=== PATIENT | female | born 1940 | race Caucasian/White ===

== ENCOUNTER → 2017-08-07 13:28 | Outpatient (CLI) | payer MEDICARE, SELFPAY ==
[2017-08-07 14:33] LABS: Absolute Lymphocyte Count 0.91 X10^3/ul (0.83-4.51); Absolute Neutrophil Count 9.8 X10^3/uL (2.0-7.7); Basophil# 0.03 X10^3/uL; Basophil% 0.3 % (0-1); Eosinophil# 0.05 X10^3/uL; Eosinophils% 0.4 % (0-5); Hematocrit 40.6 % (37-47); Hemoglobin 13.2 g/dl (12.0-15.0); Lymphocyte # 0.91 X10^3/ul (4.0); Lymphocyte % 8.1 % (19-41); Mean Corp Hgb Conc 32.5 g/gl (32-36); Mean Corpuscular Hgb 32.5 pg (27.0-32.0); Mean Platelet Vol. 9.2 fl (6.2-12.0); Monocyte# 0.42 X10^3/uL; Monocyte% 3.8 % (0-10); Neutrophil # 9.78 X10^3/uL (2.7-7.7); Neutrophil % 87.3 % (47-70); Platelet Count 248 K/mm3 (150-450); RBC Distribution Width CV 15.5 % (11.6-14.6); RBC Distribution Width SD 53.7 fl (35.1-43.9); Red Blood Count 4.06 M/mm3 (4.2-5.4); White Blood Count 11.2 K/mm3 (4.4-11.0)
[2017-08-07 14:56] LABS: AST(SGOT) 38 U/L (15-37); Alanine Aminotransfer ALT/SGPT 86 U/L (13-56); Albumin, Serum 3.7 g/dL (3.2-5.0); Alkaline Phosphatase 83 U/L (45-117); Anion Gap 10 (5-15); BUN 22 mg/dL (7-18); Calcium,Total 9.1 mg/dL (8.5-10.1); Chloride 103 mmol/L (98-107); EST Glomerular Filtration Rate 51 mL/min (>60); Est Glom Filt Rate - Afr Amer 62 mL/min (>60); Globulin 3.7 g/dL (2.2-4.2); Glucose 91 mg/dL (74-106); Potassium 3.7 mmol/L (3.5-5.1); Protein, Total 7.4 g/dL (6.4-8.2); Sodium Level 140 mmol/L (136-145)
[2017-08-07 15:49] LABS: POSITIVE COUNT NO; POSITIVE DIFFERENTIAL NO; POSITIVE MORPHOLOGY NO
== END ==
PROVIDERS: Family Provider Internal Medicine; PCP Internal Medicine; Visit Provider Internal Medicine Rheumatology
DX: M06.4 Inflammatory polyarthropathy (principal); Z79.899 Other long term (current) drug therapy; M15.9 Polyosteoarthritis, unspecified; M47.897 Other spondylosis, lumbosacral region; K57.90 Diverticulosis of intestine, part unspecified, without perforation or abscess without bleeding; I10 Essential (primary) hypertension; E78.5 Hyperlipidemia, unspecified
CPT/HCPCS: 36415; 80053; 85025

== ENCOUNTER → 2017-09-10 15:09 | Outpatient (CLI) | payer MEDICARE, SELFPAY ==
[2017-09-10 16:29] LABS: Absolute Lymphocyte Count 0.87 X10^3/ul (0.83-4.51); Absolute Neutrophil Count 15.9 X10^3/uL (2.0-7.7); Basophil# 0.02 X10^3/uL; Basophil% 0.1 % (0-1); Eosinophil# 0.03 X10^3/uL; Eosinophils% 0.2 % (0-5); Hematocrit 43.1 % (37-47); Lymphocyte # 0.87 X10^3/ul (4.0); Lymphocyte % 5.1 % (19-41); Mean Corp Hgb Conc 32.5 g/gl (32-36); Mean Corpuscular Hgb 31.3 pg (27.0-32.0); Mean Corpuscular Volume 96.4 fL (81-99); Mean Platelet Vol. 9.7 fl (6.2-12.0); Monocyte# 0.24 X10^3/uL; Monocyte% 1.4 % (0-10); Neutrophil # 15.94 X10^3/uL (2.7-7.7); Platelet Count 231 K/mm3 (150-450); RBC Distribution Width CV 13.8 % (11.6-14.6); RBC Distribution Width SD 47.7 fl (35.1-43.9); Red Blood Count 4.47 M/mm3 (4.2-5.4); White Blood Count 17.1 K/mm3 (4.4-11.0)
[2017-09-10 16:30] LABS: POSITIVE COUNT NO; POSITIVE DIFFERENTIAL NO; POSITIVE MORPHOLOGY NO
[2017-09-10 16:53] LABS: AST(SGOT) 23 U/L (15-37); Alanine Aminotransfer ALT/SGPT 20 U/L (13-56); Albumin, Serum 3.8 g/dL (3.2-5.0); Alkaline Phosphatase 93 U/L (45-117); Anion Gap 11 (5-15); BUN 25 mg/dL (7-18); BUN/Creat Ratio 17.1 RATIO (10-20); Calcium,Total 9.3 mg/dL (8.5-10.1); Chloride 104 mmol/L (98-107); Creatinine, Serum 1.46 mg/dL (0.55-1.02); EST Glomerular Filtration Rate 37 mL/min (>60); Est Glom Filt Rate - Afr Amer 45 mL/min (>60); Globulin 3.8 g/dL (2.2-4.2); Glucose 140 mg/dL (74-106); Potassium 3.9 mmol/L (3.5-5.1); Protein, Total 7.6 g/dL (6.4-8.2); Sodium Level 141 mmol/L (136-145)
== END ==
PROVIDERS: Family Provider Internal Medicine; PCP Internal Medicine; Visit Provider Internal Medicine Rheumatology
DX: M06.4 Inflammatory polyarthropathy (principal); Z79.899 Other long term (current) drug therapy; M47.897 Other spondylosis, lumbosacral region; K57.90 Diverticulosis of intestine, part unspecified, without perforation or abscess without bleeding; I10 Essential (primary) hypertension; E78.5 Hyperlipidemia, unspecified
CPT/HCPCS: 36415; 80053; 85025

== ENCOUNTER → 2017-11-09 13:20 | Outpatient (CLI) | payer MEDICARE, SELFPAY ==
[2017-11-09 13:52] LABS: ALB/GLOB Ratio 0.9 RATIO (0.9-2.4); AST(SGOT) 31 U/L (15-37); Alanine Aminotransfer ALT/SGPT 25 U/L (13-56); Albumin, Serum 3.7 g/dL (3.2-5.0); Alkaline Phosphatase 106 U/L (45-117); Anion Gap 7 (5-15); BUN 15 mg/dL (7-18); BUN/Creat Ratio 12.4 RATIO (10-20); Calcium,Total 9.3 mg/dL (8.5-10.1); Chloride 103 mmol/L (98-107); Creatinine, Serum 1.21 mg/dL (0.55-1.02); EST Glomerular Filtration Rate 46 mL/min (>60); Est Glom Filt Rate - Afr Amer 56 mL/min (>60); Globulin 4.1 g/dL (2.2-4.2); Glucose 86 mg/dL (74-106); Potassium 3.8 mmol/L (3.5-5.1); Protein, Total 7.8 g/dL (6.4-8.2); Sodium Level 137 mmol/L (136-145)
[2017-11-09 13:54] LABS: Absolute Lymphocyte Count 0.99 X10^3/ul (0.83-4.51); Basophil# 0.04 X10^3/uL; Basophil% 0.7 % (0-1); Eosinophil# 0.06 X10^3/uL; Eosinophils% 1.1 % (0-5); Hematocrit 42.6 % (37-47); Hemoglobin 14.2 g/dl (12.0-15.0); Lymphocyte # 0.99 X10^3/ul (4.0); Lymphocyte % 17.4 % (19-41); Mean Corp Hgb Conc 33.3 g/gl (32-36); Mean Corpuscular Hgb 30.6 pg (27.0-32.0); Mean Corpuscular Volume 91.8 fL (81-99); Mean Platelet Vol. 9.9 fl (6.2-12.0); Monocyte% 10.5 % (0-10); Neutrophil % 70.1 % (47-70); Platelet Count 203 K/mm3 (150-450); RBC Distribution Width CV 12.9 % (11.6-14.6); RBC Distribution Width SD 42.1 fl (35.1-43.9); Red Blood Count 4.64 M/mm3 (4.2-5.4); White Blood Count 5.7 K/mm3 (4.4-11.0)
[2017-11-09 13:56] LABS: POSITIVE COUNT NO; POSITIVE DIFFERENTIAL NO; POSITIVE MORPHOLOGY NO
== END ==
PROVIDERS: Family Provider Internal Medicine; PCP Internal Medicine; Visit Provider Internal Medicine Rheumatology
DX: M06.4 Inflammatory polyarthropathy (principal); Z79.899 Other long term (current) drug therapy; M15.9 Polyosteoarthritis, unspecified; M47.897 Other spondylosis, lumbosacral region; K57.90 Diverticulosis of intestine, part unspecified, without perforation or abscess without bleeding; I10 Essential (primary) hypertension; E78.5 Hyperlipidemia, unspecified
CPT/HCPCS: 36415; 80053; 85025

== ENCOUNTER → 2018-02-03 10:57 | Outpatient (CLI) | payer MEDICARE, SELFPAY ==
[2018-02-03 12:29] LABS: Absolute Lymphocyte Count 1.32 X10^3/ul (0.83-4.51); Basophil# 0.03 X10^3/uL; Basophil% 0.3 % (0-1); Eosinophil# 0.06 X10^3/uL; Eosinophils% 0.6 % (0-5); Hematocrit 43.1 % (37-47); Hemoglobin 14.5 g/dl (12.0-15.0); Lymphocyte # 1.32 X10^3/ul (4.0); Lymphocyte % 12.7 % (19-41); Mean Corp Hgb Conc 33.6 g/gl (32-36); Mean Corpuscular Hgb 30.5 pg (27.0-32.0); Mean Corpuscular Volume 90.7 fL (81-99); Mean Platelet Vol. 9.2 fl (6.2-12.0); Monocyte# 0.85 X10^3/uL; Monocyte% 8.2 % (0-10); Neutrophil # 8.04 X10^3/uL (2.7-7.7); Neutrophil % 77.6 % (47-70); Platelet Count 257 K/mm3 (150-450); RBC Distribution Width CV 14.3 % (11.6-14.6); RBC Distribution Width SD 47.4 fl (35.1-43.9); Red Blood Count 4.75 M/mm3 (4.2-5.4); White Blood Count 10.4 K/mm3 (4.4-11.0)
[2018-02-03 12:37] LABS: POSITIVE COUNT NO; POSITIVE DIFFERENTIAL NO; POSITIVE MORPHOLOGY NO
[2018-02-03 13:14] LABS: ALB/GLOB Ratio 0.9 RATIO (0.9-2.4); AST(SGOT) 18 U/L (15-37); Alanine Aminotransfer ALT/SGPT 24 U/L (13-56); Albumin, Serum 3.5 g/dL (3.2-5.0); Alkaline Phosphatase 75 U/L (45-117); Anion Gap 7 (5-15); BUN 20 mg/dL (7-18); BUN/Creat Ratio 20.2 RATIO (10-20); Calcium,Total 9.4 mg/dL (8.5-10.1); Chloride 99 mmol/L (98-107); Creatinine, Serum 0.99 mg/dL (0.55-1.02); EST Glomerular Filtration Rate 58 mL/min (>60); Est Glom Filt Rate - Afr Amer 70 mL/min (>60); Globulin 3.7 g/dL (2.2-4.2); Glucose 75 mg/dL (74-106); Protein, Total 7.2 g/dL (6.4-8.2); Sodium Level 136 mmol/L (136-145)
== END ==
PROVIDERS: Family Provider Internal Medicine; PCP Internal Medicine; Referring Provider Internal Medicine Rheumatology; Visit Provider Internal Medicine Rheumatology
DX: M06.4 Inflammatory polyarthropathy (principal); Z79.899 Other long term (current) drug therapy; M15.9 Polyosteoarthritis, unspecified; M47.897 Other spondylosis, lumbosacral region; K57.90 Diverticulosis of intestine, part unspecified, without perforation or abscess without bleeding; I10 Essential (primary) hypertension; E78.5 Hyperlipidemia, unspecified
CPT/HCPCS: 36415; 80053; 85025

== ENCOUNTER 2018-03-04 17:16 | Emergency (ER) | payer MEDICARE, SELFPAY ==
[2018-03-04 17:17] VITALS: BP 153/87; PULSE 85; RESP 17
[2018-03-04 17:18] VITALS: BP 153/87; PULSE 85; RESP 17; TEMP 36.5; O2SAT 98; BMI 28.3
--- NOTE | 2018-03-04 17:48 | ED.VISSUMM ---
- ER Visit Summary Date of Service: 03/04/18 Chief Complaint: Left lower back pain History of Present Illness: The patient is a 77 F who presents with left lower back pain since December. Patient states she had sudden onset of the left lower back pain early in December, and has had multiple visits with her primary care doctor as well as Dr. Barger, sign painter helper. Patient has tried acupuncture, oral steroids, cortisone injections, cortisone injection into her spine, Tylenol, and is now taking [place] +1000 mg of Tylenol every 6 hours for several days. She has an MRI scheduled on Thursday for further evaluation. She is getting no relief from any of her treatments and is very uncomfortable. Pain is worse with standing, and even difficult to sit without discomfort. Pain radiates from the left lower back into the buttock around the hip and down the anterior thigh to the knee. Patient thought her lower leg was cold today. She has a history of multiple surgeries to the left foot with a tendon removal to the great toe. She denies any bowel or bladder incontinence or retention. She states she does have urinary urgency but is able to tell when she needs to go to the bathroom. No fever. No weakness in the legs. Physical Examination: Vital signs: afebrile, hemodynamically stable, no hypoxia on room air General: well nourished, well developed, in no distress Skin: warm, dry, no rash, no pallor HEENT: normocephalic and atraumatic; PERRL, EOMI, moist mucous membranes Cardiovascular: regular rate and rhythm without murmurs, no peripheral edema, 2+ pulses all distal extremities Respiratory: No increased work of breathing, lungs are clear to auscultation bilaterally, no rales, rhonchi or wheezing Abdominal: Abdomen is soft, nontender with normoactive bowel sounds, no guarding or rebound, no masses Back: No midline deformities, tenderness or step-offs. Tenderness to the left paraspinal lumbar and buttock region. Straight leg raise is negative bilaterally in the seated position. MSK: Moves all extremities, no deformities, normal strength, no EHL function in the left foot secondary to missing tendon, mild contusion over the dorsum of the foot. Symmetric temperature of the legs and skin. Sensation intact all dermatomes. Neuro: Awake and alert, oriented ?4. No facial droop, sensation and motor function intact and symmetric Test Results: Abnormal Lab Results 03/04/18 03/04/18 18:05 18:05 Sodium 140 Potassium 3.3 L Chloride 104 Carbon Dioxide 24.0 Anion Gap 12 BUN 29 H Creatinine 1.02 Estim Creat Clear Calc 37.11 Est GFR (MDRD) Af Amer 68 Est GFR (MDRD) Non-Af 56 L BUN/Creatinine Ratio 28.4 H Glucose 115 H Calcium 10.7 H Total Bilirubin 0.30 AST 14 L ALT 25 Alkaline Phosphatase 111 Total Protein 7.3 Albumin 3.6 Globulin 3.7 Albumin/Globulin Ratio 1.0 Acetaminophen < 2.0 L Medications Given Discontinued Medications Morphine Sulfate () 4 mg IV X1 ONE Stop: 03/04/18 20:05 Last Admin: 03/04/18 20:26 Dose: 4 mg Ondansetron HCl (Zofran) 4 mg IV X1 ONE Stop: 03/04/18 20:05 Last Admin: 03/04/18 20:26 Dose: 4 mg Oxycodone HCl (Oxyir) 5 mg PO X1 ONE Stop: 03/04/18 17:49 Last Admin: 03/04/18 18:02 Dose: 5 mg Emergency Department Course and Treatment: Patient has an MRI scheduled for Thursday, and currently has tried multiple pharmacological and non- pharmacological treatments for her back pain. We discussed that since she is in pain management and already has a prescriber of [place], I cannot prescribe her any further controlled substances. She was given a dose of oxycodone in the emergency department. Her heavy use of Tylenol is concerning, and CMP and Tylenol level were checked. Labs showed no hepatic dysfunction and Tylenol level was undetectable. Patient had no red flag symptoms that would warrant emergent MRI. She is at her baseline level of pain. Patient was given a dose of morphine and Zofran prior to give her further pain relief prior to discharge. She will continue her [place] and keep her appointment on Thursday for the MRI. She will return if any development of red flag symptoms or other concerns. Treatment Plan: [] Disposition: [] Impression: Acute exacerbation of chronic low back pain, radicular back pain This note was generated with Linqiaation software. It may contain incorrect words, spelling, and punctuation that were not noted in review of the chart prior to signing ED Disposition - Plan for ED Patient: Disposition: Home or Assisted Living Chief Complaint: Back Instructions: ED Sciatica Referrals: Koffi Barger [NON-STAFF] - As soon as possible Deonte Goldberg MD [NON-STAFF] - 3-5 Days if not improving Additional Instructions: Please keep your appointment on Thursday for your MRI of your back. Continue taking your pain medications as prescribed. Do not take more than 3000 mg of Tylenol in 1 day. Each tablet of [place] has 325 mg of Tylenol in it. If you have any worsening of your condition or any new concerning symptoms, please return immediately to the emergency department for another evaluation. If you have any worsening of your condition or any new concerning symptoms, please return immediately to the emergency department for another evaluation.
[2018-03-04] MEDS: oxyCODONE 5 MG Tablet PO (18:02)
[2018-03-04 18:34] LABS: Albumin, Serum 3.6 g/dL (3.2-5.0); BUN 29 mg/dL (7-18); BUN/Creat Ratio 28.4 RATIO (10-20); Creatinine, Serum 1.02 mg/dL (0.55-1.02); EST Glomerular Filtration Rate 56 mL/min (>60); Est Glom Filt Rate - Afr Amer 68 mL/min (>60); Estimated Creatinine Clearance 37.11 ml/min; Glucose 115 mg/dL (74-106); Protein, Total 7.3 g/dL (6.4-8.2)
[2018-03-04 18:35] LABS: AST(SGOT) 14 U/L (15-37); Alanine Aminotransfer ALT/SGPT 25 U/L (13-56); Alkaline Phosphatase 111 U/L (45-117); Anion Gap 12 (5-15); Calcium,Total 10.7 mg/dL (8.5-10.1); Chloride 104 mmol/L (98-107); Globulin 3.7 g/dL (2.2-4.2); Potassium 3.3 mmol/L (3.5-5.1); Sodium Level 140 mmol/L (136-145)
[2018-03-04 19:38] LABS: Acetaminophen (Tylenol) Level < 2.0 ug/mL (10.0-30.0)
--- NOTE | 2018-03-04 20:06 | DCINST.ED_ITS ---
ED Disposition - Plan for ED Patient: Disposition: Home or Assisted Living Chief Complaint: Back Instructions: ED Sciatica Referrals: Deonte Goldberg MD [NON-STAFF] - 3-5 Days if not improving Koffi Barger [NON-STAFF] - As soon as possible Additional Instructions: Please keep your appointment on Thursday for your MRI of your back. Continue taking your pain medications as prescribed. Do not take more than 3000 mg of Tylenol in 1 day. Each tablet of [place] has 325 mg of Tylenol in it. If you have any worsening of your condition or any new concerning symptoms, please return immediately to the emergency department for another evaluation. If you have any worsening of your condition or any new concerning symptoms, please return immediately to the emergency department for another evaluation.
[2018-03-04] MEDS: Morphine 4 MG/ML Syringe IV (20:26)
[2018-03-04] MEDS: Ondansetron 4 MG/2 ML Vial IV (20:26)
[2018-03-04 20:57] VITALS: BP 158/79; PULSE 67; RESP 14; O2SAT 92
== END 2018-03-04 20:57 | disposition home or self-care (01) ==
PROVIDERS: Emergency Provider Emergency Medicine; Family Provider Internal Medicine; PCP Internal Medicine
DX: G89.29 Other chronic pain (principal); M54.5 Low back pain; Z79.899 Other long term (current) drug therapy; R39.15 Urgency of urination
CPT/HCPCS: 80053; 80329; 96374; 96375; 99283; A4216; G0480; J2405

== ENCOUNTER 2018-04-21 14:00 | Outpatient (RCR) | payer MEDICARE, SELFPAY ==
--- NOTE | 2018-03-24 15:28 | HP.PTEVAL_ITS ---
Patient's Visit Information RONNELL HERZOG is a 77 year old F referred to Physical Therapy by LATONYA ESTRADA with a diagnosis of L radiculopathy. Date of Evaluation: 03/24/18 Physical Therapist: Dioni Rincon DPT, OC - Visit Plan Frequency: 3x /Week Duration: 4-6 Weeks Plan: 3x/week for 3-6 weeks for pool based LB ROM and LE/postural core strength adn progress to I as able OR possibly land based ex if symptoms subside adn walking improves. - Subjective Findings: Dec 23 woke up with bad pain, was bending alot and sorting in boxes on floor bent over, bad pain the next day in LB and left leg to knee anrteriorly. 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 Treated with prednisone 2x but did not help. Sent to Dr. Barger who did a causal cortisone injection which did not help. Better when sitting then walking. Left leg gets cold at times. Went to ER and got morphine shot which knocked her out for a long time. Slightly better the next day. Saw Dr. Goldberg who ordered MRI and sent to Spine surgeon in [place] whom she saw last week. Sent back to dr. Barger for another shot. She cage ee him Thursday next. Also sent for PT. Would rather not operate and await results of shot for possible surgery. Sleeping OK on meds but has cut back considerably so hse does not run out. Spends time lying on couch for 2+months. 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 Has not been able to take care of the house. Even the basics of showering and dressing are difficult. - Pain LBP and left leg Pain Intensity (Out of 10): 6 Pain Intensity Range: 6, 8 - Objective Leans R in sitting and standing to keep pressure off L spine. Pt is flexed forward in standing to keep pressure off of extension. Walks slowly and L antalgia with cane 120 feet to [facility] room, supervision, Walked out with walker much faster and less antalgia albeit still present adn leaning R. Trasnfers I. - slump and - SLR. Weakness evident in DF L 4- vs 4 R. knee ext adn felxion 4 B, hip flexion painful on L and 4- vs 4 on R. Sensation WNL to gross light touch B LE. reflexes 2/3 patella and achilles. LB ROM ext adn L SB very limited adn painful, R SB is good, flexion is slow but no increased pain. - Goals Goal 1:: Walk upright without pain Goal Time Frame: 4-6 Weeks Goal 2:: Functional ROM of spine for good posture without pain. Goal Time Frame: 4-6 Weeks Goal 3:: I apporp HEP to minimize future problems adn pain. Goal Time Frame: 4-6 Weeks Goal 4:: Patient feel 75% better overall and pain intermittent adn 2/10 at worst Goal Time Frame: 4-6 Weeks Goal 5:: Sleep without interruption. 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 Rehabilitation Potential: Questionable - Anticipated Interventions Patient/Client Instruction: Educate patient on: Condition, Plan of Care For the Purpose of:: To decrease pain, To increase tolerance to activity/condition/position Therapeutic Exercise to Include: Strength training, Postural training, Flexibilty training, Gait and locomotor training, In an aquatic setting, Active ROM, Dynamic Lumbar Stabilization For the Purpose of:: To decrease pain, To increase ROM, To increase tolerance to activity/condition/position, To improve gait and locomotor functions Thank you for the opportunity to evaluate your patient. For Medicare and Medicare HMO plans, please review the plan of care and approve it. It will need to be FAXED BACK to us at [phone] for Medicare purposes. For Medicare only, by signing this I certify the plan of care. Please let me know if there are questions or concerns regarding this plan of care. Physician Signature: Date:
--- NOTE | 2018-04-21 14:21 | HP.PTDCSUM_ITS ---
HP - PT D/C Summary It has been my pleasure to treat RONNELL HERZOG under orders from LATONYA ESTRADA, for the diagnosis of L radiculopathy for a total of 10 visit(s). Discharge Date: 04/21/18 Please see the following information for a summary of their discharge status. - Subjective Subjective: Couple days ago got bad pain again. prior was getting better by about 30%. Was standing straighter. Now is worse again. Pain today 8/10 in L knee and hip. Mostly in side of L hip. Back to doctor next to surgeon in [place]. Dr Rios. Next step is surgery and she wants to make this go away. Got another injection a couple weeks ago and it helped for two days. Nothing helps. Water feels good when she is in there but doesn't last long. - Pain LBP and left leg Pain Intensity (Out of 10): 6 LBP Pain Intensity (Out of 10): 5 LLE Pain Intensity (Out of 10): 8 - Overall Improvement % Improvement: 30 - Objective Objective/Function: Pt still needs walker to ambulate and leans R and forward into flexion. Attempting to extend to neutral and SB to neutral L gives her vicous pain in L LB and leg. Not improved overall and frustrated with pain for four months. - Goals Goal 1:: Walk upright without pain Goal Progress: Not Progressing Goal 2:: Functional ROM of spine for good posture without pain. Goal Progress: Not Progressing Goal 3:: I apporp HEP to minimize future problems adn pain. Goal Progress: Not Progressing Goal 4:: Patient feel 75% better overall and pain intermittent adn 2/10 at worst Goal Progress: Progressing slowly Goal 5:: Sleep without interruption. Goal Progress: Progressing - Plan Plan: d/c back to doctor. - D/C Information Discharge Comments: Pt not improving and will see surgeon next week for further options. Water therapy was not helpful. If there are questions or concerns regarding this patient's physical therapy, please feel free to call me at [phone]. Thank you for the referral of this patient. Sincerely, Dioni Rincon, DPT, OCS, CSCS
== END 2018-04-21 19:00 | disposition home or self-care (01) ==
LOC: PT 14:00
PROVIDERS: Family Provider Internal Medicine; PCP Internal Medicine
DX: M41.9 Scoliosis, unspecified (principal); M54.16 Radiculopathy, lumbar region
CPT/HCPCS: 97113; 97162; 97530

== ENCOUNTER → 2018-08-06 13:05 | Outpatient (CLI) | payer MEDICARE, SELFPAY ==
[2018-08-06 14:16] LABS: Absolute Lymphocyte Count 1.71 X10^3/ul (0.83-4.51); Absolute Neutrophil Count 5.9 X10^3/uL (2.0-7.7); Basophil# 0.02 X10^3/uL; Basophil% 0.2 % (0-1); Eosinophil# 0.17 X10^3/uL; Hematocrit 39.3 % (37-47); Hemoglobin 12.7 g/dl (12.0-15.0); Lymphocyte # 1.71 X10^3/ul (4.0); Mean Corp Hgb Conc 32.3 g/gl (32-36); Mean Corpuscular Hgb 29.7 pg (27.0-32.0); Mean Corpuscular Volume 91.8 fL (81-99); Mean Platelet Vol. 9.3 fl (6.2-12.0); Monocyte# 0.71 X10^3/uL; Monocyte% 8.3 % (0-10); Neutrophil # 5.91 X10^3/uL (2.7-7.7); Neutrophil % 69.4 % (47-70); POSITIVE COUNT NO; POSITIVE DIFFERENTIAL NO; POSITIVE MORPHOLOGY NO; Platelet Count 272 K/mm3 (150-450); RBC Distribution Width CV 13.7 % (11.6-14.6); Red Blood Count 4.28 M/mm3 (4.2-5.4); White Blood Count 8.5 K/mm3 (4.4-11.0)
[2018-08-06 14:32] LABS: ALB/GLOB Ratio 1.1 RATIO (0.9-2.4); AST(SGOT) 16 U/L (15-37); Alanine Aminotransfer ALT/SGPT 15 U/L (13-56); Albumin, Serum 3.7 g/dL (3.2-5.0); Alkaline Phosphatase 69 U/L (45-117); Anion Gap 7 (5-15); BUN 23 mg/dL (7-18); BUN/Creat Ratio 24.6 RATIO (10-20); Calcium,Total 9.9 mg/dL (8.5-10.1); Chloride 104 mmol/L (98-107); Creatinine, Serum 0.93 mg/dL (0.55-1.02); EST Glomerular Filtration Rate 62 mL/min (>60); Est Glom Filt Rate - Afr Amer 75 mL/min (>60); Globulin 3.3 g/dL (2.2-4.2); Glucose 78 mg/dL (74-106); Potassium 3.6 mmol/L (3.5-5.1); Sodium Level 139 mmol/L (136-145)
== END ==
PROVIDERS: Family Provider Internal Medicine; PCP Internal Medicine; Referring Provider Internal Medicine Rheumatology; Visit Provider Internal Medicine Rheumatology
DX: M06.4 Inflammatory polyarthropathy (principal); Z79.899 Other long term (current) drug therapy; M47.897 Other spondylosis, lumbosacral region; K57.90 Diverticulosis of intestine, part unspecified, without perforation or abscess without bleeding; I10 Essential (primary) hypertension; E78.5 Hyperlipidemia, unspecified
CPT/HCPCS: 36415; 80053; 85025

== ENCOUNTER 2018-09-03 14:00 | Outpatient (RCR) | payer MEDICARE, SELFPAY ==
--- NOTE | 2018-11-05 16:28 | HP.PTEVAL ---
Patient's Visit Information RONNELL HERZOG is a 78 year old F referred to Physical Therapy by IRA Manuel with a diagnosis of S/P lumbar spinal fusion. Date of Evaluation: 07/29/18 Physical Therapist: Francisco Diez DPT - Visit Plan Frequency: 2x /Week Duration: 4 Weeks Plan: Pt. to follow up with physician due to higher than expected pain and difficulty getting erect posture. - Subjective Findings: Pt. is here today for her initial evaluation with diagnosis of lumbar spinal fusion. Pt. reports continued pain since surgery, but better than previous. Pt. reports continued pain in her leg, but only when she is walking. Pt. is using walker currently. Pt. reports increased pain with getting and with walking. No pain with sleeping or sitting. Pt. denies N/T, no changes in B/B. Pt. arrives today with walker. Pt. is hopeful to get back to all recreational activities without limitaitons. - Pain Lumbar spine Pain Intensity (Out of 10): 0 Pain Intensity Range: 0, 5 L hip Pain Intensity (Out of 10): 1 Pain Intensity Range: 0, 6 Comment: increases to 5/10 with walking - Objective POSTURE: Pt. has flexed posture, R lateral shift in stance. Pt. has increased pain attempting to correct out of these positions. PALPATION: Pt. has well healing incsion. Pt. does have increasred pain at L hip. Pt. reports no N/T. NEURO: normal throuhgout. ROM: LUMBAR SPINE: flexion nil los, ext max loss icnrease NW, SB mod loss increase NW, rotaiton not tested. MMT: Pt. has 4/5 throuhgout ankle and knee, but 3/5 with bilateral hips. GAIT: Pt. ambulates with FWW, unable to ambulate without. Pt. reports increased pain in hip with all walking. Pt. is able to ambulate upto 150' before requiring increased rest periods. - Goals Goal 1:: Pt. to be I with HEP. Goal Time Frame: 4-6 Weeks Goal 2:: Pt. to have increased lumbar ROM by 25% in all directions without increase in symptoms. Goal Time Frame: 4-6 Weeks Goal 3:: Pt. to sleep without increase in symptoms. Goal Time Frame: 4-6 Weeks Goal 4:: Pt. to be able to stand without brace without increase in symptoms. Goal Time Frame: 4-6 Weeks Goal 5:: Pt. to walk unlimited distances with least restrictive device without increase in symptoms. Goal Time Frame: 4-6 Weeks Goal 6:: Pt. to have increased core and hip strength by 1/2 grade to increase stability of lumbar spine with all fucntional mobility. Goal Time Frame: 4-6 Weeks - Rehabilitation Potential Physical Therapy Diagnosis: Pt. has signs and symptosm consistent wtih low back pain after S/P fusion. Pt. reports increased pain with walking and standing. She would benefit from core stabilitya nd gentle ROM execises. Rehabilitation Potential: Good - Anticipated Interventions Patient/Client Instruction: Educate patient on: Condition, Plan of Care, Risk Factors, Benefits of Fitness Program For the Purpose of:: To foster healthy habits, To improve decision making, To improve self management, To prevent re-injury, To improve ability to perform tasks related to life management, To improve tolerance to ADL's Therapeutic Exercise to Include: Strength training, Power training, Endurance training, Body mechanics, Postural training, Flexibilty training, Gait and locomotor training, Dynamic Lumbar Stabilization For the Purpose of:: To decrease pain, To decrease swelling/inflammation, To increase ROM, To improve nutrient delivery to tissue, To improve muscle performance and motor function, To improve gait and locomotor functions, To improve health of tissue, To decrease soft tissue restriction, To increase flexibility/ROM, To improve endurance, To improve balance, To improve safety with gait TENS: Yes IF ES: Yes Cryotherapy (ice pack, ice massage): Yes For the Purpose of:: To decrease pain, To decrease swelling/inflammation, To increase ROM, To improve nutrient delivery to tissue, To improve muscle performance and motor function Thank you for the opportunity to evaluate your patient. For Medicare and Medicare HMO plans, please review the plan of care and approve it. It will need to be FAXED BACK to us at [phone] for Medicare purposes. For Medicare only, by signing this I certify the plan of care. Please let me know if there are questions or concerns regarding this plan of care. Physician Signature: Date:
== END 2018-09-03 19:00 | disposition home or self-care (01) ==
LOC: PT 14:00
PROVIDERS: Family Provider Internal Medicine; PCP Internal Medicine; Referring Provider Nurse Practitioner; Visit Provider Nurse Practitioner
DX: Z48.89 Encounter for other specified surgical aftercare (principal)
CPT/HCPCS: 97110; 97161

== ENCOUNTER → 2019-02-04 13:43 | Outpatient (CLI) | payer MEDICARE, SELFPAY ==
[2019-02-04 16:05] LABS: Absolute Lymphocyte Count 1.68 X10^3/uL (0.83-4.51); Absolute Neutrophil Count 5.1 X10^3/uL (2.0-7.7); Basophil# 0.05 X10^3/uL; Basophil% 0.7 % (0-1); Eosinophil# 0.12 X10^3/uL; Eosinophils% 1.6 % (0-5); Hematocrit 40.6 % (37-47); Hemoglobin 12.8 g/dL (12.0-15.0); Lymphocyte # 1.68 X10^3/ul (4.0); Mean Corp Hgb Conc 31.5 g/dL (32-36); Mean Corpuscular Hgb 29.5 pg (27.0-32.0); Mean Corpuscular Volume 93.5 fL (81-99); Mean Platelet Vol. 9.8 fl (6.2-12.0); Monocyte# 0.65 X10^3/uL; Monocyte% 8.5 % (0-10); NRBC Flagged by Analyzer 0 % (0-5); Neutrophil # 5.13 X10^3/uL (2.7-7.7); Neutrophil % 66.9 % (47-70); Platelet Count 255 K/mm3 (150-450); RBC Distribution Width CV 13.5 % (11.6-14.6); RBC Distribution Width SD 46.2 fl (35.1-43.9); Red Blood Count 4.34 M/mm3 (4.2-5.4); White Blood Count 7.7 K/mm3 (4.4-11.0)
[2019-02-04 16:41] LABS: ALB/GLOB Ratio 1.1 RATIO (0.9-2.4); AST(SGOT) 18 U/L (15-37); Alanine Aminotransfer ALT/SGPT 18 U/L (13-56); Albumin, Serum 3.6 g/dL (3.2-5.0); Alkaline Phosphatase 59 U/L (45-117); Anion Gap 7 (5-15); BUN 18 mg/dL (7-18); BUN/Creat Ratio 19.5 RATIO (10-20); Chloride 104 mmol/L (98-107); Creatinine, Serum 0.92 mg/dL (0.55-1.02); EST Glomerular Filtration Rate 63 mL/min (>60); Est Glom Filt Rate - Afr Amer 76 mL/min (>60); Globulin 3.4 g/dL (2.2-4.2); Glucose 67 mg/dL (74-106); Potassium 3.6 mmol/L (3.5-5.1); Sodium Level 139 mmol/L (136-145)
== END ==
PROVIDERS: Family Provider Internal Medicine; PCP Internal Medicine; Referring Provider Internal Medicine Rheumatology; Visit Provider Internal Medicine Rheumatology
DX: M06.4 Inflammatory polyarthropathy (principal); Z79.899 Other long term (current) drug therapy; M15.9 Polyosteoarthritis, unspecified; M47.897 Other spondylosis, lumbosacral region; K57.90 Diverticulosis of intestine, part unspecified, without perforation or abscess without bleeding; I10 Essential (primary) hypertension; E78.5 Hyperlipidemia, unspecified
CPT/HCPCS: 36415; 80053; 85025

== ENCOUNTER → 2019-03-24 14:15 | Outpatient (CLI) | payer MEDICARE, SELFPAY ==
[2019-03-24 16:01] LABS: Absolute Lymphocyte Count 1.64 X10^3/uL (0.83-4.51); Absolute Neutrophil Count 4.8 X10^3/uL (2.0-7.7); Basophil# 0.03 X10^3/uL; Basophil% 0.4 % (0-1); Eosinophil# 0.14 X10^3/uL; Eosinophils% 1.9 % (0-5); Hematocrit 37.6 % (37-47); Hemoglobin 12.2 g/dL (12.0-15.0); Lymphocyte # 1.64 X10^3/ul (4.0); Lymphocyte % 22.7 % (19-41); Mean Corp Hgb Conc 32.4 g/dL (32-36); Mean Corpuscular Hgb 30.2 pg (27.0-32.0); Mean Corpuscular Volume 93.1 fL (81-99); Mean Platelet Vol. 9.9 fl (6.2-12.0); Monocyte# 0.65 X10^3/uL; NRBC Flagged by Analyzer 0 % (0-5); Neutrophil # 4.76 X10^3/uL (2.7-7.7); Neutrophil % 65.7 % (47-70); Platelet Count 239 K/mm3 (150-450); RBC Distribution Width CV 14.2 % (11.6-14.6); RBC Distribution Width SD 47.5 fl (35.1-43.9); Red Blood Count 4.04 M/mm3 (4.2-5.4); White Blood Count 7.2 K/mm3 (4.4-11.0)
[2019-03-24 16:25] LABS: ALB/GLOB Ratio 1.1 RATIO (0.9-2.4); AST(SGOT) 20 U/L (15-37); Alanine Aminotransfer ALT/SGPT 22 U/L (13-56); Albumin, Serum 3.8 g/dL (3.2-5.0); Alkaline Phosphatase 64 U/L (45-117); Anion Gap 7 (5-15); BUN 27 mg/dL (7-18); BUN/Creat Ratio 27.3 RATIO (10-20); Calcium,Total 9.8 mg/dL (8.5-10.1); Chloride 105 mmol/L (98-107); Creatinine, Serum 0.99 mg/dL (0.55-1.02); EST Glomerular Filtration Rate 58 mL/min (>60); Est Glom Filt Rate - Afr Amer 70 mL/min (>60); Globulin 3.4 g/dL (2.2-4.2); Glucose 86 mg/dL (74-106); Potassium 3.4 mmol/L (3.5-5.1); Protein, Total 7.2 g/dL (6.4-8.2); Sodium Level 140 mmol/L (136-145)
== END ==
PROVIDERS: Family Provider Internal Medicine; PCP Internal Medicine; Referring Provider Internal Medicine Rheumatology; Visit Provider Internal Medicine Rheumatology
DX: M06.4 Inflammatory polyarthropathy (principal); Z79.899 Other long term (current) drug therapy; M47.897 Other spondylosis, lumbosacral region; K57.90 Diverticulosis of intestine, part unspecified, without perforation or abscess without bleeding; I10 Essential (primary) hypertension; E78.5 Hyperlipidemia, unspecified
CPT/HCPCS: 36415; 80053; 85025

== ENCOUNTER → 2019-06-24 14:34 | Outpatient (CLI) | payer MEDICARE, SELFPAY ==
[2019-06-24 17:19] LABS: Absolute Lymphocyte Count 1.88 X10^3/uL (0.83-4.51); Absolute Neutrophil Count 5.4 X10^3/uL (2.0-7.7); Basophil# 0.07 X10^3/uL; Basophil% 0.8 % (0-1); Eosinophil# 0.23 X10^3/uL; Eosinophils% 2.7 % (0-5); Hematocrit 39.7 % (37-47); Hemoglobin 12.3 g/dL (12.0-15.0); Lymphocyte # 1.88 X10^3/ul (4.0); Lymphocyte % 22.2 % (19-41); Mean Corpuscular Hgb 28.7 pg (27.0-32.0); Mean Corpuscular Volume 92.5 fL (81-99); Mean Platelet Vol. 9.8 fl (6.2-12.0); Monocyte# 0.85 X10^3/uL; NRBC Flagged by Analyzer 0 % (0-5); Neutrophil # 5.42 X10^3/uL (2.7-7.7); Neutrophil % 63.9 % (47-70); Platelet Count 301 K/mm3 (150-450); RBC Distribution Width CV 16.4 % (11.6-14.6); RBC Distribution Width SD 55.3 fl (35.1-43.9); Red Blood Count 4.29 M/mm3 (4.2-5.4); White Blood Count 8.5 K/mm3 (4.4-11.0)
[2019-06-24 17:36] LABS: ALB/GLOB Ratio 1.1 RATIO (0.9-2.4); AST(SGOT) 23 U/L (15-37); Alanine Aminotransfer ALT/SGPT 25 U/L (13-56); Albumin, Serum 3.7 g/dL (3.2-5.0); Alkaline Phosphatase 65 U/L (45-117); Anion Gap 4 (5-15); BUN 24 mg/dL (7-18); BUN/Creat Ratio 23.8 RATIO (10-20); Calcium,Total 9.3 mg/dL (8.5-10.1); Chloride 105 mmol/L (98-107); Creatinine, Serum 1.01 mg/dL (0.55-1.02); EST Glomerular Filtration Rate 56 mL/min (>60); Est Glom Filt Rate - Afr Amer 68 mL/min (>60); Globulin 3.5 g/dL (2.2-4.2); Glucose 68 mg/dL (74-106); Potassium 3.4 mmol/L (3.5-5.1); Protein, Total 7.2 g/dL (6.4-8.2); Sodium Level 138 mmol/L (136-145)
== END ==
PROVIDERS: PCP Internal Medicine; Referring Provider Internal Medicine Rheumatology; Visit Provider Internal Medicine Rheumatology
DX: M06.4 Inflammatory polyarthropathy (principal); Z79.899 Other long term (current) drug therapy; G56.03 Carpal tunnel syndrome, bilateral upper limbs; M47.897 Other spondylosis, lumbosacral region; K57.90 Diverticulosis of intestine, part unspecified, without perforation or abscess without bleeding; I10 Essential (primary) hypertension; E78.5 Hyperlipidemia, unspecified
CPT/HCPCS: 36415; 80053; 85025

== ENCOUNTER → 2019-09-08 14:05 | Outpatient (CLI) | payer MEDICARE, SELFPAY ==
[2019-09-08 15:37] LABS: Absolute Lymphocyte Count 1.66 X10^3/uL (0.83-4.51); Absolute Neutrophil Count 7.3 X10^3/uL (2.0-7.7); Basophil# 0.06 X10^3/uL; Basophil% 0.6 % (0-1); Eosinophil# 0.08 X10^3/uL; Eosinophils% 0.8 % (0-5); Hematocrit 39.1 % (37-47); Hemoglobin 12.3 g/dL (12.0-15.0); Lymphocyte # 1.66 X10^3/ul (4.0); Lymphocyte % 16.6 % (19-41); Mean Corp Hgb Conc 31.5 g/dL (32-36); Mean Corpuscular Hgb 28.8 pg (27.0-32.0); Mean Corpuscular Volume 91.6 fL (81-99); Monocyte# 0.87 X10^3/uL; Monocyte% 8.7 % (0-10); NRBC Flagged by Analyzer 0 % (0-5); Neutrophil % 72.8 % (47-70); Platelet Count 269 K/mm3 (150-450); RBC Distribution Width CV 15.6 % (11.6-14.6); Red Blood Count 4.27 M/mm3 (4.2-5.4)
[2019-09-08 16:19] LABS: ALB/GLOB Ratio 1.1 RATIO (0.9-2.4); AST(SGOT) 15 U/L (15-37); Alanine Aminotransfer ALT/SGPT 19 U/L (13-56); Albumin, Serum 3.7 g/dL (3.2-5.0); Alkaline Phosphatase 57 U/L (45-117); Anion Gap 6 (5-15); BUN 26 mg/dL (7-18); BUN/Creat Ratio 24.5 RATIO (10-20); Calcium,Total 9.6 mg/dL (8.5-10.1); Chloride 101 mmol/L (98-107); Creatinine, Serum 1.06 mg/dL (0.55-1.02); EST Glomerular Filtration Rate 53 mL/min (>60); Est Glom Filt Rate - Afr Amer 64 mL/min (>60); Globulin 3.4 g/dL (2.2-4.2); Glucose 83 mg/dL (74-106); Potassium 3.8 mmol/L (3.5-5.1); Protein, Total 7.1 g/dL (6.4-8.2); Sodium Level 137 mmol/L (136-145)
== END ==
PROVIDERS: PCP Internal Medicine; Referring Provider Internal Medicine Rheumatology; Visit Provider Internal Medicine Rheumatology
DX: M06.4 Inflammatory polyarthropathy (principal); Z79.899 Other long term (current) drug therapy; M15.9 Polyosteoarthritis, unspecified; G56.02 Carpal tunnel syndrome, left upper limb; G56.01 Carpal tunnel syndrome, right upper limb; M47.897 Other spondylosis, lumbosacral region; K57.90 Diverticulosis of intestine, part unspecified, without perforation or abscess without bleeding; I10 Essential (primary) hypertension; E78.5 Hyperlipidemia, unspecified
CPT/HCPCS: 36415; 80053; 85025

== ENCOUNTER → 2019-09-29 14:40 | Outpatient (CLI) | payer MEDICARE, SELFPAY ==
[2019-09-29 17:58] LABS: Creatinine, Serum 1.13 mg/dL (0.55-1.02); EST Glomerular Filtration Rate 49 mL/min (>60); Est Glom Filt Rate - Afr Amer 60 mL/min (>60)
== END ==
PROVIDERS: PCP Internal Medicine; Referring Provider Nurse Practitioner; Visit Provider Nurse Practitioner
DX: M48.061 Spinal stenosis, lumbar region without neurogenic claudication (principal)
CPT/HCPCS: 36415; 82565

== ENCOUNTER → 2019-12-05 10:55 | Outpatient (CLI) | payer MEDICARE, SELFPAY ==
[2019-12-05 12:22] LABS: Absolute Lymphocyte Count 0.93 X10^3/uL (0.83-4.51); Basophil# 0.03 X10^3/uL; Basophil% 0.3 % (0-1); Eosinophil# 0.13 X10^3/uL; Eosinophils% 1.5 % (0-5); Hematocrit 41.1 % (37-47); Lymphocyte # 0.93 X10^3/ul (4.0); Lymphocyte % 10.4 % (19-41); Mean Corp Hgb Conc 31.6 g/dL (32-36); Mean Corpuscular Hgb 29.1 pg (27.0-32.0); Mean Corpuscular Volume 92.2 fL (81-99); Mean Platelet Vol. 9.9 fl (6.2-12.0); Monocyte# 0.82 X10^3/uL; Monocyte% 9.2 % (0-10); NRBC Flagged by Analyzer 0 % (0-5); Neutrophil # 6.96 X10^3/uL (2.7-7.7); Neutrophil % 78.3 % (47-70); Platelet Count 301 K/mm3 (150-450); RBC Distribution Width SD 53.6 fl (35.1-43.9); Red Blood Count 4.46 M/mm3 (4.2-5.4); White Blood Count 8.9 K/mm3 (4.4-11.0)
[2019-12-05 12:38] LABS: ALB/GLOB Ratio 0.9 RATIO (0.9-2.4); AST(SGOT) 16 U/L (15-37); Alanine Aminotransfer ALT/SGPT 14 U/L (13-56); Albumin, Serum 3.7 g/dL (3.2-5.0); Alkaline Phosphatase 133 U/L (45-117); Anion Gap 7 (5-15); BUN 15 mg/dL (7-18); BUN/Creat Ratio 13.4 RATIO (10-20); Calcium,Total 9.1 mg/dL (8.5-10.1); Chloride 106 mmol/L (98-107); Creatinine, Serum 1.12 mg/dL (0.55-1.02); EST Glomerular Filtration Rate 50 mL/min (>60); Est Glom Filt Rate - Afr Amer 60 mL/min (>60); Glucose 94 mg/dL (74-106); Potassium 3.7 mmol/L (3.5-5.1); Protein, Total 7.7 g/dL (6.4-8.2); Sodium Level 141 mmol/L (136-145)
== END ==
PROVIDERS: PCP Internal Medicine; Referring Provider Internal Medicine Rheumatology; Visit Provider Internal Medicine Rheumatology
DX: M06.4 Inflammatory polyarthropathy (principal); Z79.899 Other long term (current) drug therapy; M47.897 Other spondylosis, lumbosacral region; K57.90 Diverticulosis of intestine, part unspecified, without perforation or abscess without bleeding; I10 Essential (primary) hypertension; E78.5 Hyperlipidemia, unspecified; G56.03 Carpal tunnel syndrome, bilateral upper limbs
CPT/HCPCS: 36415; 80053; 85025

== ENCOUNTER → 2020-04-24 18:07 | Outpatient (CLI) | payer MEDICARE, SELFPAY | PROVIDERS: PCP Internal Medicine; Referring Provider Orthopaedic Surgery; Visit Provider Orthopaedic Surgery | DX: Z11.59 Encounter for screening for other viral diseases (principal) | CPT/HCPCS: 87635; C9803; U0005; U0003 ==

== ENCOUNTER 2020-05-11 09:48 | Outpatient (RCR) | payer MEDICARE, SELFPAY | END 2020-05-11 23:59 | LOC: IMMUN 09:48 | PROVIDERS: PCP Internal Medicine; Visit Provider Family Medicine | DX: Z23 Encounter for immunization (principal) | CPT/HCPCS: 0011A; 0012A; 91301 ==

== ENCOUNTER 2020-08-16 12:38 | Emergency (ER) | payer MEDICARE, SELFPAY ==
[2020-08-16 12:39] VITALS: BP 180/96; PULSE 67; RESP 18; TEMP 36.1; O2SAT 97; BMI 29.6
--- NOTE | 2020-08-16 12:48 | EKG12_ITS ---
Test Reason : CP Blood Pressure : / mmHG Vent. Rate : 065 BPM Atrial Rate : 065 BPM P-R Int : 132 ms QRS Dur : 088 ms QT Int : 430 ms P-R-T Axes : 032 -04 022 degrees QTc Int : 447 ms Normal sinus rhythm Normal ECG Confirmed by SHABNAM BRAN, HENOK ([id number]), passenger car inspector ABA CORONADO ([id number]) on 08/20/2020 10:13:52 AM Referred By: VLADIMIR Confirmed By:HENOK HAQUE MD
--- NOTE | 2020-08-16 12:48 | RAD_ITS ---
STUDY: X-RAY CHEST REASON FOR EXAM: Female, 80 years old. SHARP left-sided chest pain. Shortness of breath. TECHNIQUE: Single AP portable view of the chest. COMPARISON: None. FINDINGS: Hyperinflation lungs are clear. There is no demonstrated pleural abnormality. Normal size heart. Normal mediastinum and camron. Normal visualized pulmonary arteries. There is atherosclerotic calcification of the aortic arch with tortuosity. Normal visualized thoracic spine. Normal visualized ribs, clavicles, and shoulders. Small hiatal hernia. RAD/Chest 1 View (Portable) IMPRESSION: Hyperinflation. The lungs are clear. Small hiatal hernia. Electronically Signed: Gianluca Lazar MD at 14:37 EDT , Service support ,
[2020-08-16 12:56] LABS: Absolute Lymphocyte Count 1.05 X10^3/uL (0.83-4.51); Absolute Neutrophil Count 6.2 X10^3/uL (2.0-7.7); Basophil# 0.04 X10^3/uL; Basophil% 0.5 % (0-1); Eosinophils% 2.4 % (0-5); Hematocrit 41.5 % (37-47); Hemoglobin 13.7 g/dL (12.0-15.0); Lymphocyte # 1.05 X10^3/ul (0.83-4.51); Lymphocyte % 12.8 % (19-41); Mean Platelet Vol. 9.4 fl (6.2-12.0); Monocyte# 0.71 X10^3/uL; Monocyte% 8.7 % (0-10); NRBC Flagged by Analyzer 0 % (0-5); Neutrophil # 6.15 X10^3/uL (2.7-7.7); Neutrophil % 75.2 % (47-70); Platelet Count 265 K/mm3 (150-450); RBC Distribution Width CV 15.2 % (11.6-14.6); RBC Distribution Width SD 49.8 fl (35.1-43.9); Red Blood Count 4.56 M/mm3 (4.2-5.4); White Blood Count 8.2 K/mm3 (4.4-11.0)
[2020-08-16 13:12] LABS: Anion Gap 7 (5-15); BUN 20 mg/dL (7-18); BUN/Creat Ratio 17.7 RATIO (10-20); Calcium,Total 10.7 mg/dL (8.5-10.1); Chloride 103 mmol/L (98-107); Creatinine, Serum 1.13 mg/dL (0.55-1.02); EST Glomerular Filtration Rate 49 mL/min (>60); Est Glom Filt Rate - Afr Amer 60 mL/min (>60); Estimated Creatinine Clearance 31.93 ml/min; Glucose 97 mg/dL (74-106); Potassium 3.6 mmol/L (3.5-5.1); Sodium Level 138 mmol/L (136-145)
[2020-08-16 15:11] VITALS: BP 174/76; PULSE 61; O2SAT 96
--- NOTE | 2020-08-16 15:39 | CT_ITS ---
STUDY: CTA CHEST REASON FOR EXAM: Female, 80 years old. For pulmonary embolus. Sharp left side chest pain. Shortness of breath. RADIATION DOSAGE (If Supplied By Facility): CTDIvol = ( 10.03 ) mGy, DLP = ( 409.59 ) mGycm TECHNIQUE: The examination was performed with the intravenous administration of IV 100mL Isovue-370. Post-processing of the angiographic images was performed, with multiplanar reformation and 3D reconstruction. Individualized dose optimization techniques were used for this CT. COMPARISON: None. FINDINGS: There are scattered groundglass opacities, most pronounced within the lower lobes. Normal enhancement of the main pulmonary artery and right and left pulmonary arteries. Normal enhancement of the bilateral peripheral pulmonary arteries. There is no demonstrated pulmonary embolism. There is atherosclerotic calcification of the aortic arch and descending thoracic aorta. There is no demonstrated aortic dissection. There are calcifications of the coronary arteries. There is cardiomegaly. There is a moderate-sized hiatal hernia. Normal hilar regions. Normal visualized trachea and bronchi. Normal chest wall structures. Normal osseous structures. The limited images of the upper abdomen demonstrate a low-attenuation focus within the left adrenal gland which may reflect an adenoma. There are diverticula arising from the colon. CT/CTA Chest W/WO Contrast IMPRESSION: No demonstrated pulmonary embolism or arterial dissection. Cardiomegaly. Nonspecific scattered groundglass opacities may be secondary to mild edema and or a possible infectious process. Atherosclerosis. Hiatal hernia. Colonic diverticulosis. Electronically Signed: Yulisa Argueta MD at 16:50 EDT Tel , Service support ,
--- NOTE | 2020-08-16 15:59 | ED.VIS.DYS ---
HPI History of Present Illness Chief Complaint: Shortness of Breath Onset/Context/Timing Onset: Yesterday Context: gradual Timing: Intermittent Current Severity: 06/27 Maximum Severity: Moderate Worsened by: Lying flat Relieved by: Rest Narrative Narrative: The patient presents to the emergency department with left posterior back and chest pain. She states that she was in her normal state of health. She states that she rolled over in bed She has a difficult time moving around and feels like she cannot catch her breath. and fel She has no history of pulmonary embolism. She has no history of cardiovascular diseaset like something popped in her back. Since then, she has been more short of breath.. She denies any corry chest pain. PFSH PFS Home Medications prednisone 60 mg PO DAILY #15 tablet 08/16/20 [Rx Last Taken Unknown] Allergy/AdvReac Type Severity Reaction Status Date / Time Sulfa (Sulfonamide AdvReac Nausea/Vom/ Verified 08/16/20 12:42 Antibiotics) Diarrhea sulfamethoxazole AdvReac Nausea/Vom/ Verified 08/16/20 12:42 [From Bactrim] Diarrhea trimethoprim [From Bactrim] AdvReac Nausea/Vom/ Verified 08/16/20 12:42 Diarrhea Social History Smoking Status: Never smoker ROS ROS ED Constitutional Constitutional ED: Denies chills or fever(s) Eyes Eyes: Denies blurry vision or change in vision ENT ENT ED: Denies ear pain or sore throat Cardiovascular Cardiovascular: Reports chest pain; Denies palpitations Respiratory/Chest Respiratory/Chest: Reports dyspnea; Denies cough or dyspnea on exertion Gastrointestinal Gastrointestinal: Denies abdominal pain, nausea or vomiting Genitourinary Genitourinary ED: Denies dysuria or urinary frequency Musculoskeletal Musculoskeletal: Reports back pain; Denies arthralgias or myalgias Integumentary Denies rash Neurologic Neurologic: Denies headache(s) or paresthesias Psychiatric Psychiatric: Denies anxiety or depression Endocrine Endocrinology: Denies polydipsia or polyuria Allergic/Immunologic Allergic/Immunologic ED: Denies urticaria EXAM Physical Exam Const Vital Signs: 08/16/20 12:39 08/16/20 15:07 08/16/20 15:09 Temperature 97.0 F L Temperature Source Temporal Pulse Rate 67 Respiratory Rate 18 Respiratory Effort Short of Breath Respiratory Depth Deep Respiratory Pattern Normal Blood Pressure 180/96 H Blood Pressure Mean 124 Pulse Ox 97 Oxygen Delivery Method Room Air Room Air Room Air 08/16/20 15:11 Temperature Temperature Source Pulse Rate 61 Respiratory Rate Respiratory Effort Respiratory Depth Respiratory Pattern Blood Pressure 174/76 H Blood Pressure Mean 108 Pulse Ox 96 Oxygen Delivery Method Room Air Positive well nourished and well developed General Appearance ED: well developed HEENT Reports normocephalic, head/scalp atraumatic and moist mucous membranes Eyes PERRL and EOMs intact bilaterally Neck no lymphadenopathy and supple General: Negative for tenderness Chest Wall inspection of chest normal Resp normal respiratory effort and clear to auscultation bilaterally Cardio regular rate, regular rhythm and no murmurs GI normal to inspection, nondistended, normoactive bowel sounds Palpation: Negative for tender, guarding or rebound tenderness present Back/Spine no CVA tenderness Cervical Spine: Negative for cervical spine tenderness Thoracic Spine / Upper Back: Negative for thoracic spinal tenderness Extremity normal to inspection General Extremety ED: Negative for tenderness Neuro oriented x3 and CN's II-XII intact bilaterally Neuro Narrative: No focal deficits appreciated. Sensorium / Orientation: alert Psych mental status grossly normal Skin no rashes or lesions noted, no wounds and skin turgor normal MDM MDM Lab Data Labs: Laboratory Results - last 24 hr 08/16/20 08/16/20 12:47 12:47 WBC 8.2 RBC 4.56 Hgb 13.7 Hct 41.5 MCV 91.0 MCH 30.0 MCHC 33.0 RDW Std Deviation 49.8 H RDW Coeff of Lorenzo 15.2 H Plt Count 265 MPV 9.4 Immature Gran % (Auto) 0.400 Neut % (Auto) 75.2 H Lymph % (Auto) 12.8 L [place] % (Auto) 8.7 Eos % (Auto) 2.4 Baso % (Auto) 0.5 Absolute Neuts (auto) 6.2 Absolute Lymphs (auto) 1.05 Nucleated RBC % 0 Sodium 138 Potassium 3.6 Chloride 103 Carbon Dioxide 28.0 Anion Gap 7 BUN 20 H Creatinine 1.13 H Estim Creat Clear Calc 31.93 Est GFR (MDRD) Af Amer 60 Est GFR (MDRD) Non-Af 49 L BUN/Creatinine Ratio 17.7 Glucose 97 Calcium 10.7 H Troponin I < 0.015 Radiography Chest X-Ray - ED: 1 View, Read by ED Physician, Heart, Lungs, Mediastinum and Bony Structures Diagnostic Testing: Radiology Impression Chest X-Ray 08/16/20 12:48 IMPRESSION: Hyperinflation. The lungs are clear. Small hiatal hernia. Electronically Signed: Gianluca Lazar MD at 14:37 EDT , Service support , Chest CTA 08/16/20 15:39 IMPRESSION: No demonstrated pulmonary embolism or arterial dissection. Cardiomegaly. Nonspecific scattered groundglass opacities may be secondary to mild edema and or a possible infectious process. Atherosclerosis. Hiatal hernia. Colonic diverticulosis. Electronically Signed: Yulisa Argueta MD at 16:50 EDT Tel , Service support , EKG Initial EKG: Interpretation: Sinus Rhythm and No Acute Injury Pattern Prior: Unchanged Treatment and Re-Evaluation Comments:: Patient presents with shortness of breath and back pain. She states is worse when she twists and moves. Is been going on for 24 hours. EKG was obtained which was sinus rhythm without evidence of acute ischemia. It was unchanged from prior. Chest x-ray did not show any focal infiltrative process. Screening labs including cardiac enzymes were unremarkable. Patient underwent CTA. There was some groundglass infiltrates in the bases, but she is not had cough or fever. I do feel this may just be some scant edema. The patient is not hypoxic or tachypneic. Her pain does seem pleuritic in nature. She already has analgesics at home. I will treat her with prednisone. She was counseled on concerning symptoms and reasons to return. She will be discharged home. Discharge Plan Triage Chief Complaint: Shortness of Breath ED Provider: David Arnold Dx/Rx/DC Orders Instructions: ED Pleurisy Prescriptions: New prednisone 20 MG tablet 60 mg PO DAILY Qty: 15 RF: 0 Primary Care Provider: Maria D Michael Referrals: Maria D Michael MD [Primary Care Provider] -
[2020-08-16 17:43] VITALS: BP 174/76; PULSE 69; RESP 16; O2SAT 95
== END 2020-08-16 17:45 | disposition home or self-care (01) ==
PROVIDERS: Emergency Provider Emergency Medicine; PCP Internal Medicine
DX: R06.02 Shortness of breath (principal); M54.9 Dorsalgia, unspecified; K44.9 Diaphragmatic hernia without obstruction or gangrene; K57.30 Diverticulosis of large intestine without perforation or abscess without bleeding; Z79.52 Long term (current) use of systemic steroids
CPT/HCPCS: 71045; 71275; 80048; 84484; 85025; 93005; 99283; Q9967; A4216

== ENCOUNTER → 2021-01-22 08:03 | Outpatient (CLI) | payer MEDICARE, SELFPAY ==
--- NOTE | 2021-01-22 08:12 | RAD_ITS ---
INDICATION: DYSPHAGIA TECHNIQUE: Barium pill was administered to the patient. Thick and thin oral contrast and effervescent granules were administered to the patient. TOTAL FLUOROSCOPIC TIME: 1:50 minutes. NUMBER OF FLUOROSCOPIC IMAGES: 28 COMPARISON: None. FINDINGS: Slight delay in initiation of swallowing of the barium pill was noticed. Unremarkable transit of the barium pill through the oral cavity, delayed transit of the barium pill in the upper esophagus that resumed after ingestion of multiple cups of water. Delayed transit visualized and the gastroesophageal junction. Unremarkable transit of both thin and thick contrast through the oral cavity, no evidence of laryngeal penetration or aspiration was seen, mild prominence of the lumen of the upper esophagus is visualized, no evidence of esophageal diverticula or strictures is seen. Irregular contractility of the esophagus is seen with less distention of the esophageal lumen visualized in the lower segment, special note is made of the gastroesophageal junction where there appears to be circumferential wall thickening slightly limiting transit. A large hiatus hernia is identified. Moderate gastroesophageal reflux is seen. RAD/Esophagus Dual Contrast IMPRESSION: Irregular esophageal contractility with suggestion of circumferential narrowing at the gastroesophageal junction. Large hiatus hernia is identified. Moderate gastroesophageal reflux is seen. Electronically Signed: Nathaniel Velasquez MD at 14:45 EDT Tel , Service support ,
== END ==
PROVIDERS: PCP Internal Medicine; Referring Provider Internal Medicine Gastroenterology; Visit Provider Internal Medicine Gastroenterology
DX: R13.10 Dysphagia, unspecified (principal)
CPT/HCPCS: 74221

== ENCOUNTER → 2021-09-26 | Outpatient (CLI) | payer MEDICARE, SELFPAY ==
--- NOTE | 2021-09-26 14:02 | EKG12_ITS ---
Test Reason : Blood Pressure : / mmHG Vent. Rate : 052 BPM Atrial Rate : 052 BPM P-R Int : 080 ms QRS Dur : 096 ms QT Int : 470 ms P-R-T Axes : 014 -12 018 degrees QTc Int : 437 ms Sinus bradycardia with short DE Otherwise normal ECG Confirmed by JACIEL BRAN, MODESTO ([id number]), editor sound ABA CORONADO ([id number]) on 09/30/2021 7:31:24 AM Referred By: Kali Chaves Confirmed By:MODESTO GRISSOM MD
--- NOTE | 2021-09-26 14:18 | RAD_ITS ---
STUDY: XR Chest 2 Views 09/26/2021 2:20 PM REASON FOR EXAM: Female, 81 years old. CHEST PAIN PRE-OP -- HAS EKG BEFORE, WILL CALL WHEN READY COMPARISON: None TECHNIQUE: XR Chest 2 Views FINDINGS: There is no demonstrated pleural abnormality. Normal heart size. Normal mediastinum. Normal camron. Prominent appearing increased interstitial lung markings. Normal visualized pulmonary arteries. There is atherosclerotic calcification of the aortic arch with tortuosity. There are diffuse degenerative changes of the visualized thoracic spine. There is degenerative osteoarthritis of the bilateral shoulders. There is no demonstrated abnormality of the visualized soft tissue structures of the upper abdomen. RAD/Chest PA and Lateral IMPRESSION: There are no acute findings. Electronically Signed: Fortino Chavez MD at 21:21 EDT ,
[2021-09-26 15:02] LABS: Absolute Lymphocyte Count 1.23 X10^3/uL (0.83-4.51); Absolute Neutrophil Count 3.8 X10^3/uL (2.0-7.7); Basophil# 0.06 X10^3/uL; Eosinophil# 0.12 X10^3/uL; Eosinophils% 2.1 % (0-5); Hematocrit 37.3 % (37-47); Hemoglobin 12.1 g/dL (12.0-15.0); Lymphocyte # 1.23 X10^3/ul (0.83-4.51); Lymphocyte % 21.4 % (19-41); Mean Corp Hgb Conc 32.4 g/dL (32-36); Mean Corpuscular Hgb 29.1 pg (27.0-32.0); Mean Corpuscular Volume 89.7 fL (81-99); Mean Platelet Vol. 9.2 fl (6.2-12.0); Monocyte# 0.55 X10^3/uL; Monocyte% 9.5 % (0-10); NRBC Flagged by Analyzer 0 % (0-5); Neutrophil # 3.78 X10^3/uL (2.7-7.7); Neutrophil % 65.7 % (47-70); Platelet Count 262 K/mm3 (150-450); RBC Distribution Width CV 18.3 % (11.6-14.6); Red Blood Count 4.16 M/mm3 (4.2-5.4); White Blood Count 5.8 K/mm3 (4.4-11.0)
[2021-09-26 15:08] LABS: International Normalized Ratio 0.9
[2021-09-26 15:09] LABS: Partial Thromboplast Time 24.3 Seconds (24.1-36.2)
[2021-09-26 15:25] LABS: Hemoglobin A1c 5.5 % (3.8-5.6)
[2021-09-26 15:36] LABS: Anion Gap 4 (5-15); BUN 17 mg/dL (7-18); BUN/Creat Ratio 17.8 RATIO (10-20); Calcium,Total 9.3 mg/dL (8.5-10.1); Chloride 101 mmol/L (98-107); Creatinine, Serum 0.96 mg/dL (0.55-1.02); EST Glomerular Filtration Rate 60 mL/min (>60); Est Glom Filt Rate - Afr Amer 72 mL/min (>60); Glucose 91 mg/dL (74-106); Potassium 3.8 mmol/L (3.5-5.1); Sodium Level 134 mmol/L (136-145)
== END | disposition home or self-care (01) ==
LOC: PSN 14:00
PROVIDERS: PCP Internal Medicine; Referring Provider Orthopaedic Surgery; Visit Provider Orthopaedic Surgery
DX: Z01.818 Encounter for other preprocedural examination (principal); Z01.811 Encounter for preprocedural respiratory examination; R07.9 Chest pain, unspecified; R00.1 Bradycardia, unspecified
CPT/HCPCS: 36415; 71046; 80048; 83036; 85025; 85610; 85730; 93005

== ENCOUNTER 2022-01-13 13:04 | Observation (INO) | payer MEDICARE, SELFPAY ==
[2022-01-13] VITALS (11 sets, daily range): BP systolic 144–164; BP diastolic 58–79; PULSE 60–66; RESP 16–19; TEMP 36.4–36.8; O2SAT 88–99; BMI 29.1; BMI 27.5
--- NOTE | 2022-01-13 14:00 | EKG12_ITS ---
Test Reason : CP Blood Pressure : / mmHG Vent. Rate : 063 BPM Atrial Rate : 063 BPM P-R Int : 134 ms QRS Dur : 086 ms QT Int : 402 ms P-R-T Axes : 026 -07 009 degrees QTc Int : 411 ms Normal sinus rhythm Consider Left ventricular hypertrophy Abnormal ECG Confirmed by SHABNAM BRAN, HENOK ([id number]), order editor ABA CORONADO ([id number]) on 01/14/2022 1:15:17 PM Referred By: KI Confirmed By:HENOK HAQUE MD
--- NOTE | 2022-01-13 14:00 | CT_ITS ---
STUDY: CTA CHEST REASON FOR EXAM: Female, 81 years old. hypoxia RADIATION DOSAGE (If Supplied By Facility): CTDIvol = ( 9.85 ) mGy, DLP = ( 404.56 ) mGycm TECHNIQUE: The examination was performed with the intravenous administration of IV 100mL Isovue-370. Post-processing of the angiographic images was performed, with multiplanar reformation and 3D reconstruction. Individualized dose optimization techniques were used for this CT. COMPARISON: 08/16/2020 FINDINGS: Normal enhancement of the main pulmonary artery and right and left pulmonary arteries. Normal enhancement of the bilateral peripheral pulmonary arteries. There is no demonstrated pulmonary embolism. Normal thoracic aorta and visualized great vessels. There is no demonstrated aortic dissection. Normal heart and pericardium. Moderate sized hiatal hernia with significant wall thickening in the distal esophagus. Correlation with endoscopy is recommended. Normal mediastinum. Normal hilar regions. Normal visualized trachea and bronchi. The lungs are well expanded. Normal pulmonary parenchyma. Normal pleura. Normal chest wall structures. Normal osseous structures. Dorsal column spinal stimulator in the thoracic spine. Normal visualized upper abdomen. CT/CTA Chest W/WO Contrast IMPRESSION: Normal CTA chest examination, without a demonstrated pulmonary embolism or arterial dissection. Electronically Signed: Esvin Garcia MD at 17:15 EDT ,
[2022-01-13 14:20] LABS: Absolute Lymphocyte Count 0.78 X10^3/uL (0.83-4.51); Basophil# 0.05 X10^3/uL; Basophil% 0.6 % (0-1); Eosinophil# 0.38 X10^3/uL; Eosinophils% 4.4 % (0-5); Hematocrit 36.2 % (37-47); Hemoglobin 11.5 g/dL (12.0-15.0); Lymphocyte # 0.78 X10^3/ul (0.83-4.51); Mean Corp Hgb Conc 31.8 g/dL (32-36); Mean Corpuscular Hgb 29.1 pg (27.0-32.0); Mean Corpuscular Volume 91.6 fL (81-99); Mean Platelet Vol. 10.2 fl (6.2-12.0); Monocyte# 0.35 X10^3/uL; Monocyte% 4.1 % (0-10); NRBC Flagged by Analyzer 0 % (0-5); Neutrophil # 7.03 X10^3/uL (2.7-7.7); Neutrophil % 81.6 % (47-70); Platelet Count 219 K/mm3 (150-450); RBC Distribution Width CV 18.6 % (11.6-14.6); Red Blood Count 3.95 M/mm3 (4.2-5.4); White Blood Count 8.6 K/mm3 (4.4-11.0)
[2022-01-13 14:30] LABS: International Normalized Ratio 0.9; Prothrombin Time (Protime)PT. 11.7 SECONDS (11.7-14.9)
[2022-01-13 14:31] LABS: Partial Thromboplast Time 25.8 Seconds (24.1-36.2)
[2022-01-13 14:44] LABS: Anion Gap 9 (5-15); BUN 17 mg/dL (7-18); Calcium,Total 10.2 mg/dL (8.5-10.1); Chloride 100 mmol/L (98-107); Creatinine, Serum 1.06 mg/dL (0.55-1.02); EST Glomerular Filtration Rate 53 mL/min (>60); Est Glom Filt Rate - Afr Amer 64 mL/min (>60); Estimated Creatinine Clearance 33.48 ml/min; Glucose 90 mg/dL (74-106); Potassium 3.5 mmol/L (3.5-5.1); Sodium Level 135 mmol/L (136-145); Troponin-I HS (w/2H Reflex) 27 pg/mL (3.0-54.0)
--- NOTE | 2022-01-13 15:32 | EDS_ITS ---
HPI History of Present Illness Chief Complaint: Shortness of Breath Informant: patient and family Narrative Narrative: Presents with a least 3 weeks of dyspnea denies cough. Denies any worsening symptoms with exertion. Approximate 10 days ago while walking had severe chest pressure and was diaphoretic for 30 minutes per spouse. History of hypertension. Denies cardiac history. Continued dyspnea. Reports orthopnea. Denies leg swelling or cramping. Had travel back in beginning of October to [place] 8-[address]. No history of PE or DVT. COVID vaccinated, no COVID infections. No headaches or fevers. PE Risk Factors: Positive for Recent travel; Negative for Cancer, OCP + Smoking + > 35, Prior DVT or PE or Recent immobilization Prior similar symptoms: No PFSH PFSH Medical History Arthritis Breast lump Carpal tunnel syndrome Cataracts, bilateral Esophageal spasm Gout Hiatal hernia HTN (hypertension) Neuropathy Osteoarthritis Osteopenia Osteoporosis Rheumatoid arthritis Home Medications prednisone 20 mg tablet 60 mg PO DAILY #15 TABLETS 08/16/20 [Rx Last Taken Unknown] acetaminophen 500 mg tablet (Tylenol Extra Strength) 500 mg PO TID 03/27/21 [History Last Taken 01/13/22] diltiazem HCl 120 mg capsule,extended release 12 hr 120 mg PO DAILY 03/27/21 [History Last Taken 01/13/22] folic acid 1 mg tablet 1 mg PO DAILY 03/27/21 [History Last Taken 01/13/22] methotrexate sodium 2.5 mg tablet 15 mg PO TH 03/27/21 [History Last Taken 01/09/22] pantoprazole 40 mg tablet,delayed release (Protonix) 40 mg PO DAILY 03/27/21 [History Last Taken 01/13/22] triamterene 37.5 mg-hydrochlorothiazide 25 mg capsule 1 cap PO DAILY 03/27/21 [History Last Taken 01/13/22] allopurinol 100 mg tablet 100 mg PO DAILY 01/13/22 [History Last Taken 01/13/22] calcium carbonate 500 mg calcium (1,250 mg) tablet 500 mg PO DAILY supplement 01/13/22 [History Last Taken 01/13/22] colchicine 0.6 mg tablet 0.6 mg PO DAILY 01/13/22 [History Last Taken 01/13/22] docusate sodium 100 mg capsule 100 mg PO DAILY PRN STOOL 01/13/22 [History Last Taken 1 Week Ago ~01/06/22] oxycodone-acetaminophen 5 mg-325 mg tablet 1 tab PO TID PAIN 01/13/22 [History Last Taken 01/13/22] pregabalin 100 mg capsule 100 mg PO TID 01/13/22 [History Last Taken 01/13/22] Allergy/AdvReac Type Severity Reaction Status Date / Time Sulfa (Sulfonamide AdvReac Nausea/Vom/ Verified 01/13/22 13:07 Antibiotics) Diarrhea sulfamethoxazole AdvReac Nausea/Vom/ Verified 01/13/22 13:07 [From Bactrim] Diarrhea trimethoprim [From Bactrim] AdvReac Nausea/Vom/ Verified 01/13/22 13:07 Diarrhea Social History Smoking Status: Never smoker ROS ROS ED Constitutional Constitutional ED: Denies chills, fever(s) or sweats Eyes Eyes: Denies change in vision ENT ENT ED: Denies dysphagia or sore throat Cardiovascular Cardiovascular: Reports chest pain; Denies leg edema, palpitations or racing heartbeat Respiratory/Chest Respiratory/Chest: Reports dyspnea; Denies cough or dyspnea on exertion Gastrointestinal Gastrointestinal: Denies abdominal pain, diarrhea, nausea or vomiting Genitourinary Genitourinary ED: Denies dysuria, hematuria or urinary frequency Musculoskeletal Musculoskeletal: Denies back pain, extremity pain or neck pain Integumentary Denies rash or wounds Neurologic Neurologic: Denies headache(s), paresthesias or weakness EXAM Physical Exam Const Vital Signs: 01/13/22 13:07 01/13/22 13:23 01/13/22 14:07 Temperature 97.6 F L Temperature Source Temporal Pulse Rate 66 Respiratory Rate 18 Respiratory Effort Short of Breath Respiratory Depth Normal Respiratory Pattern Normal Blood Pressure 152/79 H Blood Pressure Mean 103 Pulse Ox 97 88 Oxygen Delivery Method Room Air Room Air Oxygen Flow Rate (L/min) 01/13/22 14:10 01/13/22 15:12 01/13/22 16:08 Temperature Temperature Source Pulse Rate 61 64 Respiratory Rate 18 19 H Respiratory Effort Respiratory Depth Respiratory Pattern Blood Pressure 151/58 H 147/67 H Blood Pressure Mean 89 93 Pulse Ox 94 94 97 Oxygen Delivery Method Nasal Cannula Nasal Cannula Nasal Cannula Oxygen Flow Rate (L/min) 2 2 2 Positive well nourished and well developed General Appearance ED: well developed and NAD HEENT Reports moist mucous membranes normocephalic and atraumatic Eyes PERRL, EOMs intact bilaterally and conjunctivae normal General Eye ED: Yes normal appearance of both eyes Neck no lymphadenopathy and supple General: Negative for tenderness Chest Wall Chest: Negative for tenderness Resp normal respiratory effort and normal air movement Effort and Inspection: symmetric chest movement; Negative for respiratory distress Cardio regular rate, regular rhythm and no murmurs Peripheral Pulses: pulses 2+ throughout GI normal to inspection, nondistended, normoactive bowel sounds and non-tender Palpation: Negative for guarding or rebound tenderness present Back/Spine no CVA tenderness and no thoracic nor lumbar tenderness Extremity normal to inspection General Extremety ED: Negative for edema or tenderness General Extremity: Negative for edema Neuro oriented x3 and no sensory deficits noted Sensorium / Orientation: awake and alert Skin no rashes or lesions noted and no wounds MDM MDM MDM Narrative Medical decision making narrative: Patient 3 weeks of dyspnea, during evaluation and pulse ox with good waveforms will go down to 84% with talking as she would go up to the low 90s. She has no leg swelling or cramping. 10 days ago had chest pains for 30 minutes. She reporting orthopnea symptoms. EKG with chronic changes. Cardiac work-up troponin negative at 27 currently. Creatinine 1.06. BNP 93. Hemoglobin 11.5. Patient is feeling better on oxygen. CTA chest due to hypoxia, pending final read. On my review no effusions, no clear PEs noted. With her hypoxia she will require hospitalization and further work-up. Aspirin will be ordered. 1615: I spoke with Dr. Wynn updated on concerns and findings. Will admit to observations PCU pending final CT chest read at this time. Lab Data Attestation: I reviewed the patient's lab results. Labs: Laboratory Results - last 24 hr 01/13/22 01/13/22 01/13/22 13:21 13:21 13:21 WBC 8.6 RBC 3.95 L Hgb 11.5 L Hct 36.2 L MCV 91.6 MCH 29.1 MCHC 31.8 L RDW Std Deviation 61.0 H RDW Coeff of Lorenzo 18.6 H Plt Count 219 MPV 10.2 Immature Gran % (Auto) 0.300 Neut % (Auto) 81.6 H Lymph % (Auto) 9.0 L [place] % (Auto) 4.1 Eos % (Auto) 4.4 Baso % (Auto) 0.6 Absolute Neuts (auto) 7.0 Absolute Lymphs (auto) 0.78 L Nucleated RBC % 0 PT 11.7 INR 0.9 APTT 25.8 Sodium 135 L Potassium 3.5 Chloride 100 Carbon Dioxide 26.0 Anion Gap 9 BUN 17 Creatinine 1.06 H Estim Creat Clear Calc 33.48 Est GFR (MDRD) Af Amer 64 Est GFR (MDRD) Non-Af 53 L BUN/Creatinine Ratio 16.0 Glucose 90 Calcium 10.2 H Troponin I High Sens 27 B-Natriuretic Peptide 01/13/22 13:21 WBC RBC Hgb Hct MCV MCH MCHC RDW Std Deviation RDW Coeff of [place] Plt Count MPV Immature Gran % (Auto) Neut % (Auto) Lymph % (Auto) [place] % (Auto) Eos % (Auto) Baso % (Auto) Absolute Neuts (auto) Absolute Lymphs (auto) Nucleated RBC % PT INR APTT Sodium Potassium Chloride Carbon Dioxide Anion Gap BUN Creatinine Estim Creat Clear Calc Est GFR (MDRD) Af Amer Est GFR (MDRD) Non-Af BUN/Creatinine Ratio Glucose Calcium Troponin I High Sens B-Natriuretic Peptide 93.0 EKG Initial EKG: Attestation: I personally reviewed and interpreted this EKG as follows: Comments: Sinus rate of 63, no ST changes T wave inversion leads III flattening in aVF. Similar findings from July 2020. Discharge Plan Dx/Rx/DC Orders Clinical Impression: Hypoxia, Dyspnea, Chest pain Disposition Disposition: Acute Care Hospital [facility]
[2022-01-13 16:15] LABS: Reflex Troponin-HS? (from REC) Y
[2022-01-13] MEDS: Aspirin 81 MG TAB.CHEW 324 MG PO (16:39)
--- NOTE | 2022-01-13 16:44 | PCM.HP.STD ---
[facility] - General General Date of Admission: 01/13/22 Date of Service: 01/13/22 Chief Complaint: shortness of breath HPI Narrative RONNELL HERZOG, is a 81 F who presents with shortness of breath. Patient shortness of breath is primarily with exertion. About 10 days ago, patient experienced midsternal chest pain while she was walking that resolved when she stopped. It was very heavy. Patient has not had issues like that before. Patient has no known history lung disease nor cardiac disease. Patient underwent a work-up in the emergency room that was negative for any acute cardiac process. She did undergo a CT angiogram of the chest, results of which are still pending. ON LICENSE OF [facility] Medical History Arthritis Breast lump Carpal tunnel syndrome Cataracts, bilateral Esophageal spasm Gout Hiatal hernia HTN (hypertension) Neuropathy Osteoarthritis Osteopenia Osteoporosis Rheumatoid arthritis Home Medications prednisone 20 mg tablet 60 mg PO DAILY #15 TABLETS 08/16/20 [Rx Last Taken Unknown] acetaminophen 500 mg tablet (Tylenol Extra Strength) 500 mg PO TID 03/27/21 [History Last Taken 01/13/22] diltiazem HCl 120 mg capsule,extended release 12 hr 120 mg PO DAILY 03/27/21 [History Last Taken 01/13/22] folic acid 1 mg tablet 1 mg PO DAILY 03/27/21 [History Last Taken 01/13/22] methotrexate sodium 2.5 mg tablet 15 mg PO TH 03/27/21 [History Last Taken 01/09/22] pantoprazole 40 mg tablet,delayed release (Protonix) 40 mg PO DAILY 03/27/21 [History Last Taken 01/13/22] triamterene 37.5 mg-hydrochlorothiazide 25 mg capsule 1 cap PO DAILY 03/27/21 [History Last Taken 01/13/22] allopurinol 100 mg tablet 100 mg PO DAILY 01/13/22 [History Last Taken 01/13/22] calcium carbonate 500 mg calcium (1,250 mg) tablet 500 mg PO DAILY supplement 01/13/22 [History Last Taken 01/13/22] colchicine 0.6 mg tablet 0.6 mg PO DAILY 01/13/22 [History Last Taken 01/13/22] docusate sodium 100 mg capsule 100 mg PO DAILY PRN STOOL 01/13/22 [History Last Taken 1 Week Ago ~01/06/22] oxycodone-acetaminophen 5 mg-325 mg tablet 1 tab PO TID PAIN 01/13/22 [History Last Taken 01/13/22] pregabalin 100 mg capsule 100 mg PO TID 01/13/22 [History Last Taken 01/13/22] Allergy/AdvReac Type Severity Reaction Status Date / Time Sulfa (Sulfonamide AdvReac Nausea/Vom/ Verified 01/13/22 13:07 Antibiotics) Diarrhea sulfamethoxazole AdvReac Nausea/Vom/ Verified 01/13/22 13:07 [From Bactrim] Diarrhea trimethoprim [From Bactrim] AdvReac Nausea/Vom/ Verified 01/13/22 13:07 Diarrhea Social History Smoking Status: Never smoker ROS ROS Narrative No fever chills. All review of systems were negative except as mentioned above in the history of present illness and the other review of systems. Vital Signs Vital Signs Vital Signs: 01/13/22 13:07 01/13/22 13:23 01/13/22 14:07 Temperature 36.4 C L Temperature Source Temporal Pulse Rate 66 Respiratory Rate 18 Respiratory Effort Short of Breath Respiratory Depth Normal Respiratory Pattern Normal Blood Pressure 152/79 H Blood Pressure Mean 103 Pulse Ox 97 88 Oxygen Delivery Method Room Air Room Air Oxygen Flow Rate (L/min) 01/13/22 14:10 01/13/22 15:12 01/13/22 16:08 Temperature Temperature Source Pulse Rate 61 64 Respiratory Rate 18 19 H Respiratory Effort Respiratory Depth Respiratory Pattern Blood Pressure 151/58 H 147/67 H Blood Pressure Mean 89 93 Pulse Ox 94 94 97 Oxygen Delivery Method Nasal Cannula Nasal Cannula Nasal Cannula Oxygen Flow Rate (L/min) 2 2 2 Weight Weight: 72.3 kg Body Mass Index (BMI) 29.1 Physical Exam Const alert and no apparent distress HEENT normocephalic, head/scalp atraumatic, hearing grossly normal bilaterally and moist oral mucous membranes Eyes PERRL Resp normal respiratory effort and no retractions Resp Narrative: Bibasilar crackles Cardio regular rate, regular rhythm, S1 normal heart sound and S2 normal heart sound GI normal to inspection, nondistended, normoactive bowel sounds, soft to palpation and non-tender Extremity normal to inspection and no clubbing, cyanosis or edema Neuro Sensorium / Orientation: awake and alert Psych affect normal Results Lab / Micro Data Attestation: I reviewed the patient's lab results. Result Diagrams: 01/13/22 13:21 01/13/22 13:21 Labs: Laboratory Results - last 24 hr 01/13/22 13:21: WBC 8.6, RBC 3.95 L, Hgb 11.5 L, Hct 36.2 L, MCV 91.6, MCH 29.1, MCHC 31.8 L, RDW Std Deviation 61.0 H, RDW Coeff of Lorenzo 18.6 H, Plt Count 219, MPV 10.2, Immature Gran % (Auto) 0.300, Neut % (Auto) 81.6 H, Lymph % (Auto) 9.0 L, Clinch % (Auto) 4.1, Eos % (Auto) 4.4, Baso % (Auto) 0.6, Absolute Neuts (auto) 7.0, Absolute Lymphs (auto) 0.78 L, Nucleated RBC % 0 01/13/22 13:21: PT 11.7, INR 0.9, APTT 25.8 01/13/22 13:21: Sodium 135 L, Potassium 3.5, Chloride 100, Carbon Dioxide 26.0, Anion Gap 9, BUN 17, Creatinine 1.06 H, Estim Creat Clear Calc 33.48, Est GFR (MDRD) Af Amer 64, Est GFR (MDRD) Non-Af 53 L, BUN/Creatinine Ratio 16.0, Glucose 90, Calcium 10.2 H, Troponin I High Sens 27 01/13/22 13:21: B-Natriuretic Peptide 93.0 Micro: Microbiology 01/13/22 14:12 Nasal Secretion SARS-CoV-2 Antigen (Rapid) - Final EKG Initial EKG: Attestation: I personally reviewed and interpreted this EKG as follows: EKG Rhythm Intrepretation: Sinus Rhythm Assessment & Plan Assessment/Plan (1) Angina pectoris: PLAN: Patient had a concerning event about 10 days ago. Concerned that this could be cardiac so patient will undergo a nuclear stress test to further evaluate. Patient did receive aspirin in the emergency room and will continue with aspirin hereafter until we know the results of the stress test. (2) Hypoxia: PLAN: Patient was noted to be hypoxic just at rest and emergency room. Patient does not not appear to be in any distress. Concerned that this could be more of a chronic process for her. Personal review of the CAT scan I did not see any evidence of any pneumonia or bronchiectasis but there is concern the patient may have some underlying bronchiectasis which could be related with her rheumatoid arthritis. We will follow-up on the CAT scan report Patient may benefit from pulmonology as outpatient. PLAN: Plan Chronic conditions Rheumatoid arthritis: Continue with methotrexate and folic acid Hypertension: Continue with diltiazem Gout continue with allopurinol. Colchicine as needed VTE prophylaxis: Not indicated this time given current observation status CODE STATUS: Addressed with the patient. Patient was to be full CODE STATUS. Charges/Coding Visit Charges OBSV E&M: 33617 Initial observation care L3
[2022-01-13 16:49] LABS: Troponin-I HS 28 pg/mL (3.0-54.0)
--- NOTE | 2022-01-13 19:28 | EKG12_ITS ---
Test Reason : CP Blood Pressure : / mmHG Vent. Rate : 067 BPM Atrial Rate : 067 BPM P-R Int : 132 ms QRS Dur : 080 ms QT Int : 412 ms P-R-T Axes : 036 -12 -01 degrees QTc Int : 435 ms Normal sinus rhythm Minimal voltage criteria for LVH, may be normal variant ( R in aVL ) Nonspecific ST abnormality Abnormal ECG Confirmed by SHABNAM BRAN, HENOK ([id number]), offline editor ABA CORONADO ([id number]) on 01/15/2022 9:11:33 AM Referred By: Confirmed By:HENOK HAQUE MD
[2022-01-13 19:55] LABS: Troponin-I HS 30 pg/mL (3.0-54.0)
[2022-01-13] MEDS: Pregabalin 50 MG Capsule 100 MG PO (22:06)
[2022-01-13] MEDS: Acetaminophen 500 MG Tablet PO (22:06)
[2022-01-14] VITALS (15 sets, daily range): BP systolic 122–158; BP diastolic 50–77; PULSE 57–75; RESP 16–20; TEMP 36.7–37.4; O2SAT 88–98
[2022-01-14] MEDS: Acetaminophen 500 MG Tablet PO ×3 (06:43→21:13)
[2022-01-14] MEDS: Pregabalin 50 MG Capsule 100 MG PO ×3 (06:43→21:13)
[2022-01-14] MEDS: Aspirin E.C. 81 MG Tablet PO (06:44)
[2022-01-14] MEDS: 0.9% Saline Lock 10 ML Syringe IV ×3 (07:58→21:14)
[2022-01-14] MEDS: Allopurinol 100 MG Tablet PO (11:30)
[2022-01-14] MEDS: Calcium (Elemental) 500 MG Tablet PO (11:30)
[2022-01-14] MEDS: Pantoprazole Sodium 40 MG Tablet PO (11:30)
[2022-01-14] MEDS: dilTIAZem CD 120 MG Capsule PO (11:30)
[2022-01-14] MEDS: Triamterene 37.5MG/Hctz 25MG Capsule 1 CAP PO (11:30)
[2022-01-14] MEDS: Folic Acid 1 MG Tablet PO (11:30)
--- NOTE | 2022-01-14 11:33 | STRESSREP_ITS ---
Stress Test Report Date: 01-14-2022 Procedure: Pharmacologic stress nuclear imaging study Indications: Chest pain; shortness of breath/dyspnea Consent: Per the patient Procedure: The patient underwent pharmacologic (Regadenoson 0.4mg ) evaluation with a peak heart rate of 81 beats per minute (57%predicted maximal heart rate) and a peak blood pressure of 126/82 mmHg. The baseline ECG demonstrated normal sinus rhythm. The peak pharmacologic ECG demonstrated no obvious ECG changes. There was an isolated PVC during recovery. There was no complaint of chest discomfort during pharmacologic infusion or recovery. The examination was discontinued secondary to completion of protocol. Impression: 1. Pharmacologic (Regadenoson) evaluation 2. Peak pharmacologic ECG with no obvious ECG changes. 3. There was an isolated PVC during recovery. 4. Nuclear images pending Myocardial perfusion imaging study: Technique: The patient was injected with 11.3 millicuries of technetium 99m Cardiolite and subsequently rest SPECT Cardiolite nuclear imaging was obtained in the horizontal long, vertical long, and short axis views. The patient underwent pharmacologic (Regadenoson) evaluation with a peak heart rate of 81 beats per minute (57% percent predicted maximal heart rate) and a peak blood pressure of 126/82 mmHg. The patient was injected with 33.9 millicuries of technetium 99m Cardiolite and subsequently stress SPECT Cardiolite nuclear imaging was obtained in the horizontal long, vertical long, and short axis views. A gated Cardiolite study at peak stress was not obtained. Interpretation: Rest and stress SPECT Cardiolite nuclear imaging status post realignment, normalization, and attenuation correction demonstrate relative uniform tracer uptake and myocardial perfusion appearing within normal limits. Impression: 1. Rest and stress SPECT Cardiolite nuclear imaging demonstrate relative uniform tracer uptake and myocardial perfusion appearing within normal limits. 2. The gated Cardiolite study at peak stress was not obtained. This note was generated with [employer] software. It may contain incorrect words, spelling, and punctuation that were not noted in checking the note before signing.
--- NOTE | 2022-01-14 12:04 | CHAPLAIN ---
Type of Pastoral Visit _x__ Initial Visit ___ Follow-up Visit ___ On-call Visit ___ General Patient Visit ___ Spiritual Assessment ___ Family Conference ___ Bereavement ___ Rapid Response ___ Code Blue ___ Other (describe below) Pastoral Care Referral From _x__ Patient ___ Family ___ Nurse ___ Physician ___ Tunnel Heading Supervisor ___ It Consulting Manager ___ Other (describe below) Sacrament/Intervention _x__ Active listening ___ Anointing ___ Lutheran ___ Bereavement ___ Communion ___ Tracy exploration ___ ___ Life review _x__ Prayer ___ Reconciliation ___ Sacrament of Sick ___ Supportive presence ___ Wedding ___ Other (describe below) Pastoral Comments 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
--- NOTE | 2022-01-14 12:45 | ECHOD_ITS ---
Reason For Study: CHEST PAIN Procedure This was a 2D Doppler, Color Flow transthoracic echocardiogram. The exam was of adequate technical quality. Exam performed portable in patient room. Left Ventricle Normal LV size. Left ventricular systolic function is normal. The estimated ejection fraction is 65 %. Stage 2 diastolic dysfunction. No regional wall motion abnormalities noted. Right Ventricle Normal RV size. The right ventricle is normal in size, function, and thickness. Atria Normal left atrium. Normal right atrium. No doppler evidence for ASD. Mitral Valve There is mild mitral annular calcification. Extension of the mitral annular calcification onto the base of the posterior mitral valve leaflet. Trivial mitral valve insufficiency. Tricuspid Valve Normal tricuspid valve. Mild tricuspid valve insufficiency. Right ventricular systolic pressure estimated to be 32 mmHg. Aortic Valve Trisinus/trileaflet aortic valve. Mild focal aortic valve calcification. Pulmonic Valve The pulmonic valve is not well visualized. Great Vessels Normal sized aortic root. Pericardium/Pleural No pericardial effusion. MMode/2D Measurements & Calculations LVIDd: 3.7 cm IVSd: 1.1 cm Ao root diam: 3.1 cm LVIDs: 2.1 cm LVPWd: 1.1 cm RVDd: 2.7 cm FS: 44.1 % LAV(MOD-bp): 63.0 ml LVAd ap4: 18.0 cm2 SV(MOD-sp4): 22.2 ml LAV(MOD-bp) Indexed: 36.3 ml/m2 LVLd ap4: 6.5 cm LAV(MOD-sp2): 39.3 ml EDV(MOD-sp4): 43.7 ml LAV(MOD-sp4): 79.4 ml EDV(sp4-el): 42.5 ml LVAs ap4: 10.5 cm2 LVLs ap4: 5.0 cm ESV(MOD-sp4): 21.5 ml ESV(sp4-el): 18.8 ml EF(MOD-sp4): 50.9 % EF(sp4-el): 55.8 % SV(sp4-el): 23.7 ml LA A4 area: 24.7 cm2 LA dimension(2D): 5.1 cm Time Measurements MV dec time: 0.24 sec Doppler Measurements & Calculations MV E max mychal: 70.6 cm/sec Lat Peak E' Mychal: 7.5 cm/sec Med Peak E' Mychal: 4.4 cm/sec MV A max mychal: 112.0 cm/sec E/E' lat: 9.4 E/E' med: 16.2 MV E/A: 0.63 MV V2 max: 106.7 cm/sec Ao V2 max: 162.4 cm/sec MV max P.6 mmHg MV dec slope: 293.2 cm/sec2 Ao max P.6 mmHg MV V2 mean: 49.9 cm/sec Ao V2 mean: 113.0 cm/sec MV mean P.2 mmHg Ao mean P.8 mmHg MV V2 VTI: 31.3 cm Ao V2 VTI: 35.4 cm LV V1 max: 141.2 cm/sec PA V2 max: 119.9 cm/sec TR max mychal: 246.3 cm/sec LV V1 max P.0 mmHg PA V2 mean: 85.2 cm/sec TR max P.3 mmHg LV V1 mean P.3 mmHg LV V1 mean: 97.7 cm/sec LV V1 VTI: 33.7 cm ECHO/Echo Complete Interpretation Summary Left ventricular systolic function is normal. The estimated ejection fraction is 65 %. There is mild mitral annular calcification. Extension of the mitral annular calcification onto the base of the posterior mi tral valve leaflet. Trivial mitral valve insufficiency. Mild tricuspid valve insufficiency. Mild focal aortic valve calcification. Right ventricular systolic pressure estimated to be 32 mmHg. Stage 2 diastolic dysfunction. Ordering Physician: Dayo Brown Referring Physician: Maria D Michael M.D. Performed By: Gema Roberts RCS
--- NOTE | 2022-01-14 13:41 | CON.PCM.CC_ITS ---
Assessment & Plan Assessment/Plan (1) Hypoxia: (2) Hiatal hernia: (3) Dyspnea: PLAN: Plan RECOMMENDATIONS: 1. Challenge with Lasix 2. Walking oximetry tomorrow 3. Outpatient complete PFT 4. Obtain sputum culture if possible IMPRESSIONS: 1. Hypoxia Unclear etiology at this time. CT scan of the chest is relatively un remarkable for acute infectious etiology such as pneumonia or pleural effusions. Patient does have rales on exam to suggest congestive heart failure but BNP is within normal limits. We will challenge patient with diuretics. Patient does have some bronchiectasis noted on CT scan of the chest, so this may be secondary to previous whooping cough or other infectious etiologies. Patient is not repo rting a productive cough, but a sputum culture may be helpful. Patient does not have infiltrates to suggest an acute pneumonia as an etiology. Other differential would include diastolic congestive heart failure, pulmonary hypertension and early interstitial lung disease. Patient is correcting with minimal nasal cannula oxygen so shunt physiology is not noted. Patient would benefit from outpatient pulmonary function test for quantification clarification of lung function. Patient did have a stress test today. Potentially obtain echocardiogram for quantification clarification of pulmonary artery pressures. 2. Rheumatoid arthritis/hiatal hernia/advanced age Complicates care, management, recovery and prognosis. Hiatal hernia does not appear to be significant enough to lead to restrictive findings and hypoxia. Rheumatoid arthritis does increase the patient's risk for interstitial lung disease, but thickening is not noted on my review of the CT scan. AV malformations would be a consideration, but correction on 2 L makes this unlikely. Patient is very clear that she is a full CODE STATUS. Patient is willing to go home on supplemental oxygen if necessary. HPI Consult Data Date of Consult: 01/14/22 HPI Narrative Reason for Consultation: Hypoxia HPI Narrative: RONNELL HERZOG is an 81 F, with past medical history listed below, who presents to [facility] 01[facility]13[facility]2022 secondary to 3 weeks of progressive dyspnea on exertion. Patient reportedly had had severe pressure sensation and diaphoresis for 30 minutes approximately 10 days prior to presentation. Patient had denied any cardiac history, lower extremity edema or palpitations. Patient did travel to [place] in October and stated that she had a urinary tract infection at that time. Patient has no history of PE or DVT. Patient is vaccinated against COVID-19 and denies any recent sick contacts. Patient does have a diagnosis of rheumatoid arthritis for which she takes methotrexate and intermittent prednisone. In the ER, patient was afebrile and slightly hypertensive at 152/79. Patient did desaturate with ambulation was placed on 2 L nasal cannula. Laboratory work-up showed a hemoglobin of 11.5 with a white blood cell count of 8.6. Coagulation studies were within normal limits. Creatinine did show a slight elevation at 1.06 with a BNP of 93. EKG was relatively unremarkable. Given patient's new need for supplemental oxygen she was admitted to the hospital for further evaluation. Since being admitted to the hospital, patient has continued to require supplemental oxygen. Patient had a CTA of the chest showing no pulmonary embolism. Given patient's continued requirement for supplemental oxygen a pulmonary consult was obtained. Patient states that she has no history of pulmonary or cardiac issues. Patient states she has never used an inhaler or had a pulmonary function test. 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 Patient does report a history of rheumatic fever, whooping cough and scarlet fever as a child. Patient is unaware of any previous CT scans. Patient does believe that the oxygen has made her feel better. Review of systems otherwise negative from a constitutional, HEENT, respiratory, cardiovascular, GI, genitourinary, musculoskeletal, skin, neurologic, psychiatric and hematologic system unless stated above. [facility] Medical History Arthritis Breast lump Carpal tunnel syndrome Cataracts, bilateral Esophageal spasm Gout Hiatal hernia HTN (hypertension) Neuropathy Osteoarthritis Osteopenia Osteoporosis Rheumatoid arthritis Home Medications prednisone 20 mg tablet 60 mg PO DAILY #15 TABLETS 08/16/20 [Rx Last Taken U nknown] acetaminophen 500 mg tablet (Tylenol Extra Strength) 500 mg PO TID 03/27/21 [History Last Taken 01/13/22] diltiazem HCl 120 mg capsule,extended release 12 hr 120 mg PO DAILY 03/27/21 [History Last Taken 01/13/22] folic acid 1 mg tablet 1 mg PO DAILY 03/27/21 [History Last Taken 01/13/22] methotrexate sodium 2.5 mg tablet 15 mg PO TH 03/27/21 [History Last Taken 01/09/22] pantoprazole 40 mg tablet,delayed release (Protonix) 40 mg PO DAILY 03/27/21 [History Last Taken 01/13/22] triamterene 37.5 mg-hydrochlorothiazide 25 mg capsule 1 cap PO DAILY 03/27/21 [History Last Taken 01/13/22] allopurinol 100 mg tablet 100 mg PO DAILY 01/13/22 [History Last Taken 01/13/22] calcium carbonate 500 mg calcium (1,250 mg) tablet 500 mg PO DAILY supplement 01/13/22 [History Last Taken 01/13/22] colchicine 0.6 mg tablet 0.6 mg PO DAILY 01/13/22 [History Last Taken 01/13/22] docusate sodium 100 mg capsule 100 mg PO DAILY PRN STOOL 01/13/22 [History Last Taken 1 Week Ago ~01/06/22] oxycodone-acetaminophen 5 mg-325 mg tablet 1 tab PO TID PAIN 01/13/22 [History Last Taken 01/13/22] pregabalin 100 mg capsule 100 mg PO TID 01/13/22 [History Last Taken 01/13/22] Allergy/AdvReac Type Severity Reaction Status Date / Time Sulfa (Sulfonamide AdvReac Nausea/Vom/ Verified 01/13/22 13:07 Antibiotics) Diarrhea sulfamethoxazole AdvReac Nausea/Vom/ Verified 01/13/22 13:07 [From Bactrim] Diarrhea trimethoprim [From Bactrim] AdvReac Nausea/Vom/ Verified 01/13/22 13:07 Diarrhea Surgical History H/O knee surgery H/O: hysterectomy History of back surgery Social History Smoking Status: Never smoker ROS ROS Narrative See HPI Physical Exam Const alert and no apparent distress HEENT normocephalic, head/scalp atraumatic, hearing grossly normal bilaterally and moist oral mucous membranes Eyes PERRL, EOMs intact bilaterally, conjunctivae normal and no scleral icterus Neck full ROM and no lymphadenopathy Resp normal respiratory effort and no retractions Effort and Inspection: able to speak in complete sentences Auscultation: rales; Negative for rhonchi or wheezes Cardio regular rate, regular rhythm, S1 normal heart sound, S2 normal heart sound, no murmurs, no rub and no gallops GI normal to inspection, nondistended, normoactive bowel sounds, soft to palpation and non-tender Extremity normal to inspection and no clubbing, cyanosis or edema Neuro oriented x3, CN's II-XII intact bilaterally, moves all extremities and no focal motor deficits Psych cooperative and affect normal Lab / Micro Data Attestation: I reviewed the patient's lab results. Lab results narrative: Personal review of the CT scan does show some areas of thickening bronchus consistent with bronchiectasis. Result Diagrams: 01/13/22 13:21 01/13/22 13:21 Labs: Laboratory Results - last 24 hr 01/13/22 13:21: WBC 8.6, RBC 3.95 L, Hgb 11.5 L, Hct 36.2 L, MCV 91.6, MCH 29.1, MCHC 31.8 L, RDW Std Deviation 61.0 H, RDW Coeff of Lorenzo 18.6 H, Plt Count 219, MPV 10.2, Immature Gran % (Auto) 0.300, Neut % (Auto) 81.6 H, Lymph % (Auto) 9.0 L, [place] % (Auto) 4.1, Eos % (Auto) 4.4, Baso % (Auto) 0.6, Absolute Neuts (auto) 7.0, Absolute Lymphs (auto) 0.78 L, Nucleated RBC % 0 01/13/22 13:21: PT 11.7, INR 0.9, APTT 25.8 01/13/22 13:21: Sodium 135 L, Potassium 3.5, Chloride 100, Carbon Dioxide 26.0, Anion Gap 9, BUN 17, Creatinine 1.06 H, Estim Creat Clear Calc 33.48, Est GFR (MDRD) Af Amer 64, Est GFR (MDRD) Non-Af 53 L, BUN/Creatinine Ratio 16.0, Glucose 90, Calcium 10.2 H, Troponin I High Sens 27 01/13/22 13:21: B-Natriuretic Peptide 93.0 01/13/22 16:25: Troponin I High Sens 28 01/13/22 19:25: Troponin I High Sens 30 Micro: Microbiology 01/13/22 14:12 Nasal Secretion SARS-CoV-2 Antigen (Rapid) - Final Radiology Impression Chest CTA 01/13/22 14:00 IMPRESSION: Normal CTA chest examination, without a demonstrated pulmonary embolism or arterial dissection. Electronically Signed: Esvin Garcia MD at 17:15 EDT , Charges/Coding Visit Charges Inpatient E&M: 84120 Init Hosp L2
[2022-01-14] MEDS: Furosemide 40 MG/4 ML Vial IV (14:31)
--- NOTE | 2022-01-14 15:12 | CASEMGMT ---
SANDRA CM in to complete SWIFT form with patient. RN THANG explained SWIFT form to patient, patient voiced understanding. Patient signed SWIFT form and filed in chart. Patient provided with copy of signed SWIFT form. Patient had no further questions or concerns at this time.
--- NOTE | 2022-01-14 18:07 | EKG12_ITS ---
Test Reason : AM EKG Blood Pressure : / mmHG Vent. Rate : 069 BPM Atrial Rate : 069 BPM P-R Int : 134 ms QRS Dur : 088 ms QT Int : 388 ms P-R-T Axes : 039 001 012 degrees QTc Int : 415 ms Normal sinus rhythm Normal ECG When compared with ECG of 13-JAN-2022 19:16, MANUAL COMPARISON REQUIRED, DATA IS UNCONFIRMED Confirmed by EVER BRAN, MICHI ([id number]), editorial cartoonist ABA CORONADO ([id number]) on 01/16/2022 1:06:23 PM Referred By: Confirmed By:ADONAY CURTIS MD
--- NOTE | 2022-01-14 19:02 | PCM.PN.HOSP ---
Subjective Subjective Patient was seen and examined today, she still requires supplemental oxygen at 2 L/min, on examination, patient has some inspiratory rales at the right lung base but is otherwise clear, her stress test today was negative for reversible ischemia, I discussed some further testing with her and she agreed to undergo an echocardiogram and see pulmonary medicine who saw the patient this afternoon. Patient's echocardiogram resulted in showing a normal ejection fraction with no significant valvular heart disease, right ventricular systolic pressure was 32. Pulmonary medicine recommended a diuresis to see if this would help with the patient's hypoxia, she received 40 mg IV of Lasix x1 and had an output of approximately 900 cc of urine, patient still however was dyspneic while walking and I decided to keep the patient in the hospital for now and administer further doses of Lasix and reevaluate her tomorrow. Objective Data Objective Data Vital Signs: Vital Signs Temp Pulse Resp BP Pulse Ox O2 Del Method O2 Flow Rate 98.7 F 69 18 122/50 H 95 Nasal Cannula 1.5 01/14/22 18:50 01/14/22 18:50 01/14/22 18:50 01/14/22 18:50 01/14/22 18:50 01/14/22 18:50 01/14/22 18:50 Oxygen Flow Rate (L/min) [At 2 REST with Oxygen] Oxygen Flow Rate (L/min) [ 2 AMBULATING with Oxygen #1] Oxygen Flow Rate (L/min) [ 0 AMBULATING on Room Air] Oxygen Flow Rate (L/min) [At 0 REST on Room Air] Oxygen Flow Rate (L/min) 1.5 Oxygen Delivery Method Nasal Cannula Weight: 70.42 kg Body Mass Index (BMI) 27.5 Intake & Output: Intake and Output for Last 24 Hours 01/12/22 01/13/22 01/14/22 23:59 23:59 23:59 Output Total 900 / 900 Balance -900 / -900 Lab / Micro Data Result Diagrams: 01/13/22 13:21 01/15/22 04:50 Labs: Laboratory Results - last 24 hr 01/13/22 19:25: Troponin I High Sens 30 Micro: Microbiology 01/13/22 14:12 Nasal Secretion SARS-CoV-2 Antigen (Rapid) - Final Radiography Diagnostic Testing: Radiology Impression Echocardiogram 01/14/22 12:45 Interpretation Summary Left ventricular systolic function is normal. The estimated ejection fraction is 65 %. There is mild mitral annular calcification. Extension of the mitral annular calcification onto the base of the posterior mitral valve leaflet. Trivial mitral valve insufficiency. Mild tricuspid valve insufficiency. Mild focal aortic valve calcification. Right ventricular systolic pressure estimated to be 32 mmHg. Stage 2 diastolic dysfunction. Ordering Physician: Dayo Brown Referring Physician: Maria D Michael M.D. Performed By: Gema Roberts RCS Physical Exam Const alert, oriented x3, no apparent distress and healthy appearing General Appearance: cooperative, well kempt and well developed Orientation / Consciousness: awake, oriented to person, oriented to place and oriented to time HEENT normocephalic and moist oral mucous membranes Eyes PERRL, EOMs intact bilaterally and conjunctivae normal Neck supple, no JVD, thyroid normal and no carotid bruits General: trachea midline Resp normal respiratory effort, no retractions, no use of accessory muscles and clear to auscultation bilaterally Auscultation: Negative for rales, rhonchi or wheezes Cardio regular rate, regular rhythm, no murmurs, no rub and no gallops GI normal to inspection, nondistended, normoactive bowel sounds, soft to palpation, non-tender and non-distended Extremity no clubbing, cyanosis or edema Skin no rashes or lesions noted General Skin Exam: no breakdown Neuro oriented x3, CN's II-XII intact bilaterally, no focal motor deficits and no sensory deficits noted Sensorium / Orientation: awake and alert Speech: speech normal Psych affect normal Assessment & Plan Assessment/Plan (1) Hypoxia: PLAN: Plan 1. Hypoxia-etiology unclear at this time, again patient will be given IV diuresis and reevaluated tomorrow, pulse ox will be monitored #2 musculoskeletal chest pain-no treatment at this time #3 chronic kidney disease stage III a-complicates care, management, recovery, and prognosis #4 rheumatoid arthritis-complicates care, management, recovery, and prognosis, patient is on methotrexate weekly #5 chronic pain syndrome-patient is on Lyrica and Percocet chronically Charges/Coding Visit Charges OBSV E&M: 63987 Subsequent observation care L3
[2022-01-14] MEDS: Potassium Chloride Oral Tablet 20 MEQ 40 MEQ PO (20:02)
[2022-01-14] MEDS: Furosemide 20 MG/2 ML VIAL IV (21:13)
[2022-01-15] VITALS (7 sets, daily range): BP systolic 101–111; BP diastolic 64–65; PULSE 63–69; RESP 16–18; TEMP 36.3–37; O2SAT 90–96
[2022-01-15] MEDS: Pregabalin 50 MG Capsule 100 MG PO (06:00)
[2022-01-15] MEDS: Acetaminophen 500 MG Tablet PO (06:00)
[2022-01-15 06:16] LABS: Anion Gap 9 (5-15); BUN 17 mg/dL (7-18); BUN/Creat Ratio 15.5 RATIO (10-20); Calcium,Total 10.7 mg/dL (8.5-10.1); Chloride 99 mmol/L (98-107); EST Glomerular Filtration Rate 51 mL/min (>60); Est Glom Filt Rate - Afr Amer 61 mL/min (>60); Estimated Creatinine Clearance 33.74 ml/min; Glucose 100 mg/dL (74-106); Potassium 3.5 mmol/L (3.5-5.1); Sodium Level 138 mmol/L (136-145)
[2022-01-15] MEDS: Folic Acid 1 MG Tablet PO (08:01)
[2022-01-15] MEDS: Calcium (Elemental) 500 MG Tablet PO (08:01)
[2022-01-15] MEDS: Triamterene 37.5MG/Hctz 25MG Capsule 1 CAP PO (08:01)
[2022-01-15] MEDS: Pantoprazole Sodium 40 MG Tablet PO (08:01)
[2022-01-15] MEDS: Furosemide 20 MG/2 ML VIAL IV (08:01)
[2022-01-15] MEDS: Aspirin E.C. 81 MG Tablet PO (08:01)
[2022-01-15] MEDS: Potassium Chloride Oral Tablet 20 MEQ PO (08:01)
[2022-01-15] MEDS: dilTIAZem CD 120 MG Capsule PO (08:02)
[2022-01-15] MEDS: Allopurinol 100 MG Tablet PO (08:02)
--- NOTE | 2022-01-15 11:18 | DCINST_ITS ---
Discharge Instructions Diet Discharge Diet: No restrictions Activity Discharge Activity: Return to Normal Activity Weight Bearing Status: Full weight bearing Follow Up Care Test Results: Test results from this visit will be discussed in further detail at your follow- up appointment, if applicable. Discharge Plan Admission Admit Date/Time: 01/13/22 16:27 Primary Reason for Your Visit: hypoxia, chest pain Attending Provider: Dayo Brown Primary Care Provider: Maria D Michael Consulting Providers: Dioni Wynn ; Luis E Tavarez ; Andrea Blackwell ; Davy Downs ; Quintin Billy ; Olga Jasso [employer] GENERAL MANAGER Discharge Orders/Prescriptions Prescriptions: New furosemide [Lasix] 40 mg tablet 40 mg PO DAILY Qty: 30 0RF potassium chloride 10 mEq tablet extended release 20 meq PO DAILY Qty: 60 0RF Continued pantoprazole [Protonix] 40 mg tablet,delayed release (DR/EC) 40 mg PO DAILY diltiazem HCl 120 mg capsule,extended release 12 hr 120 mg PO DAILY folic acid 1 mg tablet 1 mg PO DAILY methotrexate sodium 2.5 mg tablet 15 mg PO TH Label Comments: take 6 tabs weekly acetaminophen [Tylenol Extra Strength] 500 mg tablet 500 mg PO TID allopurinol 100 mg tablet 100 mg PO DAILY oxycodone-acetaminophen 5-325 mg tablet 1 tab PO TID Label Comments: TAKE 1 TABLET BY MOUTH TWO TO THREE TIMES A DAY NEEDED (TO LAST 30 DAYS) calcium carbonate 500 mg calcium (1,250 mg) Tablet 500 mg PO DAILY docusate sodium 100 mg capsule 100 mg PO DAILY PRN (Reason: STOOL) Label Comments: take 1 capsule by mouth once daily if needed for constipation colchicine 0.6 mg tablet 0.6 mg PO DAILY pregabalin 100 mg capsule 100 mg PO TID Discontinued triamterene-hydrochlorothiazid 37.5-25 mg capsule 1 cap PO DAILY prednisone 20 MG tablet 60 mg PO DAILY Referrals / Follow Up: Luis E Tavarez MD [Med Staff - Active Staff] - See Referral Note (call the office to be seen in two weeks) Maria D Michael MD [Primary Care Provider] - See Referral Note (keep present appointment) Disposition Disposition (needs filled in before D/C Order can be placed): Home, Self Care
--- NOTE | 2022-01-15 11:37 | PCM.DC.SUM ---
Providers Date of Admission: 01/13/22 Date of Discharge: 01/15/22 Primary Care Physician: Dr. Maria D Michael MD Consultations 01/14/22 12:45 Consult: Plate Shop Helper / Pulmonary Medicine Routine Consulting Provider: Pulmonary Medicine jaclyn Connelly Reason for Consult: hypoxia EMERGENT Consult: No MD Notified: Yes Date Notified: 01/14/22 Time Notified: 12:46 Method of Notification: Verbal Reason For Visit: CHEST PAIN, DYSPNEA, HYPOXIA Diagnosis Discharge Diagnosis (1) Hypoxia: Status: Acute Code(s): R09.02 - Hypoxemia (2) Hiatal hernia: Status: Acute Code(s): K44.9 - Diaphragmatic hernia without obstruction or gangrene (3) Dyspnea: Status: Acute Code(s): R06.00 - Dyspnea, unspecified Plan 1.? Hypoxia secondary to acute diastolic congestive heart failure #2 acute diastolic congestive heart failure #3 musculoskeletal chest pain-no treatment at this time #4 chronic kidney disease stage III a-complicates care, management, recovery, and prognosis #5 rheumatoid arthritis-complicates care, management, recovery, and prognosis, patient is on methotrexate weekly #6 chronic pain syndrome-patient is on Lyrica and Percocet chronically Medications at Discharge Home Medications acetaminophen 500 mg tablet (Tylenol Extra Strength) 500 mg PO TID pain 03/27/21 diltiazem HCl 120 mg capsule,extended release 12 hr 120 mg PO DAILY heart rate 03/27/21 folic acid 1 mg tablet 1 mg PO DAILY supplement 03/27/21 methotrexate sodium 2.5 mg tablet 15 mg PO TH inflammation 03/27/21 pantoprazole 40 mg tablet,delayed release (Protonix) 40 mg PO DAILY reflux 03/27/21 allopurinol 100 mg tablet 100 mg PO DAILY gout 01/13/22 calcium carbonate 500 mg calcium (1,250 mg) tablet 500 mg PO DAILY supplement 01/13/22 colchicine 0.6 mg tablet 0.6 mg PO DAILY gout 01/13/22 docusate sodium 100 mg capsule 100 mg PO DAILY PRN STOOL 01/13/22 oxycodone-acetaminophen 5 mg-325 mg tablet 1 tab PO TID PAIN 01/13/22 pregabalin 100 mg capsule 100 mg PO TID pain 01/13/22 furosemide 40 mg tablet (Lasix) 40 mg PO DAILY #30 tabs 01/15/22 potassium chloride 10 mEq tablet,extended release 20 meq PO DAILY #60 tabs 01/15/22 Hospital Course Operations None Procedures 2-D Echocardiogram and Nuclear stress test Summary of Care Provided Minutes Spent on Discharge: 31 Hospital Course: This 81-year-old white female was seen in the emergency room at [facility] with a chief complaint of dyspnea without cough x3 weeks. She stated the dyspnea worsened with exertion. She also complained of chest pressure and diaphoresis for approximately 30 minutes 10 days prior to being seen in the emergency room. Work-up in the emergency room included labs that were unremarkable. EKG showed normal sinus rhythm without ischemic changes, CTA was performed which showed no evidence of pulmonary embolism or acute pulmonary process. Patient was noted to be hypoxic in the emergency room required minimal nasal cannula oxygen. Patient was placed into observation status on PCU, cardiac enzymes were cycled and these remain normal. Patient underwent a nuclear stress test which did not show any evidence of reversible ischemia. Patient remained hypoxic however and she was seen in consultation by pulmonary medicine who recommended diuresis, the exact etiology of the hypoxia was not identified, patient responded to diuresis however. This examiner felt that the patient most probably had diastolic congestive heart failure. On 01/15/2022, patient was seen and examined: On examination she appeared in good health and spirits, she does not appear to be in any distress. Vital signs as documented. Skin warm and dry and without overt rashes. Neck without JVD, thyroid appears normal, trachea is midline, neck is supple. Lungs clear, normal air movement was noted. Heart exam notable for regular rhythm, normal sounds and absence of murmurs, rubs or gallops. Abdomen unremarkable and without evidence of organomegaly, masses, or abdominal aortic enlargement, bowel sounds are present in all 4 quadrants, no abdominal tenderness was noted. Extremities nonedematous, no cyanosis was noted, no clubbing was noted. Neuro: Cranial nerves II through XII are grossly intact, no focal motor deficits were noted, sensation to light touch and pinprick is intact, motor exam 5/5 throughout. Psych: Patient is alert and oriented x3, she does not appear anxious or depressed, she does not appear agitated. On 01/15/2022, patient was seen and examined and felt to be stable for discharge Weight / BMI Weight Weight: 70.42 kg Body Mass Index (BMI) 27.5 ABG / Lab / Microbiology Data Result Diagrams: 01/13/22 13:21 01/15/22 04:50 Laboratory: Laboratory Results - last 24 hr 01/15/22 04:50: Sodium 138, Potassium 3.5, Chloride 99, Carbon Dioxide 30.0, Anion Gap 9, BUN 17, Creatinine 1.10 H, Estim Creat Clear Calc 33.74, Est GFR (MDRD) Af Amer 61, Est GFR (MDRD) Non-Af 51 L, BUN/Creatinine Ratio 15.5, Glucose 100, Calcium 10.7 H Microbiology: Microbiology 01/13/22 14:12 Nasal Secretion SARS-CoV-2 Antigen (Rapid) - Final Radiography Diagnostic Testing: Radiology Impression Echocardiogram 01/14/22 12:45 Interpretation Summary Left ventricular systolic function is normal. The estimated ejection fraction is 65 %. There is mild mitral annular calcification. Extension of the mitral annular calcification onto the base of the posterior mitral valve leaflet. Trivial mitral valve insufficiency. Mild tricuspid valve insufficiency. Mild focal aortic valve calcification. Right ventricular systolic pressure estimated to be 32 mmHg. Stage 2 diastolic dysfunction. Ordering Physician: Dayo Brown Referring Physician: Maria D Michael M.D. Performed By: Gema Roberts RCS D/C Instructions Discharge Diet: No restrictions Weight Bearing Status: Full weight bearing Meaningful Use Info Meaningful Use Diagnoses (Choose all that apply): CHF CHF LUIS M/ARB ordered at discharge?: No Reason LUIS M/ARB not ordered?: Not indicated Documented LVEF (%): 65 Discharge Plan Admission Admit Date/Time: 01/13/22 16:27 Primary Reason for Your Visit: hypoxia, chest pain Attending Provider: Dayo Brown Primary Care Provider: Maria D Michael Consulting Providers: Dioni Wynn ; Luis E Tavarez ; Andrea Blackwell ; Davy Downs ; Quintin Billy ; Olga Jasso [employer] Instructions Additional Instructions / Restrictions: Patient Problems: Altered Health Status related to Hospitalization Patient Goals: *Optimal Level of Health *Keep Appointments *Medication Compliance *Remain Safe Discharge Orders/Prescriptions Prescriptions: New furosemide [Lasix] 40 mg tablet 40 mg PO DAILY Qty: 30 0RF potassium chloride 10 mEq tablet extended release 20 meq PO DAILY Qty: 60 0RF Continued pantoprazole [Protonix] 40 mg tablet,delayed release (DR/EC) 40 mg PO DAILY diltiazem HCl 120 mg capsule,extended release 12 hr 120 mg PO DAILY folic acid 1 mg tablet 1 mg PO DAILY methotrexate sodium 2.5 mg tablet 15 mg PO TH Label Comments: take 6 tabs weekly acetaminophen [Tylenol Extra Strength] 500 mg tablet 500 mg PO TID allopurinol 100 mg tablet 100 mg PO DAILY oxycodone-acetaminophen 5-325 mg tablet 1 tab PO TID Label Comments: TAKE 1 TABLET BY MOUTH TWO TO THREE TIMES A DAY NEEDED (TO LAST 30 DAYS) calcium carbonate 500 mg calcium (1,250 mg) Tablet 500 mg PO DAILY docusate sodium 100 mg capsule 100 mg PO DAILY PRN (Reason: STOOL) Label Comments: take 1 capsule by mouth once daily if needed for constipation colchicine 0.6 mg tablet 0.6 mg PO DAILY pregabalin 100 mg capsule 100 mg PO TID Discontinued triamterene-hydrochlorothiazid 37.5-25 mg capsule 1 cap PO DAILY prednisone 20 MG tablet 60 mg PO DAILY Referrals / Follow Up: Luis E Tavarez MD [Med Staff - Active Staff] - See Referral Note (call the office to be seen in two weeks) Maria D Michael MD [Primary Care Provider] - See Referral Note (keep present appointment) Disposition Disposition (needs filled in before D/C Order can be placed): Home, Self Care Charges/Coding Visit Charges OBSV E&M: 77172 Observation care discharge
--- NOTE | 2022-01-15 12:10 | PHA.DC.MC ---
Pharmacy Service has performed discharge medication reconciliation and counseling for this patient. 1. FUROSEMIDE 40MG PO DAILY 2. POTASSIUM CHLORIDE 20MEQ PO DAILY The patient's discharge medication list was reviewed for discrepancies and discrepancies were resolved. Home Medications acetaminophen 500 mg tablet (Tylenol Extra Strength) 500 mg PO TID pain 03/27/21 diltiazem HCl 120 mg capsule,extended release 12 hr 120 mg PO DAILY heart rate 03/27/21 folic acid 1 mg tablet 1 mg PO DAILY supplement 03/27/21 methotrexate sodium 2.5 mg tablet 15 mg PO TH inflammation 03/27/21 pantoprazole 40 mg tablet,delayed release (Protonix) 40 mg PO DAILY reflux 03/27/21 allopurinol 100 mg tablet 100 mg PO DAILY gout 01/13/22 calcium carbonate 500 mg calcium (1,250 mg) tablet 500 mg PO DAILY supplement 01/13/22 colchicine 0.6 mg tablet 0.6 mg PO DAILY gout 01/13/22 docusate sodium 100 mg capsule 100 mg PO DAILY PRN STOOL 01/13/22 oxycodone-acetaminophen 5 mg-325 mg tablet 1 tab PO TID PAIN 01/13/22 pregabalin 100 mg capsule 100 mg PO TID pain 01/13/22 furosemide 40 mg tablet (Lasix) 40 mg PO DAILY #30 tabs 01/15/22 potassium chloride 10 mEq tablet,extended release 20 meq PO DAILY #60 tabs 01/15/22 The patient was counseled on the following discharge medications and changes in medications for homegoing were reviewed. The Reason for Use, instructions for use, and potential side effects were reviewed for all new medications. The patient's questions regarding all of their medications were answered. The patient was able to verbally demonstrate an understanding of their discharge medications. Patient counseled by student accounts coordinatorJeanne.
== END 2022-01-15 11:36 | disposition home or self-care (01) ==
LOC: ED 16:02 → PCU 16:47
PROVIDERS: Emergency Provider Emergency Medicine; PCP Internal Medicine; Visit Provider Internal Medicine
DX: R09.02 Hypoxemia (principal); M06.9 Rheumatoid arthritis, unspecified; I13.0 Hypertensive heart and chronic kidney disease with heart failure and stage 1 through stage 4 chronic kidney disease, or unspecified chronic kidney disease; I50.31 Acute diastolic (congestive) heart failure; J47.0 Bronchiectasis with acute lower respiratory infection; N18.31 Chronic kidney disease, stage 3a; K44.9 Diaphragmatic hernia without obstruction or gangrene; Z79.891 Long term (current) use of opiate analgesic; Z79.52 Long term (current) use of systemic steroids; M10.9 Gout, unspecified; M19.90 Unspecified osteoarthritis, unspecified site; Z79.899 Other long term (current) drug therapy; G89.4 Chronic pain syndrome
CPT/HCPCS: 36415; 71275; 78452; 80048; 83880; 84484; 85025; 85610; 85730; 87811; 93005; 93017; 93306; 96374; 96376; 99218; 99284; A9500; Q9967; A4216; G0378; J1940; J2785

== ENCOUNTER → 2022-02-05 | Outpatient (CLI) | payer MEDICARE, SELFPAY ==
[2022-02-05 14:05] LABS: Rheumatoid Factor < 10.0 IU/mL (<15)
[2022-02-07 12:08] LABS: Anti-Centromere B Ab <0.2 AI (0.0-0.9); Anti-Chromatin <0.2 AI (0.0-0.9); Anti-Jo <0.2 AI (0.0-0.9); Anti-Scleroderma-70 AB <0.2 AI (0.0-0.9); RNP Ab <0.2 AI (0.0-0.9); SJOGREN'S Anti-SS-A test < 0.2 AI (0.0-0.9); SJOGREN'S Anti-SS-B test < 0.2 AI (0.0-0.9); Smith Ab <0.2 AI (0.0-0.9)
[2022-02-08 00:06] LABS: Cytoplasmic Ab (C-ANCA) <1:20 titer (Neg:<1:20)
[2022-02-09 09:38] LABS: CCP IgG Antibodies 6 units (0-19); Perinuclear Ab (P-ANCA) <1:20 titer (Neg:<1:20)
[2022-02-09 15:38] LABS: Anti-dsDNA Ab <1 IU/mL (0-9)
== END | disposition home or self-care (01) ==
LOC: LAB 12:31
PROVIDERS: PCP Internal Medicine; Referring Provider Nurse Practitioner Acute Care; Visit Provider Nurse Practitioner Acute Care
DX: R06.00 Dyspnea, unspecified (principal)
CPT/HCPCS: 36415; 86200; 86225; 86235; 86256; 86431

== ENCOUNTER 2022-02-15 20:30 | Inpatient (IN) | payer MEDICARE, SELFPAY ==
[2022-02-15] VITALS (9 sets, daily range): BP systolic 166–183; BP diastolic 77–114; PULSE 66–89; RESP 16–22; TEMP 36.2–36.7; O2SAT 96–98; BMI 27.4; BMI 28.6; BMI 28.3
--- NOTE | 2022-02-15 20:50 | CT_ITS ---
We are attempting to reach an attending provider to discuss findings. An addendum with communication details will be sent when the communication is complete. EXAM: CT ANGIOGRAPHY HEAD AND NECK WITH INTRAVENOUS CONTRAST CLINICAL INDICATION: Neuro deficit, acute, stroke suspected TECHNIQUE: [place]/head and neck CT angiography protocol performed with intravenous contrast. This CT exam was performed using one or more of the following dose reduction techniques: automated exposure control, adjustment of the mA and/or kV according to patient size, and/or use of iterative reconstruction technique. This report was created using [employer] report Sionex technology. MIP reconstructed images were created and reviewed. CONTRAST: IV 100mL Isovue-370 COMPARISON: None. FINDINGS: HEAD: RIGHT ANTERIOR CEREBRAL ARTERY: Unremarkable. No significant stenosis at the visualized segments. Anterior communicating artery is present. No aneurysm. RIGHT MIDDLE CEREBRAL ARTERY: Unremarkable. No significant stenosis at the visualized segments. No aneurysm. RIGHT POSTERIOR CEREBRAL ARTERY: Unremarkable. No occlusion or significant stenosis. No aneurysm. RIGHT INTRACRANIAL INTERNAL CAROTID ARTERY: Unremarkable. No significant stenosis. No dissection or occlusion. RIGHT INTRACRANIAL VERTEBRAL ARTERY: Unremarkable. No significant stenosis. No dissection or occlusion. LEFT ANTERIOR CEREBRAL ARTERY: Unremarkable. No significant stenosis at the visualized segments. No aneurysm. LEFT MIDDLE CEREBRAL ARTERY: Unremarkable. No significant stenosis at the visualized segments. No aneurysm. LEFT POSTERIOR CEREBRAL ARTERY: Unremarkable. No occlusion or significant stenosis. No aneurysm. LEFT INTRACRANIAL INTERNAL CAROTID ARTERY: Unremarkable. No significant stenosis. No dissection or occlusion. LEFT INTRACRANIAL VERTEBRAL ARTERY: Unremarkable. No significant stenosis. No dissection or occlusion. BASILAR ARTERY: Unremarkable. No significant stenosis. No aneurysm. OTHER VASCULATURE: There are calcifications in the carotid bulbs and proximal internal carotid arteries bilaterally slightly greater on the right than on the left. There is no evidence of high-grade stenosis. No vascular malformation. NECK: RIGHT COMMON CAROTID ARTERY: Unremarkable. No significant stenosis. No dissection or occlusion. RIGHT EXTRACRANIAL INTERNAL CAROTID ARTERY: Unremarkable. No significant stenosis. No dissection or occlusion. RIGHT EXTERNAL CAROTID ARTERY: Unremarkable. No occlusion. RIGHT EXTRACRANIAL VERTEBRAL ARTERY: Unremarkable. No significant stenosis. No dissection or occlusion. LEFT COMMON CAROTID ARTERY: Unremarkable. No significant stenosis. No dissection or occlusion. LEFT EXTRACRANIAL INTERNAL CAROTID ARTERY: Unremarkable. No significant stenosis. No dissection or occlusion. LEFT EXTERNAL CAROTID ARTERY: Unremarkable. No occlusion. LEFT EXTRACRANIAL VERTEBRAL ARTERY: Unremarkable. No significant stenosis. No dissection or occlusion. GREAT VESSELS OF AORTIC ARCH: Unremarkable as visualized. Normal anatomy, patent. LUNG APICES: Unremarkable as visualized. HEAD and NECK: BONES/JOINTS: Unremarkable. No discrete lytic or blastic abnormalities. SOFT TISSUES: Unremarkable. CAROTID STENOSIS REFERENCE USING NASCET CRITERIA: % ICA stenosis = (1 - narrowest ICA diameter/diameter of distal cervical ICA) x 100. Mild - <50% stenosis. Moderate - 50-69% stenosis. Severe - 70-94% stenosis. Near occlusion - 95-99% stenosis. Occluded - 100% stenosis. CT/STROKE CTA Head AND Neck W/Con IMPRESSION: No acute findings in the arteries of the head and neck. Electronically Signed: Rich Alexandra MD at 21:18 EDT ,
--- NOTE | 2022-02-15 20:50 | CT_ITS ---
EXAM: CT HEAD WITHOUT INTRAVENOUS CONTRAST CLINICAL INDICATION: Neuro deficit, acute, stroke suspected TECHNIQUE: Multiple axial images were obtained of the head without intravenous contrast. This CT exam was performed using one or more of the following dose reduction techniques: automated exposure control, adjustment of the mA and/or kV according to patient size, and/or use of iterative reconstruction technique. This report was created using [employer] report generation technology. COMPARISON: None. FINDINGS: BRAIN AND EXTRA-AXIAL SPACES: There is enlargement of the ventricular system and cortical sulci. There is hypoattenuation in the periventricular white matter. No intra- or extra-axial hemorrhage. No evidence of acute infarct. No intracranial mass or mass effect. There is preservation of the priest/white matter interface. Posterior fossa structures are unremarkable. Basal cisterns are patent. BONES/JOINTS: Unremarkable. No discrete lytic or blastic abnormalities. SINUSES: There is mucosal thickening in the sphenoid sinus. MASTOID AIR CELLS: Unremarkable. Clear. ORBITS: Visualized globes, extraocular muscles, optic nerves and retrobulbar fat appear unremarkable. CT/STROKE Brain/Head without Cont IMPRESSION: 1. No acute intracranial abnormality. 2. Underlying senescent changes of small vessel ischemia. 3. ASPECTS score 10. Electronically Signed: Rich Alexandra MD at 21:03 EDT ,
--- NOTE | 2022-02-15 20:50 | RAD_ITS ---
EXAM: XR CHEST, 1 VIEW CLINICAL INDICATION: Neuro deficit, acute, stroke suspected TECHNIQUE: Frontal view of the chest. This report was created using [employer] report generation technology. COMPARISON: None. FINDINGS: LUNGS AND PLEURAL SPACES: Unremarkable. No consolidation or edema. No pneumothorax. No effusion. HEART: Unremarkable. Cardiac silhouette not enlarged. MEDIASTINUM: Central airways and mediastinal contour are unremarkable. BONES/JOINTS: Unremarkable. SOFT TISSUES: Unremarkable. TUBES, LINES AND DEVICES: There are stimulator leads overlying the mid thoracic spine. RAD/Chest 1 View IMPRESSION: No acute findings in the chest. Electronically Signed: Rich Alexandra MD at 21:44 EDT ,
--- NOTE | 2022-02-15 20:50 | EKG12_ITS ---
Test Reason : STROKE ALERT Blood Pressure : / mmHG Vent. Rate : 075 BPM Atrial Rate : 075 BPM P-R Int : 136 ms QRS Dur : 078 ms QT Int : 392 ms P-R-T Axes : 052 004 -05 degrees QTc Int : 437 ms Sinus rhythm with Premature atrial complexes Minimal voltage criteria for LVH, may be normal variant ( R in aVL ) Nonspecific ST abnormality Abnormal ECG Confirmed by SHABNAM BRAN, HENOK ([id number]), videotape editor ABA CORONADO ([id number]) on 02/17/2022 9:22:51 AM Referred By: ALYSSA Confirmed By:HENOK HAQUE MD
--- NOTE | 2022-02-15 20:51 | EX.ED.DYSGE1 ---
HPI History of Present Illness Chief Complaint: Neuro S/Sx Narrative Narrative: Patient presents with almost 7 hours of slurred speech and inability to find words. She also seemed confused per family. This is new for her she has not had anything like this before she has not had weakness. No sensory deficits she is denying any vision changes. [facility] Medical History Arthritis Breast lump Carpal tunnel syndrome Cataracts, bilateral Esophageal spasm Gout Hiatal hernia HTN (hypertension) Neuropathy Osteoarthritis Osteopenia Osteoporosis Rheumatoid arthritis Home Medications acetaminophen 500 mg tablet (Tylenol Extra Strength) 500 mg PO TID pain 03/27/21 [History Last Taken 01/13/22] diltiazem HCl 120 mg capsule,extended release 12 hr 120 mg PO DAILY heart rate 03/27/21 [History Last Taken 01/13/22] folic acid 1 mg tablet 1 mg PO DAILY supplement 03/27/21 [History Last Taken 01/13/22] methotrexate sodium 2.5 mg tablet 15 mg PO TH inflammation 03/27/21 [History Last Taken 01/09/22] pantoprazole 40 mg tablet,delayed release (Protonix) 40 mg PO DAILY reflux 03/27/21 [History Last Taken 01/13/22] allopurinol 100 mg tablet 100 mg PO DAILY gout 01/13/22 [History Last Taken 01/13/22] calcium carbonate 500 mg calcium (1,250 mg) tablet 500 mg PO DAILY supplement 01/13/22 [History Last Taken 01/13/22] colchicine 0.6 mg tablet 0.6 mg PO DAILY gout 01/13/22 [History Last Taken 01/13/22] docusate sodium 100 mg capsule 100 mg PO DAILY PRN STOOL 01/13/22 [History Last Taken 1 Week Ago ~01/06/22] oxycodone-acetaminophen 5 mg-325 mg tablet 1 tab PO TID PAIN 01/13/22 [History Last Taken 01/13/22] pregabalin 100 mg capsule 100 mg PO TID pain 01/13/22 [History Last Taken 01/13/22] furosemide 40 mg tablet (Lasix) 40 mg PO DAILY #30 tabs 01/15/22 [Rx Last Taken Unknown] potassium chloride 10 mEq tablet,extended release 20 meq PO DAILY #60 tabs 01/15/22 [Rx Last Taken Unknown] Allergy/AdvReac Type Severity Reaction Status Date / Time Sulfa (Sulfonamide AdvReac Nausea/Vom/ Verified 02/15/22 20:33 Antibiotics) Diarrhea sulfamethoxazole AdvReac Nausea/Vom/ Verified 02/15/22 20:33 [From Bactrim] Diarrhea trimethoprim [From Bactrim] AdvReac Nausea/Vom/ Verified 02/15/22 20:33 Diarrhea Surgical History H/O knee surgery H/O: hysterectomy History of back surgery Social History Smoking Status: Never smoker ROS ROS ED ROS Narrative Past medical history: Reviewed Medications: Reviewed Social history: Noncontributory Review of systems: All systems negative except as indicated General: No fever Eyes: No visual changes ENT: No upper airway congestion, normal voice Neck: No neck pain Cardiovascular: No chest pain Respiratory: No shortness of breath or cough Gastrointestinal: No abdominal pain, nausea vomiting or diarrhea Genitourinary: No dysuria Musculoskeletal: Denies myalgias no difficulty with ambulation Skin: No rash Neurological: Neurological symptoms as in HPI Psych: No recent behavioral changes Hematologic: No easy bleeding or easy bruising EXAM Physical Exam Narrative Exam Narrative: Physical exam General: Patient appears apprehensive. She does not appear ill. Head: Normocephalic, Atraumatic Eyes: Conjunctiva not pale ENT: Moist mucous membranes Neck: Supple, Nontender, No lymphadenopathy Cardiovascular: Regular rate, Regular rhythm Respiratory: No distress, CTA bilaterally Abdomen: Soft, Nontender, Nondistended Back: Nontender, Normal Inspection. Negative for: CVA tenderness Extremities: Nontender, No edema Skin: Normal color, No rash Neurological: See NIH stroke scale Psychological: Normal affect Const Vital Signs: 02/15/22 20:31 02/15/22 20:46 02/15/22 20:59 Temperature 98.0 F 98 F Temperature Source Temporal Temporal Pulse Rate 78 78 72 Respiratory Rate 18 16 22 H Blood Pressure 177/87 H 172/101 H 177/77 H Blood Pressure Mean 117 124 110 Blood Pressure Source Monitor Blood Pressure Position Semi-Fowlers Blood Pressure Location Right Arm Pulse Ox 98 97 97 Oxygen Delivery Method Room Air Room Air Room Air 02/15/22 21:14 Temperature Temperature Source Pulse Rate Respiratory Rate Blood Pressure Blood Pressure Mean Blood Pressure Source Blood Pressure Position Blood Pressure Location Pulse Ox Oxygen Delivery Method Room Air NIHSS NIHSS Initial: 1a Level of Consciousness: 0 1b LOC Questions (Score 2 if aphasic/stupor): 1 1c LOC Commands (Only score 1st attempt): 0 2 Best Gaze (If aphasic, use reflexive mvmts.): 0 3 Visual: 0 4 Facial Palsy: 0 5 Motor Arm Right (UN = amputation/fusion): 0 5 Motor Arm Left: 0 6 Motor Leg Right: 0 6 Motor Leg Left: 0 7 Limb ataxia (Only + if out of proportion): 0 8 Sensory (Aphasia/stupor=0 or 1, coma=2): 0 9 Best Language: 1 10 Dysarthria (mute, coma=2, intubated=UN): 0 11 Extinction and Inattention (only scored if +): 0 Total Score: 2 MDM MDM Lab Data Labs: Laboratory Results - last 24 hr 02/15/22 02/15/22 02/15/22 20:41 20:41 20:41 WBC 8.4 RBC 4.33 Hgb 12.9 Hct 40.3 MCV 93.1 MCH 29.8 MCHC 32.0 RDW Std Deviation 66.3 H RDW Coeff of Lorenzo 19.8 H Plt Count 328 MPV 9.5 Immature Gran % (Auto) 0.400 Neut % (Auto) 66.4 Lymph % (Auto) 18.4 L [place] % (Auto) 12.3 H Eos % (Auto) 2.1 Baso % (Auto) 0.4 Absolute Neuts (auto) 5.6 Absolute Lymphs (auto) 1.54 Nucleated RBC % 0 PT 12.2 INR 0.9 APTT 24.4 Sodium 140 Potassium 4.1 Chloride 105 Carbon Dioxide 26.0 Anion Gap 9 BUN 17 Creatinine 1.25 H Estim Creat Clear Calc 28.39 Est GFR (MDRD) Af Amer 53 L Est GFR (MDRD) Non-Af 44 L BUN/Creatinine Ratio 13.6 Glucose 105 Calcium 11.1 H Troponin I High Sens 26 POC Glucose 02/15/22 20:42 WBC RBC Hgb Hct MCV MCH MCHC RDW Std Deviation RDW Coeff of Lorenzo Plt Count MPV Immature Gran % (Auto) Neut % (Auto) Lymph % (Auto) [place] % (Auto) Eos % (Auto) Baso % (Auto) Absolute Neuts (auto) Absolute Lymphs (auto) Nucleated RBC % PT INR APTT Sodium Potassium Chloride Carbon Dioxide Anion Gap BUN Creatinine Estim Creat Clear Calc Est GFR (MDRD) Af Amer Est GFR (MDRD) Non-Af BUN/Creatinine Ratio Glucose Calcium Troponin I High Sens POC Glucose 107 H Radiography Diagnostic Testing: Clinical Impression(s) from Imaging Studies Brain CT 02/15/22 20:50 IMPRESSION: 1. No acute intracranial abnormality. 2. Underlying senescent changes of small vessel ischemia. 3. ASPECTS score 10. Electronically Signed: Rich Alexandra MD at 21:03 EDT , ADDENDUM: 02/15/222112 IMPRESSION: 1. No acute intracranial abnormality. 2. Underlying senescent changes of small vessel ischemia. 3. ASPECTS score 10. N.B. : The above Results were Read Back by Rich Alexandra MD to Yobany An MD, and understanding confirmed on 02/15/2022 21:06:28 (ET). Electronically Signed: Rich Alexandra MD at 21:03 EDT , Head/Neck CTA 02/15/22 20:50 IMPRESSION: No acute findings in the arteries of the head and neck. Electronically Signed: Rich Alexandra MD at 21:18 EDT , Treatment and Re-Evaluation Narrative: It sounds like patient had significant aphasia a few hours ago however it seems to be improving it is almost fully improved. She was slightly confused which is also improving. At this time I do not believe she meets criteria for tPA also she is outside the time window for tPA administration. Patient will be admitted. CTs are unremarkable Discharge Plan Triage Chief Complaint: Neuro S/Sx ED Provider: Yobany An Dx/Rx/DC Orders Clinical Impression: Aphasia, Acute confusion, Weakness Prescriptions: No Action pantoprazole [Protonix] 40 mg tablet,delayed release (DR/EC) 40 mg PO DAILY diltiazem HCl 120 mg capsule,extended release 12 hr 120 mg PO DAILY folic acid 1 mg tablet 1 mg PO DAILY methotrexate sodium 2.5 mg tablet 15 mg PO TH Label Comments: take 6 tabs weekly acetaminophen [Tylenol Extra Strength] 500 mg tablet 500 mg PO TID allopurinol 100 mg tablet 100 mg PO DAILY oxycodone-acetaminophen 5-325 mg tablet 1 tab PO TID Label Comments: TAKE 1 TABLET BY MOUTH TWO TO THREE TIMES A DAY NEEDED (TO LAST 30 DAYS) calcium carbonate 500 mg calcium (1,250 mg) Tablet 500 mg PO DAILY docusate sodium 100 mg capsule 100 mg PO DAILY PRN (Reason: STOOL) Label Comments: take 1 capsule by mouth once daily if needed for constipation colchicine 0.6 mg tablet 0.6 mg PO DAILY pregabalin 100 mg capsule 100 mg PO TID furosemide [Lasix] 40 mg tablet 40 mg PO DAILY Qty: 30 0RF potassium chloride 10 mEq tablet extended release 20 meq PO DAILY Qty: 60 0RF Primary Care Provider: Maria D Michael Referrals: Maria D Michael MD [Primary Care Provider] - Disposition Disposition: Acute Care [facility]
[2022-02-15 20:58] LABS: Absolute Lymphocyte Count 1.54 X10^3/uL (0.83-4.51); Absolute Neutrophil Count 5.6 X10^3/uL (2.0-7.7); Basophil# 0.03 X10^3/uL; Basophil% 0.4 % (0-1); Eosinophil# 0.18 X10^3/uL; Eosinophils% 2.1 % (0-5); Hematocrit 40.3 % (37-47); Hemoglobin 12.9 g/dL (12.0-15.0); Lymphocyte # 1.54 X10^3/ul (0.83-4.51); Lymphocyte % 18.4 % (19-41); Mean Corpuscular Hgb 29.8 pg (27.0-32.0); Mean Corpuscular Volume 93.1 fL (81-99); Mean Platelet Vol. 9.5 fl (6.2-12.0); Monocyte# 1.03 X10^3/uL; Monocyte% 12.3 % (0-10); NRBC Flagged by Analyzer 0 % (0-5); Neutrophil # 5.58 X10^3/uL (2.7-7.7); Neutrophil % 66.4 % (47-70); POSITIVE MORPHOLOGY YES; Platelet Count 328 K/mm3 (150-450); RBC Distribution Width CV 19.8 % (11.6-14.6); RBC Distribution Width SD 66.3 fl (35.1-43.9); Red Blood Count 4.33 M/mm3 (4.2-5.4); White Blood Count 8.4 K/mm3 (4.4-11.0)
[2022-02-15 21:00] LABS: Bedside Glucose 107 mg/dL (74-106)
[2022-02-15 21:03] LABS: Differential Indicated SCAN CRITERIA MET
[2022-02-15 21:07] LABS: International Normalized Ratio 0.9; Partial Thromboplast Time 24.4 Seconds (24.1-36.2); Prothrombin Time (Protime)PT. 12.2 SECONDS (11.7-14.9)
[2022-02-15 21:14] LABS: Anion Gap 9 (5-15); BUN 17 mg/dL (7-18); BUN/Creat Ratio 13.6 RATIO (10-20); Calcium,Total 11.1 mg/dL (8.5-10.1); Chloride 105 mmol/L (98-107); Creatinine, Serum 1.25 mg/dL (0.55-1.02); EST Glomerular Filtration Rate 44 mL/min (>60); Est Glom Filt Rate - Afr Amer 53 mL/min (>60); Estimated Creatinine Clearance 28.39 ml/min; Glucose 105 mg/dL (74-106); Potassium 4.1 mmol/L (3.5-5.1); Sodium Level 140 mmol/L (136-145); Troponin-I HS 26 pg/mL (3.0-54.0)
--- NOTE | 2022-02-15 21:29 | ED.RN ---
2030 ADRIEN Bernstein RN MADE AWARE OF PT'S SYMPTOMS AND UNKNOWN DAYS OF SPEECH DIFFICULTIES AND NOT ON BLOOD THINNERS.
[2022-02-15 21:30] LABS: Anisocytosis 1+; Differential Comment SCANNED
--- NOTE | 2022-02-15 22:04 | HP.PCM.HOS_ITS ---
HPI - General General Date of Admission: 02/15/22 Date of Service: 02/15/22 Chief Complaint: Expressive aphasia HPI Narrative RONNELL HERZOG, is a 81 F who presents with word finding difficulty. Around 2 PM, there was noticed that the patient was having difficulty finding words and articulating her thoughts. At baseline, patient does have some hesitancy but this was much more severe and abrupt. They brought her to the emergency room for evaluation. Patient had a CTA of her head neck that showed no acute process. Patient has never had an event like this before. Patient does take pregabalin as well as tramadol. Patient previously was taking Percocet but was making her too groggy so was changed over to tramadol. There is no concerns from the patient nor her family about her incorrectly taking medications. [facility] Medical History Arthritis Breast lump Carpal tunnel syndrome Cataracts, bilateral Esophageal spasm Gout Hiatal hernia HTN (hypertension) Neuropathy Osteoarthritis Osteopenia Osteoporosis Rheumatoid arthritis Home Medications acetaminophen 500 mg tablet (Tylenol Extra Strength) 500 mg PO TID pain 03/27/21 [History Last Taken 01/13/22] diltiazem HCl 120 mg capsule,extended release 12 hr 120 mg PO DAILY heart rate 03/27/21 [History Last Taken 01/13/22] folic acid 1 mg tablet 1 mg PO DAILY supplement 03/27/21 [History Last Taken 01/13/22] methotrexate sodium 2.5 mg tablet 15 mg PO TH inflammation 03/27/21 [History Last Taken 01/09/22] pantoprazole 40 mg tablet,delayed release (Protonix) 40 mg PO DAILY reflux 03/27/21 [History Last Taken 01/13/22] allopurinol 100 mg tablet 100 mg PO DAILY gout 01/13/22 [History Last Taken 01/13/22] calcium carbonate 500 mg calcium (1,250 mg) tablet 500 mg PO DAILY supplement 01/13/22 [History Last Taken 01/13/22] colchicine 0.6 mg tablet 0.6 mg PO DAILY gout 01/13/22 [History Last Taken 01/13/22] docusate sodium 100 mg capsule 100 mg PO DAILY PRN STOOL 01/13/22 [History Last Taken 1 Week Ago ~01/06/22] oxycodone-acetaminophen 5 mg-325 mg tablet 1 tab PO TID PAIN 01/13/22 [History Last Taken 01/13/22] pregabalin 100 mg capsule 100 mg PO TID pain 01/13/22 [History Last Taken 01/13/22] furosemide 40 mg tablet (Lasix) 40 mg PO DAILY #30 tabs 01/15/22 [Rx Last Taken Unknown] potassium chloride 10 mEq tablet,extended release 20 meq PO DAILY #60 tabs 01/15/22 [Rx Last Taken Unknown] Allergy/AdvReac Type Severity Reaction Status Date / Time Sulfa (Sulfonamide AdvReac Nausea/Vom/ Verified 02/15/22 20:33 Antibiotics) Diarrhea sulfamethoxazole AdvReac Nausea/Vom/ Verified 02/15/22 20:33 [From Bactrim] Diarrhea trimethoprim [From Bactrim] AdvReac Nausea/Vom/ Verified 02/15/22 20:33 Diarrhea Surgical History H/O knee surgery H/O: hysterectomy History of back surgery Social History Smoking Status: Never smoker ROLY Dunne Does have mild neuropathy and sciatica. Patient does have about difficulty lifting her left leg up due to her sciatica at baseline. All review of systems were negative except as mentioned above in the history of present illness and the other review of systems. Vital Signs Vital Signs Vital Signs: 02/15/22 20:31 02/15/22 20:46 02/15/22 20:59 Temperature 36.7 C 36.6 C Temperature Source Temporal Temporal Pulse Rate 78 78 72 Respiratory Rate 18 16 22 H Blood Pressure 177/87 H 172/101 H 177/77 H Blood Pressure Mean 117 124 110 Blood Pressure Source Monitor Blood Pressure Position Semi-Fowlers Blood Pressure Location Right Arm Pulse Ox 98 97 97 Oxygen Delivery Method Room Air Room Air Room Air 02/15/22 21:14 02/15/22 21:30 02/15/22 21:35 Temperature 36.6 C Temperature Source Temporal Pulse Rate 68 70 Respiratory Rate 19 H 17 Blood Pressure 175/84 H 175/84 H Blood Pressure Mean 114 114 Blood Pressure Source Blood Pressure Position Blood Pressure Location Pulse Ox 97 97 Oxygen Delivery Method Room Air Room Air Room Air Weight Weight: 71.1 kg Body Mass Index (BMI) 28.6 Physical Exam Const alert and no apparent distress Constitutional Narrative: So word finding difficulty but speech is coherent HEENT normocephalic, head/scalp atraumatic, hearing grossly normal bilaterally and moist oral mucous membranes Eyes PERRL and EOMs intact bilaterally Neck no lymphadenopathy Resp normal respiratory effort, no retractions, no use of accessory muscles and clear to auscultation bilaterally Cardio regular rate, regular rhythm, S1 normal heart sound and S2 normal heart sound GI normal to inspection, nondistended, normoactive bowel sounds, soft to palpation, non-tender, non-distended and hepatosplenomegaly Extremity normal to inspection Neuro oriented x3, CN's II-XII intact bilaterally, moves all extremities and no focal motor deficits Sensorium / Orientation: awake and alert Motor Exam: strength 5/5 throughout Psych affect normal Results Lab / Micro Data Attestation: I reviewed the patient's lab results. Result Diagrams: 02/15/22 20:41 02/15/22 20:41 Labs: Laboratory Results - last 24 hr 02/15/22 20:41: WBC 8.4, RBC 4.33, Hgb 12.9, Hct 40.3, MCV 93.1, MCH 29.8, MCHC 32.0, RDW Std Deviation 66.3 H, RDW Coeff of Lorenzo 19.8 H, Plt Count 328, MPV 9.5, Immature Gran % (Auto) 0.400, Neut % (Auto) 66.4, Lymph % (Auto) 18.4 L, [place] % (Auto) 12.3 H, Eos % (Auto) 2.1, Baso % (Auto) 0.4, Absolute Neuts (auto) 5.6, Absolute Lymphs (auto) 1.54, Nucleated RBC % 0, Differential Comment SCANNED, Anisocytosis 1+ 02/15/22 20:41: PT 12.2, INR 0.9, APTT 24.4 02/15/22 20:41: Sodium 140, Potassium 4.1, Chloride 105, Carbon Dioxide 26.0, Anion Gap 9, BUN 17, Creatinine 1.25 H, Estim Creat Clear Calc 28.39, Est GFR (MDRD) Af Amer 53 L, Est GFR (MDRD) Non-Af 44 L, BUN/Creatinine Ratio 13.6, Glucose 105, Calcium 11.1 H, Troponin I High Sens 26 02/15/22 20:42: POC Glucose 107 H EKG Initial EKG: Attestation: I personally reviewed and interpreted this EKG as follows: Prior EKG tracings: available for review EKG Rhythm Intrepretation: Sinus Rhythm Radiology Impression Brain CT 02/15/22 20:50 IMPRESSION: 1. No acute intracranial abnormality. 2. Underlying senescent changes of small vessel ischemia. 3. ASPECTS score 10. Electronically Signed: Rich Alexandra MD at 21:03 EDT , ADDENDUM: 02/15/222112 IMPRESSION: 1. No acute intracranial abnormality. 2. Underlying senescent changes of small vessel ischemia. 3. ASPECTS score 10. N.B. : The above Results were Read Back by Rich Alexandra MD to Yobany An MD, and understanding confirmed on 02/15/2022 21:06:28 (ET). Electronically Signed: Rich Alexandra MD at 21:03 EDT , Chest X-Ray 02/15/22 20:50 IMPRESSION: No acute findings in the chest. Electronically Signed: Rich Alexandra MD at 21:44 EDT , Head/Neck CTA 02/15/22 20:50 IMPRESSION: No acute findings in the arteries of the head and neck. Electronically Signed: Rich Alexandra MD at 21:18 EDT , ADDENDUM: 02/15/222129 IMPRESSION: No acute findings in the arteries of the head and neck. N.B. : The above Results were Read Back by Rich Alexandra MD to Yobany Flores MD, and understanding confirmed on 02/15/2022 21:23:11 (ET). Electronically Signed: Rich Alexandra MD at 21:18 EDT , Assessment & Plan Assessment/Plan (1) Expressive aphasia: PLAN: Etiology: CVA/TIA versus iatrogenic versus hypercalcemia Plan: * MRI of the brain to evaluate to see if patient did have a stroke. Patient already did have a stat CTA of the head and neck so would not need to do an MRA. * Echocardiogram * Start aspirin * Hold potentiating medications. Patient and her family were made aware that I will be holding her tramadol as well as pregabalin for now. * Correct hypercalcemia. (2) Hypercalcemia: PLAN: This appears to be more chronic. Patient does take calcium carbonate at baseline. When takes it daily some unsure if this is only contributing to her hypercalcemia Plan: * Hold calcium carbonate * IV fluids * Reevaluate PLAN: Plan Chronic conditions * Chronic respiratory failure: Follow-up pulmonary * Rheumatoid arthritis: Continue methotrexate * Hiatal hernia * Gout: Continue allopurinol * Chronic pain: On pregabalin tramadol as mentioned above. VTE prophylaxis with Lovenox Case cussed with the patient's daughters at bedside. Charges/Coding Visit Charges Inpatient E&M: 33656 Init Hosp L3
[2022-02-15 22:30] LABS: Troponin-I HS 31 pg/mL (3.0-54.0)
[2022-02-15] MEDS: 0.9% Saline Lock 10 ML Syringe IV (23:11)
[2022-02-15] MEDS: 0.9% Normal Saline 1,000 ML 150 ML IV (23:11)
[2022-02-15] MEDS: Acetaminophen 500 MG Tablet 1000 MG PO (23:19)
[2022-02-15] MEDS: Aspirin 325 MG Tablet PO (23:19)
[2022-02-16] VITALS (9 sets, daily range): BP systolic 156–192; BP diastolic 69–84; PULSE 56–66; RESP 16–18; TEMP 36.1–36.6; O2SAT 93–98; BMI 28.3
[2022-02-16] MEDS: Acetaminophen 500 MG Tablet 1000 MG PO ×2 (06:03→13:14)
[2022-02-16 06:24] LABS: Anion Gap 9 (5-15); BUN 14 mg/dL (7-18); BUN/Creat Ratio 15.3 RATIO (10-20); Calcium,Total 9.7 mg/dL (8.5-10.1); Chloride 109 mmol/L (98-107); Cholesterol 174 mg/dL (200); Creatinine, Serum 0.92 mg/dL (0.55-1.02); EST Glomerular Filtration Rate 63 mL/min (>60); Est Glom Filt Rate - Afr Amer 76 mL/min (>60); Estimated Creatinine Clearance 38.57 ml/min; Glucose 94 mg/dL (74-106); High Density Lipoprotein 50 mg/dL; Potassium 3.5 mmol/L (3.5-5.1); Sodium Level 141 mmol/L (136-145); Triglycerides 117 mg/dL; Very Low Density Lipoprotein 23 mg/dL (5-40)
--- NOTE | 2022-02-16 09:00 | MRI_ITS ---
HISTORY: expressive aphasia, memory change. TECHNIQUE: Multiplanar and multisequence MR images of the brain were obtained without contrast. 290 images. COMPARISON: CT prior day. FINDINGS: BRAIN PARENCHYMA: Moderate chronic white matter changes. No abnormal focus of restricted diffusion. No acute intracranial hemorrhage identified. CSF SPACES: Moderate generalized volume loss. No significant midline shift or other mass effect.No extra-axial fluid collection. VASCULAR SYSTEM: Major intracranial flow voids are maintained. PARANASAL SINUSES AND MASTOID AIR CELLS: Mild fluid in the sphenoid sinus. ORBITS: Bilateral lens resections. MRI/Brain without Contrast IMPRESSION: No evidence for acute infarct. Chronic involutional and white matter changes. Electronically Signed: Mariya Parson MD at 14:00 EDT ,
[2022-02-16] MEDS: Folic Acid 1 MG Tablet PO (09:16)
[2022-02-16] MEDS: Potassium Chloride Oral Tablet 20 MEQ PO (09:16)
[2022-02-16] MEDS: Colchicine 0.6 MG TABLET PO (09:16)
[2022-02-16] MEDS: Aspirin 81 MG TAB.CHEW PO (09:16)
[2022-02-16] MEDS: Pantoprazole Sodium 40 MG Tablet PO (09:17)
[2022-02-16] MEDS: Allopurinol 100 MG Tablet PO (09:17)
[2022-02-16] MEDS: Enoxaparin 30 MG/0.3 ML Syringe SC (09:17)
[2022-02-16] MEDS: dilTIAZem CD 120 MG Capsule PO (09:17)
[2022-02-16] MEDS: 0.9% Saline Lock 10 ML Syringe IV (09:20)
--- NOTE | 2022-02-16 12:00 | NURSING ---
Pt at MRI
--- NOTE | 2022-02-16 15:05 | DCINST_ITS ---
Discharge Instructions Diet Discharge Diet: No restrictions Activity Discharge Activity: Return to Normal Activity Weight Bearing Status: Full weight bearing Follow Up Care Test Results: Test results from this visit will be discussed in further detail at your follow- up appointment, if applicable. Discharge Plan Admission Admit Date/Time: 02/15/22 21:54 Primary Reason for Your Visit: TIA Attending Provider: Dayo Brown Primary Care Provider: Maria D Michael Consulting Providers: Dioni Wynn Instructions Additional Instructions / Restrictions: You will need scheduled for speech therapy and physical/occupational therapy-the hospital will contact you to set this up, if you are not contacted by Thursday of this week, have your PCP set this up Discharge Orders/Prescriptions Prescriptions: New atorvastatin [Lipitor] 20 mg tablet 20 mg PO DAILY Qty: 30 0RF lisinopril 10 mg tablet 10 mg PO DAILY Qty: 30 0RF aspirin [Adult Aspirin Regimen] 81 mg tablet,delayed release (DR/EC) 81 mg PO DAILY Qty: 1 0RF Continued pantoprazole [Protonix] 40 mg tablet,delayed release (DR/EC) 40 mg PO DAILY diltiazem HCl 120 mg capsule,extended release 12 hr 120 mg PO DAILY folic acid 1 mg tablet 1 mg PO DAILY methotrexate sodium 2.5 mg tablet 25 mg PO TH Label Comments: take 6 tabs weekly acetaminophen [Tylenol Extra Strength] 500 mg tablet 500 mg PO TID allopurinol 100 mg tablet 100 mg PO DAILY calcium carbonate 500 mg calcium (1,250 mg) Tablet 500 mg PO DAILY docusate sodium 100 mg capsule 100 mg PO DAILY PRN (Reason: STOOL) Label Comments: take 1 capsule by mouth once daily if needed for constipation colchicine 0.6 mg tablet 0.6 mg PO DAILY pregabalin 100 mg capsule 100 mg PO TID potassium chloride 10 mEq tablet extended release 20 meq PO DAILY Qty: 60 0RF Referrals / Follow Up: Maria D Michael MD [Primary Care Provider] - Within 2 Weeks Disposition Disposition (needs filled in before D/C Order can be placed): Home, Self Care
--- NOTE | 2022-02-16 15:10 | DS.PCM_ITS ---
Providers Date of Admission: 02/15/22 Date of Discharge: 02/16/22 Primary Care Physician: Dr. Maria D Michael MD Reason For Visit: EXPRESSIVE APHASIA Diagnosis Discharge Diagnosis (1) Expressive aphasia: Status: Acute Code(s): R47.01 - Aphasia (2) Hypercalcemia: Status: Acute Code(s): E83.52 - Hypercalcemia Plan 1. Transient ischemic attack with expressive aphasia #2 essential hypertension #3 rheumatoid arthritis #4 acute confusion-etiology unclear Medications at Discharge Home Medications acetaminophen 500 mg tablet (Tylenol Extra Strength) 500 mg PO TID pain 03/27/21 diltiazem HCl 120 mg capsule,extended release 12 hr 120 mg PO DAILY heart rate 03/27/21 folic acid 1 mg tablet 1 mg PO DAILY supplement 03/27/21 methotrexate sodium 2.5 mg tablet 25 mg PO TH inflammation 03/27/21 pantoprazole 40 mg tablet,delayed release (Protonix) 40 mg PO DAILY reflux 03/27/21 allopurinol 100 mg tablet 100 mg PO DAILY gout 01/13/22 calcium carbonate 500 mg calcium (1,250 mg) tablet 500 mg PO DAILY supplement 01/13/22 colchicine 0.6 mg tablet 0.6 mg PO DAILY gout 01/13/22 docusate sodium 100 mg capsule 100 mg PO DAILY PRN STOOL 01/13/22 pregabalin 100 mg capsule 100 mg PO TID pain 01/13/22 potassium chloride 10 mEq tablet,extended release 20 meq PO DAILY #60 tabs 01/15/22 aspirin 81 mg tablet,delayed release (Adult Aspirin Regimen) 81 mg PO DAILY #1 TAB 02/16/22 atorvastatin 20 mg tablet (Lipitor) 20 mg PO DAILY #30 tabs 02/16/22 lisinopril 10 mg tablet 10 mg PO DAILY #30 tabs 02/16/22 Hospital Course Operations None Procedures None Summary of Care Provided Minutes Spent on Discharge: 31 Hospital Course: This 81-year-old white female was seen in the emergency room at [facility] with complaints of expressive aphasia and mild confusion, this had lasted several hours. Work-up in the emergency room did not reveal anything on imaging studies that would point to a definite stroke or vascular occlusion. Patient's calcium level slightly elevated-this examiner did not think this was significant however. Patient was admitted to PCU, she was seen by PT OT and speech therapy, and she went underwent an MRI of the brain which showed no evidence of stroke. It was felt that the patient would benefit from outpatient PT OT and speech therapy. I had a discussion with the patient and her daughters about the findings, patient did not need an echocardiogram performed as she had an echocardiogram performed in December of this year which did not show evidence of ASD. I recommended the patient be discharged on an 81 mg aspirin daily, lisinopril 10 mg daily due to elevated blood pressure, and Lipitor 10 mg daily. Patient had not been taking a baby aspirin daily at home as an outpatient. On 02/16/2022, patient was seen and examined: On examination she appeared in good health and spirits, she does not appear to be in any distress. Vital signs as documented. Skin warm and dry and without overt rashes. Neck without JVD, thyroid appears normal, trachea is midline, neck is supple. Lungs clear, normal air movement was noted. Heart exam notable for regular rhythm, normal sounds and absence of murmurs, rubs or gallops. Abdomen unremarkable and without evidence of organomegaly, masses, or abdominal aortic enlargement, bowel sounds are pre sent in all 4 quadrants, no abdominal tenderness was noted. Extremities nonedematous, no cyanosis was noted, no clubbing was noted. Neuro: Cranial nerves II through XII are grossly intact, no focal motor deficits were noted, sensation to light touch and pinprick is intact, motor exam 5/5 throughout. Patient has an element of expressive aphasia. Psych: Patient is alert and oriented x3, she does not appear anxious or depressed, she does not appear agitated. Patient was discharged home on 02/16/2022 in stable condition, again the hospital will arrange for the patient to be set up for PT OT and speech therapy. She was instructed to see her PCP and follow-up within 2 weeks. Weight / BMI Weight Weight: 70.2 kg Body Mass Index (BMI) 28.3 ABG / Lab / Microbiology Data Result Diagrams: 02/15/22 20:41 02/16/22 05:45 Laboratory: Laboratory Results - last 24 hr 02/15/22 20:41: WBC 8.4, RBC 4.33, Hgb 12.9, Hct 40.3, MCV 93.1, MCH 29.8, MCHC 32.0, RDW Std Deviation 66.3 H, RDW Coeff of Lorenzo 19.8 H, Plt Count 328, MPV 9.5, Immature Gran % (Auto) 0.400, Neut % (Auto) 66.4, Lymph % (Auto) 18.4 L, [place] % (Auto) 12.3 H, Eos % (Auto) 2.1, Baso % (Auto) 0.4, Absolute Neuts (auto) 5.6, Absolute Lymphs (auto) 1.54, Nucleated RBC % 0, Differential Comment SCANNED, Anisocytosis 1+ 02/15/22 20:41: PT 12.2, INR 0.9, APTT 24.4 02/15/22 20:41: Sodium 140, Potassium 4.1, Chloride 105, Carbon Dioxide 26.0, Anion Gap 9, BUN 17, Creatinine 1.25 H, Estim Creat Clear Calc 28.39, Est GFR (MDRD) Af Amer 53 L, Est GFR (MDRD) Non-Af 44 L, BUN/Creatinine Ratio 13.6, Glucose 105, Calcium 11.1 H, Troponin I High Sens 26 02/15/22 20:42: POC Glucose 107 H 02/15/22 22:10: Troponin I High Sens 31 02/16/22 05:45: Sodium 141, Potassium 3.5, Chloride 109 H, Carbon Dioxide 23.0, Anion Gap 9, BUN 14, Creatinine 0.92, Estim Creat Clear Calc 38.57, Est GFR (MDRD) Af Amer 76, Est GFR (MDRD) Non-Af 63, BUN/Creatinine Ratio 15.3, Glucose 94, Calcium 9.7, Triglycerides 117, Cholesterol 174, LDL Cholesterol 101, VLDL Cholesterol 23, HDL Cholesterol 50 Radiography Diagnostic Testing: Radiology Impression Brain CT 02/15/22 20:50 IMPRESSION: 1. No acute intracranial abnormality. 2. Underlying senescent changes of small vessel ischemia. 3. ASPECTS score 10. Electronically Signed: Rich Alexandra MD at 21:03 EDT , ADDENDUM: 02/15/222112 IMPRESSION: 1. No acute intracranial abnormality. 2. Underlying senescent changes of small vessel ischemia. 3. ASPECTS score 10. N.B. : The above Results were Read Back by Rich Alexandra MD to Yobany An MD, and understanding confirmed on 02/15/2022 21:06:28 (ET). Electronically Signed: Rich Alexandra MD at 21:03 EDT , Chest X-Ray 02/15/22 20:50 IMPRESSION: No acute findings in the chest. Electronically Signed: Rich Alexandra MD at 21:44 EDT , Head/Neck CTA 02/15/22 20:50 IMPRESSION: No acute findings in the arteries of the head and neck. Electronically Signed: Rich Alexandra MD at 21:18 EDT , ADDENDUM: 02/15/22 2130 IMPRESSION: No acute findings in the arteries of the head and neck. N.B. : The above Results were Read Back by Rich Alexandra MD to Yobany Flores MD, and understanding confirmed on 02/15/2022 21:23:11 (ET). Electronically Signed: Rich Alexandra MD at 21:18 EDT , Brain MRI 02/16/22 09:00 IMPRESSION: No evidence for acute infarct. Chronic involutional and white matter changes. Electronically Signed: Mariya Parson MD at 14:00 EDT Reading Location ID and State: [facility] / [place] Tel , Service support , D/C Instructions Discharge Diet: No restrictions Weight Bearing Status: Full weight bearing Meaningful Use Info Meaningful Use Diagnoses (Choose all that apply): None applicable Discharge Plan Admission Admit Date/Time: 02/15/22 21:54 Primary Reason for Your Visit: TIA Attending Provider: Dayo Brown Primary Care Provider: Maria D Michael Consulting Providers: Dioni Wynn Instructions Additional Instructions / Restrictions: You will need scheduled for speech therapy and physical/occupational therapy-the hospital will contact you to set this up, if you are not contacted by Thursday of this week, have your PCP set this up Discharge Orders/Prescriptions Prescriptions: New atorvastatin [Lipitor] 20 mg tablet 20 mg PO DAILY Qty: 30 0RF lisinopril 10 mg tablet 10 mg PO DAILY Qty: 30 0RF aspirin [Adult Aspirin Regimen] 81 mg tablet,delayed release (DR/EC) 81 mg PO DAILY Qty: 1 0RF Continued pantoprazole [Protonix] 40 mg tablet,delayed release (DR/EC) 40 mg PO DAILY diltiazem HCl 120 mg capsule,extended release 12 hr 120 mg PO DAILY folic acid 1 mg tablet 1 mg PO DAILY methotrexate sodium 2.5 mg tablet 25 mg PO TH Label Comments: take 6 tabs weekly acetaminophen [Tylenol Extra Strength] 500 mg tablet 500 mg PO TID allopurinol 100 mg tablet 100 mg PO DAILY calcium carbonate 500 mg calcium (1,250 mg) Tablet 500 mg PO DAILY docusate sodium 100 mg capsule 100 mg PO DAILY PRN (Reason: STOOL) Label Comments: take 1 capsule by mouth once daily if needed for constipation colchicine 0.6 mg tablet 0.6 mg PO DAILY pregabalin 100 mg capsule 100 mg PO TID potassium chloride 10 mEq tablet extended release 20 meq PO DAILY Qty: 60 0RF Referrals / Follow Up: Maria D Michael MD [Primary Care Provider] - Within 2 Weeks Disposition Disposition (needs filled in before D/C Order can be placed): Home, Self Care Charges/Coding Visit Charges Inpatient E&M: 44263 Disch Hosp
--- NOTE | 2022-02-17 10:24 | CASEMGMT ---
Dr. Brown had left message for pt to be set up with OP PT/OT/ST at [facility] and order was obtained and Dr. Bundy willing to sign order for pt. Order faxed to [facility]. Cristine FLORES CM
== END 2022-02-16 15:50 | disposition home or self-care (01) | DRG 69 ==
LOC: ED 21:43 → PCU 22:06
PROVIDERS: Emergency Provider Emergency Medicine; PCP Internal Medicine; Visit Provider Internal Medicine
DX: G45.9 Transient cerebral ischemic attack, unspecified (principal); J96.10 Chronic respiratory failure, unspecified whether with hypoxia or hypercapnia; R47.01 Aphasia; M06.9 Rheumatoid arthritis, unspecified; K44.9 Diaphragmatic hernia without obstruction or gangrene; E83.52 Hypercalcemia; I10 Essential (primary) hypertension; M10.9 Gout, unspecified
CPT/HCPCS: 36415; 70450; 70496; 70498; 70551; 71045; 80048; 80061; 82962; 84484; 85025; 85610; 85730; 92523; 93005; 94762; 97162; 97165; 99285; J7030; Q9967; A4216

== ENCOUNTER → 2022-03-17 | Outpatient (CLI) | payer MEDICARE, SELFPAY ==
--- NOTE | 2022-03-18 05:40 | PFTCOMP_ITS ---
COMPLETE PULMONARY FUNCTION TEST INTERPRETATION Brief HPI: Patient is an 81-year-old female, currently under the care of myself, who presents to [facility] for complete pulmonary function tests secondary to diagnosis of dyspnea. Respiratory therapist reports good effort and reproducible results. Interpretation: Forced expiration spirometry shows no large airways obstructive ventilatory defect with an FEV1 of 104% predicted. There is no significant bronchodilator response by strict ATS criteria. Spirograms are of good quality and plateau normally. The respiratory flow volume loop shows a normal pattern. Lung volumes by body plethysmography show a normal total lung capacity at 3.9 L, 90% predicted. All other lung volumes are within normal limits. Diffusion capacity by carbon monoxide is at the lower limit of normal at 66% predicted. The airway resistance is normal. No previous pulmonary function tests were available for review. Impression: Grossly normal pulmonary function test, but diffusion capacity is at the lower limit of normal and may indicate early pulmonary vascular disease.
== END | disposition home or self-care (01) ==
LOC: PSN 12:58
PROVIDERS: PCP Internal Medicine; Referring Provider Nurse Practitioner Acute Care; Visit Provider Nurse Practitioner Acute Care
DX: R06.00 Dyspnea, unspecified (principal)
CPT/HCPCS: 94060; 94726; 94729

== ENCOUNTER → 2022-03-21 | Outpatient (CLI) | payer MEDICARE, SELFPAY ==
[2022-03-21 12:49] VITALS: PULSE 61; PULSE 66; PULSE 68; PULSE 71; PULSE 74; PULSE 75; PULSE 76; O2SAT 97; O2SAT 98; O2SAT 99
--- NOTE | 2022-03-22 08:01 | PCM.PSN.6M ---
PSN 6 Minute Walk Test 6 Minute Walk Test 6 Minute Walk Test: 6 Minute Walk Test PSN:6-Minute Walk Test Start: 03/21/22 12:49 Freq: Status: Active Protocol: RESP.6MINW Document 03/21/22 12:49 JEFFREY (Rec: 03/21/22 12:51 JEFFREY [id number]) 6 Minute Walk Test Date Performed 03/21/22 Time Performed 12:30 Height 5 ft 2 in Weight: 155 lb Weight in Pounds 155.[address]: Luis E Tavarez Assistive device used: Walker Pre-test Oxygen Delivery Method Room Air Pulse Ox (%) 97 Pulse Rate (60-100 beats/min) 61 Dyspnea Adriana Scale (0-10) 0 Exertion Adriana Scale (6-20) 6 1st minute Oxygen Delivery Method Room Air Pulse Ox (%) 97 Pulse Rate (60-100 beats/min) 68 2nd minute Oxygen Delivery Method Room Air Pulse Ox (%) 98 Pulse Rate (60-100 beats/min) 71 3rd minute Oxygen Delivery Method Room Air Pulse Ox (%) 98 Pulse Rate (60-100 beats/min) 74 4th minute Oxygen Delivery Method Room Air Pulse Ox (%) 98 Pulse Rate (60-100 beats/min) 75 5th minute Oxygen Delivery Method Room Air Pulse Ox (%) 99 Pulse Rate (60-100 beats/min) 75 6th minute Oxygen Delivery Method Room Air Pulse Ox (%) 98 Pulse Rate (60-100 beats/min) 76 Dyspnea Adriana Scale (0-10) 2 Exertion Adriana Scale (6-20) 13 Post-test Oxygen Delivery Method Room Air Pulse Ox (%) 98 Pulse Rate (60-100 beats/min) 66 Full Laps Walked 11 Partial Lap, Number of Tiles Walked 20 Total Distance Walked (ft) 669 Interpretation Interpretation: The patient ambulated 669 feet over the course of 6 minutes beginning on room air with the use of a walker. Pretesting oxygen saturation was noted to be 97% on room air. With ambulation, the jose roberto oxygen saturation was 97%. Although there was evidence of impaired walk distance, there was no significant exertional oxygen desaturation. Recommendations Recommendations: There is no indication for the use of supplemental oxygen at this time.
== END | disposition home or self-care (01) ==
LOC: PSN 12:27
PROVIDERS: PCP Internal Medicine; Referring Provider Nurse Practitioner Acute Care; Visit Provider Nurse Practitioner Acute Care
DX: R06.00 Dyspnea, unspecified (principal)
CPT/HCPCS: 94618

== ENCOUNTER 2022-04-03 13:30 | Outpatient (RCR) | payer MEDICARE, SELFPAY ==
--- NOTE | 2022-02-19 13:39 | HP.SP.EVAL ---
History - History Date of Eval: 02/18/22 Medical Diagnosis (from RX): TIA Date of Onset of Diagnosis: 01/16/22 Previous speech therapy: Yes Results: Evaluation in the hospital. Other Relevant Medical History/Diagnoses/Surgery: Arthritis. Breast lump. Carpal tunnel syndrome. Cataracts, bilateral. Esophageal spasm. Gout. Hiatal hernia. HTN (hypertension). Neuropathy. Osteoarthritis. Osteopenia. Osteoporosis. Rheumatoid arthritis Medications related to this diagnosis: acetaminophen 500 mg tablet (Tylenol Extra Strength) 500 mg PO TID pain 03/27/21. diltiazem HCl 120 mg capsule,extended release 12 hr 120 mg PO DAILY heart rate 03/27/21. folic acid 1 mg tablet 1 mg PO DAILY supplement 03/27/21. methotrexate sodium 2.5 mg tablet 25 mg PO TH inflammation 03/27/21. pantoprazole 40 mg tablet,delayed release (Protonix) 40 mg PO DAILY reflux 03/27/21. allopurinol 100 mg tablet 100 mg PO DAILY gout 01/13/22. calcium carbonate 500 mg calcium (1,250 mg) tablet 500 mg PO DAILY supplement 01/13/22. colchicine 0.6 mg tablet 0.6 mg PO DAILY gout 01/13/22. docusate sodium 100 mg capsule 100 mg PO DAILY PRN STOOL 01/13/22. pregabalin 100 mg capsule 100 mg PO TID pain 01/13/22. potassium chloride 10 mEq tablet,extended release 20 meq PO DAILY #60 tabs 01/15/22. aspirin 81 mg tablet,delayed release (Adult Aspirin Regimen) 81 mg PO DAILY #1 TAB 02/16/22. atorvastatin 20 mg tablet (Lipitor) 20 mg PO DAILY #30 tabs 02/16/22. lisinopril 10 mg tablet 10 mg PO DAILY #30 tabs 02/16/22 Smoking Status: Never smoker Hx Tobacco Use: No - Pain Is pain an issue with your current prescribed condition?: No Patient Allergies - Allergies Allergies Sulfa (Sulfonamide Antibiotics) Adverse Reaction (Verified 02/15/22 22:43) Nausea/Vom/Diarrhea sulfamethoxazole [From Bactrim] Adverse Reaction (Verified 02/15/22 22:43) Nausea/Vom/Diarrhea trimethoprim [From Bactrim] Adverse Reaction (Verified 02/15/22 22:43) Nausea/Vom/Diarrhea Objective Cog/Ling/Com - Test Administered Traziyqxo-Jyjmpgfrur-Uotmikjivotvf Assessment Administered: Yes Rhdbyqmvd-Qqwdlnbwha-Ofyvlrbrtpoiq Assessment: Cognitive ? Linguistic skills were evaluated using patient/family interview, skilled observation and informal evaluation through tasks completed by the patient. - Orientation Orientation: Person, Place, Date, Birthdate - Identification Body parts/objects: WNL Colors: WNL Letters: WNL Numbers: WNL - Answer Yes/No Questions Simple: WNL Complex: WNL - Follows Commands 1 Step: WNL Complex: Mild - Automatic Sequences Automatic Sequences: WNL - Naming Responsive naming: WNL Naming in categories: WNL - Reading Picture-Word Matching Picture-Word matching: WNL - Reading Comprehension Sentences: WFL - Recall Comments: Patient reports that she has recall deficits. Full evaluation necessary. - Cognitive Linguistic Supervision/Saftey Awareness of deficits: WNL Managing medications: Moderate - Executive Function Comments Comments: Patient's reported that she is making mistakes on medication management. - In past 7 days I had to read something several times to understand it: Sometimes (2-3 times) My thinking was slow: Often (once a day) I had to work really hard to pay attention or i would make a mistake: Rarely (once) I had trouble concentrating: Rarely (once) - How much DIFFICULTY do you currently reading & following complex instructions (e.g. directions for new medication: Somewhat planning for & keeping appts that are not part of weekly routine: Somewhat managing your time to do most of your daily activities: Somewhat learning new tasks or instructions: Somewhat - Neuro-QOL Score Raw Score: 25 T - Score: 38.9 Plan - Plan Plan: Speech therapy is warranted for receptive and expressive aphasia following her TIA. - Recommendations Treatment Warranted: Yes Treatment Warranted: Receptive/ Expressive Language - Progress Prognosis: Good - Frequency Frequency: 1x/Week Duration: 2 Months Visits in this POC: 8 - Goals that are Established Determination:: Goals will be added/modified as deemed necessary and appropriate. Therapy will be discontinued when results of re-evaluation indicate therapy is no longer needed or lack of progress has been documented. - Goal #1-5 Goal #1: Patient will participate in medication management with 100% accuracy with minimal cues. Goal #2: Patient will use anomia reducing strategies on 4/5 trials on 2/3 consecutive sessions. Goal #3: Patient will participate in an evaluation of recall skills with goals added at that time. Education - Patient has Indicated that the Following Identified Educational Needs: Cognitively Impaired - Patient Instruction Patient Education: Diagnosis, Treatment Plan, Goals Person Taught: Patient, Family Teaching Method: Discussion Response to teaching: Verbalize understanding
--- NOTE | 2022-02-24 13:31 | HP.PTEVAL_ITS ---
Patient's Visit Information RONNELL HERZOG is a 81 year old F referred to Physical Therapy by Dr. Maria D Michael MD with a diagnosis of TIA and Debility. Date of Evaluation: 02/24/22 Physical Therapist: Yudelka Edmonds DPT - Visit Plan Frequency: 2x /Week Duration: 4 Weeks Plan: Focus on LE and core strength/stabilization- functional mobility. HEP Given IE: Standing marching, abd, extn, mini squat- kitchen sink - Subjective Patient reports that they never really told her what was going on- her diagnosis was a TIA- every test came back negative. She feels that she has weakness in both legs but left has neuropathy. She has used the cane/walker for a long time due to her lumbar spine issues- she has a spinal stimulator. She uses a rollator all the time. She has noticed some unsteadiness. She has not had any falls but almost- her rollator went out the door and she almost went with it. She is able to perform all normal ADL's- she has not driven since she went to the hospital. No BUTLER or dizziness but does notice some blurred vision. She did therapy for her back a long time ago- aquatic therapy- did not help. The pain stimulator does help- she has been trying to cut down on the pain medication. She always has some pain in her lumbar spine and radiates to the knee on the left side. She reports that she can sit but she can't stand for long periods of time. She can get around at the store for a few rows then she has to sit- once she sits and rests she can keep going- she has not been back to the grocery since all of this happened but did prior. That has not changed since about 4 years ago. Lives with her in a single story home with 2 stairs to enter without a handrail but her helps. She does not feel better than when she was at the hospital but her speech is better. She goes to see her PCP soon. She is having a home health nurse come tomorrow. Sleep: not disturbed. PMHx/Meds: see hospital note- no changes - Objective Posture: FH, RS. Gait: Rollator- normal gait pattern. HR/TR: able with UE A. SLS: weight shift but does not SLS. ROM: WFL. Strength: Core: fair, Hip: 4/5 throughout, Knee: 4+/5, Ankle: 5/5. Flex: HS: moderate, Gastroc: moderate. Sensation: WNL to gross touch bilateral - Balance/Special Test Scores CATSIB Score (Max score 120 seconds): 73 Lower Extremity Functional Score: 24 - Goals Goal 1:: Patient will be I with HEP and progression Goal Time Frame: 4-6 Weeks Goal 2:: Patient will perform TUG in under 10 seconds with LRD Goal Time Frame: 4-6 Weeks Goal 3:: Patient will sit to stand without UE A x 5 Goal Time Frame: 4-6 Weeks Goal 4:: Patient will report 80% improvement Goal Time Frame: 4-6 Weeks - Rehabilitation Potential Physical Therapy Diagnosis: Patient presents with hypomobility- she has decreased LE and core strength/stabilization, proprioception, flex and muscular endurance leading to decreased ability to perform ADL's, Rehabilitation Potential: Fair - Anticipated Interventions Patient/Client Instruction: Educate patient on: Benefits of Fitness Program Therapeutic Exercise to Include: Strength training, Endurance training, Balance training, Coordination, Agility training, Body mechanics, Postural training, Flexibilty training, Gait and locomotor training, Neuromotor development, Dynamic Lumbar Stabilization, Scapular Strength/Stabilization Thank you for the opportunity to evaluate your patient. For Medicare and Medicare HMO plans, please review the plan of care and approve it. It will need to be FAXED BACK to us at [phone] for Medicare purposes. For Medicare only, by signing this I certify the plan of care. Please let me know if there are questions or concerns regarding this plan of care. Physician Signature: __Date:
--- NOTE | 2022-02-25 09:40 | HP.OTEVAL_ITS ---
Patient's Visit Information RONNELL HERZOG is a 81 year old F, referred to Occupational Therapy by Dr. Maria D Michael MD, with a diagnosis of TIA. Date of Evaluation: 02/24/22 Occupational Therapist: Sultana Hyatt, OTR/Veronika, CHT - Subjective This 81 year old female was seen for OT eval with dx of TIA and expressive aphasia- pt states possible or symptoms- of some difficulty with talking and it did progress for 5-7 days later she went to ER with her family- pt states she just could not say what she wanted to say- pt sates she is also having difficulty doing puzzles in the paper (which she did prior to her TIA) -. pt is right handed- states she feels weaker on left UE or left side- but pt states she is having difficulty with wrting. feels she is just shakier than prior to her CVA. - ADLs Comments: lives with -. family doing laundry. family bringing food. pt states she is doing light cleaning - ROM ROM Comments: pt demo with BUE ROM WFL. OA deformities bilateral hands - Strength Shoulder: right peak force 8# left 5# Elbow: right 11# left 9# [employer]: right 25# left 5# Lateral Pinch: right 4# left 2# Tripod Pinch: right unable left unable Strength Comments: pt demo with weakness - Sensation Sensation Comments: denies - Quick DASH-Disab of Arm,Shoulder& Hand Quick DASH Score: 47.7250 - Goals Goal:: pt will demo a increase in bilateral peak force resistance by 10# indicating increase in UB strength to perform ADLs at IND level by d.c. pt will demo a increase in left operations planner strength by 15# to increase pts ind. with meal prep tasks by d/c Goal:: pt will report a decrease in the about to time it takes for her to perform her bathing and dressing by 10 min indication of increase endurance and strength by d.c. pt and family will demo understanding of using ad. eq. to increase safety and mobility by d/c Goal:: pt will demo good dynamic standing balance with simulated daily tasks by d/c. pt will demo understanding of rollator use in home to increase safety with IADls by d.c - Rehabilitation General Assessment: pt demo with generalized weakness limiting pts functional mobility and safety when performing ADLs and IADLs. pt would benefit form skilled OT services 1-2x week for 4 weeks to return pt to her PLOF. Today therapist ed. pt on seated exercise for her UB, gave handouts and ed. her spouse on ex. pt and spouse demo understanding and agree to POC. - Anticipated Interventions Strengthening, Joint Protection/Energy Conservation, Neuro Reeducation, Education re assistive Equipment, Education re Diagnosis, Caregiver Training, Home Program - Visit Plan Frequency: 1-2x /Week Duration: 6 Weeks TEXT: Thank you for the opportunity to evaluate your patient. For Medicare and Medicare HMO plans, please review the plan of care and approve it. It will need to be FAXED BACK to us at [phone] for Medicare purposes. Please let me know if there are questions or concerns regarding this plan of care. Physician Signature: Date:
--- NOTE | 2022-04-03 13:20 | HP.OTDCSUM_ITS ---
It has been my pleasure to treat RONNELL HERZOG under orders from Dr. Maria D Michael MD, for the diagnosis of TIA for a total of 9 visit(s). Please see the following information for a summary of their discharge status. % Improvement: 70 Objective/Function: right jalousies installer 40# increase from 25#. left jalousies installer 30# increase from 5#. right lateral pinch 7# increase from 4. left lateral pinch 7# increased from 2#. peak force of right shoulder flex. 10# increase from8#. left shoulder 8# increase from 5#. right triceps 19# increase from 11# left 24# increase from 9#. pt reports she is doing her bathing and dress at MING levels. no concerns at this time. Patient Goals: Regain Strength, Use Hand/Wrist/Arm Normally Again, Be More Independent in ADLS Goal:: pt will demo a increase in bilateral peak force resistance by 10# indicating increase in UB strength to perform ADLs at IND level by d.c (goal met). pt will demo a increase in left jalousies installer strength by 15# to increase pts ind. with meal prep tasks by d/c (goal met) Goal:: pt will report a decrease in the about to time it takes for her to perform her bathing and dressing by 10 min indication of increase endurance and strength by d.c (GOAL MET). pt and family will demo understanding of using ad. eq. to increase safety and mobility by d/c (goals met) Goal:: pt will demo good dynamic standing balance with simulated daily tasks by d/c. pt will demo understanding of rollator use in home to increase safety with IADls by d.c Plan: D/C with HEP Discharge Comments: pt was seen for 9 OT sessions and met strengthening goals. pt has returned to performing her ADLS and IADLS at a MING level. pt agrees for D/C and states she will continue her HEP. If there are questions or concerns regarding this patient's occupational therapy, please fell free to call me at [phone]. Thank you for the referral of this patient. Sincerely, Sultana Hyatt, OTR/L, CHT
--- NOTE | 2022-04-03 15:28 | HP.PTDCSUM_ITS ---
It has been my pleasure to treat RONNELL HERZOG referred by Dr. Maria D Michael MD, with the diagnosis of TIA and Debility for a total of 9 visit(s). Discharge Date: Please see the following information for a summary of their discharge status. Subjective: Patient reports that she is much better. She feels that she is 85- 95% better. She still has a lot of problems getting up standing and walking long distances. She has some stumbles but no falls. Her plans to try to have her start driving today. Objective/Function: Posture: FH, RS. Gait: Rollator- normal gait pattern. HR/TR: able with UE A. SLS: weight shift but does not SLS. ROM: WFL. Strength: Core: fair, Hip: 4+/5 throughout, Knee: 5/5, Ankle: 5/5. Flex: HS: moderate, Gastroc: moderate. Sensation: WNL to gross touch bilateral Goal 1:: Patient will be I with HEP and progression Goal Progress: Goal Met Goal 2:: Patient will perform TUG in under 10 seconds with LRD Goal Progress: Progressing Goal 3:: Patient will sit to stand without UE A x 5 Goal Progress: Goal Met Goal 4:: Patient will report 80% improvement Goal Progress: Goal Met Plan: 04/03/22: Discharge to HEP with loly kenny- encouraged to call if questions. Focus on LE and core strength/stabilization- functional mobility. HEP Given IE: Standing marching, abd, extn, mini squat- kitchen sink If there are questions or concerns regarding this patient's physical therapy, please feel free to call me at [phone]. Thank you for the referral of this patient. Sincerely, Yudelka Edmonds, DPT Balance/Gait/Functional tests - Balance/Special Test Scores CATSIB Score (Max score 120 seconds): 73 Lower Extremity Functional Score: 61 TUG Test Time Seconds: 12 Tug Test: <20 sec.=mostly independent
== END 2022-04-03 19:00 | disposition home or self-care (01) ==
LOC: PT 13:30
PROVIDERS: PCP Internal Medicine; Referring Provider Internal Medicine; Visit Provider Internal Medicine
DX: I69.320 Aphasia following cerebral infarction (principal)
CPT/HCPCS: 92507; 92523; 97110; 97162; 97164; 97166; 97168

== ENCOUNTER 2022-05-24 14:01 | Inpatient (IN) | payer MEDICARE, SELFPAY ==
[2022-05-24] VITALS (8 sets, daily range): BP systolic 116–154; BP diastolic 48–69; PULSE 56–74; RESP 14–16; TEMP 36.1–37.1; O2SAT 94–99; BMI 27.1; BMI 26.6
--- NOTE | 2022-05-24 15:48 | EDS_ITS ---
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 La for that. She was supposed to go a couple months ago for it again, but she had some things that caused her to need to cancel that. Several days ago, she was eating something and felt like she had another obstruction. She had trouble passing liquids and food, she did not come to the emergency department. After a day and a half of trouble swallowing, she drank some coke and she vomited up a small amount of food and then felt better and has been able to drink fluids ever since then. However as a result of not drinking fluids for the last couple days, presumably, she has had fatigue and lightheadedness when she stands up. She has felt near syncopal couple times but has not passed out. She denies any symptoms of angina or dyspnea or fevers/chills. She denies any focal neurologic symptoms. She checked her blood pressure today, and it was in the 90s a couple of times and 99 another time at home. Now it is better. She only feels lightheaded when she stands up. She called the nursing line and was advised to come to the ER. [facility] Medical History Arthritis Breast lump Carpal tunnel syndrome Cataracts, bilateral Esophageal spasm Gout Hiatal hernia HTN (hypertension) Neuropathy Osteoarthritis Osteopenia Osteoporosis Rheumatoid arthritis Home Medications acetaminophen 500 mg tablet (Tylenol Extra Strength) 500 mg PO TID PRN Pain 03/27/21 [History Last Taken 01/13/22] diltiazem HCl 120 mg capsule,extended release 12 hr 120 mg PO DAILY heart rate 03/27/21 [History Last Taken 01/13/22] folic acid 1 mg tablet 1 mg PO DAILY supplement 03/27/21 [History Last Taken 01/13/22] methotrexate sodium 2.5 mg tablet 25 mg PO TH inflammation 03/27/21 [History Last Taken 01/09/22] pantoprazole 40 mg tablet,delayed release (Protonix) 40 mg PO DAILY reflux 03/27/21 [History Last Taken 01/13/22] allopurinol 100 mg tablet 100 mg PO DAILY gout 01/13/22 [History Last Taken 01/13/22] calcium carbonate 500 mg calcium (1,250 mg) tablet 500 mg PO DAILY supplement 01/13/22 [History Last Taken 01/13/22] colchicine 0.6 mg tablet 0.6 mg PO DAILY gout 01/13/22 [History Last Taken 01/13/22] docusate sodium 100 mg capsule 100 mg PO DAILY PRN STOOL 01/13/22 [History Last Taken 1 Week Ago ~01/06/22] pregabalin 100 mg capsule 100 mg PO TID pain 01/13/22 [History Last Taken 01/13/22] potassium chloride 10 mEq tablet,extended release 20 meq PO DAILY #60 tabs 01/15/22 [Rx Last Taken Unknown] aspirin 81 mg tablet,delayed release (Adult Aspirin Regimen) 81 mg PO DAILY #1 TAB 02/16/22 [Rx Last Taken Unknown] atorvastatin 20 mg tablet (Lipitor) 20 mg PO DAILY #30 tabs 02/16/22 [Rx Last Taken Unknown] lisinopril 10 mg tablet 10 mg PO DAILY #30 tabs 02/16/22 [Rx Last Taken Unknown] triamterene 37.5 mg-hydrochlorothiazide 25 mg tablet 1 tab PO DAILY 05/24/22 [History Last Taken Unknown] Allergy/AdvReac Type Severity Reaction Status Date / Time Sulfa (Sulfonamide AdvReac Nausea/Vom/ Verified 05/24/22 14:06 Antibiotics) Diarrhea sulfamethoxazole AdvReac Nausea/Vom/ Verified 05/24/22 14:06 [From Bactrim] Diarrhea trimethoprim [From Bactrim] AdvReac Nausea/Vom/ Verified 05/24/22 14:06 Diarrhea Surgical History H/O knee surgery H/O: hysterectomy History of back surgery Social History Smoking Status: Never smoker ROS ROS ED Constitutional Constitutional ED: Denies chills or fever(s) Eyes Eyes: Denies change in vision or diplopia ENT ENT ED: Denies rhinorrhea or sore throat Cardiovascular Cardiovascular: Reports lightheadedness; Denies chest pain, leg edema or palpitations Respiratory/Chest Respiratory/Chest: Denies cough or dyspnea Gastrointestinal Gastrointestinal: Reports as per HPI and vomiting; Denies abdominal pain or diarrhea Genitourinary Genitourinary ED: Denies dysuria or hematuria Musculoskeletal Musculoskeletal: Denies back pain or neck pain Integumentary Denies abscess or rash Neurologic Neurologic: Denies headache(s), paresthesias or weakness Psychiatric Psychiatric: Denies anxiety or suicidal thoughts EXAM Physical Exam Const Vital Signs: 05/24/22 14:06 05/24/22 15:25 05/24/22 15:25 Temperature 97 F L Temperature Source Temporal Pulse Rate 71 57 L Pulse Rate [Lying] Pulse Rate [Sitting (for 1 minute prior to obtaining)] Pulse Rate [Standing (for 1 minute prior to obtaining)] Respiratory Rate 14 16 Respiratory Effort Normal Non-Labored Respiratory Pattern Normal Blood Pressure 134/48 H 116/52 L Blood Pressure [Lying] Blood Pressure [Sitting (for 1 minute prior to obtaining)] Blood Pressure [Standing (for 1 minute prior to obtaining)] Blood Pressure Mean 76 73 Blood Pressure Mean [Lying] Blood Pressure Mean [Sitting (for 1 minute prior to obtaining)] Blood Pressure Mean [Standing (for 1 minute prior to obtaining)] Pulse Ox 98 99 Oxygen Delivery Method Room Air Room Air 05/24/22 17:00 05/24/22 19:12 05/24/22 19:49 Temperature Temperature Source Pulse Rate 58 L 61 Pulse Rate [Lying] 64 Pulse Rate [Sitting (for 1 minute prior to obtaining)] 61 Pulse Rate [Standing (for 1 minute prior to obtaining)] 74 Respiratory Rate 16 16 Respiratory Effort Respiratory Pattern Blood Pressure 126/58 H 135/63 H Blood Pressure [Lying] 138/56 H Blood Pressure [Sitting (for 1 minute prior to obtaining)] 144/63 H Blood Pressure [Standing (for 1 minute prior to obtaining)] 130/63 H Blood Pressure Mean 80 87 Blood Pressure Mean [Lying] 83 Blood Pressure Mean [Sitting (for 1 minute prior to obtaining)] 90 Blood Pressure Mean [Standing (for 1 minute prior to obtaining)] 85 Pulse Ox 98 97 Oxygen Delivery Method Room Air Room Air Positive well nourished and well developed General Appearance ED: well developed and NAD HEENT Reports moist mucous membranes normocephalic and atraumatic Eyes PERRL and EOMs intact bilaterally Neck full ROM and supple Resp normal respiratory effort and clear to auscultation bilaterally Cardio regular rate, regular rhythm and peripheral pulses 2+ throughout Heart Sounds: murmur systolic II/ left sternal border GI non-tender and non-distended Auscultation: normoactive bowel sounds Palpation: soft Back/Spine no CVA tenderness General Back: other FROM Extremity normal to inspection General Extremety ED: Negative for edema, pulses abnormal or tenderness General Extremity: Negative for edema or pulses abnormal Neuro oriented x3, CN's II-XII intact bilaterally and no sensory deficits noted Sensorium / Orientation: awake and alert Motor Exam: strength 5/5 throughout Skin no rashes or lesions noted and no wounds MDM MDM MDM Narrative Medical decision making narrative: The patient's history is consistent with dehydration because she was not able to swallow anything for several days while she had what sounds like an esophageal food impaction. While hydrate her with IV fluids, I did some basic labs which surprisingly show that she is acutely anemic with a hemoglobin of 8.7, down from 12.9 in January, in addition to DAVID with an elevated BUN. The concern was that in context of acute anemia that her elevated BUN could be due to upper GI bleeding. I again asked the patient about this, she has seen no bright red blood per rectum, vomiting, pain with eating, nor melena. We did a Hemoccult which she consented to. It showed light brown stool. It is Hemoccult positive. We do not have GI coverage this weekend but surgery Dr. Heath was available who does EGDs, he agrees the patient should be admitted for an urgent nonemergent EGD, repeat H&H since after being dehydrated and rehydrating her, her hemoglobin may be lower although right now it does not meet any criteria for transfusion emergently, and further evaluation. Discussed with hospitalist Dr. Oliveira. Lab Data Attestation: I reviewed the patient's lab results. Labs: Laboratory Results - last 24 hr 05/24/22 05/24/22 15:30 15:30 WBC 7.4 RBC 3.07 L Hgb 8.7 L Hct 28.6 L MCV 93.2 MCH 28.3 MCHC 30.4 L RDW Std Deviation 65.1 H RDW Coeff of Lorenzo 20.1 H Plt Count 398 MPV 9.9 Immature Gran % (Auto) 0.300 Neut % (Auto) 70.7 H Lymph % (Auto) 17.5 L [place] % (Auto) 8.8 Eos % (Auto) 2.2 Baso % (Auto) 0.5 Absolute Neuts (auto) 5.3 Absolute Lymphs (auto) 1.30 Nucleated RBC % 0 Toxic Granulation RARE Platelet Estimate ADEQUATE RBC Morphology N CHROM Hypochromasia 1+ Anisocytosis 1+ Macrocytosis 1+ Sodium 138 Potassium 4.6 Chloride 106 Carbon Dioxide 24.0 Anion Gap 8 BUN 45 H Creatinine 2.07 H Estim Creat Clear Calc 17.63 Est GFR (MDRD) Af Amer 30 L Est GFR (MDRD) Non-Af 24 L BUN/Creatinine Ratio 21.7 H Glucose 96 Calcium 8.6 Discharge Plan Dx/Rx/DC Orders Clinical Impression: Acute blood loss anemia, Dysphagia, Occult GI bleeding, DAVID (acute kidney injury), Mild dehydration Disposition Disposition: Acute Care [facility]
[2022-05-24] MEDS: 0.9% Normal Saline 1,000 ML 999 ML IV (15:55)
[2022-05-24 16:00] LABS: Absolute Neutrophil Count 5.3 X10^3/uL (2.0-7.7); Basophil# 0.04 X10^3/uL; Basophil% 0.5 % (0-1); Eosinophil# 0.16 X10^3/uL; Eosinophils% 2.2 % (0-5); Hematocrit 28.6 % (37-47); Hemoglobin 8.7 g/dL (12.0-15.0); Lymphocyte % 17.5 % (19-41); Mean Corp Hgb Conc 30.4 g/dL (32-36); Mean Corpuscular Hgb 28.3 pg (27.0-32.0); Mean Corpuscular Volume 93.2 fL (81-99); Mean Platelet Vol. 9.9 fl (6.2-12.0); Monocyte# 0.65 X10^3/uL; Monocyte% 8.8 % (0-10); NRBC Flagged by Analyzer 0 % (0-5); Neutrophil # 5.25 X10^3/uL (2.7-7.7); Neutrophil % 70.7 % (47-70); POSITIVE MORPHOLOGY YES; Platelet Count 398 K/mm3 (150-450); RBC Distribution Width CV 20.1 % (11.6-14.6); RBC Distribution Width SD 65.1 fl (35.1-43.9); Red Blood Count 3.07 M/mm3 (4.2-5.4); White Blood Count 7.4 K/mm3 (4.4-11.0)
[2022-05-24 16:19] LABS: Anion Gap 8 (5-15); BUN 45 mg/dL (7-18); BUN/Creat Ratio 21.7 RATIO (10-20); Calcium,Total 8.6 mg/dL (8.5-10.1); Chloride 106 mmol/L (98-107); Creatinine, Serum 2.07 mg/dL (0.55-1.02); EST Glomerular Filtration Rate 24 mL/min (>60); Est Glom Filt Rate - Afr Amer 30 mL/min (>60); Estimated Creatinine Clearance 17.63 ml/min; Glucose 96 mg/dL (74-106); Potassium 4.6 mmol/L (3.5-5.1); Sodium Level 138 mmol/L (136-145)
[2022-05-24 16:33] LABS: Differential Indicated SCAN CRITERIA MET
[2022-05-24 16:34] LABS: Anisocytosis 1+; Hypochromasia 1+; Platelet Estimate ADEQUATE (ADEQ); Red Cell Morphology N CHROM NORMAL (NORM C&C); Toxic Granulation RARE
[2022-05-24 16:35] LABS: Macrocytosis 1+
--- NOTE | 2022-05-24 20:35 | PCM.HP.STD ---
HPI - General General Date of Admission: 05/24/22 Date of Service: 05/24/22 Chief Complaint: Dizziness - 1 day HPI Narrative RONNELL HERZOG, is a 82 F who presents with the above. Patient has past medical history of TIA, hypertension, rheumatoid arthritis who presented to the hospital with complaints of dizziness as well as low blood pressure readings on her blood pressure machine. Patient had called her primary care doctor's office and was advised to come to the emergency room. At the time of being seen, patient denies any dizziness, chest pain or diaphoresis. Patient stated that 3-4 days prior to admission patient stated that she had episodes of nausea with throwing up. This lasted for 1 to 2 days. She stated she was eating potatoes, broccoli and cheese when she had episode of inability to swallow. She vomited and has since been okay tolerating her diet. Patient has history of esophageal stricture s/p dilatation initially with Dr. Rosas in the outpatient years ago. She is scheduled to have an esophageal dilatation with GI in the next coming week. Her last colonoscopy was 5 years ago was unremarkable. In the ED, her blood pressure was 134/48, heart rate 71, respiratory 14, temperature 90 7F, oxygen sat 98% on room air. WBC 7.4, hemoglobin 8.7, dropped from previous was 12.9. BMP is significant for BUN 45, creatinine 2.07, previous creatinine was 0.92 in January 2022. Stool for occult blood was positive. [facility] Medical History Arthritis Breast lump Carpal tunnel syndrome Cataracts, bilateral Esophageal spasm Gout Hiatal hernia HTN (hypertension) Neuropathy Osteoarthritis Osteopenia Osteoporosis Rheumatoid arthritis Home Medications acetaminophen 500 mg tablet (Tylenol Extra Strength) 500 mg PO TID PRN Pain 03/27/21 [History Last Taken 01/13/22] diltiazem HCl 120 mg capsule,extended release 12 hr 120 mg PO DAILY heart rate 03/27/21 [History Last Taken 01/13/22] folic acid 1 mg tablet 1 mg PO DAILY supplement 03/27/21 [History Last Taken 01/13/22] methotrexate sodium 2.5 mg tablet 25 mg PO TH inflammation 03/27/21 [History Last Taken 01/09/22] pantoprazole 40 mg tablet,delayed release (Protonix) 40 mg PO DAILY reflux 12/08/21 [History Last Taken 01/13/22] allopurinol 100 mg tablet 100 mg PO DAILY gout 01/13/22 [History Last Taken 01/13/22] calcium carbonate 500 mg calcium (1,250 mg) tablet 500 mg PO DAILY supplement 01/13/22 [History Last Taken 01/13/22] colchicine 0.6 mg tablet 0.6 mg PO DAILY gout 01/13/22 [History Last Taken 01/13/22] docusate sodium 100 mg capsule 100 mg PO DAILY PRN STOOL 01/13/22 [History Last Taken 1 Week Ago ~01/06/22] pregabalin 100 mg capsule 100 mg PO TID pain 01/13/22 [History Last Taken 01/13/22] atorvastatin 20 mg tablet (Lipitor) 20 mg PO DAILY #30 tabs 02/16/22 [Rx Last Taken Unknown] lisinopril 10 mg tablet 10 mg PO DAILY #30 tabs 02/16/22 [Rx Last Taken Unknown] aspirin 81 mg tablet,delayed release (Adult Aspirin Regimen) 81 mg PO DAILY heart health 05/24/22 [History Last Taken Unknown] tramadol 50 mg tablet 50 mg PO TID PRN PRN Pain 05/24/22 [History Last Taken Unknown] triamterene 37.5 mg-hydrochlorothiazide 25 mg tablet 1 tab PO DAILY 05/24/22 [History Last Taken Unknown] Allergy/AdvReac Type Severity Reaction Status Date / Time Sulfa (Sulfonamide AdvReac Nausea/Vom/ Verified 05/24/22 14:06 Antibiotics) Diarrhea sulfamethoxazole AdvReac Nausea/Vom/ Verified 05/24/22 14:06 [From Bactrim] Diarrhea trimethoprim [From Bactrim] AdvReac Nausea/Vom/ Verified 05/24/22 14:06 Diarrhea Family History Father Colon cancer Mother Diabetes CVA (cerebral vascular accident) Surgical History H/O knee surgery H/O: hysterectomy History of back surgery Social History (Updated 05/25/22 @ 00:[address] Claribel Oliveira MD) household members: family Smoking Status: Never smoker alcohol intake: never substance use type: does not use ROS ROS Narrative Constitutional: Reports: Malaise, Weakness, Fatigue. Denies: Anorexia, Chills, Fever, Night Sweats, Weight Change Eyes: Denies: Blurred vision, Cataracts, Conjunctivae Inflammation, Pain, Redness, Vision Change HEENT: Denies: Difficulty Hearing, Difficulty Swallowing, Head Aches, Hearing Changes, Sinus Congestion, Sinus Drainage Cardiovascular: Denies: Chest Pain, Orthopnea, Palpitations Respiratory: Denies: Cough, Shortness of breath at rest, Sputum production Gastrointestinal: Denies: Abdominal Pain, Nausea, Vomiting Genitourinary: Denies: Dysuria Musculoskeletal: Denies: Joint Pain, Joint stiffness, Joint swelling, Joint Tenderness Skin: Denies: Rash, Wounds Neurological: Denies: Numbness, Tingling, Focal weakness Vital Signs Vital Signs Vital Signs: 05/24/22 14:06 05/24/22 15:25 05/24/22 15:25 Temperature 97 F L Temperature Source Temporal Pulse Rate 71 57 L Pulse Rate [Lying] Pulse Rate [Sitting (for 1 minute prior to obtaining)] Pulse Rate [Standing (for 1 minute prior to obtaining)] Respiratory Rate 14 16 Respiratory Effort Normal Non-Labored Respiratory Pattern Normal Blood Pressure 134/48 H 116/52 L Blood Pressure [Lying] Blood Pressure [Sitting (for 1 minute prior to obtaining)] Blood Pressure [Standing (for 1 minute prior to obtaining)] Blood Pressure Mean 76 73 Blood Pressure Mean [Lying] Blood Pressure Mean [Sitting (for 1 minute prior to obtaining)] Blood Pressure Mean [Standing (for 1 minute prior to obtaining)] Pulse Ox 98 99 Oxygen Delivery Method Room Air Room Air 05/24/22 17:00 05/24/22 19:12 05/24/22 19:49 Temperature Temperature Source Pulse Rate 58 L 61 Pulse Rate [Lying] 64 Pulse Rate [Sitting (for 1 minute prior to obtaining)] 61 Pulse Rate [Standing (for 1 minute prior to obtaining)] 74 Respiratory Rate 16 16 Respiratory Effort Respiratory Pattern Blood Pressure 126/58 H 135/63 H Blood Pressure [Lying] 138/56 H Blood Pressure [Sitting (for 1 minute prior to obtaining)] 144/63 H Blood Pressure [Standing (for 1 minute prior to obtaining)] 130/63 H Blood Pressure Mean 80 87 Blood Pressure Mean [Lying] 83 Blood Pressure Mean [Sitting (for 1 minute prior to obtaining)] 90 Blood Pressure Mean [Standing (for 1 minute prior to obtaining)] 85 Pulse Ox 98 97 Oxygen Delivery Method Room Air Room Air Weight Weight: 69.4 kg Body Mass Index (BMI) 27.1 Physical Exam Narrative Physical exam: General: Alert, Oriented x3, Cooperative, appears pale HEENT: Atraumatic Oral: Moist Mucosa Neck: Supple Lungs: Diminished to auscultation, few crackles at lung bases Cardiovascular: HS I+II, regular, no murmurs Abdomen: Bowel Sounds Present, Soft, Non Tender Extremities: No edema Skin: No rashes, No breakdown Neurological: Grossly intact Psych/Mental Status: Appropriate Results Lab / Micro Data Result Diagrams: 05/24/22 15:30 05/24/22 15:30 Labs: Laboratory Results - last 24 hr 05/24/22 15:30: WBC 7.4, RBC 3.07 L, Hgb 8.7 L, Hct 28.6 L, MCV 93.2, MCH 28.3, MCHC 30.4 L, RDW Std Deviation 65.1 H, RDW Coeff of Lorenzo 20.1 H, Plt Count 398, MPV 9.9, Immature Gran % (Auto) 0.300, Neut % (Auto) 70.7 H, Lymph % (Auto) 17.5 L, [place] % (Auto) 8.8, Eos % (Auto) 2.2, Baso % (Auto) 0.5, Absolute Neuts (auto) 5.3, Absolute Lymphs (auto) 1.30, Nucleated RBC % 0, Toxic Granulation RARE, Platelet Estimate ADEQUATE, RBC Morphology N CHROM, Hypochromasia 1+, Anisocytosis 1+, Macrocytosis 1+ 05/24/22 15:30: Sodium 138, Potassium 4.6, Chloride 106, Carbon Dioxide 24.0, Anion Gap 8, BUN 45 H, Creatinine 2.07 H, Estim Creat Clear Calc 17.63, Est GFR (MDRD) Af Amer 30 L, Est GFR (MDRD) Non-Af 24 L, BUN/Creatinine Ratio 21.7 H, Glucose 96, Calcium 8.6 Micro: Microbiology 05/24/22 19:45 Stool Stool Occult Blood (LALO) - Final Occult Blood Positive Assessment & Plan Assessment/Plan (1) DAVID (acute kidney injury): (2) Occult GI bleeding: PLAN: Plan 1. Severe blood loss anemia secondary to acute GI bleed, unclear etiology for now Patient presents with hemoglobin of 8.2, previous hemoglobin was 12.9 Stool for occult blood is positive Admit to PCU, general surgery consult, IV PPI, trend labs 2. DAVID, likely prerenal from #1 and recent episode of vomiting Admitting creatinine 2.07, previous creatinine 0.90 Hold lisinopril, triamterene- hydrochlorothiazide Continue on IV fluids, trend lab 3. Esophageal stricture, history of dilatation, scheduled to follow-up with GI in the outpatient Continue to monitor 4. Hypertension/hyperlipidemia, continue on Cardizem, statin Continue to hold lisinopril and triamterene- hydrochlorothiazide 5. Rheumatoid arthritis, continue methotrexate, folic acid, pregabalin, tramadol 6. DVT prophylaxis?heparin subcu I discussed and explained in details the various types of CODE STATUS-full code, DNR CCA, DNR CC. Patient chose to be full code and wants everything done in the event of a cardiopulmonary arrest. Time spent discussing CODE STATUS 18 minutes Charges/Coding Visit Charges Inpatient E&M: 30314 Init Hosp L3 Procedures Hospitalists Procedures: 96657 Advncd Care Plan 30 Min
[2022-05-24] MEDS: 0.9% Normal Saline 1,000 ML 75 ML IV (22:46)
[2022-05-24] MEDS: Acetaminophen 500 MG Tablet PO (22:47)
[2022-05-24] MEDS: Pregabalin 50 MG Capsule 100 MG PO (22:48)
[2022-05-25] MEDS: traMADol 50 MG Tablet PO ×2 (00:21→20:42)
[2022-05-25 03:45] VITALS: BP 108/44; PULSE 53; RESP 20; TEMP 36.4; O2SAT 92
[2022-05-25] MEDS: Pregabalin 50 MG Capsule 100 MG PO ×3 (05:21→20:42)
[2022-05-25 06:14] LABS: Absolute Neutrophil Count 3.6 X10^3/uL (2.0-7.7); Basophil# 0.03 X10^3/uL; Basophil% 0.6 % (0-1); Eosinophil# 0.16 X10^3/uL; Hematocrit 23.7 % (37-47); Hemoglobin 7.3 g/dL (12.0-15.0); Lymphocyte % 24.1 % (19-41); Mean Corp Hgb Conc 30.8 g/dL (32-36); Mean Corpuscular Hgb 28.6 pg (27.0-32.0); Mean Corpuscular Volume 92.9 fL (81-99); Mean Platelet Vol. 9.7 fl (6.2-12.0); Monocyte# 0.34 X10^3/uL; Monocyte% 6.3 % (0-10); NRBC Flagged by Analyzer 0 % (0-5); Neutrophil # 3.55 X10^3/uL (2.7-7.7); Neutrophil % 65.8 % (47-70); Platelet Count 321 K/mm3 (150-450); RBC Distribution Width CV 19.6 % (11.6-14.6); RBC Distribution Width SD 64.3 fl (35.1-43.9); Red Blood Count 2.55 M/mm3 (4.2-5.4); White Blood Count 5.4 K/mm3 (4.4-11.0)
[2022-05-25 07:12] LABS: AST(SGOT) 13 U/L (15-37); Alanine Aminotransfer ALT/SGPT 16 U/L (13-56); Albumin, Serum 2.8 g/dL (3.2-5.0); Alkaline Phosphatase 83 U/L (45-117); Anion Gap 7 (5-15); BUN 31 mg/dL (7-18); BUN/Creat Ratio 22.8 RATIO (10-20); Calcium,Total 8.2 mg/dL (8.5-10.1); Chloride 112 mmol/L (98-107); Creatinine, Serum 1.36 mg/dL (0.55-1.02); EST Glomerular Filtration Rate 40 mL/min (>60); Est Glom Filt Rate - Afr Amer 48 mL/min (>60); Estimated Creatinine Clearance 26.84 ml/min; Globulin 2.9 g/dL (2.2-4.2); Glucose 102 mg/dL (74-106); Potassium 4.2 mmol/L (3.5-5.1); Protein, Total 5.7 g/dL (6.4-8.2); Sodium Level 140 mmol/L (136-145)
[2022-05-25] MEDS: Calcium (Elemental) 500 MG Tablet PO (08:38)
[2022-05-25] MEDS: Folic Acid 1 MG Tablet PO (08:38)
[2022-05-25] MEDS: Allopurinol 100 MG Tablet PO (08:39)
[2022-05-25 09:45] VITALS: BP 103/51; PULSE 53; RESP 16; TEMP 36.8; O2SAT 96
[2022-05-25] MEDS: Colchicine 0.6 MG TABLET PO (10:18)
[2022-05-25] MEDS: 0.9% Saline Lock 10 ML Syringe IV ×2 (10:18→20:43)
[2022-05-25] MEDS: 0.9% Normal Saline 1,000 ML 75 ML IV (12:02)
--- NOTE | 2022-05-25 15:00 | PCM.PN.HOSP ---
Subjective Subjective Feeling better this a.m., no acute complaints. Also doing well this evening with no dizziness, tolerating liquids without difficulty, no overt bleeding reported Objective Data Objective Data Vital Signs: Vital Signs Temp Pulse Resp BP Pulse Ox O2 Del Method 98.3 F 53 L 16 103/51 L 96 Room Air 05/25/22 09:45 05/25/22 09:45 05/25/22 09:45 05/25/22 09:45 05/25/22 09:45 05/25/22 09:45 Oxygen Delivery Method Room Air Weight: 68.4 kg Body Mass Index (BMI) 26.6 Intake & Output: Intake and Output for Last 24 Hours 05/23/22 05/24/22 05/25/22 23:59 23:59 23:59 Intake Total 1110 / 1350 3470.00 / 3470.00 Balance 1110 / 1350 3470.00 / 3470.00 Lab / Micro Data Result Diagrams: 05/25/22 05:43 05/25/22 05:43 Labs: Laboratory Results - last 24 hr 05/24/22 15:30: WBC 7.4, RBC 3.07 L, Hgb 8.7 L, Hct 28.6 L, MCV 93.2, MCH 28.3, MCHC 30.4 L, RDW Std Deviation 65.1 H, RDW Coeff of Lorenzo 20.1 H, Plt Count 398, MPV 9.9, Immature Gran % (Auto) 0.300, Neut % (Auto) 70.7 H, Lymph % (Auto) 17.5 L, [place] % (Auto) 8.8, Eos % (Auto) 2.2, Baso % (Auto) 0.5, Absolute Neuts (auto) 5.3, Absolute Lymphs (auto) 1.30, Nucleated RBC % 0, Toxic Granulation RARE, Platelet Estimate ADEQUATE, RBC Morphology N CHROM, Hypochromasia 1+, Anisocytosis 1+, Macrocytosis 1+ 05/24/22 15:30: Sodium 138, Potassium 4.6, Chloride 106, Carbon Dioxide 24.0, Anion Gap 8, BUN 45 H, Creatinine 2.07 H, Estim Creat Clear Calc 17.63, Est GFR (MDRD) Af Amer 30 L, Est GFR (MDRD) Non-Af 24 L, BUN/Creatinine Ratio 21.7 H, Glucose 96, Calcium 8.6 05/25/22 05:43: WBC 5.4, RBC 2.55 L, Hgb 7.3 L, Hct 23.7 L, MCV 92.9, MCH 28.6, MCHC 30.8 L, RDW Std Deviation 64.3 H, RDW Coeff of Lorenzo 19.6 H, Plt Count 321, MPV 9.7, Immature Gran % (Auto) 0.200, Neut % (Auto) 65.8, Lymph % (Auto) 24.1, [place] % (Auto) 6.3, Eos % (Auto) 3.0, Baso % (Auto) 0.6, Absolute Neuts (auto) 3.6, Absolute Lymphs (auto) 1.30, Nucleated RBC % 0 05/25/22 05:43: Sodium 140, Potassium 4.2, Chloride 112 H, Carbon Dioxide 21.0, Anion Gap 7, BUN 31 H, Creatinine 1.36 H, Estim Creat Clear Calc 26.84, Est GFR (MDRD) Af Amer 48 L, Est GFR (MDRD) Non-Af 40 L, BUN/Creatinine Ratio 22.8 H, Glucose 102, Calcium 8.2 L, Total Bilirubin 0.20, AST 13 L, ALT 16, Alkaline Phosphatase 83, Total Protein 5.7 L, Albumin 2.8 L, Globulin 2.9, Albumin/Globulin Ratio 1.0 Micro: Microbiology 05/24/22 19:45 Stool Stool Occult Blood (LALO) - Final Occult Blood Positive Physical Exam Narrative General: Alert, oriented, no apparent distress HEENT: Atraumatic, normocephalic Eyes: Anicteric, normal conjunctiva, extraocular movements grossly intact Neck: Supple Respiratory: Clear to auscultation bilaterally, normal respiratory effort Cardiovascular: Regular rate and rhythm GI: Soft, nontender, nondistended Extremities: No edema Musculoskeletal: Moving all extremities Neuro: No overt focal neurological deficits Skin: No rashes appreciated Psych: Cooperative Assessment & Plan Assessment/Plan (1) DAVID (acute kidney injury): (2) Occult GI bleeding: PLAN: Plan #Acute blood loss anemia secondary to acute GI bleed unclear etiology Hemoglobin on presentation was 8.2 with a previous hemoglobin of 12.9 FOBT positive Orthostatic vital signs on presentation negative IV PPI Vitals have been stable Hemoglobin this a.m. 7.3 but had not noted any further bleeding, decreased might in part be due to hemodilution from the fluids she has received, transfusion threshold of 7 We will recheck hemoglobin and transfuse if threshold reached GI consulted, initially general surgery contacted by ED but is expressed to admitting physician that she would prefer to see GI as she already has a scope scheduled with Dr. La this week Iron studies ordered Had had nausea and emesis however has tolerated diet thus far, advanced to full liquid, n.p.o. at midnight in the event she does need scope in the a.m. #DAVID likely prerenal Did have recent nausea and vomiting as well as being on triamterene?hydrochlorothiazide with lisinopril, and additionally hemoglobin is lower likely leading to the creatinine of 2.07 from baseline of 0.90 Today is 1.36 which is improved with fluids Has received significant amount of fluids, will hold at this time as she is improving p.o. intake but can always resume Held home BP meds except Cardizem which was held due to parameters, decrease dose and continue holding parameters #Esophageal stricture with history of dilation Scheduled to follow-up with GI as an outpatient for scope #Hypertension/hyperlipidemia Cardizem will decrease dose due to BP, statin Holding lisinopril and triamterene?hydrochlorothiazide #RA Methotrexate, folic acid, Lyrica, tramadol #DVT ppx: SCDs Pau Mcginnis MD Time spent in the patient's overall evaluation,decision-making process, review of diagnostic data, adjustment of management, discussion with other providers, nursing nursing and ancillary staff involved in patient's care documentation, 30 minutes Charges/Coding Visit Charges Inpatient E&M: 93337 Subs Hosp L2
[2022-05-25 15:45] VITALS: BP 110/55; PULSE 60; RESP 18; TEMP 37.1; O2SAT 95
[2022-05-25 18:27] LABS: Absolute Lymphocyte Count 1.21 X10^3/uL (0.83-4.51); Absolute Neutrophil Count 3.2 X10^3/uL (2.0-7.7); Basophil# 0.02 X10^3/uL; Basophil% 0.4 % (0-1); Eosinophil# 0.14 X10^3/uL; Eosinophils% 2.9 % (0-5); Hemoglobin 7.2 g/dL (12.0-15.0); Lymphocyte # 1.21 X10^3/ul (0.83-4.51); Lymphocyte % 25.4 % (19-41); Mean Corp Hgb Conc 28.8 g/dL (32-36); Mean Corpuscular Hgb 27.7 pg (27.0-32.0); Mean Corpuscular Volume 96.2 fL (81-99); Mean Platelet Vol. 9.8 fl (6.2-12.0); Monocyte# 0.17 X10^3/uL; Monocyte% 3.6 % (0-10); NRBC Flagged by Analyzer 0 % (0-5); Neutrophil % 67.3 % (47-70); POSITIVE MORPHOLOGY YES; Platelet Count 338 K/mm3 (150-450); RBC Distribution Width CV 19.7 % (11.6-14.6); RBC Distribution Width SD 67.2 fl (35.1-43.9); White Blood Count 4.8 K/mm3 (4.4-11.0)
[2022-05-25 18:30] LABS: Differential Indicated SCAN CRITERIA MET
[2022-05-25 18:54] LABS: Ferritin 18 ng/mL (8-252); Iron 63 ug/dL (50-170); Iron Binding Capacity,Total 342 ug/dL (250-450)
[2022-05-25] MEDS: CLARIFY ORDER NOTE (19:13)
[2022-05-25 20:10] LABS: Anisocytosis 2+; Differential Comment SCANNED; Macrocytosis 1+; Microcytosis 1+; Ovalocyte RARE
[2022-05-25] MEDS: Atorvastatin Calcium 20 MG Tablet PO (20:41)
[2022-05-25] MEDS: Acetaminophen 500 MG Tablet PO (20:42)
[2022-05-25 20:48] VITALS: BP 151/82; PULSE 78; RESP 18; TEMP 36.6; O2SAT 99
[2022-05-26 02:02] VITALS: BP 157/64; PULSE 82; RESP 18; TEMP 36.7; O2SAT 96
[2022-05-26 06:41] VITALS: BP 111/51; PULSE 74; RESP 18; TEMP 36.9; O2SAT 94; BMI 26.4
[2022-05-26] MEDS: Acetaminophen 500 MG Tablet PO ×2 (06:44→21:06)
[2022-05-26] MEDS: Pregabalin 50 MG Capsule 100 MG PO ×3 (06:44→21:06)
[2022-05-26 06:48] LABS: Absolute Lymphocyte Count 0.86 X10^3/uL (0.83-4.51); Absolute Neutrophil Count 6.7 X10^3/uL (2.0-7.7); Basophil# 0.02 X10^3/uL; Basophil% 0.3 % (0-1); Eosinophil# 0.09 X10^3/uL; Eosinophils% 1.2 % (0-5); Hematocrit 25.4 % (37-47); Hemoglobin 7.8 g/dL (12.0-15.0); Lymphocyte # 0.86 X10^3/ul (0.83-4.51); Mean Corp Hgb Conc 30.7 g/dL (32-36); Mean Corpuscular Hgb 28.4 pg (27.0-32.0); Mean Corpuscular Volume 92.4 fL (81-99); Mean Platelet Vol. 10.3 fl (6.2-12.0); Monocyte# 0.14 X10^3/uL; Monocyte% 1.8 % (0-10); NRBC Flagged by Analyzer 0 % (0-5); Neutrophil # 6.67 X10^3/uL (2.7-7.7); Neutrophil % 85.3 % (47-70); Platelet Count 362 K/mm3 (150-450); RBC Distribution Width CV 19.7 % (11.6-14.6); RBC Distribution Width SD 64.1 fl (35.1-43.9); Red Blood Count 2.75 M/mm3 (4.2-5.4); White Blood Count 7.8 K/mm3 (4.4-11.0)
[2022-05-26 07:18] LABS: AST(SGOT) 19 U/L (15-37); Alanine Aminotransfer ALT/SGPT 16 U/L (13-56); Albumin, Serum 3.2 g/dL (3.2-5.0); Alkaline Phosphatase 93 U/L (45-117); Anion Gap 6 (5-15); BUN 16 mg/dL (7-18); BUN/Creat Ratio 16.6 RATIO (10-20); Calcium,Total 8.9 mg/dL (8.5-10.1); Chloride 112 mmol/L (98-107); Creatinine, Serum 0.97 mg/dL (0.55-1.02); EST Glomerular Filtration Rate 59 mL/min (>60); Est Glom Filt Rate - Afr Amer 71 mL/min (>60); Estimated Creatinine Clearance 37.63 ml/min; Globulin 3.3 g/dL (2.2-4.2); Glucose 96 mg/dL (74-106); Potassium 4.5 mmol/L (3.5-5.1); Protein, Total 6.5 g/dL (6.4-8.2); Sodium Level 141 mmol/L (136-145)
[2022-05-26 07:29] LABS: International Normalized Ratio 1.1; Prothrombin Time (Protime)PT. 13.8 SECONDS (11.7-14.9)
[2022-05-26 09:25] VITALS: BP 108/63; PULSE 63; RESP 18; TEMP 36.7; O2SAT 95
--- NOTE | 2022-05-26 10:20 | CASEMGMT ---
SANDRA DESIR Face to Face with patient for initial transition planning/care coordination assessment. RN CM introduced self and role at [facility]. Patient lying in bed, alert and oriented, family at bedside. Patient willing to participate in assessment and is able to answer all questions appropriately. Care providers, pharmacy, and demographics verified. Patient wishes to discharge home, denies need for home health at this time. Patient states she has no further needs or concerns at this time. CM to follow for discharge planning needs that may arise. PCP: Alec Specialists: cindy Benson; RA Dennis Ordonez Preferred Pharmacy: [facility] Insurance: [facility] Prescription Benefit: yes Living Will/HPOA: yes, Duarte Cabrales LNOK: and daughter Living Arrangements: Patient lives with in a single story home with 2 steps and grab bar to enter. Patient states she is independent at home. Transportation: self, DME/HHC: Patient has shower chair, cane, grab bars, and walker at home. No previous HHC or SNF Disposition Plan: Patient to discharge home with family support and follow-up plans in place. Diane GAMEZ, RN, CM
--- NOTE | 2022-05-26 10:24 | PN.HOSP_ITS ---
Subjective Subjective Patient seen and examined. She had no active complaints. She denied any abdominal pain, nausea, vomiting or dark stools. Review of systems is otherwise negative. She is awaiting evaluation by GI. Hb today is 7.8. Objective Data Objective Data Vital Signs: Vital Signs Temp Pulse Resp BP Pulse Ox O2 Del Method 98.1 F 63 18 108/63 95 Room Air 05/26/22 09:25 05/26/22 09:25 05/26/22 09:25 05/26/22 09:25 05/26/22 09:25 05/26/22 09:25 Oxygen Delivery Method Room Air Weight: 149 lb 4.047 oz Body Mass Index (BMI) 26.4 Intake & Output: Intake and Output for Last 24 Hours 05/24/22 05/25/22 05/26/22 23:59 23:59 23:59 Intake Total 1110 / 1350 5802.50 / 5802.50 110 / 110 Balance 1110 / 1350 5802.50 / 5802.50 110 / 110 Lab / Micro Data Result Diagrams: 05/26/22 05:45 05/26/22 05:45 Labs: Laboratory Results - last 24 hr 05/25/22 18:18: WBC 4.8, RBC 2.60 L, Hgb 7.2 L, Hct 25.0 L, MCV 96.2, MCH 27.7, MCHC 28.8 L D, RDW Std Deviation 67.2 H, RDW Coeff of Lorenzo 19.7 H, Plt Count 338, MPV 9.8, Immature Gran % (Auto) 0.400, Neut % (Auto) 67.3, Lymph % (Auto) 25.4, [place] % (Auto) 3.6, Eos % (Auto) 2.9, Baso % (Auto) 0.4, Absolute Neuts (auto) 3.2, Absolute Lymphs (auto) 1.21, Nucleated RBC % 0, Differential Comment SCANNED, Anisocytosis 2+, Microcytosis 1+, Macrocytosis 1+, Ovalocytes RARE 05/25/22 18:18: Iron 63, TIBC 342, Ferritin 18 05/26/22 05:45: WBC 7.8, RBC 2.75 L, Hgb 7.8 L, Hct 25.4 L, MCV 92.4, MCH 28.4, MCHC 30.7 L D, RDW Std Deviation 64.1 H, RDW Coeff of Lorenzo 19.7 H, Plt Count 362, MPV 10.3, Immature Gran % (Auto) 0.400, Neut % (Auto) 85.3 H, Lymph % (Auto) 11.0 L, [place] % (Auto) 1.8, Eos % (Auto) 1.2, Baso % (Auto) 0.3, Absolute Neuts (auto) 6.7, Absolute Lymphs (auto) 0.86, Nucleated RBC % 0 05/26/22 05:45: Sodium 141, Potassium 4.5, Chloride 112 H, Carbon Dioxide 23.0, Anion Gap 6, BUN 16, Creatinine 0.97, Estim Creat Clear Calc 37.63, Est GFR (MDRD) Af Amer 71, Est GFR (MDRD) Non-Af 59 L, BUN/Creatinine Ratio 16.6, Glucose 96, Calcium 8.9, Total Bilirubin 0.50, AST 19, ALT 16, Alkaline Phosphatase 93, Total Protein 6.5, Albumin 3.2, Globulin 3.3, Albumin/Globulin Ratio 1.0 05/26/22 05:45: PT 13.8, INR 1.1 Micro: Microbiology 05/24/22 19:45 Stool Stool Occult Blood (LALO) - Final Occult Blood Positive Physical Exam Const alert, oriented x3 and no apparent distress HEENT head/scalp atraumatic, moist oral mucous membranes and oropharynx normal Head and Scalp: normocephalic Mouth: oral and palatal mucosa normal Neck no lymphadenopathy and supple Resp normal respiratory effort, no retractions, no use of accessory muscles and clear to auscultation bilaterally Cardio regular rate, regular rhythm, S1 normal heart sound, S2 normal heart sound and no murmurs GI normal to inspection, nondistended, normoactive bowel sounds, soft to palpation and non-tender Extremity normal to inspection, full ROM and no clubbing, cyanosis or edema Neuro oriented x3, CN's II-XII intact bilaterally, moves all extremities and no focal motor deficits Sensorium / Orientation: awake and alert Motor Exam: strength 5/5 throughout Psych affect normal Assessment & Plan Assessment/Plan (1) Difficulty swallowing: (2) Occult GI bleeding: PLAN: Plan #Acute blood loss Anemia due to GI bleed * Hb today is 7.8; was 7.2 yesterday. * baseline Hb is ~12-13 * currently NPO * GI on board * iron studies: iron level of 63, with IBC of 342 and ferritin of 18. She does have low iron storage per low ferrigin, but her iron levels are WNL * continue gentle hydration with IVF * transfuse if Hb <7 * IV PPI * will likely need EGD and/or colonoscopy * #DAVID * was thought to be pre renal * had been having nausea nad vomiting and was also on diuretics * improved with IVF * * #ESophageal stricture * has had dilations in the pat * was due to have dilation this week. Says she has been having difficulty swallowing * GI consulted p/a of acute blood loss anemia; patient counseled that stricture would likely be addressed during scope for anemia * #Hypertension: on cardizem. Lisinopril and HCTZ/triamterene held on admisison due to hypotension and DAVID. WIll review #Rheuymatoid arthritis: on folic acid, lyrica and tramadol DVT prophylaxis: SCDs Charges/Coding Visit Charges Inpatient E&M: 56877 Subs Hosp L2
[2022-05-26] MEDS: Calcium (Elemental) 500 MG Tablet PO (11:40)
[2022-05-26] MEDS: Colchicine 0.6 MG TABLET PO (11:40)
[2022-05-26] MEDS: Folic Acid 1 MG Tablet PO (11:40)
[2022-05-26] MEDS: Allopurinol 100 MG Tablet PO (11:40)
--- NOTE | 2022-05-26 12:11 | CHAPLAIN ---
Type of Pastoral Visit _x__ Initial Visit ___ Follow-up Visit ___ On-call Visit ___ General Patient Visit ___ Spiritual Assessment ___ Family Conference ___ Bereavement ___ Rapid Response ___ Code Blue ___ Other (describe below) Pastoral Care Referral From _x__ Patient ___ Family ___ Nurse ___ Physician ___ Premises Technician ___ Oil Well Logger ___ Other (describe below) Sacrament/Intervention _x__ Active listening ___ Anointing ___ Scientologist ___ Bereavement ___ Communion ___ Tracy exploration ___ ___ Life review _x__ Prayer ___ Reconciliation ___ Sacrament of Sick _x__ Supportive presence ___ Wedding ___ Other (describe below) Pastoral Comments patient has been seen before in previous admissions; pt is welcoming and explains her situation; pt also has spouse and daughter in room for support; pt states that care is great but just disappointed that procedure has to wait until tomorrow due to scheduling; pt accepts presence and prayer for support
[2022-05-26 15:25] VITALS: BP 121/56; PULSE 68; RESP 18; TEMP 36.9; O2SAT 95
--- NOTE | 2022-05-26 19:36 | CON.PCM.GI_ITS ---
HPI Consult Data Date of Consult: 05/26/22 HPI Narrative Reason for Consultation: Dysphagia HPI Narrative: RONNELL HERZOG, is a 82 F who presented on 05/24/2022. She she said that she was eating something and felt like she had another obstruction.? She had trouble passing liquids and food, she did not come to the emergency department.? After a day and a half of trouble swallowing, she drank some coke and she vomited up a small amount of food and then felt better and has been able to drink fluids ever since then.? However as a result of not drinking fluids for the last couple days, presumably, she has had fatigue and lightheadedness when she stands up.? She has felt near syncopal couple times but has not passed out.? She denies any symptoms of angina or dyspnea or fevers/chills.? She denies any focal neurologic symptoms. She has a long history of dysphagia of food and pills. She also has a history of EGDs with dilation with Dr. Parker. Barium Swallow 01.22.21 finding irregular esophageal contractility with suggestion of circumferential narrowing at GE junction; large hiatal hernia; moderate GERD. Medications currently recommending by this clinic include amitriptyline 10mg QHS; imdur 30mg QD. Plan last visit 05.01.21: Hiatal hernia ? not a safe surgical candidate r/t age and comorbidities. Esophageal Spasm ? doing well with amitriptyline and imdur. Stable weight and minimal dysphagia. Continue current regimen and possible repeat swallow study in three months. She is continuing to have difficulty swallowing food particularly, with random intervals: can be three days in a row and then nothing for several weeks. When having difficulty it will ?come up? or with take a significant period of time to pass downward. Denies reflux symptoms. Denies requiring emergent intervention. [facility], [facility] Medical History Arthritis Breast lump Carpal tunnel syndrome Cataracts, bilateral Esophageal spasm Gout Hiatal hernia HTN (hypertension) Neuropathy Osteoarthritis Osteopenia Osteoporosis Rheumatoid arthritis Home Medications acetaminophen 500 mg tablet (Tylenol Extra Strength) 500 mg PO TID PRN Pain 03/27/21 [History Last Taken 01/13/22] diltiazem HCl 120 mg capsule,extended release 12 hr 120 mg PO DAILY heart rate 03/27/21 [History Last Taken 01/13/22] folic acid 1 mg tablet 1 mg PO DAILY supplement 03/27/21 [History Last Taken 01/13/22] methotrexate sodium 2.5 mg tablet 15 mg PO TH inflammation 03/27/21 [History Last Taken 01/09/22] pantoprazole 40 mg tablet,delayed release (Protonix) 40 mg PO DAILY reflux 03/27/21 [History Last Taken 01/13/22] allopurinol 100 mg tablet 100 mg PO DAILY gout 01/13/22 [History Last Taken 01/13/22] calcium carbonate 500 mg calcium (1,250 mg) tablet 500 mg PO DAILY supplement 01/13/22 [History Last Taken 01/13/22] colchicine 0.6 mg tablet 0.6 mg PO DAILY gout 01/13/22 [History Last Taken 01/13/22] docusate sodium 100 mg capsule 100 mg PO DAILY PRN STOOL 01/13/22 [History Last Taken 1 Week Ago ~01/06/22] pregabalin 100 mg capsule 100 mg PO TID pain 01/13/22 [History Last Taken 01/13/22] atorvastatin 20 mg tablet (Lipitor) 20 mg PO DAILY #30 tabs 02/16/22 [Rx Last Taken Unknown] lisinopril 10 mg tablet 10 mg PO DAILY #30 tabs 02/16/22 [Rx Last Taken Unknown] aspirin 81 mg tablet,delayed release (Adult Aspirin Regimen) 81 mg PO DAILY heart health 05/24/22 [History Last Taken Unknown] tramadol 50 mg tablet 50 mg PO TID PRN PRN Pain 05/24/22 [History Last Taken Unknown] triamterene 37.5 mg-hydrochlorothiazide 25 mg tablet 1 tab PO DAILY 05/24/22 [History Last Taken Unknown] Allergy/AdvReac Type Severity Reaction Status Date / Time Sulfa (Sulfonamide AdvReac Nausea/Vom/ Verified 05/24/22 14:06 Antibiotics) Diarrhea sulfamethoxazole AdvReac Nausea/Vom/ Verified 05/24/22 14:06 [From Bactrim] Diarrhea trimethoprim [From Bactrim] AdvReac Nausea/Vom/ Verified 05/24/22 14:06 Diarrhea Family History Father Colon cancer Mother Diabetes CVA (cerebral vascular accident) Surgical History H/O knee surgery H/O: hysterectomy History of back surgery Social History (Updated 05/25/22 @ 00:[address] Claribel Oliveira MD) household members: family Smoking Status: Never smoker alcohol intake: never substance use type: does not use ROS ROS Narrative Constitutional: Reports: Malaise, Weakness, Fatigue. Denies: Anorexia, Chills, Fever, Night Sweats, Weight Change Eyes: Denies: Blurred vision, Cataracts, Conjunctivae Inflammation, Pain, Redness, Vision Change HEENT: Denies: Difficulty Hearing, Difficulty Swallowing, Head Aches, Hearing Changes, Sinus Congestion, Sinus Drainage Cardiovascular: Denies: Chest Pain, Orthopnea, Palpitations Respiratory: Denies: Cough, Shortness of breath at rest, Sputum production Gastrointestinal: Denies: Abdominal Pain, Nausea, Vomiting Genitourinary: Denies: Dysuria Musculoskeletal: Denies: Joint Pain, Joint stiffness, Joint swelling, Joint Tenderness Skin: Denies: Rash, Wounds Neurological: Denies: Numbness, Tingling, Focal weakness Physical Exam Const alert, oriented x3 and no apparent distress HEENT head/scalp atraumatic, moist oral mucous membranes and oropharynx normal Head and Scalp: normocephalic Mouth: oral and palatal mucosa normal Neck no lymphadenopathy and supple Resp normal respiratory effort, no retractions, no use of accessory muscles and clear to auscultation bilaterally Cardio regular rate, regular rhythm, S1 normal heart sound, S2 normal heart sound and no murmurs GI normal to inspection, nondistended, normoactive bowel sounds, soft to palpation and non-tender Extremity normal to inspection, full ROM and no clubbing, cyanosis or edema Neuro oriented x3, CN's II-XII intact bilaterally, moves all extremities and no focal motor deficits Sensorium / Orientation: awake and alert Motor Exam: strength 5/5 throughout Psych affect normal Lab / Micro Data Result Diagrams: 05/26/22 05:45 05/26/22 05:45 Labs: Laboratory Results - last 24 hr 05/25/22 18:18: Differential Comment SCANNED, Anisocytosis 2+, Microcytosis 1+, Macrocytosis 1+, Ovalocytes RARE 05/26/22 05:45: WBC 7.8, RBC 2.75 L, Hgb 7.8 L, Hct 25.4 L, MCV 92.4, MCH 28.4, MCHC 30.7 L D, RDW Std Deviation 64.1 H, RDW Coeff of Lorenzo 19.7 H, Plt Count 362, MPV 10.3, Immature Gran % (Auto) 0.400, Neut % (Auto) 85.3 H, Lymph % (Auto) 11.0 L, [place] % (Auto) 1.8, Eos % (Auto) 1.2, Baso % (Auto) 0.3, Absolute Neuts (auto) 6.7, Absolute Lymphs (auto) 0.86, Nucleated RBC % 0 05/26/22 05:45: Sodium 141, Potassium 4.5, Chloride 112 H, Carbon Dioxide 23.0, Anion Gap 6, BUN 16, Creatinine 0.97, Estim Creat Clear Calc 37.63, Est GFR (MDRD) Af Amer 71, Est GFR (MDRD) Non-Af 59 L, BUN/Creatinine Ratio 16.6, Glucose 96, Calcium 8.9, Total Bilirubin 0.50, AST 19, ALT 16, Alkaline Phosphatase 93, Total Protein 6.5, Albumin 3.2, Globulin 3.3, Albumin/Globulin Ratio 1.0 05/26/22 05:45: PT 13.8, INR 1.1 Assessment & Plan Assessment/Plan (1) Acute blood loss anemia: PLAN: She will evaluation of her upper GI tract or any signs of acute blood loss anemia does take 81 mg of aspirin and is on immunosuppression with methotrexate for rheumatoid arthritis. Put her at risk for gastric ulcers or duodenal ulcers. Continue PPI drip. (2) Difficulty swallowing: PLAN: She does have esophageal spasm associated with a large hiatal hernia. She will undergo an upper endoscopy to evaluate upper GI tract and undergo possible dilation. She will need manometry studies prior to her possibly getting Botox therapy. Charges/Coding Visit Charges Inpatient E&M: 26535 Init Hosp L2
[2022-05-26 20:57] VITALS: BP 116/64; PULSE 66; RESP 20; TEMP 36.7; O2SAT 96
[2022-05-26] MEDS: traMADol 50 MG Tablet PO (21:06)
[2022-05-26] MEDS: Atorvastatin Calcium 20 MG Tablet PO (21:07)
[2022-05-26] MEDS: 0.9% Saline Lock 10 ML Syringe IV (21:07)
[2022-05-27] VITALS (11 sets, daily range): BP systolic 95–141; BP diastolic 48–70; PULSE 54–67; RESP 14–18; TEMP 36.3–36.7; O2SAT 93–98; BMI 25.9
--- NOTE | 2022-05-27 05:55 | EKG12_ITS ---
Test Reason : AM EKG Blood Pressure : / mmHG Vent. Rate : 055 BPM Atrial Rate : 055 BPM P-R Int : 144 ms QRS Dur : 088 ms QT Int : 424 ms P-R-T Axes : 033 011 029 degrees QTc Int : 405 ms Sinus bradycardia Otherwise normal ECG When compared with ECG of 15-FEB-2022 21:03, Premature atrial complexes are no longer Present Nonspecific T wave abnormality has replaced inverted T waves in Inferior leads Confirmed by JACIEL BRAN, MODESTO ([id number]), editorial specialist ABA CORONADO ([id number]) on 05/27/2022 2:04:51 PM Referred By: Confirmed By:MODESTO GRISSOM MD
[2022-05-27] MEDS: Pregabalin 50 MG Capsule 100 MG PO ×2 (06:57→21:29)
[2022-05-27 07:26] LABS: Absolute Lymphocyte Count 1.87 X10^3/uL (0.83-4.51); Absolute Neutrophil Count 2.4 X10^3/uL (2.0-7.7); Basophil# 0.04 X10^3/uL; Basophil% 0.8 % (0-1); Eosinophil# 0.22 X10^3/uL; Eosinophils% 4.6 % (0-5); Hematocrit 26.6 % (37-47); Lymphocyte # 1.87 X10^3/ul (0.83-4.51); Lymphocyte % 39.2 % (19-41); Mean Corp Hgb Conc 30.1 g/dL (32-36); Mean Corpuscular Hgb 28.2 pg (27.0-32.0); Mean Corpuscular Volume 93.7 fL (81-99); Mean Platelet Vol. 9.9 fl (6.2-12.0); Monocyte# 0.25 X10^3/uL; Monocyte% 5.2 % (0-10); NRBC Flagged by Analyzer 0 % (0-5); Neutrophil # 2.38 X10^3/uL (2.7-7.7); POSITIVE MORPHOLOGY YES; Platelet Count 339 K/mm3 (150-450); RBC Distribution Width CV 19.7 % (11.6-14.6); RBC Distribution Width SD 65.7 fl (35.1-43.9); Red Blood Count 2.84 M/mm3 (4.2-5.4); White Blood Count 4.8 K/mm3 (4.4-11.0)
[2022-05-27 07:31] LABS: Differential Indicated SCAN CRITERIA MET
[2022-05-27 08:10] LABS: Anisocytosis 3+; Differential Comment SCANNED; Hypochromasia 2+
[2022-05-27 08:13] LABS: Anion Gap 9 (5-15); BUN 14 mg/dL (7-18); BUN/Creat Ratio 13.6 RATIO (10-20); Calcium,Total 9.3 mg/dL (8.5-10.1); Chloride 108 mmol/L (98-107); Creatinine, Serum 1.03 mg/dL (0.55-1.02); EST Glomerular Filtration Rate 55 mL/min (>60); Est Glom Filt Rate - Afr Amer 66 mL/min (>60); Estimated Creatinine Clearance 35.44 ml/min; Glucose 89 mg/dL (74-106); Potassium 4.1 mmol/L (3.5-5.1); Sodium Level 141 mmol/L (136-145)
[2022-05-27] MEDS: 0.9% Saline Lock 10 ML Syringe IV (10:09)
--- NOTE | 2022-05-27 11:39 | PN.HOSP_ITS ---
Subjective Subjective Patient seen and examined. She had no complaints this morning and had an uneventful night. Review of systems is otherwise negative. She is for EGD today. Objective Data Objective Data Vital Signs: Vital Signs Temp Pulse Resp BP Pulse Ox O2 Del Method 98.0 F 59 L 17 137/52 H 98 Room Air 05/27/22 09:14 05/27/22 09:14 05/27/22 09:14 05/27/22 09:14 05/27/22 09:14 05/27/22 09:14 Oxygen Delivery Method Room Air Weight: 146 lb 9.718 oz Body Mass Index (BMI) 25.9 Intake & Output: Intake and Output for Last 24 Hours 05/25/22 05/26/22 05/27/22 23:59 23:59 23:59 Intake Total 5802.50 / 5802.50 1480 / 1480 110 / 110 Balance 5802.50 / 5802.50 1480 / 1480 110 / 110 Lab / Micro Data Result Diagrams: 05/27/22 07:07 05/27/22 07:07 Labs: Laboratory Results - last 24 hr 05/27/22 07:07: WBC 4.8, RBC 2.84 L, Hgb 8.0 L, Hct 26.6 L, MCV 93.7, MCH 28.2, MCHC 30.1 L, RDW Std Deviation 65.7 H, RDW Coeff of Lorenzo 19.7 H, Plt Count 339, MPV 9.9, Immature Gran % (Auto) 0.200, Neut % (Auto) 50.0, Lymph % (Auto) 39.2, [place] % (Auto) 5.2, Eos % (Auto) 4.6, Baso % (Auto) 0.8, Absolute Neuts (auto) 2.4, Absolute Lymphs (auto) 1.87, Nucleated RBC % 0, Differential Comment SCANNED, Hypochromasia 2+, Anisocytosis 3+ 05/27/22 07:07: Sodium 141, Potassium 4.1, Chloride 108 H, Carbon Dioxide 24.0, Anion Gap 9, BUN 14, Creatinine 1.03 H, Estim Creat Clear Calc 35.44, Est GFR (MDRD) Af Amer 66, Est GFR (MDRD) Non-Af 55 L, BUN/Creatinine Ratio 13.6, Glucose 89, Calcium 9.3 Micro: Microbiology 05/24/22 19:45 Stool Stool Occult Blood (LALO) - Final Occult Blood Positive Physical Exam Const alert, oriented x3 and no apparent distress HEENT head/scalp atraumatic, moist oral mucous membranes and oropharynx normal Head and Scalp: normocephalic Mouth: oral and palatal mucosa normal Eyes PERRL and EOMs intact bilaterally Neck no lymphadenopathy and supple Resp normal respiratory effort, no retractions, no use of accessory muscles and clear to auscultation bilaterally Cardio regular rate, regular rhythm, S1 normal heart sound, S2 normal heart sound and no murmurs GI normal to inspection, nondistended, normoactive bowel sounds, soft to palpation and non-tender Extremity normal to inspection, full ROM and no clubbing, cyanosis or edema Neuro oriented x3, CN's II-XII intact bilaterally, moves all extremities and no focal motor deficits Sensorium / Orientation: awake and alert Motor Exam: strength 5/5 throughout Psych affect normal Assessment & Plan Assessment/Plan (1) Difficulty swallowing: (2) Occult GI bleeding: PLAN: Plan #Acute blood loss Anemia due to GI bleed * Hb today is 8 * baseline Hb is ~12-13 * currently NPO * GI on board * iron studies: iron level of 63, with IBC of 342 and ferritin of 18. She does have low iron storage per low ferritin, but her iron levels are WNL * continue gentle hydration with IVF * transfuse if Hb <7 * IV PPI * for EGD today * #DAVID * was thought to be pre renal * had been having nausea nad vomiting and was also on diuretics * resolved. Cr is down to 1.03 * * #ESophageal stricture * has had dilations in the pat * was due to have dilation this week. Says she has been having difficulty swallowing * GI consulted p/a of acute blood loss anemia; patient counseled that stricture would likely be addressed during scope for anemia * for EGD today * #Hypertension: * on cardizem. Lisinopril and HCTZ/triamterene held on admission due to hypotension and DAVID. 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, lyrica and tramadol DVT prophylaxis: SCDs Charges/Coding Visit Charges Inpatient E&M: 90587 Subs Hosp L2 Reason for Visit Reason for Visit: Diagnoses Acute posthemorrhagic anemia (05/24/22) Acute kidney failure, unspecified (05/24/22) Dysphagia, unspecified (05/24/22) Other fecal abnormalities (05/24/22)
[2022-05-27] MEDS: Lactated Ringers 1,000 ML 15 ML IV (15:33)
--- NOTE | 2022-05-27 17:03 | OP.EGD_ITS ---
Patient Name: Marsha Cabrales Procedure Date: 05/27/2022 4:36 PM Date of : 1940 Age: 82 Procedure: Upper GI endoscopy Indications: Acute post hemorrhagic anemia, Dysphagia Providers: Adan La DO Medicines: Monitored Anesthesia Care Patient Profile: This is an 82 year old female. Refer to note in patient chart for documentation of history and physical. Patient has symptoms of acute dysphagia and acute vomiting. Complications: No immediate complications. Procedure: Pre-Anesthesia Assessment: - Prior to the procedure, a History and Physical was performed, and patient medications and allergies were reviewed. The patient is competent. The risks and benefits of the procedure and the sedation options and risks were discussed with the patient. All questions were answered and informed consent was obtained. Patient identification and proposed procedure were verified by the physician in the pre-procedure area. Mental Status Examination: alert and oriented. Airway Examination: normal oropharyngeal airway and neck mobility. Respiratory Examination: clear to auscultation. CV Examination: normal. Prophylactic Antibiotics: The patient does not require prophylactic antibiotics. Prior Anticoagulants: The patient has taken no previous anticoagulant or antiplatelet agents. ASA Grade Assessment: II - A patient with mild systemic disease. After reviewing the risks and benefits, the patient was deemed in satisfactory condition to undergo the procedure. The anesthesia plan was to use monitored anesthesia care (MAC). Immediately prior to administration of medications, the patient was re-assessed for adequacy to receive sedatives. The heart rate, respiratory rate, oxygen saturations, blood pressure, adequacy of pulmonary ventilation, and response to care were monitored throughout the procedure. The physical status of the patient was re-assessed after the procedure. After obtaining informed consent, the endoscope was passed under direct vision. Throughout the procedure, the patient's blood pressure, pulse, and oxygen saturations were monitored continuously. The Endoscope was introduced through the mouth, and advanced to the second part of duodenum. The upper GI endoscopy was accomplished without difficulty. The patient tolerated the procedure well. Scope In: 4:49:14 PM Scope Out: 4:55:46 PM Total Procedure Duration Time 0 hours 6 minutes 32 seconds Findings: LA Grade B (one or more mucosal breaks greater than 5 mm, not extending between the tops of two mucosal folds) esophagitis with no bleeding was found 28 to 30 cm from the incisors. A large hiatal hernia was present. One oozing cratered gastric ulcer with a visible vessel was found in the gastric fundus. The lesion was 6 mm in largest dimension. Area was successfully injected with 5 mL of a 1:10,000 solution of epinephrine for drug delivery. Coagulation for hemostasis using heater probe was successful. Estimated blood loss was minimal. One oozing cratered gastric ulcer with a visible vessel was found in the gastric body. The lesion was 6 mm in largest dimension. Coagulation for hemostasis using heater probe was successful. Estimated blood loss was minimal. The first portion of the duodenum was normal. Impression: - LA Grade B erosive esophagitis. - Large hiatal hernia. - Oozing gastric ulcer with a visible vessel. Injected. Treated with a heater probe. - Oozing gastric ulcer with a visible vessel. Treated with a heater probe. - Normal first portion of the duodenum. - No specimens collected. Recommendation: - Return patient to hospital cooley for ongoing care. - Use sucralfate suspension 1 gram PO QID for 4 weeks. - Use Protonix (pantoprazole) 40 mg PO BID. - Continue present medications. Procedure Code(s): --- Professional --- 04659, Esophagogastroduodenoscopy, flexible, transoral; with control of bleeding, any method 89658, 59,51, Esophagogastroduodenoscopy, flexible, transoral; with directed submucosal injection(s), any substance CPT copyright 2017 [employer]. All rights reserved. The codes documented in this report are preliminary and upon mining helper review may be revised to meet current compliance requirements. Adan La DO 05/27/2022 5:03:04 PM This report has been signed electronically. Number of Addenda: 0 Note Initiated On: 05/27/2022 4:36 PM
--- NOTE | 2022-05-27 17:04 | OP.CCLET_ITS ---
05/27/2022 Maria D Michael [address] [place] [address] Re : Upper GI endoscopy procedure for Marsha Rosenthals Dear Dr. Michael This procedure was performed on Friday, May 27, 2022. My impressions and recommendations are as follows: Impressions : - LA Grade B erosive esophagitis. - Large hiatal hernia. - Oozing gastric ulcer with a visible vessel. Injected. Treated with a heater probe. - Oozing gastric ulcer with a visible vessel. Treated with a heater probe. - Normal first portion of the duodenum. - No specimens collected. Recommendations : - Return patient to hospital cooley for ongoing care. - Use sucralfate suspension 1 gram PO QID for 4 weeks. - Use Protonix (pantoprazole) 40 mg PO BID. - Continue present medications. My findings are described in the full procedure note, which is enclosed. If I can be of further assistance, please feel free to contact me at . Sincerely, Adan La, 05/27/2022 5:03:04 PM This report has been signed electronically.
[2022-05-27] MEDS: dilTIAZem 60 MG CAP.SR.12H PO (18:15)
[2022-05-27] MEDS: Acetaminophen 500 MG Tablet PO (21:29)
[2022-05-27] MEDS: Atorvastatin Calcium 20 MG Tablet PO (21:29)
[2022-05-27] MEDS: traMADol 50 MG Tablet PO (21:29)
[2022-05-28 03:20] VITALS: BP 110/52; PULSE 50; RESP 18; TEMP 36.4; O2SAT 96
[2022-05-28] MEDS: Pregabalin 50 MG Capsule 100 MG PO (05:22)
[2022-05-28 06:52] LABS: Absolute Lymphocyte Count 1.91 X10^3/uL (0.83-4.51); Basophil# 0.03 X10^3/uL; Basophil% 0.7 % (0-1); Eosinophil# 0.15 X10^3/uL; Eosinophils% 3.4 % (0-5); Hematocrit 24.8 % (37-47); Hemoglobin 7.5 g/dL (12.0-15.0); Lymphocyte # 1.91 X10^3/ul (0.83-4.51); Lymphocyte % 42.7 % (19-41); Mean Corp Hgb Conc 30.2 g/dL (32-36); Mean Corpuscular Volume 92.5 fL (81-99); Mean Platelet Vol. 9.1 fl (6.2-12.0); Monocyte# 0.34 X10^3/uL; Monocyte% 7.6 % (0-10); NRBC Flagged by Analyzer 0 % (0-5); Neutrophil # 2.03 X10^3/uL (2.7-7.7); Neutrophil % 45.4 % (47-70); Platelet Count 278 K/mm3 (150-450); RBC Distribution Width CV 19.5 % (11.6-14.6); RBC Distribution Width SD 63.7 fl (35.1-43.9); Red Blood Count 2.68 M/mm3 (4.2-5.4); White Blood Count 4.5 K/mm3 (4.4-11.0)
[2022-05-28 07:19] LABS: Anion Gap 6 (5-15); BUN 13 mg/dL (7-18); BUN/Creat Ratio 12.6 RATIO (10-20); Calcium,Total 8.6 mg/dL (8.5-10.1); Chloride 108 mmol/L (98-107); Creatinine, Serum 1.03 mg/dL (0.55-1.02); EST Glomerular Filtration Rate 55 mL/min (>60); Est Glom Filt Rate - Afr Amer 66 mL/min (>60); Estimated Creatinine Clearance 35.44 ml/min; Glucose 89 mg/dL (74-106); Sodium Level 139 mmol/L (136-145)
[2022-05-28 08:53] VITALS: BP 113/50; PULSE 53; RESP 17; TEMP 36.6; O2SAT 95
[2022-05-28] MEDS: Calcium (Elemental) 500 MG Tablet PO (08:57)
[2022-05-28] MEDS: Allopurinol 100 MG Tablet PO (08:57)
[2022-05-28] MEDS: Folic Acid 1 MG Tablet PO (08:57)
[2022-05-28] MEDS: Colchicine 0.6 MG TABLET PO (08:57)
[2022-05-28] MEDS: 0.9% Saline Lock 10 ML Syringe IV (08:59)
[2022-05-28 09:25] VITALS: BP 105/44; PULSE 58; RESP 18; TEMP 36.6; O2SAT 99
--- NOTE | 2022-05-28 10:50 | DS.PCM_ITS ---
Providers Date of Admission: 05/24/22 Date of Discharge: 05/28/22 Primary Care Physician: Dr. Maria D Michael MD Consultations 05/24/22 21:42 Consult: General Surgery Routine Consulting Provider: Jim Heath Reason for Consult: GI bleed EMERGENT Consult: No Notified: Yes Date Notified: 05/25/22 Time Notified: 06:49 Method of Notification: Text 05/26/22 05:55 Consult: Gastroenterology AM (NON MEDS) Consulting Provider: [facility] Reason for Consult: GIB EMERGENT Consult: No Notified: Yes Date Notified: 05/26/22 Time Notified: 06:44 Method of Notification: Text Reason For Visit: ANEMIA Diagnosis Discharge Diagnosis (1) Difficulty swallowing: Status: Acute Code(s): R13.10 - Dysphagia, unspecified (2) Occult GI bleeding: Status: Acute Code(s): R19.5 - Other fecal abnormalities Plan #Acute blood loss Anemia due to GI bleed * Hb today is 8 * baseline Hb is ~12-13 * currently NPO * GI on board * iron studies: iron level of 63, with IBC of 342 and ferritin of 18. She does have low iron storage per low ferritin, but her iron levels are WNL * continue gentle hydration with IVF * transfuse if Hb <7 * IV PPI * for EGD today * #DAVID * was thought to be pre renal * had been having nausea nad vomiting and was also on diuretics * resolved. Cr is down to 1.03 * * #ESophageal stricture * has had dilations in the pat * was due to have dilation this week. Says she has been having difficulty swallowing * GI consulted p/a of acute blood loss anemia; patient counseled that stricture would likely be addressed during scope for anemia * for EGD today * #Hypertension: * on cardizem. Lisinopril and HCTZ/triamterene held on admission due to hypot ension and DAVID. 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, lyrica and tramadol DVT prophylaxis: SCDs Medications at Discharge Home Medications acetaminophen 500 mg tablet (Tylenol Extra Strength) 500 mg PO TID PRN Pain 03/27/21 diltiazem HCl 120 mg capsule,extended release 12 hr 120 mg PO DAILY heart rate 03/27/21 folic acid 1 mg tablet 1 mg PO DAILY supplement 03/27/21 methotrexate sodium 2.5 mg tablet 15 mg PO TH inflammation 03/27/21 allopurinol 100 mg tablet 100 mg PO DAILY gout 01/13/22 calcium carbonate 500 mg calcium (1,250 mg) tablet 500 mg PO DAILY supplement colchicine 0.6 mg tablet 0.6 mg PO DAILY gout 01/13/22 docusate sodium 100 mg capsule 100 mg PO DAILY PRN STOOL 01/13/22 pregabalin 100 mg capsule 100 mg PO TID pain 01/13/22 atorvastatin 20 mg tablet (Lipitor) 20 mg PO DAILY #30 tabs 02/16/22 lisinopril 10 mg tablet 10 mg PO DAILY #30 tabs 02/16/22 tramadol 50 mg tablet 50 mg PO TID PRN PRN Pain 05/24/22 triamterene 37.5 mg-hydrochlorothiazide 25 mg tablet 1 tab PO DAILY diuretic 05/24/22 pantoprazole 40 mg tablet,delayed release 40 mg PO BID #60 tabs 05/28/22 sucralfate 1 gram tablet 1 g PO Q6H #120 tabs 05/28/22 Hospital Course Operations None Procedures EGD Summary of Care Provided Minutes Spent on Discharge: 52 Hospital Course: Patient is a 82-year-old female with past medical history as outlined who was admitted through the ED with a complaint of dizziness and low blood pressure readings on her machine. She called her PCP and was told to come into the ED. She admitted to an antecedent history of nausea and vomiting and had also had some difficulty with swallowing. She did have a history of esophageal stricture and had had dilation done by Dr. Hooper on the outpatient basis several years ago. She was due to follow-up with GI during the week of admission for esophageal dilatation. On admission hemoglobin was 8.7. She was admitted and managed for acute on chronic anemia due to GI bleed. Stool for occult blood was positive. She was kept n.p.o. and started on IV PPI. Gastroenterology was consulted. She had EGD on 05/27/2022 which showed erosive esophagitis with a large hiatal hernia and oozing gastric ulcer with a visible vessel which was injected and treated with a heater probe. First portion of duodenum was normal. Patient remained stable afterwards and was able to tolerate a diet. Hemoglobin did drop slightly to 7.5 but she denied any dark stools or lightheadedness or dizziness. This was thought to be likely from the fluid she had received. She remained stable and was discharged home on 05/28/2022. She has follow-up with her primary care doctor within the week for follow-up CBC to follow her hemoglobin. She was discharged on p.o. pantoprazole 40 mg twice daily and PO sucralfate 4x daily. Patient was seen and examined prior to discharge. She had no active complaintts and had an unventful night. Review of systems was otherwise negative. Labs and vitals reviewed. Home meds reviewed and reconciled. Physical Exam Const alert, oriented x3 and no apparent distress General Appearance: cooperative and comfortable Exam Limitations: no limitations HEENT normocephalic, head/scalp atraumatic, hearing grossly normal bilaterally, moist oral mucous membranes and oropharynx normal Mouth: oral and palatal mucosa normal Eyes PERRL and EOMs intact bilaterally Neck no lymphadenopathy and supple Resp normal respiratory effort, no retractions, no use of accessory muscles and clear to auscultation bilaterally Cardio regular rate, regular rhythm, S1 normal heart sound, S2 normal heart sound and no murmurs GI normal to inspection, nondistended, normoactive bowel sounds, soft to palpation and non-tender Extremity normal to inspection, full ROM and no clubbing, cyanosis or edema Neuro oriented x3, CN's II-XII intact bilaterally, moves all extremities and no focal motor deficits Sensorium / Orientation: awake and alert Motor Exam: strength 5/5 throughout Psych affect normal Weight / BMI Weight Weight: 148 lb 12.992 oz Body Mass Index (BMI) 25.9 ABG / Lab / Microbiology Data Result Diagrams: 05/28/22 06:45 05/28/22 06:45 Laboratory: Laboratory Results - last 24 hr 05/28/22 06:45: WBC 4.5, RBC 2.68 L, Hgb 7.5 L, Hct 24.8 L, MCV 92.5, MCH 28.0, MCHC 30.2 L, RDW Std Deviation 63.7 H, RDW Coeff of Lorenzo 19.5 H, Plt Count 278, MPV 9.1, Immature Gran % (Auto) 0.200, Neut % (Auto) 45.4 L, Lymph % (Auto) 42.7 H, C[place] % (Auto) 7.6, Eos % (Auto) 3.4, Baso % (Auto) 0.7, Absolute Neuts (auto) 2.0, Absolute Lymphs (auto) 1.91, Nucleated RBC % 0 05/28/22 06:45: Sodium 139, Potassium 4.0, Chloride 108 H, Carbon Dioxide 25.0, Anion Gap 6, BUN 13, Creatinine 1.03 H, Estim Creat Clear Calc 35.44, Est GFR (MDRD) Af Amer 66, Est GFR (MDRD) Non-Af 55 L, BUN/Creatinine Ratio 12.6, Glucose 89, Calcium 8.6 Microbiology: Microbiology 05/24/22 19:45 Stool Stool Occult Blood (LALO) - Final Occult Blood Positive D/C Instructions Discharge Diet: Low fat / Low cholesterol Weight Bearing Status: Weight bearing as tolerated Call your doctor if you observe: Fever of 101 or Higher, Shortness of breath, Dizziness, Swelling in the ankles, Chest pain and - (rectal bleeding, dark stools or coffee ground emesis) Meaningful Use Info Meaningful Use Diagnoses (Choose all that apply): None applicable Discharge Plan Admission Admit Date/Time: 05/24/22 20:31 Primary Reason for Your Visit: acute upper GI bleed Attending Provider: María Claros Primary Care Provider: Maria D Michael Consulting Providers: Claribel Oliveira ; Jim Heath ; Pau Mcginnis Instructions Patient Instructions: Bleeding Peptic Ulcer: Treatment Discharge Orders/Prescriptions Prescriptions: New pantoprazole 40 mg tablet,delayed release (DR/EC) 40 mg PO BID Qty: 60 2RF sucralfate 1 gram tablet 1 g PO Q6H Qty: 120 0RF Continued diltiazem HCl 120 mg capsule,extended release 12 hr 120 mg PO DAILY folic acid 1 mg tablet 1 mg PO DAILY methotrexate sodium 2.5 mg tablet 15 mg PO TH Label Comments: take 6 tabs weekly ON THUR acetaminophen [Tylenol Extra Strength] 500 mg tablet 500 mg PO TID PRN (Reason: Pain) allopurinol 100 mg tablet 100 mg PO DAILY calcium carbonate 500 mg calcium (1,250 mg) Tablet 500 mg PO DAILY docusate sodium 100 mg capsule 100 mg PO DAILY PRN (Reason: STOOL) Label Comments: take 1 capsule by mouth once daily if needed for constipation colchicine 0.6 mg tablet 0.6 mg PO DAILY pregabalin 100 mg capsule 100 mg PO TID atorvastatin [Lipitor] 20 mg tablet 20 mg PO DAILY Qty: 30 0RF lisinopril 10 mg tablet 10 mg PO DAILY Qty: 30 0RF triamterene-hydrochlorothiazid 37.5-25 mg tablet 1 tab PO DAILY Label Comments: take 1 tablet by mouth once daily tramadol 50 mg tablet 50 mg PO TID PRN PRN (Reason: Pain) Discontinued pantoprazole [Protonix] 40 mg tablet,delayed release (DR/EC) 40 mg PO DAILY aspirin [Adult Aspirin Regimen] 81 mg tablet,delayed release (DR/EC) 81 mg PO DAILY Referrals / Follow Up: Maria D Michael MD [Primary Care Provider] - 06/02/22 2:20 pm Disposition Disposition (needs filled in before D/C Order can be placed): Home, Self Care Charges/Coding Visit Charges Inpatient E&M: 38224 Disch Hosp >30min
--- NOTE | 2022-05-28 11:06 | CASEMGMT ---
SANDRA DESIR face to face with pt. Pt sitting up in the chair with spouse at bedside. Pt denies any concerns with returning home and states she was able to ambulate in the hallway and ambulate on the steps. States she will be able to enter her home without difficulty. Pt denies any dc needs at this time. Wili Farmer RN CM
--- NOTE | 2022-05-28 11:56 | PHA.DC.MC ---
Pharmacy Service has performed discharge medication reconciliation and counseling for this patient. 1. SUCRALFATE 1GM PO Q6H The patient's discharge medication list was reviewed for discrepancies and discrepancies were resolved. Home Medications acetaminophen 500 mg tablet (Tylenol Extra Strength) 500 mg PO TID PRN Pain 03/27/21 diltiazem HCl 120 mg capsule,extended release 12 hr 120 mg PO DAILY heart rate 03/27/21 folic acid 1 mg tablet 1 mg PO DAILY supplement 03/27/21 methotrexate sodium 2.5 mg tablet 15 mg PO TH inflammation 03/27/21 allopurinol 100 mg tablet 100 mg PO DAILY gout 01/13/22 calcium carbonate 500 mg calcium (1,250 mg) tablet 500 mg PO DAILY supplement 01/13/22 colchicine 0.6 mg tablet 0.6 mg PO DAILY gout 01/13/22 docusate sodium 100 mg capsule 100 mg PO DAILY PRN STOOL 01/13/22 pregabalin 100 mg capsule 100 mg PO TID pain 01/13/22 atorvastatin 20 mg tablet (Lipitor) 20 mg PO DAILY #30 tabs 02/16/22 lisinopril 10 mg tablet 10 mg PO DAILY #30 tabs 02/16/22 tramadol 50 mg tablet 50 mg PO TID PRN PRN Pain 05/24/22 triamterene 37.5 mg-hydrochlorothiazide 25 mg tablet 1 tab PO DAILY diuretic 05/24/22 pantoprazole 40 mg tablet,delayed release 40 mg PO BID #60 tabs 05/28/22 sucralfate 1 gram tablet 1 g PO Q6H #120 tabs 05/28/22 The patient was counseled on the following discharge medications and changes in medications for homegoing were reviewed. The Reason for Use, instructions for use, and potential side effects were reviewed for all new medications. The patient's questions regarding all of their medications were answered. The patient was able to verbally demonstrate an understanding of their discharge medications.
== END 2022-05-28 12:19 | disposition home or self-care (01) | DRG 378 ==
LOC: ED 20:28 → PCU 20:56
PROVIDERS: Internal Medicine; Internal Medicine Gastroenterology; Admitting Provider Internal Medicine; Emergency Provider Emergency Medicine; PCP Internal Medicine; Visit Provider Student in an Organized Health Care Education/Training Program
PROC: 0DJ08ZZ Inspection of Upper Intestinal Tract, Via Natural or Artificial Opening Endoscopic (ICD-10-PCS; CPT 43235; principal; 2022-05-27 16:25)
DX: K25.4 Chronic or unspecified gastric ulcer with hemorrhage (principal); N17.9 Acute kidney failure, unspecified; D62 Acute posthemorrhagic anemia; K22.10 Ulcer of esophagus without bleeding; K22.2 Esophageal obstruction; M06.9 Rheumatoid arthritis, unspecified; E86.0 Dehydration; E78.5 Hyperlipidemia, unspecified; I10 Essential (primary) hypertension; M10.9 Gout, unspecified; K44.9 Diaphragmatic hernia without obstruction or gangrene; Z79.891 Long term (current) use of opiate analgesic; Z79.2 Long term (current) use of antibiotics; Z80.0 Family history of malignant neoplasm of digestive organs; R13.10 Dysphagia, unspecified
CPT/HCPCS: 36415; 80048; 80053; 82274; 82728; 83540; 83550; 85025; 85610; 93005; 97162; 97166; 97530; 97802; 99285; J7030; J7120; A4216; J2405

== ENCOUNTER 2022-09-01 15:03 | Inpatient (IN) | payer MEDICARE, SELFPAY ==
[2022-09-01] VITALS (9 sets, daily range): BP systolic 96–114; BP diastolic 49–60; PULSE 62–85; RESP 16–25; TEMP 36.7–37.9; O2SAT 89–98; BMI 26.8; BMI 26.4
--- NOTE | 2022-09-01 15:17 | ED.VIS.CHEST ---
HPI History of Present Illness Chief Complaint: Chest Pain [facility] Medical History Arthritis Breast lump Carpal tunnel syndrome Cataracts, bilateral Esophageal spasm Gout Hiatal hernia HTN (hypertension) Neuropathy Osteoarthritis Osteopenia Osteoporosis Rheumatoid arthritis Home Medications folic acid 1 mg tablet 1 mg PO DAILY supplement 03/27/21 [History Last Taken 01/13/22] methotrexate sodium 2.5 mg tablet 15 mg PO TH inflammation 03/27/21 [History Last Taken 01/09/22] allopurinol 100 mg tablet 100 mg PO DAILY gout 01/13/22 [History Last Taken 01/13/22] calcium carbonate 500 mg calcium (1,250 mg) tablet 500 mg PO DAILY supplement 01/13/22 [History Last Taken 01/13/22] colchicine 0.6 mg tablet 0.6 mg PO DAILY gout 01/13/22 [History Last Taken 01/13/22] pregabalin 100 mg capsule 100 mg PO TID pain 01/13/22 [History Last Taken 01/13/22] atorvastatin 20 mg tablet (Lipitor) 20 mg PO DAILY #30 tabs 02/16/22 [Rx Last Taken Unknown] lisinopril 10 mg tablet 10 mg PO DAILY #30 tabs 02/16/22 [Rx Last Taken Unknown] tramadol 50 mg tablet 50 mg PO TID PRN PRN Pain 05/24/22 [History Last Taken Unknown] triamterene 37.5 mg-hydrochlorothiazide 25 mg tablet 1 tab PO DAILY diuretic 05/24/22 [History Last Taken Unknown] pantoprazole 40 mg tablet,delayed release 40 mg PO BID #60 tabs 05/28/22 [Rx Last Taken Unknown] potassium 99 mg tablet 99 mg PO DAILY 09/01/22 [History Last Taken Unknown] Allergy/AdvReac Type Severity Reaction Status Date / Time Sulfa (Sulfonamide AdvReac Nausea/Vom/ Verified 09/01/22 15:07 Antibiotics) Diarrhea sulfamethoxazole AdvReac Nausea/Vom/ Verified 09/01/22 15:07 [From Bactrim] Diarrhea trimethoprim [From Bactrim] AdvReac Nausea/Vom/ Verified 09/01/22 15:07 Diarrhea Family History Father Colon cancer Mother Diabetes CVA (cerebral vascular accident) Surgical History H/O knee surgery H/O: hysterectomy History of back surgery Social History (Updated 05/25/22 @ 00:[address] Claribel Oliveira MD) household members: family Smoking Status: Never smoker alcohol intake: never substance use type: does not use EXAM Physical Exam Const Vital Signs: 09/01/22 15:07 09/01/22 15:43 09/01/22 16:15 Temperature 100.3 F H Temperature Source Temporal Pulse Rate 85 66 Respiratory Rate 16 18 Blood Pressure 102/49 L 112/55 L Blood Pressure Mean 66 74 Pulse Ox 98 94 Oxygen Delivery Method Room Air Room Air Room Air 09/01/22 17:00 Temperature Temperature Source Pulse Rate 67 Respiratory Rate 22 H Blood Pressure 97/54 L Blood Pressure Mean 68 Pulse Ox 91 Oxygen Delivery Method Room Air MDM MDM MDM Narrative Medical decision making narrative: HISTORY OF PRESENT ILLNESS: 82-year-old female here with chest pain, shortness of breath. The patient states it began last evening. She notes the pain is midsternal, nonradiating described as pressure. She notes associated shortness of breath. She states the chest pain is worse with a deep breath. She notes 1 episode of nonbloody nonbilious vomitus after taking 4 baby aspirin yesterday. Denies any bleeding diathesis (denies melena, hematochezia). Denies any diarrhea. The patient denies recent surgery in the last 4 weeks or immobilization in the last 3 days, denies previous diagnosis of DVT or PE, hemoptysis, unilateral leg swelling or malignancy with treatment the last 6 months. No estrogen use noted. Patient denies sudden onset of pain, no tearing sensation, no migratory symptoms, no new numbness, weakness or loss of sensation. Patient denies family history or personal history of Marfan syndrome or Pat-Danlos. denies history of COPD or asthma, no history of smoking. She does note orthopnea. Denies any lower extremity edema. She denies fever but notes feeling chills this morning. REVIEW OF SYSTEMS: Pertinent positives: Chest pain, shortness of breath Pertinent negatives: Syncope, hemoptysis, cough PHYSICAL EXAM: Nursing triage notes reviewed, Vital signs reviewed Constitutional: please see mdm HENT: MMM Eyes: Pupils equal round and reactive to light, Extraocular muscles intact Neck: No stridor, no JVD, full neck ROM Lungs: Clear to auscultation, No wheezing or rales. No increased work of breathing, no conversational dyspnea, no accessory muscle use, no nasal flaring. No respiratory distress noted Heart: Regular rate and rhythm, No murmurs, No rubs and No gallops, 2+ distal pulses (radial, femoral, posterior tibial) in all extremities Abdomen: Soft, there is no tenderness, rigidity, rebound or guarding, no obvious peritoneal signs, no palpable pulsatile abdominal masses, no auscultated abdominal bruit : No CVAT Extremities: No edema Neuro: No focal neurological deficits, cranial nerves II through XII intact, 5/5 strength in all extremities. Intact sensation to light touch in all extremities, 2+ reflexes bilateral patella tendons. Normal gait. No ataxia. Skin: No rash or lesions noted MEDICAL DECISION MAKING: Chief Complaint: Chest pain, shortness of breath External records reviewed: echocardiogram 2021 shows ejection fraction 65% Last hospitalization in May 2022 for GI bleed, DAVID, esophageal stricture, hypertension [facility] Narrative: I considered the following differential diagnosis: Pneumonia, COVID, ACS, arrhythmia, anemia, PE, CHF exacerbation I treat the patient symptomatically with Zofran, 1 L normal saline, Tylenol for her fever. I obtained a broad lab and imaging work-up to further elucidate the etiology the patient complaints. Labs without significant anemia actually anemia is improving from baseline. CBC also with leukocytosis concerning for systemic inflammation. This along with fever was concerning for COVID flu or pneumonia COVID and flu swabs are negative. Chest x-ray did not show any evidence of pneumonia BMP with DAVID. The patient's D-dimer was grossly elevated concerning for PE given the pleuritic nature of her chest pain. CTA showed a small lingular pulmonary embolism. While this finding seemed to not have clinical significance patient also not have a better explanation for symptoms which include acute onset of chest pain and shortness of breath. Here in the emergency department she had soft blood pressures and borderline hypoxia as well. She did have a fever. Fever can be seen in acute PEs. Her BNP was mildly elevated although there is no evidence of volume overload on exam. I do not have a better explanation for the patient's symptoms and given her advanced age, medical comorbidities and abnormal vital signs I do not feel safe discharging the patient home. In addition to this patient has had a history of GI bleeding that was intervened on only 2 months ago. I did have a shared decision-making discussion with the patient of the risk and benefits of anticoagulation versus bleeding. Patient agreed given her chest pain that she would not want her pulmonary embolism to get worse. She agreed to undergo heparin infusion and accepted the risk of possible bleeding as result of this treatment. Heparin was started. I discussed the patient's case with Dr. Claros (hospitalist) who excepted the patient's case. Dr. Claros suggested I obtain bilateral duplex ultrasounds to rule out lower extremity DVTs. This was ordered in the emergency department patient was waiting for inpatient mission Factors affecting care: GI bleed, hypertension, esophageal stricture, rheumatoid arthritis Social determinants of health: Elderly History obtained from others: The patient's daughter Shared decision making: I will have a discussion with the patient and or visitors regarding risk/benefits of further testing or admission. They will be made aware of of the risk/benefits inherent in this decision they will be given the opportunity to voice understanding. Consults: Internal medicine Lab Data Attestation: I reviewed the patient's lab results. Lab results narrative: EKG with normal sinus rhythm, left axis deviation, normal intervals, Troponin is negative, no evidence of myocardial ischemia CBC with noted anemia improved from baseline, noted leukocytosis suggestive of systemic inflammation, no thrombocytopenia BMP without significant electrolyte abnormalities, there is acute kidney injury from prior study, no anion gap to suggest endorgan hypoperfusion, D-dimer elevated suggestive of increased clot breakdown Labs: Laboratory Results - last 24 hr 09/01/22 09/01/22 09/01/22 15:41 15:41 15:41 WBC 12.5 H RBC 3.40 L Hgb 9.1 L Hct 29.7 L MCV 87.4 MCH 26.8 L MCHC 30.6 L RDW Std Deviation 76.4 H RDW Coeff of Lorenzo 24.0 H Plt Count 256 MPV 10.4 Immature Gran % (Auto) 0.600 Neut % (Auto) 86.0 H Lymph % (Auto) 7.7 L Tate % (Auto) 5.5 Eos % (Auto) 0.0 Baso % (Auto) 0.2 Absolute Neuts (auto) 10.7 H Absolute Lymphs (auto) 0.96 Nucleated RBC % 0 Differential Comment SCANNED D-Dimer Quant (PE/DVT) 2.32 H* Sodium 139 Potassium 4.2 Chloride 106 Carbon Dioxide 22.0 Anion Gap 11 BUN 35 H Creatinine 1.54 H Estim Creat Clear Calc 24.74 Est GFR (MDRD) Af Amer 42 L Est GFR (MDRD) Non-Af 34 L BUN/Creatinine Ratio 22.7 H Glucose 112 H Calcium 9.8 Troponin I High Sens 15 B-Natriuretic Peptide 09/01/22 15:41 WBC RBC Hgb Hct MCV MCH MCHC RDW Std Deviation RDW Coeff of Lorenzo Plt Count MPV Immature Gran % (Auto) Neut % (Auto) Lymph % (Auto) Tate % (Auto) Eos % (Auto) Baso % (Auto) Absolute Neuts (auto) Absolute Lymphs (auto) Nucleated RBC % Differential Comment D-Dimer Quant (PE/DVT) Sodium Potassium Chloride Carbon Dioxide Anion Gap BUN Creatinine Estim Creat Clear Calc Est GFR (MDRD) Af Amer Est GFR (MDRD) Non-Af BUN/Creatinine Ratio Glucose Calcium Troponin I High Sens B-Natriuretic Peptide 154.2 H Radiography Diagnostic Testing: Clinical Impression(s) from Imaging Studies Chest X-Ray 09/01/22 16:05 IMPRESSION: There are findings consistent with COPD. There is no evidence of acute chest disease. Electronically Signed: Lavon Barnett MD at 16:41 EDT , Chest CTA 09/01/22 16:30 IMPRESSION: Tiny subsegmental pulmonary embolism to the lingula. No other evidence for pulmonary embolism. Pulmonary arterial hypertension. Subsegmental atelectasis or scarring in both lung bases. Electronically Signed: Lavon Barnett MD at 17:42 EDT , ADDENDUM: 09/01/22 [id number] IMPRESSION: Tiny subsegmental pulmonary embolism to the lingula. No other evidence for pulmonary embolism. Pulmonary arterial hypertension. Subsegmental atelectasis or scarring in both lung bases. N.B. : The above Results were Read Back by Lavon Barnett MD to Brian Breaux DO, and understanding confirmed on 09/01/2022 17:50:33 (ET). Electronically Signed: Lavon Barnett MD at 17:42 EDT , Discharge Plan Triage Chief Complaint: Chest Pain Other Complaint: Shortness of Breath ED Provider: Brian Breaux Dx/Rx/DC Orders Prescriptions: No Action folic acid 1 mg tablet 1 mg PO DAILY methotrexate sodium 2.5 mg tablet 15 mg PO TH Label Comments: take 6 tabs weekly ON THUR allopurinol 100 mg tablet 100 mg PO DAILY calcium carbonate 500 mg calcium (1,250 mg) Tablet 500 mg PO DAILY colchicine 0.6 mg tablet 0.6 mg PO DAILY pregabalin 100 mg capsule 100 mg PO TID atorvastatin [Lipitor] 20 mg tablet 20 mg PO DAILY Qty: 30 0RF lisinopril 10 mg tablet 10 mg PO DAILY Qty: 30 0RF triamterene-hydrochlorothiazid 37.5-25 mg tablet 1 tab PO DAILY Label Comments: take 1 tablet by mouth once daily tramadol 50 mg tablet 50 mg PO TID PRN PRN (Reason: Pain) pantoprazole 40 mg tablet,delayed release (DR/EC) 40 mg PO BID Qty: 60 2RF potassium 99 mg Tablet 99 mg PO DAILY Primary Care Provider: Maria D Michael Referrals: Maria D Michael MD [Primary Care Provider] -
--- NOTE | 2022-09-01 15:37 | EKG12_ITS ---
Test Reason : CP Blood Pressure : / mmHG Vent. Rate : 079 BPM Atrial Rate : 079 BPM P-R Int : 136 ms QRS Dur : 086 ms QT Int : 348 ms P-R-T Axes : 007 -16 009 degrees QTc Int : 399 ms Normal sinus rhythm Voltage criteria for left ventricular hypertrophy Abnormal ECG Confirmed by JACIEL BRAN, MODESTO ([id number]), development editor ABA CORONADO ([id number]) on 09/02/2022 9:50:00 AM Referred By: PL Confirmed By:MODESTO GRISSOM MD
[2022-09-01] MEDS: Ondansetron 4 MG/2 ML Vial IV (15:47)
[2022-09-01] MEDS: 0.9% Normal Saline 1,000 ML 1000 ML IV (15:48)
[2022-09-01] MEDS: Aspirin 81 MG TAB.CHEW 324 MG PO (15:48)
--- NOTE | 2022-09-01 15:51 | ED.RN ---
CALLED [facility] EKG AT 1503.
[2022-09-01 16:02] LABS: Absolute Lymphocyte Count 0.96 X10^3/uL (0.83-4.51); Absolute Neutrophil Count 10.7 X10^3/uL (2.0-7.7); Basophil# 0.03 X10^3/uL; Basophil% 0.2 % (0-1); Hematocrit 29.7 % (37-47); Hemoglobin 9.1 g/dL (12.0-15.0); Lymphocyte # 0.96 X10^3/ul (0.83-4.51); Lymphocyte % 7.7 % (19-41); Mean Corp Hgb Conc 30.6 g/dL (32-36); Mean Corpuscular Hgb 26.8 pg (27.0-32.0); Mean Corpuscular Volume 87.4 fL (81-99); Mean Platelet Vol. 10.4 fl (6.2-12.0); Monocyte# 0.69 X10^3/uL; Monocyte% 5.5 % (0-10); NRBC Flagged by Analyzer 0 % (0-5); Neutrophil # 10.73 X10^3/uL (2.7-7.7); POSITIVE MORPHOLOGY YES; Platelet Count 256 K/mm3 (150-450); RBC Distribution Width SD 76.4 fl (35.1-43.9); White Blood Count 12.5 K/mm3 (4.4-11.0)
--- NOTE | 2022-09-01 16:05 | RAD_ITS ---
STUDY: X-RAY CHEST REASON FOR EXAM: Female, 82 years old. chest pain TECHNIQUE: Frontal and lateral views of the chest. COMPARISON: 02/15/2022. FINDINGS: There is hyperinflation of the lungs consistent with chronic obstructive lung disease (COPD). No infiltrates or effusions. There is no demonstrated pleural abnormality. Normal size heart. Normal mediastinum and camron. Normal visualized pulmonary arteries. There is atherosclerotic calcification of the aortic arch with tortuosity. Normal visualized thoracic spine. Stable appearance of epidural stimulator. Normal visualized ribs, clavicles, and shoulders. There is no demonstrated abnormality of the visualized soft tissue structures of the upper abdomen. RAD/Chest PA and Lateral IMPRESSION: There are findings consistent with COPD. There is no evidence of acute chest disease. Electronically Signed: Lavon Barnett MD at 16:41 EDT ,
[2022-09-01 16:07] LABS: Differential Indicated SCAN CRITERIA MET
[2022-09-01] MEDS: Acetaminophen 325 MG Tablet PO (16:13)
[2022-09-01 16:17] LABS: D-Dimer Quantitative (DVT/PE) 2.32 FEU/ug/m (0.27-0.49)
[2022-09-01 16:18] LABS: Anion Gap 11 (5-15); BUN 35 mg/dL (7-18); BUN/Creat Ratio 22.7 RATIO (10-20); Calcium,Total 9.8 mg/dL (8.5-10.1); Chloride 106 mmol/L (98-107); Creatinine, Serum 1.54 mg/dL (0.55-1.02); EST Glomerular Filtration Rate 34 mL/min (>60); Est Glom Filt Rate - Afr Amer 42 mL/min (>60); Estimated Creatinine Clearance 24.74 ml/min; Glucose 112 mg/dL (74-106); Potassium 4.2 mmol/L (3.5-5.1); Sodium Level 139 mmol/L (136-145); Troponin-I HS (w/2H Reflex) 15 pg/mL (3.0-54.0)
--- NOTE | 2022-09-01 16:30 | CT_ITS ---
We are attempting to reach an attending provider to discuss findings. An addendum with communication details will be sent when the communication is complete. STUDY: CTA CHEST REASON FOR EXAM: Female, 82 years old. CP, elevated D-dimer RADIATION DOSAGE (If Supplied By Facility): CTDIvol = ( 10.17 ) mGy, DLP = ( 335.54 ) mGycm TECHNIQUE: The examination was performed with the intravenous administration of IV 100mL [id number]. Post-processing of the angiographic images was performed, with multiplanar reformation and 3D reconstruction. Individualized dose optimization techniques were used for this CT. COMPARISON: None. FINDINGS: Normal enhancement of the main pulmonary artery and right and left pulmonary arteries. A tiny 3 mm filling defect seen in a subsegmental pulmonary artery branches to the lingula. There is prominence of the main pulmonary arteries without peripheral pulmonary vascular congestion, suggesting pulmonary hypertension. There is atherosclerotic calcification of the aortic arch with tortuosity. There is no demonstrated aortic dissection. Normal heart and pericardium. Normal mediastinum. Normal hilar regions. Normal visualized trachea and bronchi. The lungs are well expanded. Scattered streaky densities in both lower lobes, most consistent with areas of subsegmental atelectasis or scarring. Findings worse on the left. No infiltrates. No effusions. Normal osseous structures. Normal visualized upper abdomen. CT/CTA Chest W/WO Contrast IMPRESSION: Tiny subsegmental pulmonary embolism to the lingula. No other evidence for pulmonary embolism. Pulmonary arterial hypertension. Subsegmental atelectasis or scarring in both lung bases. Electronically Signed: Lavon Barnett MD at 17:42 EDT ,
[2022-09-01 16:33] LABS: Differential Comment SCANNED
[2022-09-01 17:23] LABS: BNP,B-Type NATRIURETIC PEPTIDE 154.2 pg/mL (0-100)
[2022-09-01 17:51] LABS: Reflex Troponin-HS? (from REC) Y
--- NOTE | 2022-09-01 17:56 | HP.PCM.HOS_ITS ---
HPI - General General Date of Admission: 09/01/22 Date of Service: 09/01/22 Chief Complaint: chest pain HPI Narrative RONNELL HERZOG, is a 82 F with a PMH as outlined who presents via the ED on 09/01/2022 with a complaint of chest pain and shortness of breath. Symptoms began on the night before admission; pain was retrosternal, non radiating and pressure like. She took baby aspirin, but says she subsequently vomited. She denied any dizziness, though she admitted to some palpitations, but lightheadedness, nausea, vomiting or any other symptoms. She denied any history of heart disease and any PE, and denied any recent history of long distance travel or any blood clots. She denied any weight loss. She has a history of GI bleed in May 2022. Review of systems was otherwise negative. Vitals were BP of 97/54, RI of 67, RR of 22 and she was saturating at 91% on room air. CBC showed hb of 9.1, wbc of 12.5 and platelets of 256.D dimer was 2.32. chemistry was significant for sodium of 139, potassium of 4.2 and Cr of 1.54 as well as BNP was 154.2 . CXR findings were consistent with COPD and no evidence of acute chest disease. CTA chest showed a tiny subsegmental pulmonary embolism to the lingula, with no other evidence of PE, and pulmonary arterial hypertension, with subsegmental atelectasis or scarring in both lung bases. ED doctor said he had a shared decision making discussion with patient and her family; they were comfortable with patient going on blood thinners. She is being admitted to be managed for chest pain, probably due to PE [facility] Medical History (Updated 09/03/22 @ 12:[address] Jessica Thomas MD) Arthritis Breast lump Carpal tunnel syndrome Cataracts, bilateral Difficulty swallowing Dysphagia Esophageal spasm Gout Hiatal hernia HTN (hypertension) Neuropathy Osteoarthritis Osteopenia Osteoporosis Rheumatoid arthritis Home Medications folic acid 1 mg tablet 1 mg PO DAILY supplement 03/27/21 [History Last Taken 01/13/22] methotrexate sodium 2.5 mg tablet 15 mg PO TH inflammation 03/27/21 [History La st Taken 01/09/22] allopurinol 100 mg tablet 100 mg PO DAILY gout 01/13/22 [History Last Taken 01/13/22] calcium carbonate 500 mg calcium (1,250 mg) tablet 500 mg PO DAILY supplement 01/13/22 [History Last Taken 01/13/22] colchicine 0.6 mg tablet 0.6 mg PO DAILY gout 01/13/22 [History Last Taken ] pregabalin 100 mg capsule 100 mg PO TID pain 01/13/22 [History Last Taken 01/13/22] atorvastatin 20 mg tablet (Lipitor) 20 mg PO DAILY #30 tabs 02/16/22 [Rx Last Taken Unknown] lisinopril 10 mg tablet 10 mg PO DAILY #30 tabs 02/16/22 [Rx Last Taken Unknown] tramadol 50 mg tablet 50 mg PO TID PRN PRN Pain 05/24/22 [History Last Taken Unknown] triamterene 37.5 mg-hydrochlorothiazide 25 mg tablet 1 tab PO DAILY diuretic 05/24/22 [History Last Taken Unknown] pantoprazole 40 mg tablet,delayed release 40 mg PO BID #60 tabs 05/28/22 [Rx Last Taken Unknown] potassium 99 mg tablet 99 mg PO DAILY Check with primary doctor 09/01/22 [History Last Taken Unknown] Allergy/AdvReac Type Severity Reaction Status Date / Time Sulfa (Sulfonamide AdvReac Nausea/Vom/ Verified 09/01/22 15:07 Antibiotics) Diarrhea sulfamethoxazole AdvReac Nausea/Vom/ Verified 09/01/22 15:07 [From Bactrim] Diarrhea trimethoprim [From Bactrim] AdvReac Nausea/Vom/ Verified 09/01/22 15:07 Diarrhea Family History Father Colon cancer Mother Diabetes CVA (cerebral vascular accident) Surgical History H/O knee surgery H/O: hysterectomy History of back surgery S/P insertion of spinal cord stimulator Social History household members: family Smoking Status: Never smoker alcohol intake: never substance use type: does not use ROS Constitutional Constitutional: Reports fatigue; Denies anorexia, chills, fever(s), malaise or weakness Eyes Eyes: Denies change in vision ENT HEENT: Denies headache(s) Cardiovascular Cardiovascular: Reports chest pain and dyspnea on exertion; Denies edema, lightheadedness, orthopnea, palpitations or syncope Respiratory/Chest Respiratory/Chest: Reports shortness of breath at rest and shortness of breath with exertion; Denies cough, dyspnea, productive cough or wheezing Gastrointestinal Gastrointestinal: Denies abdominal pain, diarrhea, dyspepsia, nausea or vomiting Genitourinary Genitourinary: Denies dysuria Neurologic Neurologic: Denies confusion, dizziness, focal weakness, headache(s) or numbness Psychiatric Psychiatric: Denies anxiety or depression Vital Signs Vital Signs Vital Signs: 09/01/22 15:07 09/01/22 15:43 09/01/22 16:15 Temperature 100.3 F H Temperature Source Temporal Pulse Rate 85 66 Respiratory Rate 16 18 Blood Pressure 102/49 L 112/55 L Blood Pressure Mean 66 74 Pulse Ox 98 94 Oxygen Delivery Method Room Air Room Air Room Air 09/01/22 17:00 Temperature Temperature Source Pulse Rate 67 Respiratory Rate 22 H Blood Pressure 97/54 L Blood Pressure Mean 68 Pulse Ox 91 Oxygen Delivery Method Room Air Weight Weight: 156 lb 1.396 oz Body Mass Index (BMI) 26.8 Physical Exam Const alert, oriented x3 and no apparent distress General Appearance: cooperative HEENT normocephalic, head/scalp atraumatic, hearing grossly normal bilaterally, moist oral mucous membranes and oropharynx normal Mouth: oral and palatal mucosa normal Eyes PERRL, EOMs intact bilaterally and conjunctivae normal Neck no lymphadenopathy and supple Resp normal respiratory effort, no retractions, no use of accessory muscles and clear to auscultation bilaterally Resp Narrative: mildly diminished breath sounds bibasally, no wheezes or crackles. Cardio Negative for regular rate, regular rhythm, S1 normal heart sound, S2 normal heart sound or no murmurs GI Negative for normal to inspection, nondistended, normoactive bowel sounds, soft to palpation or non-tender Extremity Negative for normal to inspection, full ROM or no clubbing, cyanosis or edema Neuro No oriented x3, No CN's II-XII intact bilaterally, No moves all extremities and No no focal motor deficits Sensorium / Orientation: awake, alert and oriented to person Motor Exam: strength 5/5 throughout Psych affect normal Results Lab / Micro Data Result Diagrams: 09/02/22 06:33 09/02/22 06:33 Labs: Laboratory Results - last 24 hr 09/01/22 15:41: WBC 12.5 H, RBC 3.40 L, Hgb 9.1 L, Hct 29.7 L, MCV 87.4, MCH 26.8 L, MCHC 30.6 L, RDW Std Deviation 76.4 H, RDW Coeff of Lorenzo 24.0 H, Plt Count 256, MPV 10.4, Immature Gran % (Auto) 0.600, Neut % (Auto) 86.0 H, Lymph % (Auto) 7.7 L, [place] % (Auto) 5.5, Eos % (Auto) 0.0, Baso % (Auto) 0.2, Absolute Neuts (auto) 10.7 H, Absolute Lymphs (auto) 0.96, Nucleated RBC % 0, Differential Comment SCANNED 09/01/22 15:41: D-Dimer Quant (PE/DVT) 2.32 H* 09/01/22 15:41: Sodium 139, Potassium 4.2, Chloride 106, Carbon Dioxide 22.0, Anion Gap 11, BUN 35 H, Creatinine 1.54 H, Estim Creat Clear Calc 24.74, Est GFR (MDRD) Af Amer 42 L, Est GFR (MDRD) Non-Af 34 L, BUN/Creatinine Ratio 22.7 H, Glucose 112 H, Calcium 9.8, Troponin I High Sens 15 09/01/22 15:41: B-Natriuretic Peptide 154.2 H Radiology Impression Chest X-Ray 09/01/22 16:05 IMPRESSION: There are findings consistent with COPD. There is no evidence of acute chest disease. Electronically Signed: Lavon Barnett MD at 16:41 EDT , Chest CTA 09/01/22 16:30 IMPRESSION: Tiny subsegmental pulmonary embolism to the lingula. No other evidence for pulmonary embolism. Pulmonary arterial hypertension. Subsegmental atelectasis or scarring in both lung bases. Electronically Signed: Lavon Barnett MD at 17:42 EDT , Assessment & Plan Assessment/Plan (1) Pulmonary embolism: PLAN: Plan #Chest pain, due to PE * admit to PCU * admitted with a complaint of chest pain. * CTA done showed evidence of normal enhancement of the main pulmonary artery and right and left pulmonary arteries. * BNP was mildly elevated in the 150s. * Previous echo from December 2021 showed EF of 65% with normal left ventr icular systolic function and right ventricular systolic pressure 32 mmHg with stage II diastolic dysfunction. * Patient has a history of GI bleed so ED doctor had associated decision making conversation with patient and she is willing to be on anticoagulants. Duplex of the lower extremities ordered and is pending. * Start patient on heparin drip. * Will order 2D echo. * Cycle troponins. * I had a long discussion with patient and her daughter about the need to commence treatment with anticoagulants in light of her having had the small subsegmental PE per CTA. Patient and daughter were counseled about the risks of being on blood thinners in light of her history of recent GI bleed. Patient and daughter accepting of the increased risk of bleeding but okay with patient being on blood thinners for at least 3 to 6 months. #Hyperlipidemia: On statin #Recent upper GI bleed * EGD on 05/27/2022 showed erosive esophagitis and an oozing gastric ulcer with a visible vessel which was treated with a heater probe * on pantoprazole. #Hypertension: On lisinopril and Maxzde #History of esophageal strictures. Has had dilations done in the past. Currently stable. #Rheumatoid arthritis: On folic acid, Lyrica and tramadol #DVT prophylaxis: Not indicated as patient has been treated on heparin drip CODE STATUS: full code * Patient and daughter counseled extensively about different types of CODE STATU S including full code, DNR CCA and DNR CCA. * Patient elects to be full code. * Total [id number] time 17 minutes. Total time spent on evaluation and management of patient, reviewing chart and sp ecialist notes, discussing plan with patient and his , discussion with nursing and ancillary staff as well as documentation: 68 mins Charges/Coding Visit Charges Inpatient E&M: 32428 Init Hosp L2 Procedures Hospitalists Procedures: 69983 Advncd Care Plan 30 Min
--- NOTE | 2022-09-01 18:05 | US_ITS ---
STUDY: VENOUS DOPPLER ULTRASOUND - BILATERAL LOWER EXTREMITIES REASON FOR EXAM: Female, 82 years old. SOB AND PE TECHNIQUE: Ultrasound evaluation of the deep vein system to include sullivan-scale imaging and compression was performed. Sullivan-scale imaging and Doppler sonographic evaluation, including duplex spectral analysis and qualitative color flow sonography, was performed. COMPARISON: None. FINDINGS: RIGHT LEG Common Femoral Vein: Normal compression, spontaneity and augmentation. Normal color Doppler. Common Femoral Vein/Greater Saphenous Junction: Normal compression, spontaneity and augmentation. Normal color Doppler. Deep Femoral Vein: Normal compression, spontaneity and augmentation. Normal color Doppler. Femoral Proximal: Normal compression, spontaneity and augmentation. Normal color Doppler. Femoral Middle: Normal compression, spontaneity and augmentation. Normal color Doppler. Femoral Distal: Normal compression, spontaneity and augmentation. Normal color Doppler. Popliteal Vein: Normal compression, spontaneity and augmentation. Normal color Doppler. Posterior Tibial Vein: Normal compression, spontaneity and augmentation. Normal color Doppler. Peroneal Vein: Normal compression, spontaneity and augmentation. Normal color Doppler. LEFT LEG Common Femoral Vein: Normal compression, spontaneity and augmentation. Normal color Doppler. Common Femoral Vein/Greater Saphenous Junction: Normal compression, spontaneity and augmentation. Normal color Doppler. Deep Femoral Vein: Normal compression, spontaneity and augmentation. Normal color Doppler. Femoral Proximal: Normal compression, spontaneity and augmentation. Normal color Doppler. Femoral Middle: Normal compression, spontaneity and augmentation. Normal color Doppler. Femoral Distal: Normal compression, spontaneity and augmentation. Normal color Doppler. Popliteal Vein: Normal compression, spontaneity and augmentation. Normal color Doppler. Posterior Tibial Vein: Normal compression, spontaneity and augmentation. Normal color Doppler. Peroneal Vein: Normal compression, spontaneity and augmentation. Normal color Doppler. US/Venous Duplex Imag/Adam Extrem IMPRESSION: No evidence for DVT. Electronically Signed: Lavon Barnett MD at 19:34 EDT ,
[2022-09-01] MEDS: HEPARIN/D5w 25,000 UNITS 25,000 UNITS/250 ML IV.SOLN. 10 UNITS CONT INF (18:06)
[2022-09-01 18:10] LABS: Prothrombin Time (Protime)PT. 13.3 SECONDS (11.7-14.9)
[2022-09-01 18:11] LABS: Partial Thromboplast Time 26.9 Seconds (24.1-36.2)
--- NOTE | 2022-09-01 18:31 | ECHOD_ITS ---
Reason For Study: Pulmonary Embolism Procedure This was a 2D Doppler, Color Flow transthoracic echocardiogram. The study was technically difficult. Exam performed portable in patient room. Left Ventricle Moderate concentric left ventricular hypertrophy. Left ventricular systolic function is normal. The estimated ejection fraction is 55-60% %. Right Ventricle Normal right ventricle. Normal systolic function. Atria Normal left atrium. Normal right atrium. Mitral Valve There is mild to moderate mitral annular calcification. Trivial anteriorly directed mitral valve insufficiency. Tricuspid Valve Normal tricuspid valve. Mild tricuspid valve insufficiency. Aortic Valve Mild focal aortic valve calcification. Trivial aortic valve insufficiency. Pulmonic Valve The pulmonic valve is not well visualized. Great Vessels Normal aortic root. Pericardium/Pleural No pericardial effusion. MMode/2D Measurements & Calculations LVIDd: 4.2 cm IVSd: 1.7 cm Ao root diam: 3.6 cm LVIDs: 3.0 cm LVPWd: 1.00 cm LA dimension: 3.9 cm RVDd: 3.7 cm FS: 27.2 % LAV(MOD-bp): 50.5 ml LA A4 area: 17.5 cm2 RA A4 area: 13.5 cm2 LAV(MOD-bp) Indexed: 28.9 ml/m2 LAV(MOD-sp2): 44.2 ml LAV(MOD-sp4): 48.6 ml Time Measurements MV dec time: 0.19 sec Doppler Measurements & Calculations MV E max mychal: 100.0 cm/sec Lat Peak E' Mychal: 9.8 cm/sec Med Peak E' Mychal: 6.2 cm/sec MV A max mychal: 93.8 cm/sec E/E' lat: 10.2 E/E' med: 16.2 MV E/A: 1.1 MV V2 max: 116.3 cm/sec MV P1/2t max mychal: 116.3 cm/sec Ao V2 max: 157.0 cm/sec MV max P.4 mmHg MV P1/2t: 64.0 msec Ao max P.9 mmHg MV V2 mean: 54.5 cm/sec MV dec slope: 532.4 cm/sec2 Ao V2 mean: 109.2 cm/sec MV mean P.6 mmHg MVA(P1/2t): 3.4 cm2 Ao mean P.4 mmHg MV V2 VTI: 35.1 cm Ao V2 VTI: 36.6 cm AV (velocity ratio): 0.92 LV V1 max: 137.5 cm/sec PA V2 max: 128.8 cm/sec TR max mychal: 331.8 cm/sec LV V1 max P.6 mmHg PA V2 mean: 91.5 cm/sec TR max P.0 mmHg LV V1 mean P.3 mmHg LV V1 mean: 97.8 cm/sec LV V1 VTI: 33.8 cm ECHO/Echo Complete Interpretation Summary The estimated ejection fraction is 55-60% %. No significant changes from prior Echo 01/14/2022 Ordering Physician: María Claros Referring Physician: Maria D Michael M.D. Performed By: Paul Harmon RCS
[2022-09-01 18:37] LABS: Troponin-I HS 17 pg/mL (3.0-54.0)
[2022-09-01] MEDS: Pantoprazole Sodium 40 MG Tablet PO (20:42)
[2022-09-01] MEDS: Atorvastatin Calcium 20 MG Tablet PO (20:42)
[2022-09-01] MEDS: Pregabalin 50 MG Capsule 100 MG PO (20:45)
[2022-09-01 21:45] LABS: Troponin-I HS 18 pg/mL (3.0-54.0)
[2022-09-02] VITALS (7 sets, daily range): BP systolic 102–115; BP diastolic 47–56; PULSE 58–72; RESP 16–18; TEMP 36.7–37.2; O2SAT 90–97
[2022-09-02] MEDS: Pregabalin 50 MG Capsule 100 MG PO ×3 (06:10→22:09)
[2022-09-02 06:54] LABS: Absolute Lymphocyte Count 1.59 X10^3/uL (0.83-4.51); Absolute Neutrophil Count 6.3 X10^3/uL (2.0-7.7); Basophil# 0.03 X10^3/uL; Basophil% 0.3 % (0-1); Eosinophil# 0.06 X10^3/uL; Eosinophils% 0.7 % (0-5); Hematocrit 27.6 % (37-47); Hemoglobin 8.4 g/dL (12.0-15.0); Lymphocyte # 1.59 X10^3/ul (0.83-4.51); Lymphocyte % 18.2 % (19-41); Mean Corp Hgb Conc 30.4 g/dL (32-36); Mean Corpuscular Hgb 26.8 pg (27.0-32.0); Mean Corpuscular Volume 87.9 fL (81-99); Mean Platelet Vol. 10.2 fl (6.2-12.0); Monocyte# 0.68 X10^3/uL; Monocyte% 7.8 % (0-10); NRBC Flagged by Analyzer 0 % (0-5); Neutrophil # 6.33 X10^3/uL (2.7-7.7); Neutrophil % 72.7 % (47-70); POSITIVE MORPHOLOGY YES; Platelet Count 189 K/mm3 (150-450); RBC Distribution Width CV 24.1 % (11.6-14.6); RBC Distribution Width SD 76.6 fl (35.1-43.9); Red Blood Count 3.14 M/mm3 (4.2-5.4); White Blood Count 8.7 K/mm3 (4.4-11.0)
[2022-09-02 07:12] LABS: Partial Thromboplast Time 83.3 Seconds (24.1-36.2)
[2022-09-02 07:19] LABS: Differential Indicated SCAN CRITERIA MET
[2022-09-02 07:26] LABS: Anion Gap 5 (5-15); BUN 30 mg/dL (7-18); BUN/Creat Ratio 24.4 RATIO (10-20); Calcium,Total 9.6 mg/dL (8.5-10.1); Chloride 110 mmol/L (98-107); Creatinine, Serum 1.23 mg/dL (0.55-1.02); EST Glomerular Filtration Rate 45 mL/min (>60); Est Glom Filt Rate - Afr Amer 54 mL/min (>60); Estimated Creatinine Clearance 30.98 ml/min; Glucose 96 mg/dL (74-106); Sodium Level 138 mmol/L (136-145)
[2022-09-02 08:09] LABS: Anisocytosis 2+; Ovalocyte 1+
--- NOTE | 2022-09-02 08:35 | PCM.PN.HOSP ---
Reason for Visit Reason for Visit: Follow-up for atypical chest pain. Subjective Subjective Patient states she had chest pain on deep breathing on the left side. Currently chest pain is resolved. Objective Data Objective Data Vital Signs: Vital Signs Temp Pulse Resp BP Pulse Ox O2 Del Method O2 Flow Rate 98.2 F 58 L 16 104/48 L 96 Nasal Cannula 2 09/02/22 03:19 09/02/22 03:19 09/02/22 03:19 09/02/22 03:19 09/02/22 07:24 09/02/22 07:24 09/02/22 07:24 Oxygen Flow Rate (L/min) 2 Oxygen Delivery Method Nasal Cannula Weight: 153 lb 10.595 oz Body Mass Index (BMI) 26.4 Intake & Output: Intake and Output for Last 24 Hours 08/31/22 09/01/22 09/02/22 23:59 23:59 23:59 Intake Total 1240 / 1240 373.34 / 373.34 Balance 1240 / 1240 373.34 / 373.34 Lab / Micro Data Result Diagrams: 09/02/22 06:33 09/02/22 06:33 Labs: Laboratory Results - last 24 hr 09/01/22 15:41: WBC 12.5 H, RBC 3.40 L, Hgb 9.1 L, Hct 29.7 L, MCV 87.4, MCH 26.8 L, MCHC 30.6 L, RDW Std Deviation 76.4 H, RDW Coeff of Lorenzo 24.0 H, Plt Count 256, MPV 10.4, Immature Gran % (Auto) 0.600, Neut % (Auto) 86.0 H, Lymph % (Auto) 7.7 L, [place] % (Auto) 5.5, Eos % (Auto) 0.0, Baso % (Auto) 0.2, Absolute Neuts (auto) 10.7 H, Absolute Lymphs (auto) 0.96, Nucleated RBC % 0, Differential Comment SCANNED 09/01/22 15:41: D-Dimer Quant (PE/DVT) 2.32 H* 09/01/22 15:41: Sodium 139, Potassium 4.2, Chloride 106, Carbon Dioxide 22.0, Anion Gap 11, BUN 35 H, Creatinine 1.54 H, Estim Creat Clear Calc 24.74, Est GFR (MDRD) Af Amer 42 L, Est GFR (MDRD) Non-Af 34 L, BUN/Creatinine Ratio 22.7 H, Glucose 112 H, Calcium 9.8, Troponin I High Sens 15 09/01/22 15:41: B-Natriuretic Peptide 154.2 H 09/01/22 15:41: PT 13.3, INR 1.0, APTT 26.9 09/01/22 18:15: Troponin I High Sens 17 09/01/22 21:21: Troponin I High Sens 18 09/02/22 00:21: APTT 76.0 H 09/02/22 06:33: WBC 8.7, RBC 3.14 L, Hgb 8.4 L, Hct 27.6 L, MCV 87.9, MCH 26.8 L, MCHC 30.4 L, RDW Std Deviation 76.6 H, RDW Coeff of Lorenzo 24.1 H, Plt Count 189, MPV 10.2, Immature Gran % (Auto) 0.300, Neut % (Auto) 72.7 H, Lymph % (Auto) 18.2 L, [place] % (Auto) 7.8, Eos % (Auto) 0.7, Baso % (Auto) 0.3, Absolute Neuts (auto) 6.3, Absolute Lymphs (auto) 1.59, Nucleated RBC % 0, Anisocytosis 2+, Ovalocytes 1+ 09/02/22 06:33: Sodium 138, Potassium 4.0, Chloride 110 H, Carbon Dioxide 23.0, Anion Gap 5, BUN 30 H, Creatinine 1.23 H, Estim Creat Clear Calc 30.98, Est GFR (MDRD) Af Amer 54 L, Est GFR (MDRD) Non-Af 45 L, BUN/Creatinine Ratio 24.4 H, Glucose 96, Calcium 9.6 09/02/22 06:33: APTT 83.3 H Micro: Microbiology 09/01/22 16:14 Nasal Secretion SARS-CoV-2 & FLU Antigen (Rapid) - Final Radiography Diagnostic Testing: Radiology Impression Chest X-Ray 09/01/22 16:05 IMPRESSION: There are findings consistent with COPD. There is no evidence of acute chest disease. Electronically Signed: Lavon Barnett MD at 16:41 EDT , Chest CTA 09/01/22 16:30 IMPRESSION: Tiny subsegmental pulmonary embolism to the lingula. No other evidence for pulmonary embolism. Pulmonary arterial hypertension. Subsegmental atelectasis or scarring in both lung bases. Electronically Signed: Lavon Barnett MD at 17:42 EDT , ADDENDUM: 09/01/22 1757 IMPRESSION: Tiny subsegmental pulmonary embolism to the lingula. No other evidence for pulmonary embolism. Pulmonary arterial hypertension. Subsegmental atelectasis or scarring in both lung bases. N.B. : The above Results were Read Back by Lavon Barnett MD to Brian Breaux DO, and understanding confirmed on 09/01/2022 17:50:33 (ET). Electronically Signed: Lavon Barnett MD at 17:42 EDT , Venous Duplex 09/01/22 18:05 IMPRESSION: No evidence for DVT. Electronically Signed: Lavon Barnett MD at 19:34 EDT , Physical Exam Narrative Physical exam Patient does not look in shortness of breath/dyspnea. Chest pain has resolved. Still sometimes chest pain on deep inspiration. Physical exam General: Alert, Oriented x3, Cooperative HEENT: Atraumatic, PERRLA, EOMI, Normocephalic Oral: Oral mucosa moist. No Gingival or Mucosal Lesions/ Ulcerations Neck: Supple, No JVD, Negative Carotid Bruits Lungs: Air entry diminished in bilateral lung bases. No crepitation/rhonchi Cardiovascular: Regular rate, Regular Rhythm, multiple intermittent PVCs. Normal S1, Normal S2, No murmurs Abdomen: Bowel Sounds Present, Soft, Non Tender, Non-Distended : No renal angle tenderness. No suprapubic tenderness. Extremities: No edema, Capillary Refill Less than 3 Seconds Skin: No rashes, No breakdown Musculoskeletal: No Tenderness to Palpation of Joints or Extremities Neurological: Cranial nerves II-XII grossly intact, DTR 2+/4 and Symmetrical, Neuro grossly intact Psych/Mental Status: Normal Affect, Appropriate. Assessment & Plan Assessment/Plan (1) Pulmonary embolism: PLAN: Plan #Chest pain, due to PE admit to PCU admitted with a complaint of chest pain. CTA done showed evidence of normal enhancement of the main pulmonary artery and right and left pulmonary arteries. BNP was mildly elevated in the 150s. Previous echo from December 2021 showed EF of 65% with normal left ventricular systolic function and right ventricular systolic pressure 32 mmHg with stage II diastolic dysfunction. Serial troponin enzymes are negative. Shared decision making done with treatment with IV heparin drip with the patient as she has history of GI bleed. Patient had recent EGD in May 2022, reported as oozing gastric ulcer with visible vessel, LA grade B erosive esophagitis with large hiatus hernia. On PPI twice daily. Patient and daughter accepting of the increased risk of bleeding but okay with patient being on blood thinners for at least 3 to 6 months. patient on heparin drip. Echo was done reported EF 55 to 60%. LV systolic function normal moderate concentric LVH. Normal RV and systolic function. Normal LA and RA. No significant change from previous echo of December 2021.. #Hyperlipidemia: On statin #Recent upper GI bleed EGD on 05/27/2022 showed erosive esophagitis and an oozing gastric ulcer with a visible vessel which was treated with a heater probe on pantoprazole. #Hypertension: On lisinopril and Maxzde #History of esophageal strictures. Has had dilations done in the past. Currently stable. #Rheumatoid arthritis: On folic acid, Lyrica and tramadol #DVT prophylaxis: Not indicated as patient has been treated on heparin drip CODE STATUS: full code Patient and daughter counseled extensively about different types of CODE STATUS including full code, DNR CCA and DNR CCA. Patient elects to be full code. Charges/Coding Visit Charges Inpatient E&M: 51741 Subs Hosp L2
[2022-09-02] MEDS: Folic Acid 1 MG Tablet PO (08:58)
[2022-09-02] MEDS: Colchicine 0.6 MG TABLET PO (08:58)
[2022-09-02] MEDS: Pantoprazole Sodium 40 MG Tablet PO ×2 (08:59→22:09)
[2022-09-02] MEDS: Calcium (Elemental) 500 MG Tablet PO (08:59)
[2022-09-02] MEDS: Allopurinol 100 MG Tablet PO (08:59)
--- NOTE | 2022-09-02 10:50 | CASEMGMT ---
RN CM Face to Face with patient for initial transition planning/care coordination assessment. RN CM introduced self and role at [facility]. Patient sitting in chair, alert and oriented, daughter and at bedside. Patient willing to participate in assessment and is able to answer all questions appropriately. Care providers, pharmacy, and demographics verified. Patient wishes to discharge home, denies need for home health at this time. Patient states she has no further needs or concerns at this time. CM to follow for discharge planning needs that may arise. PCP: Alec Specialists: Mery apn [facility] Preferred [facility]acy: [facility] Insurance: [facility][NOTE 3] Prescription Benefit: yes Living Will/HPOA: yes, Duarte Cabrales LNOK: , daughter Living Arrangements: Patient lives with in a single story home with 2 steps and railing to enter the home. Patient states she is independent at home. Transportation: , self DME/HHC: Patient has shower chair, BSC, cane, walker at home. No previous HHC or SNF. Disposition Plan: Patient to discharge home with family support and follow-up plans in place. Diane GAMEZ, RN, CM
--- NOTE | 2022-09-02 12:49 | CHAPLAIN ---
Type of Pastoral Visit _x__ Initial Visit ___ Follow-up Visit ___ On-call Visit ___ General Patient Visit ___ Spiritual Assessment ___ Family Conference ___ Bereavement ___ Rapid Response ___ Code Blue ___ Other (describe below) Pastoral Care Referral From _x__ Patient ___ Family ___ Nurse ___ Physician ___ Respiratory Medicine Physician ___ Roll Tension Tester ___ Other (describe below) Sacrament/Intervention _x__ Active listening ___ Anointing ___ Bahai ___ Bereavement ___ Communion ___ Tracy exploration ___ ___ Life review _x__ Prayer ___ Reconciliation ___ Sacrament of Sick _x__ Supportive presence ___ Wedding ___ Other (describe below) Pastoral Comments
[2022-09-02 14:57] LABS: Partial Thromboplast Time 29.8 Seconds (24.1-36.2)
[2022-09-02] MEDS: Heparin Injection (Vial) 5,000 UNIT/ML VIAL IV (16:11)
[2022-09-02] MEDS: HEPARIN/D5w 25,000 UNITS 25,000 UNITS/250 ML IV.SOLN. 11 UNITS CONT INF (19:30)
[2022-09-02] MEDS: Atorvastatin Calcium 20 MG Tablet PO (22:09)
[2022-09-02 22:59] LABS: Partial Thromboplast Time 97.2 Seconds (24.1-36.2)
[2022-09-03] VITALS (11 sets, daily range): BP systolic 97–134; BP diastolic 50–70; PULSE 58–124; RESP 16–22; TEMP 36.4–36.9; O2SAT 91–97
--- NOTE | 2022-09-03 00:40 | EKG12_ITS ---
Test Reason : CONVERT NSR Blood Pressure : / mmHG Vent. Rate : 061 BPM Atrial Rate : 061 BPM P-R Int : 148 ms QRS Dur : 086 ms QT Int : 366 ms P-R-T Axes : 018 -01 011 degrees QTc Int : 368 ms Normal sinus rhythm Normal ECG When compared with ECG of 03-SEP-2022 01:03, MANUAL COMPARISON REQUIRED, DATA IS UNCONFIRMED Confirmed by JACIEL BRAN, MODESTO ([id number]), business editor ABA CORONADO ([id number]) on 09/04/2022 9:58:01 AM Referred By: Confirmed By:MODESTO GRISSOM MD
[2022-09-03] MEDS: traMADol 50 MG Tablet PO (00:49)
--- NOTE | 2022-09-03 01:14 | PCM.HOSP.N ---
Hospitalist Note Onset tachycardia with monitor/rhythm atrial fibrillation with RVR, rate varying 100-140s, no history noted on PMHx but patient with presentation with PE which certainly could be the etiology. Recent ECHO noted as well as ongoing anticoagulation with Heparin drip. Will obtain TSH, mag to be cautious. Will dose with cardizem x 1 now and reassess following.
[2022-09-03] MEDS: dilTIAZem 25 MG/5 ML Vial 10 MG IV BOLUS (01:32)
[2022-09-03] MEDS: 0.9% Saline Lock 10 ML Syringe IV ×3 (01:33→09:02)
[2022-09-03 01:46] LABS: Magnesium 1.8 mg/dL (1.6-2.6)
[2022-09-03] MEDS: Digoxin 250 MCG/ML Ampul 500 MCG IV (03:03)
--- NOTE | 2022-09-03 05:07 | EKG12_ITS ---
Test Reason : A-FIB Blood Pressure : / mmHG Vent. Rate : 121 BPM Atrial Rate : 000 BPM P-R Int : 000 ms QRS Dur : 090 ms QT Int : 312 ms P-R-T Axes : 000 002 090 degrees QTc Int : 443 ms Atrial fibrillation with rapid ventricular response Nonspecific ST and T wave abnormality Abnormal ECG When compared with ECG of 01-SEP-2022 15:11, Atrial fibrillation has replaced Sinus rhythm Vent. rate has increased BY [address] now depressed in Anterior leads Nonspecific T wave abnormality now evident in Anterolateral leads Confirmed by JACIEL BRAN, MODESTO ([id number]), tape editor ABA CORONADO ([id number]) on 09/04/2022 9:58:11 AM Referred By: GAB Confirmed By:MODESTO GRISSOM MD
[2022-09-03] MEDS: Pregabalin 50 MG Capsule 100 MG PO ×3 (05:11→21:36)
[2022-09-03 05:31] LABS: Thyroid Stim Hormone (TSH) 2.53 uIU/mL (0.358-3.74)
[2022-09-03 05:41] LABS: Troponin-I HS 19 pg/mL (3.0-54.0)
[2022-09-03 07:34] LABS: Partial Thromboplast Time 140.3 Seconds (24.1-36.2)
[2022-09-03 07:40] LABS: Troponin-I HS 19 pg/mL (3.0-54.0)
--- NOTE | 2022-09-03 08:37 | DCINST_ITS ---
Discharge Instructions Follow Up Care Test Results: Test results from this visit will be discussed in further detail at your follow- up appointment, if applicable. Discharge Plan Admission Admit Date/Time: 09/01/22 18:26 Attending Provider: Tiago Bundy Primary Care Provider: Maria D Michael Consulting Providers: María Claros ; Jessica Thomas Discharge Orders/Prescriptions Prescriptions: No Action folic acid 1 mg tablet 1 mg PO DAILY methotrexate sodium 2.5 mg tablet 15 mg PO TH Label Comments: take 6 tabs weekly ON THUR allopurinol 100 mg tablet 100 mg PO DAILY calcium carbonate 500 mg calcium (1,250 mg) Tablet 500 mg PO DAILY colchicine 0.6 mg tablet 0.6 mg PO DAILY pregabalin 100 mg capsule 100 mg PO TID atorvastatin [Lipitor] 20 mg tablet 20 mg PO DAILY Qty: 30 0RF lisinopril 10 mg tablet 10 mg PO DAILY Qty: 30 0RF triamterene-hydrochlorothiazid 37.5-25 mg tablet 1 tab PO DAILY Label Comments: take 1 tablet by mouth once daily tramadol 50 mg tablet 50 mg PO TID PRN PRN (Reason: Pain) pantoprazole 40 mg tablet,delayed release (DR/EC) 40 mg PO BID Qty: 60 2RF potassium 99 mg Tablet 99 mg PO DAILY Referrals / Follow Up: Maria D Michael MD [Primary Care Provider] -
[2022-09-03] MEDS: Allopurinol 100 MG Tablet PO (09:00)
[2022-09-03] MEDS: Calcium (Elemental) 500 MG Tablet PO (09:00)
[2022-09-03] MEDS: Folic Acid 1 MG Tablet PO (09:00)
[2022-09-03] MEDS: Colchicine 0.6 MG TABLET PO (09:01)
[2022-09-03] MEDS: Pantoprazole Sodium 40 MG Tablet PO ×2 (09:01→21:34)
--- NOTE | 2022-09-03 10:18 | PN.HOSP_ITS ---
Reason for Visit Reason for Visit: Diagnoses Other pulmonary embolism without acute cor pulmonale (09/01/22) Subjective Subjective Follow-up for A-fib with variable heart rate. Objective Data Objective Data Vital Signs: Vital Signs Temp Pulse Resp BP Pulse Ox O2 Del Method O2 Flow Rate 98.0 F 58 L 20 H 99/52 L 94 Room Air 2 09/03/22 06:00 09/03/22 06:00 09/03/22 06:00 09/03/22 06:00 09/03/22 06:00 09/03/22 06:00 09/02/22 07:24 Oxygen Flow Rate (L/min) 2 Oxygen Delivery Method Room Air Weight: 153 lb 10.595 oz Body Mass Index (BMI) 26.4 Intake & Output: Intake and Output for Last 24 Hours 09/01/22 09/02/22 09/03/22 23:59 23:59 23:59 Intake Total 1240 / 1240 1368.68 / 1568.68 571.95 / 571.95 Balance 1240 / 1240 1368.68 / 1568.68 571.95 / 571.95 Lab / Micro Data Result Diagrams: 09/02/22 06:33 09/02/22 06:33 Labs: Laboratory Results - last 24 hr 09/02/22 06:33: Magnesium 1.8 09/02/22 14:35: APTT 29.8 09/02/22 22:15: APTT 97.2 H* 09/03/22 04:25: TSH 2.53 09/03/22 04:25: Troponin I High Sens 19 09/03/22 06:57: Troponin I High Sens 19 09/03/22 06:57: APTT 140.3 H* Micro: Microbiology 09/01/22 16:14 Nasal Secretion SARS-CoV-2 & FLU Antigen (Rapid) - Final Radiography Diagnostic Testing: Radiology Impression Echocardiogram 09/01/22 18:31 Interpretation Summary The estimated ejection fraction is 55-60% %. No significant changes from prior Echo 01/14/2022 Ordering Physician: María Claros Referring Physician: Maria D Michael M.D. 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 panel monitor reviewed. Patient heart rate is variable sometimes bradycardia is in 30s with sinus pause. Twelve-lead EKG normal sinus rhythm. Patient does not look in shortness of breath/dyspnea. Chest pain has resolved. She saw Dr. Blackwell couple years ago. She had a PFT in March 2022 which shows grossly normal PFT with DLCO at lower limit of normal possible early pulmonary vascular disease. Pulmonary exercise test was also normal. Physical exam General: Alert, Oriented x3, Cooperative HEENT: Atraumatic, PERRLA, EOMI, Normocephalic Oral: Oral mucosa moist. No Gingival or Mucosal Lesions/ Ulcerations Neck: Supple, No JVD, Negative Carotid Bruits Lungs: Air entry diminished in bilateral lung bases. No crepitation/rhonchi Cardiovascular: Sinus rhythm, intermittent A-fib. Multiple intermittent PVCs. Sinus pause normal S1, Normal S2, No murmurs Abdomen: Bowel Sounds Present, Soft, Non Tender, Non-Distended : No renal angle tenderness. No suprapubic tenderness. Extremities: No edema, Capillary Refill Less than 3 Seconds Skin: No rashes, No breakdown Musculoskeletal: No Tenderness to Palpation of Joints or Extremities Neurological: Cranial nerves II-XII grossly intact, DTR 2+/4 and Symmetrical, Neuro grossly intact Psych/Mental Status: Normal Affect, Appropriate. Assessment & Plan Assessment/Plan (1) Pulmonary embolism: PLAN: Plan #Chest pain, due to PE * admit to PCU * admitted with a complaint of chest pain. * CTA done showed evidence of normal enhancement of the main pulmonary artery and right and left pulmonary arteries. * BNP was mildly elevated in the 150s. * Previous echo from December 2021 showed EF of 65% with normal left ventricula r systolic function and right ventricular systolic pressure 32 mmHg with stage II diastolic dysfunction. * Serial troponin enzymes are negative. * Shared decision making done with treatment with IV heparin drip with the patient as she has history of GI bleed. Patient had recent EGD in May 2022, reported as oozing gastric ulcer with visible vessel, LA grade B erosive esophagitis with large hiatus hernia. On PPI twice daily. Patient and daughter accepting of the increased risk of bleeding but okay with patient being on blood thinners for at least 3 to 6 months. * patient on heparin drip. * Echo was done reported EF 55 to 60%. LV systolic function normal moderate concentric LVH. Normal RV and systolic function. Normal LA and RA. No significant change from previous echo of December 2021. A-fib with variable heart rate with tachybradycardia syndrome and sinus pause: panel monitor reviewed. 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 Yesterday also patient had multiple PVCs. Currently she has intermittent sinus pause. Oim Architect consulted. Heparin drip discontinued. Discussed with patient and for pacemaker and they a greed. 1 dose of Lovenox given based on creatinine clearance which will be good for the next 24 hours. #Hyperlipidemia: On statin #Recent upper GI bleed * EGD on 05/27/2022 showed erosive esophagitis and an oozing gastric ulcer with a visible vessel which was treated with a heater probe * on pantoprazole. #Hypertension: On lisinopril and Maxzde #History of esophageal strictures. Has had dilations done in the past. Currently stable. #Rheumatoid arthritis: On folic acid, Lyrica and tramadol #DVT prophylaxis: Not indicated as patient has been treated on heparin drip CODE STATUS: full code * Patient and daughter counseled extensively about different types of CODE STATUS including full code, DNR CCA and DNR CCA. * Patient elects to be full code. * Charges/Coding Visit Charges Inpatient E&M: 27097 Subs Hosp L2
--- NOTE | 2022-09-03 10:28 | EKG12_ITS ---
Test Reason : AFIB Blood Pressure : / mmHG Vent. Rate : 062 BPM Atrial Rate : 062 BPM P-R Int : 136 ms QRS Dur : 080 ms QT Int : 368 ms P-R-T Axes : 002 -12 010 degrees QTc Int : 373 ms Normal sinus rhythm Minimal voltage criteria for LVH, may be normal variant ( R in aVL ) Borderline ECG When compared with ECG of 03-SEP-2022 05:25, MANUAL COMPARISON REQUIRED, DATA IS UNCONFIRMED Confirmed by JACIEL BRAN, MODESTO ([id number]), editor news ABA CORONADO ([id number]) on 09/04/2022 1:58:08 PM Referred By: BATSHEVA Confirmed By:MODESTO GRISSOM MD
[2022-09-03 11:00] LABS: Troponin-I HS 21 pg/mL (3.0-54.0)
[2022-09-03] MEDS: Enoxaparin 60 MG/0.6 ML Syringe SC (11:27)
--- NOTE | 2022-09-03 11:55 | CON.PCM.CA_ITS ---
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 She converted to normal sinus rhythm. And he been stable hemodynamically. Evidence of voltage criteria for the ventricular hypertrophy, noted on the EKG. Patient had history of hypertension, calcific reflux disease, rheumatoid arthritis And was on medical treatment with methotrexate, allopurinol, colchicine, atorvastatin and pantoprazole. Cardiac care plan recommendations; I review all the evaluation here in the hospital including the current lab the EKG the echocardiogram LV systolic function preserved. Patient had diagnosis of pulm embolism on this admission No RV strain pattern noted on the echocardiogram No significant valve abnormality Had history of GI bleed with a large hiatal hernia, upper endoscopy report was noted in May 27, 2022/esophagogastroduodenoscopy Patient has grade B erosive esophagitis as well as oozing gastric ulcer treated with heater probe Patient has been on treatment with pantoprazole . From cardiac standpoint we will continue to monitor cardiac rhythm. Patient currently in normal sinus rhythm will consider loop recorder/event monitor Versus permanent pacemaker due to the long pauses and tachybradycardia syndrome She also high risk for stroke with her age and a paroxysmal atrial fibrillation as well as the renal dysfunction Based on creatinine clearance/[id number] she is a candidate for anticoagul ation if there is no active bleed. We will continue to monitor and follow-up clinically on cardiac monitors and also repeat an EKG. HPI Consult Data Date of Consult: 09/03/22 HPI Narrative Reason for Consultation: Paroxysmal A-fib with tachybradycardia syndrome/co nverted to sinus HPI Narrative: RONNELL HERZOG, is a 82 F who [facility] Medical History (Updated 09/03/22 @ 12:[address] Jessica Thomas MD) Arthritis Breast lump Carpal tunnel syndrome Cataracts, bilateral Difficulty swallowing Dysphagia Esophageal spasm Gout Hiatal hernia HTN (hypertension) Neuropathy Osteoarthritis Osteopenia Osteoporosis Rheumatoid arthritis Home Medications folic acid 1 mg tablet 1 mg PO DAILY supplement 03/27/21 [History Last Taken 01/13/22] methotrexate sodium 2.5 mg tablet 15 mg PO TH inflammation 03/27/21 [History Last Taken 01/09/22] allopurinol 100 mg tablet 100 mg PO DAILY gout 01/13/22 [History Last Taken 01/13/22] calcium carbonate 500 mg calcium (1,250 mg) tablet 500 mg PO DAILY supplement 01/13/22 [History Last Taken 01/13/22] colchicine 0.6 mg tablet 0.6 mg PO DAILY gout 01/13/22 [History Last Taken 01/13/22] pregabalin 100 mg capsule 100 mg PO TID pain 01/13/22 [History Last Taken 01/13/22] atorvastatin 20 mg tablet (Lipitor) 20 mg PO DAILY #30 tabs 02/16/22 [Rx Last Taken Unknown] lisinopril 10 mg tablet 10 mg PO DAILY #30 tabs 02/16/22 [Rx Last Taken Unknown] tramadol 50 mg tablet 50 mg PO TID PRN PRN Pain 05/24/22 [History Last Taken Unknown] triamterene 37.5 mg-hydrochlorothiazide 25 mg tablet 1 tab PO DAILY diuretic 05/24/22 [History Last Taken Unknown] pantoprazole 40 mg tablet,delayed release 40 mg PO BID #60 tabs 05/28/22 [Rx Last Taken Unknown] potassium 99 mg tablet 99 mg PO DAILY Check with primary doctor 09/01/22 [History Last Taken Unknown] Allergy/AdvReac Type Severity Reaction Status Date / Time Sulfa (Sulfonamide AdvReac Nausea/Vom/ Verified 09/01/22 15:07 Antibiotics) Diarrhea sulfamethoxazole AdvReac Nausea/Vom/ Verified 09/01/22 15:07 [From Bactrim] Diarrhea trimethoprim [From Bactrim] AdvReac Nausea/Vom/ Verified 09/01/22 15:07 Diarrhea Family History Father Colon cancer Mother Diabetes CVA (cerebral vascular accident) Surgical History H/O knee surgery H/O: hysterectomy History of back surgery S/P insertion of spinal cord stimulator Social History household members: family Smoking Status: Never smoker alcohol intake: never substance use type: does not use ROS ROS Narrative Patient presented with complaint of chest pain and shortness of breath on admission Also she admitted to symptoms of palpitation no syncopal episode. Review of 10 point system is unremarkable apart from current presentation. Physical Exam Narrative Seen and evaluated today at bedside with Dr. Bundy at bedside. She was sitting out in a chair comfortable does not have any active chest pain practice nurse reviewed and showed underlying rhythm is sinus She had episodes of A-fib with long pauses And tachybradycardia syndrome Cardiac examination S1-S2 is regular Chest examination clear to auscultation bilateral Examination lower extremity no lower extremity edema. Risk Stratification Risk Stratification Applicable: No Objective Data Vital Signs: Vital Signs Temp Pulse Resp BP Pulse Ox O2 Del Method O2 Flow Rate 98.0 F 58 L 20 H 99/52 L 94 Room Air 2 09/03/22 06:00 09/03/22 06:00 09/03/22 06:00 09/03/22 06:00 09/03/22 06:00 09/03/22 06:00 09/02/22 07:24 Oxygen Flow Rate (L/min) 2 Oxygen Delivery Method Room Air Weight: 153 lb 10.595 oz Body Mass Index (BMI) 26.4 Intake & Output: Intake and Output for Last 24 Hours 09/01/22 09/02/22 09/03/22 23:59 23:59 23:59 Intake Total 1240 / 1240 1368.68 / 1568.68 571.95 / 571.95 Balance 1240 / 1240 1368.68 / 1568.68 571.95 / 571.95 Lab / Micro Data Result Diagrams: 09/02/22 06:33 09/02/22 06:33 Labs: Laboratory Results - last 24 hr 09/02/22 06:33: Magnesium 1.8 09/02/22 14:35: APTT 29.8 09/02/22 22:15: APTT 97.2 H* 09/03/22 04:25: TSH 2.53 09/03/22 04:25: Troponin I High Sens 19 09/03/22 06:57: Troponin I High Sens 19 09/03/22 06:57: APTT 140.3 H* 09/03/22 10:36: Troponin I High Sens 21 Cardiology Labs/Tests 09/02/22 06:33: Magnesium 1.8 09/02/22 14:35: APTT 29.8 09/02/22 22:15: APTT 97.2 H* 09/03/22 06:57: APTT 140.3 H* Rhythm: EKG: ECHO: Stress Test: Cardiac Cath: PCI: CT Surgery: Holter monitor: EPS: PPM: CXR: Chest CT Scan:
[2022-09-03] MEDS: Atorvastatin Calcium 20 MG Tablet PO (21:34)
[2022-09-04] VITALS (7 sets, daily range): BP systolic 112–128; BP diastolic 54–57; PULSE 57–62; RESP 16–18; TEMP 36.3–36.9; O2SAT 94–97
[2022-09-04 05:03] LABS: Absolute Lymphocyte Count 1.43 X10^3/uL (0.83-4.51); Absolute Neutrophil Count 4.4 X10^3/uL (2.0-7.7); Basophil# 0.02 X10^3/uL; Basophil% 0.3 % (0-1); Eosinophils% 2.9 % (0-5); Hematocrit 27.5 % (37-47); Hemoglobin 8.5 g/dL (12.0-15.0); Lymphocyte # 1.43 X10^3/ul (0.83-4.51); Lymphocyte % 20.5 % (19-41); Mean Corp Hgb Conc 30.9 g/dL (32-36); Mean Corpuscular Volume 87.3 fL (81-99); Monocyte# 0.87 X10^3/uL; Monocyte% 12.5 % (0-10); NRBC Flagged by Analyzer 0 % (0-5); Neutrophil # 4.44 X10^3/uL (2.7-7.7); Neutrophil % 63.5 % (47-70); POSITIVE MORPHOLOGY YES; Platelet Count 216 K/mm3 (150-450); RBC Distribution Width SD 75.8 fl (35.1-43.9); Red Blood Count 3.15 M/mm3 (4.2-5.4)
[2022-09-04 05:11] LABS: Differential Indicated SCAN CRITERIA MET
[2022-09-04 05:23] LABS: Anion Gap 5 (5-15); BUN 22 mg/dL (7-18); BUN/Creat Ratio 18.6 RATIO (10-20); Chloride 109 mmol/L (98-107); Creatinine, Serum 1.18 mg/dL (0.55-1.02); EST Glomerular Filtration Rate 47 mL/min (>60); Est Glom Filt Rate - Afr Amer 57 mL/min (>60); Estimated Creatinine Clearance 32.29 ml/min; Glucose 110 mg/dL (74-106); Sodium Level 139 mmol/L (136-145)
[2022-09-04 05:40] LABS: Anisocytosis 3+; Macrocytosis 1+; Microcytosis 1+; Ovalocyte RARE
[2022-09-04] MEDS: Pregabalin 50 MG Capsule 100 MG PO ×2 (05:58→13:41)
--- NOTE | 2022-09-04 07:52 | DCINST_ITS ---
Discharge Instructions Diet Discharge Diet: No restrictions Activity Discharge Activity: Return to Normal Activity Weight Bearing Status: Weight bearing as tolerated Dressing / Incision Call your doctor if you observe: Fever of 101 or Higher, Coldness, Increased Pain, Numbness or Tingling, Change in Color, Inability to urinate, Inability to have a bowel movement, Using more than 1 pad per hour, Shortness of breath, Dizziness, Fainting spells, Swelling in the ankles, Chest pain, Prolonged hiccupping, Increased palpitations (irregular heartbeat) and Calf discomfort Follow Up Care When: IN 2 WEEKS Test Results: Test results from this visit will be discussed in further detail at your follow- up appointment, if applicable. Discharge Plan Admission Admit Date/Time: 09/01/22 18:26 Primary Reason for Your Visit: small PE, AFIB. ANEMIA Attending Provider: Tiago Bundy Primary Care Provider: Maria D Michael Consulting Providers: María Claros ; Jessica Thomas Discharge Orders/Prescriptions Prescriptions: New ferrous sulfate [FeroSul] 325 mg (65 mg iron) tablet 325 mg PO DAILY Qty: 30 2RF ascorbate calcium (vitamin C) 500 mg tablet 500 mg PO BID 30 Days Qty: 60 2RF Eliquis 2.5 mg tablet 2.5 mg PO BID 30 Days Qty: 60 2RF Rx Instructions: Hold if patient has GI bleed, hematemesis melena or hematuria or hemoptysis. Continued folic acid 1 mg tablet 1 mg PO DAILY methotrexate sodium 2.5 mg tablet 15 mg PO TH Label Comments: take 6 tabs weekly ON THUR allopurinol 100 mg tablet 100 mg PO DAILY calcium carbonate 500 mg calcium (1,250 mg) Tablet 500 mg PO DAILY pregabalin 100 mg capsule 100 mg PO TID atorvastatin [Lipitor] 20 mg tablet 20 mg PO DAILY Qty: 30 0RF lisinopril 10 mg tablet 10 mg PO DAILY Qty: 30 0RF tramadol 50 mg tablet 50 mg PO TID PRN PRN (Reason: Pain) potassium 99 mg Tablet 99 mg PO DAILY pantoprazole 40 mg tablet,delayed release (DR/EC) 40 mg PO BID Qty: 60 2RF Changed colchicine 0.6 mg tablet 0.6 mg PO QODAY 30 Days Qty: 0 0RF triamterene-hydrochlorothiazid 37.5-25 mg tablet 0.5 tab PO DAILY 30 Days Qty: 0 0RF Label Comments: take 1 tablet by mouth once daily Rx Instructions: Hold for SBP less than 130 mmHg Referrals / Follow Up: Brandon Parker MD [Med Staff - Active Staff] - Within 1 Month (FOR Outpatient nuclear stress test) Maria D Michael MD [Primary Care Provider] - In 1 Week Adan La DO [Med Staff - Active Staff] - Within 1 Month (for EGD and colonoscopy. Iron deficiency anemia) Sultana Resendez PA [Med Staff - Adv Practice Prof] - 10/22/22 1:00 pm Disposition Disposition (needs filled in before D/C Order can be placed): Home, Self Care
--- NOTE | 2022-09-04 13:23 | PCM.DC.SUM ---
Providers Date of Admission: 09/01/22 Date of Discharge: 09/04/22 Primary Care Physician: Dr. Maria D Michael MD Consultations 09/03/22 04:55 Consult: Cardiology Routine Consulting Provider: Jessica Thomas Reason for Consult: Admit w/ PE, went into PAF w/ RVR, now with pauses (max 4.6 s) EMERGENT Consult: No MD Notified: Yes Date Notified: 09/03/22 Time Notified: 04:56 Method of Notification: Text Reason For Visit: PULMONARY EMBOLISM Diagnosis Discharge Diagnosis (1) Pulmonary embolism: Status: Acute Code(s): I26.99 - Other pulmonary embolism without acute cor pulmonale Plan #Chest pain, due to PE admit to PCU admitted with a complaint of chest pain. CTA done showed evidence of normal enhancement of the main pulmonary artery and right and left pulmonary arteries. BNP was mildly elevated in the 150s. Previous echo from December 2021 showed EF of 65% with normal left ventricular systolic function and right ventricular systolic pressure 32 mmHg with stage II diastolic dysfunction. Serial troponin enzymes are negative. Shared decision making done with treatment with IV heparin drip with the patient as she has history of GI bleed. Patient had recent EGD in May 2022, reported as oozing gastric ulcer with visible vessel, LA grade B erosive esophagitis with large hiatus hernia. On PPI twice daily. Patient and daughter accepting of the increased risk of bleeding but okay with patient being on blood thinners for at least 3 to 6 months. patient on heparin drip. Echo was done reported EF 55 to 60%. LV systolic function normal moderate concentric LVH. Normal RV and systolic function. Normal LA and RA. No significant change from previous echo of December 2021. A-fib with variable heart rate with tachybradycardia syndrome and sinus pause: bus driver/monitor reviewed. Patient was given Cardizem bolus and digoxin, water proofer today for A-fib with RVR. Yesterday also patient had multiple PVCs. Currently she has intermittent sinus pause. Foundation Drill Operator consulted. Heparin drip discontinued. Discussed with patient and for about A-fib with RVR, sinus pauses and sinus bradycardia after IV diltiazem and digoxin IV. 1 dose of Lovenox given based on creatinine clearance which will be good for the next 24 hours. 09/04: Foundation Drill Operator, Dr. Parker and Dr. Weathers and myself spent good amount of time to 3 times a day and discussion with patient's 2 daughters regarding property assessment monitor rhythm, A-fib RVR, severe bradycardia. At this time it seems she had sinus pause or severe bradycardia secondary to IV diltiazem and digoxin probably her AV node is too sensitive for AV amie medications. Today her heart rhythm remains sinus rhythm about 50s and low 60s, with normal blood pressure. Dr. Parker thinks he had A-fib with RVR probably due to PE although it was reported very small 3 mm left subsegmental lingular lobe PE. We agreed on low-dose Eliquis 2.5 mg twice daily. Follow-up appointment in cardiology clinic made. #Hyperlipidemia: On statin #Recent upper GI bleed EGD on 05/27/2022 showed erosive esophagitis and an oozing gastric ulcer with a visible vessel which was treated with a heater probe on pantoprazole. 09/04: Patient could not tolerate Carafate as she throws up during previous hospitalization and at home. She is discharged on Protonix 40 mg twice daily and prescription given along with ferrous sulfate and ascorbic acid. #Hypertension: On lisinopril and Maxzde 08/30: Dose of Maxide decreased as patient blood pressure remains in the 110s to 120s. #History of esophageal strictures. Has had dilations done in the past. Currently stable. #Rheumatoid arthritis: On folic acid, Lyrica and tramadol #DVT prophylaxis: Not indicated as patient has been treated on heparin drip CODE STATUS: full code Patient and daughter counseled extensively about different types of CODE STATUS including full code, DNR CCA and DNR CCA. Patient elects to be full code. Discharge medication reconciliation done. Discharge follow-up instructions completed. Discharge process discussed with the patient and all questions were answered to patient's satisfaction. Total time spent, exact 35 minutes on discharge meds reconciliation, examination, coordination of care with nurses and ancillary staff, review of imaging and blood test and discussion with the patient on follow-up instructions. Clinical Impression(s) from Imaging Studies Chest X-Ray 09/01/22 16:05 IMPRESSION: There are findings consistent with COPD. There is no evidence of acute chest disease. Electronically Signed: Lavon Barnett MD at 16:41 EDT , Chest CTA 09/01/22 16:30 IMPRESSION: Tiny subsegmental pulmonary embolism to the lingula. No other evidence for pulmonary embolism. Pulmonary arterial hypertension. Subsegmental atelectasis or scarring in both lung bases. Electronically Signed: Lavon Barnett MD at 17:42 EDT Reading Location ID and State: [facility] / [place] , Service support , ADDENDUM: 09/01/22 1757 IMPRESSION: Tiny subsegmental pulmonary embolism to the lingula. No other evidence for pulmonary embolism. Pulmonary arterial hypertension. Subsegmental atelectasis or scarring in both lung bases. N.B. : The above Results were Read Back by Lavon Barnett MD to Brian Breaux DO, and understanding confirmed on 09/01/2022 17:50:33 (ET). Electronically Signed: Lavon Barnett MD at 17:42 EDT Reading Location ID and State: [facility] / [place] , Service support , Venous Duplex 09/01/22 18:05 IMPRESSION: No evidence for DVT. Electronically Signed: Lavon Barnett MD at 19:34 EDT Reading Location ID and State: [facility] / [place] , Service support , Echocardiogram 09/01/22 18:31 Interpretation Summary The estimated ejection fraction is 55-60% %. No significant changes from prior Echo 01/14/2022 Ordering Physician: María Claros Referring Physician: Maria D Michael M.D. Performed By: Paul Harmon RCS Medications at Discharge Home Medications folic acid 1 mg tablet 1 mg PO DAILY supplement 03/27/21 methotrexate sodium 2.5 mg tablet 15 mg PO TH inflammation 03/27/21 allopurinol 100 mg tablet 100 mg PO DAILY gout 01/13/22 calcium carbonate 500 mg calcium (1,250 mg) tablet 500 mg PO DAILY supplement 01/13/22 pregabalin 100 mg capsule 100 mg PO TID pain 01/13/22 atorvastatin 20 mg tablet (Lipitor) 20 mg PO DAILY #30 tabs 02/16/22 lisinopril 10 mg tablet 10 mg PO DAILY #30 tabs 02/16/22 tramadol 50 mg tablet 50 mg PO TID PRN PRN Pain 05/24/22 potassium 99 mg tablet 99 mg PO DAILY Check with primary doctor 09/01/22 apixaban 2.5 mg tablet (Eliquis) 2.5 mg PO BID 30 days #60 tabs 09/04/22 ascorbate calcium (vitamin C) 500 mg tablet 500 mg PO BID 30 days #60 tabs 09/04/22 colchicine 0.6 mg tablet 0.6 mg PO QODAY gout 30 days #0 tabs 09/04/22 ferrous sulfate 325 mg (65 mg iron) tablet (FeroSul) 325 mg PO DAILY #30 tabs 09/04/22 pantoprazole 40 mg tablet,delayed release 40 mg PO BID #60 tabs 09/04/22 triamterene 37.5 mg-hydrochlorothiazide 25 mg tablet 0.5 tab PO DAILY diuretic 30 days #0 tabs 09/04/22 Physical Exam Narrative Seen and examined. bus driver/monitor reviewed. Patient had sinus pause about 2.8 ms water proofer on 09/03 after IV diltiazem and digoxin was given. After that she had sinus bradycardia. She had recovered since then. Patient heart rate remained in sinus rhythm about 50s with no sinus pause. No severe bradycardia or tachycardia. No chest pain or shortness of breath. No chest pain palpitation of flutter waves. Physical exam General: Alert, Oriented x3, Cooperative HEENT: Atraumatic, PERRLA, EOMI, Normocephalic Oral: Oral mucosa moist. No Gingival or Mucosal Lesions/ Ulcerations Neck: Supple, No JVD, Negative Carotid Bruits Lungs: Air entry diminished in bilateral lung bases. No crepitation/rhonchi Cardiovascular: Sinus rhythm, normal S1, Normal S2, No murmurs Abdomen: Bowel Sounds Present, Soft, Non Tender, Non-Distended : No renal angle tenderness. No suprapubic tenderness. Extremities: No edema, Capillary Refill Less than 3 Seconds Skin: No rashes, No breakdown Musculoskeletal: No Tenderness to Palpation of Joints or Extremities Neurological: Cranial nerves II-XII grossly intact, DTR 2+/4 and Symmetrical, Neuro grossly intact Psych/Mental Status: Normal Affect, Appropriate. Weight / BMI Weight Weight: 153 lb 10.595 oz Body Mass Index (BMI) 26.4 ABG / Lab / Microbiology Data Result Diagrams: 09/04/22 04:25 09/04/22 04:25 Laboratory: Laboratory Results - last 24 hr 09/04/22 04:25: WBC 7.0, RBC 3.15 L, Hgb 8.5 L, Hct 27.5 L, MCV 87.3, MCH 27.0, MCHC 30.9 L, RDW Std Deviation 75.8 H, RDW Coeff of Lorenzo 24.0 H, Plt Count 216, MPV 11.0, Immature Gran % (Auto) 0.300, Neut % (Auto) 63.5, Lymph % (Auto) 20.5, Parmer % (Auto) 12.5 H, Eos % (Auto) 2.9, Baso % (Auto) 0.3, Absolute Neuts (auto) 4.4, Absolute Lymphs (auto) 1.43, Nucleated RBC % 0, Anisocytosis 3+, Microcytosis 1+, Macrocytosis 1+, Ovalocytes RARE 09/04/22 04:25: Sodium 139, Potassium 4.0, Chloride 109 H, Carbon Dioxide 25.0, Anion Gap 5, BUN 22 H, Creatinine 1.18 H, Estim Creat Clear Calc 32.29, Est GFR (MDRD) Af Amer 57 L, Est GFR (MDRD) Non-Af 47 L, BUN/Creatinine Ratio 18.6, Glucose 110 H, Calcium 9.0 Microbiology: Microbiology 09/01/22 16:14 Nasal Secretion SARS-CoV-2 & FLU Antigen (Rapid) - Final D/C Instructions Discharge Diet: No restrictions Weight Bearing Status: Weight bearing as tolerated Call your doctor if you observe: Fever of 101 or Higher, Coldness, Increased Pain, Numbness or Tingling, Change in Color, Inability to urinate, Inability to have a bowel movement, Using more than 1 pad per hour, Shortness of breath, Dizziness, Fainting spells, Swelling in the ankles, Chest pain, Prolonged hiccupping, Increased palpitations (irregular heartbeat) and Calf discomfort When: IN 2 WEEKS Meaningful Use Info Meaningful Use Diagnoses (Choose all that apply): None applicable Discharge Plan Admission Admit Date/Time: 09/01/22 18:26 Primary Reason for Your Visit: small PE, AFIB. ANEMIA Attending Provider: Tiago Bundy Primary Care Provider: Maria D Michael Consulting Providers: María Claros ; Jessica Thomas Discharge Orders/Prescriptions Prescriptions: New ferrous sulfate [FeroSul] 325 mg (65 mg iron) tablet 325 mg PO DAILY Qty: 30 2RF ascorbate calcium (vitamin C) 500 mg tablet 500 mg PO BID 30 Days Qty: 60 2RF Eliquis 2.5 mg tablet 2.5 mg PO BID 30 Days Qty: 60 2RF Rx Instructions: Hold if patient has GI bleed, hematemesis melena or hematuria or hemoptysis. Continued folic acid 1 mg tablet 1 mg PO DAILY methotrexate sodium 2.5 mg tablet 15 mg PO TH Label Comments: take 6 tabs weekly ON UR allopurinol 100 mg tablet 100 mg PO DAILY calcium carbonate 500 mg calcium (1,250 mg) Tablet 500 mg PO DAILY pregabalin 100 mg capsule 100 mg PO TID atorvastatin [Lipitor] 20 mg tablet 20 mg PO DAILY Qty: 30 0RF lisinopril 10 mg tablet 10 mg PO DAILY Qty: 30 0RF tramadol 50 mg tablet 50 mg PO TID PRN PRN (Reason: Pain) potassium 99 mg Tablet 99 mg PO DAILY pantoprazole 40 mg tablet,delayed release (DR/EC) 40 mg PO BID Qty: 60 2RF Changed colchicine 0.6 mg tablet 0.6 mg PO QODAY 30 Days Qty: 0 0RF triamterene-hydrochlorothiazid 37.5-25 mg tablet 0.5 tab PO DAILY 30 Days Qty: 0 0RF Label Comments: take 1 tablet by mouth once daily Rx Instructions: Hold for SBP less than 130 mmHg Referrals / Follow Up: Maria D Michael MD [Primary Care Provider] - 09/11/22 1:00 pm (Appointment is with Devendra Cabrales N.P.) Adan La DO [Med Staff - Active Staff] - 01/02/23 2:45 pm (for EGD and colonoscopy. Iron deficiency anemia) Sultana Resendez PA [Med Staff - Adv Practice Prof] - 10/22/22 1:00 pm Disposition Disposition (needs filled in before D/C Order can be placed): Home, Self Care Charges/Coding Visit Charges Inpatient E&M: 77609 Disch Hosp >30min
[2022-09-04] MEDS: Allopurinol 100 MG Tablet PO (13:42)
[2022-09-04] MEDS: Methotrexate 2.5 MG Tablet 15 MG PO (13:42)
[2022-09-04] MEDS: Folic Acid 1 MG Tablet PO (13:42)
[2022-09-04] MEDS: Pantoprazole Sodium 40 MG Tablet PO (13:42)
[2022-09-04] MEDS: Calcium (Elemental) 500 MG Tablet PO (13:42)
--- NOTE | 2022-09-04 15:23 | CASEMGMT ---
SANDRA DESIR updated that patient is discharging today on Eliquis. SANDRA DESIR called Nikky Ortega and cost is $42. Savings card provided to patient. Patient to denied further needs or concerns at this time.
== END 2022-09-04 15:45 | disposition home or self-care (01) | DRG 176 ==
LOC: ED 15:59 → PCU 19:08
PROVIDERS: Family Medicine; Admitting Provider Student in an Organized Health Care Education/Training Program; Emergency Provider Emergency Medicine; PCP Internal Medicine; Visit Provider Internal Medicine
DX: I26.99 Other pulmonary embolism without acute cor pulmonale (principal); I49.5 Sick sinus syndrome; I48.0 Paroxysmal atrial fibrillation; J44.9 Chronic obstructive pulmonary disease, unspecified; I26.93 Single subsegmental thrombotic pulmonary embolism without acute cor pulmonale; M06.9 Rheumatoid arthritis, unspecified; E78.5 Hyperlipidemia, unspecified; I10 Essential (primary) hypertension; M10.9 Gout, unspecified; K21.00 Gastro-esophageal reflux disease with esophagitis, without bleeding; I49.3 Ventricular premature depolarization; Z20.822 Contact with and (suspected) exposure to COVID-19; Z79.899 Other long term (current) drug therapy; Z87.19 Personal history of other diseases of the digestive system
CPT/HCPCS: 36415; 71046; 71275; 80048; 83735; 83880; 84443; 84484; 85025; 85379; 85610; 85730; 87428; 93005; 93306; 93970; 97162; 97165; 97530; 99285; J7030; Q9967; A4216; J2405; J8610

== ENCOUNTER → 2022-10-24 | Outpatient (CLI) | payer MEDICARE, SELFPAY ==
[2022-10-24 11:15] LABS: Hematocrit 36.6 % (37-47); Hemoglobin 11.5 g/dL (12.0-15.0)
== END | disposition home or self-care (01) ==
PROVIDERS: PCP Internal Medicine; Referring Provider Physician Assistant Medical; Visit Provider Physician Assistant Medical
DX: I26.99 Other pulmonary embolism without acute cor pulmonale (principal); I48.0 Paroxysmal atrial fibrillation
CPT/HCPCS: 36415; 85014; 85018

== ENCOUNTER 2023-05-04 12:01 | Emergency (ER) | payer MEDICARE, SELFPAY ==
[2023-05-04 12:02] VITALS: BP 116/66; PULSE 80; RESP 16; TEMP 36.2; O2SAT 95; BMI 25.7
--- NOTE | 2023-05-04 12:39 | EDS_ITS ---
HPI History of Present Illness Chief Complaint: Fall Detail of Chief Complaint: Fall with injury to left hip Informant: patient Narrative Narrative: Patient presents to the emergency department with complaint of injury to the left hip after a fall 2 days ago. Patient states that she had gone to the bathroom and missed the toilet and fell injuring her hip. She was helped up by her family members. She is been having a hard time putting any weight on it. She does not think she hit her head. There is no loss of consciousness. She denies headache. Patient on apixaban for history of A-fib. [facility] Medical History Arthritis Breast lump Carpal tunnel syndrome Cataracts, bilateral Difficulty swallowing Dysphagia Esophageal spasm Gout Hiatal hernia HTN (hypertension) Neuropathy Osteoarthritis Osteopenia Osteoporosis Paroxysmal atrial fibrillation Pulmonary embolism Rheumatoid arthritis Home Medications folic acid 1 mg tablet 1 mg PO DAILY supplement 03/27/21 [History Last Taken 01/13/22] methotrexate sodium 2.5 mg tablet 15 mg PO TH inflammation 03/27/21 [History Last Taken 01/09/22] allopurinol 100 mg tablet 100 mg PO DAILY gout 01/13/22 [History Last Taken 01/13/22] calcium carbonate 500 mg calcium (1,250 mg) tablet 500 mg PO DAILY supplement 01/13/22 [History Last Taken 01/13/22] pregabalin 100 mg capsule 100 mg PO TID pain 01/13/22 [History Last Taken 01/13/22] atorvastatin 20 mg tablet (Lipitor) 20 mg PO DAILY #30 tabs 02/16/22 [Rx Last Taken Unknown] lisinopril 10 mg tablet 10 mg PO DAILY #30 tabs 02/16/22 [Rx Last Taken Unknown] tramadol 50 mg tablet 50 mg PO TID PRN PRN Pain 05/24/22 [History Last Taken Unknown] potassium 99 mg tablet 99 mg PO DAILY Check with primary doctor 09/01/22 [History Last Taken Unknown] colchicine 0.6 mg tablet 0.6 mg PO QODAY gout 30 days #0 tabs 09/04/22 [Rx Last Taken 01/13/22] pantoprazole 40 mg tablet,delayed release 40 mg PO BID #60 tabs 09/04/22 [Rx Last Taken Unknown] apixaban 2.5 mg tablet (Eliquis) 2.5 mg PO BID 30 days #60 tabs 11/28/22 [Rx Last Taken Unknown] ascorbate calcium (vitamin C) 500 mg tablet 500 mg PO BID 30 days #60 tabs 11/28/22 [Rx Last Taken Unknown] hydrocodone-acetaminophen 5-325mg 5mg-325mg 1 tab PO Q4H PRN PRN Pain 2 days #15 TABLETS 05/04/23 [Rx Last Taken Unknown] Allergy/AdvReac Type Severity Reaction Status Date / Time Sulfa (Sulfonamide AdvReac Nausea/Vom/ Verified 05/04/23 12:01 Antibiotics) Diarrhea sulfamethoxazole AdvReac Nausea/Vom/ Verified 05/04/23 12:01 [From Bactrim] Diarrhea trimethoprim [From Bactrim] AdvReac Nausea/Vom/ Verified 05/04/23 12:01 Diarrhea Family History Father Colon cancer Mother Diabetes CVA (cerebral vascular accident) Surgical History H/O knee surgery H/O: hysterectomy History of back surgery S/P insertion of spinal cord stimulator Social History household members: family Smoking Status: Never smoker alcohol intake: never substance use type: does not use ROS ROS ED Review of Systems ROS Unobtainable: other Constitutional Constitutional ED: Reports lethargy; Denies chills, fever(s), sweats or weight loss Eyes Eyes: Denies blurry vision, change in vision or diplopia ENT ENT ED: Denies rhinorrhea or sore throat Cardiovascular Cardiovascular: Denies chest pain, orthopnea or racing heartbeat Respiratory/Chest Respiratory/Chest: Denies cough, dyspnea, dyspnea on exertion, orthopnea or sputum Gastrointestinal Gastrointestinal: Denies abdominal pain, diarrhea, nausea or vomiting Genitourinary Genitourinary ED: Denies dysuria, hematuria or urinary frequency Musculoskeletal Musculoskeletal: Reports other Details: Left hip pain ; Denies arthralgias, back pain, myalgias or neck pain Integumentary Denies abscess, Abrasions or rash Neurologic Neurologic: Denies headache(s) or weakness Psychiatric Psychiatric: Denies anxiety, depression or suicidal thoughts Endocrine Endocrinology: Denies polydipsia, polyphagia or polyuria Hematologic/Lymphatic Hematologic/Lymphatic: Denies easy bleeding, easy bruising or lymphadenopathy Allergic/Immunologic Allergic/Immunologic ED: Denies mouth swelling, tongue swelling or urticaria EXAM Physical Exam Const Vital Signs: 05/04/23 12:02 Temperature 97.1 F L Temperature Source Temporal Pulse Rate 80 Respiratory Rate 16 Blood Pressure 116/66 Blood Pressure Mean 82 Pulse Ox 95 Oxygen Delivery Method Room Air Positive well nourished and well developed General Appearance ED: well developed and NAD HEENT Reports TM's clear and moist mucous membranes normocephalic and atraumatic; Negative for trauma or tenderness Tympanic Membrane ED: Yes TM's clear Eyes PERRL and EOMs intact bilaterally General Eye ED: Negative for pale conjunctiva or scleral icterus Neck no lymphadenopathy, supple and no JVD General: Negative for tenderness Chest Wall inspection of chest normal and palpation of chest normal Chest: Negative for tenderness Resp normal respiratory effort and clear to auscultation bilaterally Effort and Inspection: Negative for respiratory distress or pain with movement Auscultation: Negative for rhonchi, wheezes or diminished lung sounds Cardio regular rate, regular rhythm, S1 normal heart sound, S2 normal heart sound and no murmurs Peripheral Pulses: pulses 2+ throughout GI normal to inspection, nondistended, normoactive bowel sounds, soft to palpation, non-tender, non-distended and no masses Back/Spine no CVA tenderness and no thoracic nor lumbar tenderness Extremity normal to inspection Extremity Narrative: No shortening or external rotation of the left hip noted. Neurovascular intact distally. Patient has pain with range of motion of the left hip and palpation of the hip. Patient has pain with straight leg raising and logrolling. General Extremety ED: Negative for edema General Extremity: Negative for edema Neuro oriented x3, CN's II-XII intact bilaterally, no sensory deficits noted and gait normal Sensorium / Orientation: awake, alert, oriented to person, oriented to place and oriented to time Motor Exam: strength 5/5 throughout and strength abnormal Psych mental status grossly normal Skin no rashes or lesions noted and no wounds MDM MDM MDM Narrative Medical decision making narrative: Presents 2 days after a fall and injury to the left hip. Patient states that she does not think she hit her head. She is able to bear some weight with a walker. Family concerned about a fracture. Patient had an IV line established. CBC with differential obtained was significant for slightly elevated white count of 12.9 with hemoglobin 12 and platelet count of 344. Chemistries unremarkable. Left hip and pelvis x-rays showed no fractures. Patient also had an x-ray of the left knee which showed degenerative changes but no fractures. This point discussed results with family members. She is in pain management and takes tramadol for pain and has a spinal stimulator in place. She has had history of sciatica. I offered to admit them for pain control and possible placement for physical therapy depending on if she did not feel comfortable going home. Family member states that she does have help at home and she would like to go home and follow-up with orthopedics if the pain persist. Family states patient also having some decreased hearing from the left ear and has been having left ear pain and is currently on antibiotics for an ear infection and sinus infection. Evaluation of her left ear does not reveal any significant erythema and the TM appears to be intact. There is clear fluid. No pain with traction on the pinna and no tenderness over the mastoid. Mended to follow-up with ENT if symptoms persist. Lab Data Attestation: I reviewed the patient's lab results. Labs: Laboratory Results - last 24 hr 05/04/23 12:50 WBC 12.9 H RBC 3.81 L Hgb 12.1 Hct 37.4 MCV 98.2 MCH 31.8 MCHC 32.4 RDW Std Deviation 56.8 H RDW Coeff of Lorenzo 15.9 H Plt Count 344 MPV 9.1 Sodium 138 Potassium 4.4 Chloride 109 H Carbon Dioxide 24.0 Anion Gap 5 BUN 20 H Creatinine 1.07 H Estim Creat Clear Calc 39.08 Est GFR (MDRD) Af Amer 63 Est GFR (MDRD) Non-Af 52 L BUN/Creatinine Ratio 18.7 Glucose 88 Calcium 9.6 Radiography Diagnostic Testing: Clinical Impression(s) from Imaging Studies Hip/Pelvis X-Ray 05/04/23 13:05 IMPRESSION: Degenerative changes. No acute abnormality is seen. Electronically Signed: Gianluca Lazar MD at 13:20 EST , Knee X-Ray 05/04/23 13:05 IMPRESSION: Degenerative arthrosis. Chondrocalcinosis of the medial and lateral menisci. Electronically Signed: Gianluca Lazar MD at 13:21 EST , Three-view x-rays of left hip and pelvis obtained interpreted by myself as no evidence of fracture or dislocation. Radiology in agreement. 4 view x-rays of the left knee obtained interpreted by myself as degenerative changes but no fractures. Radiology in agreement. Discharge Plan Triage Chief Complaint: Fall ED Provider: Courtney Baker Dx/Rx/DC Orders Clinical Impression: Hip pain, left, Contusion of hip, left Instructions: ED Earache Without Infection (Adult), ED Hip Contusion, ED Fall Prevention Prescriptions: New hydrocodone-acetaminophen [hydrocodone-acetaminophen] 5-325 mg tablet 1 tab PO Q4H PRN PRN (Reason: Pain) 2 Days Qty: 15 0RF No Action folic acid 1 mg tablet 1 mg PO DAILY methotrexate sodium 2.5 mg tablet 15 mg PO TH Patient Comments: take 6 tabs weekly ON THUR allopurinol 100 mg tablet 100 mg PO DAILY calcium carbonate 500 mg calcium (1,250 mg) Tablet 500 mg PO DAILY pregabalin 100 mg capsule 100 mg PO TID atorvastatin [Lipitor] 20 mg tablet 20 mg PO DAILY Qty: 30 0RF lisinopril 10 mg tablet 10 mg PO DAILY Qty: 30 0RF tramadol 50 mg tablet 50 mg PO TID PRN PRN (Reason: Pain) potassium 99 mg Tablet 99 mg PO DAILY colchicine 0.6 mg tablet 0.6 mg PO QODAY 30 Days Qty: 0 0RF pantoprazole 40 mg tablet,delayed release (DR/EC) 40 mg PO BID Qty: 60 2RF Eliquis 2.5 mg tablet 2.5 mg PO BID 30 Days Qty: 60 12RF Rx Instructions: Hold if patient has GI bleed, hematemesis melena or hematuria or hemoptysis. ascorbate calcium (vitamin C) 500 mg tablet 500 mg PO BID 30 Days Qty: 60 12RF Primary Care Provider: Maria D Michael Referrals: Jamison Zamora MD [Med Staff - Active Staff] - 3-5 Days Maria D Michael MD [Primary Care Provider] - Noel Goldberg MD [Med Staff - Active Staff] - 3-5 Days Disposition Disposition: Home, Self Care Discharge Date/Time: 05/04/23 13:59 Capacity Legal Cloth Shrinking Machine Operator Helper Reflex Medical hold order details:: IF a medical hold is selected below, a suggested order for a MEDICAL HOLD will reflex upon signing the document. Next of kin: [place] law dictates a PRIORITY LIST for identifying legal decision-maker/legal next of kin in the following order (LNOK): 1st: The patient?s legal guardian, if any 2nd: The patient's spouse (if status is questionable, consult Risk Management) 3rd: The patient?s adult child(adilson) (majority, if multiple children) 4th: The patient?s parents 5th: The patient?s adult siblings (majority, if multiple children siblings)
[2023-05-04 12:57] LABS: Hematocrit 37.4 % (37-47); Hemoglobin 12.1 g/dL (12.0-15.0); Mean Corp Hgb Conc 32.4 g/dL (32-36); Mean Corpuscular Hgb 31.8 pg (27.0-32.0); Mean Corpuscular Volume 98.2 fL (81-99); Mean Platelet Vol. 9.1 fl (6.2-12.0); Platelet Count 344 K/mm3 (150-450); RBC Distribution Width CV 15.9 % (11.6-14.6); RBC Distribution Width SD 56.8 fl (35.1-43.9); Red Blood Count 3.81 M/mm3 (4.2-5.4); White Blood Count 12.9 K/mm3 (4.4-11.0)
--- OUTSIDE RECORDS SUMMARY | 2023-05-04 12:58 | XMS RPT_ITS | CCD ---
Author Name Unknown Address [address] [place] [address] Organization [facility] Care Team Providers Care [employer] Workman Name Role Phone SEAN LATONYA NEFF Attending Unavail able PROVIDER, UNKNOWN Referring Unavailable Delmis Steen Primary Care Unavailable Scarbro CONTINUOUS TOWEL ROLLER-AD TERMINAL MAKEUP OPERATORBrandy Unavailable [phone] Delmis Michael MD Primary Care Provider Delmis Michael MD Unavailable ZARINA BRAN, DR BENITES Primary Care Physician Delmis Michael MD Primary Care Provider Delmis Michael MD Unavailable Delmis Michael MD Primary Care Provider Delmis Michael MD Unavailable ZARINA, DELMIS D Primary Care Unavailable CABRALES, SANDRA Attending Unavailable TALAMPAS, DELMIS D Referring Unavailable TALAMPAS, DELMIS D Primary Care Unavailable TALAMPAS, DELMIS D Referring Unavailable TALAMPAS, DELMIS D Primary Care Unavailable TALAMPAS, DELMIS D Primary Care Unavailable TALAMPAS, DELMIS D Attending Unavailable ASAD HODGES Attending Unavailable TALAMPAS, DELMIS D Primary Care Unavailable TALAMPAS, DELMIS D Referring Unavailable TALAMPAS, DELMIS D Primary Care Unavailable TALAMPAS, DELMIS D Primary Care Unavailable CABRALES, SANDRA Referring Unavailable TALAMPAS, DELMIS D Attending Unavailable TALAMPAS, DELMIS D Primary Care Unavailable TALAMPAS, DELMIS D Attending Unavailable CABRALES, SANDRA Referring Unavailable TALAMPAS, DELMIS D Primary Care Unavailable CABRALES, SANDRA Referring Unavailable TALAMPAS, DELMIS D Primary Care Unavailable CABRALES, SANDRA Referring Unavailable DELMIS MICHAEL Primary Care Unavailable SANDRA CABRALES Referring Unavailable DELMIS MICHAEL Primary Care Unavailable Allergies Allergy Classification Reported Allergen(s) Allergy Type Date of Onset Reaction(s) Facility (1 source) Sulfacetamide Drug Allergy 06-14-19 19 [facility] Work Phone: (20 sources) Sulfonamides (Antibiotic); Translations: [sulfa drugs] Drug Intolerance 03-07-20 16 Vomiting, Stomach ache (finding) [facility] Work Phone: (2 sources) leflunomide; Translations: [leflunomide] Drug Allergy Stomach ache (finding) [facility] (2 sources) Sulfamethoxazole / Trimethoprim; Translations: [sulfamethoxazole-t rimethoprim] Drug Allergy Stomach ache (finding) [facility] (9 sources) Iron; Translations: [IRON] Drug Allergy 09-13-19 23 Intolerance [facility] Work Phone: Medications Current Medications Medication Drug Class(es) Dates Sig (Normalized) Sig (Original) acetaminophen 500 mg oral tablet (20 sources) Start: 10-23-2021 Tylenol Extra Strength 500 mg oral tablet Dose : 500 mg = 1 tab(s), Oral, TID, 0 Refill(s) Start Date: 10/23/21 Status: Ordered Completed/Discontinued Medications Medication Drug Class(es) Dates Sig (Normalized) Sig (Original) VITAMIN A/VITAMIN D 1000U/ML;100U/ML SOLUTION (1 source) Start: 06-14-2018 VITAMIN A/VITAMIN D 1000U/ML;100U/ML SOLUTION as directed daily Pia Ruiz LPN allopurinol 100 mg oral tablet (20 sources) Xanthine Oxidase Inhibitor Start: 09-13-2021 take 1 tablet by mouth once daily allopurinol (ZYLOPRIM) 100 mg tablet Take 100 mg by mouth once daily. 0 09/13/2021 Active Problems Active Problems Problem Classification Problem Date Documented Date Episodic/Chronic Abdominal hernia (1 source) Hiatal hernia; Translations: [Diaphragmatic hernia without obstruction or gangrene] Episodic Acquired foot deformities (20 sources) Acquired hallux malleus; Translations: [Other hammer toe(s) (acquired), unspecified foot] Onset: 0 08-03-2009 Chronic Cardiac dysrhythmias (1 source) Unspecified atrial fibrillation; Translations: [Atrial fibrillation with RVR (HCC)] Onset: 3 Chronic Chronic kidney disease (20 sources) Chronic kidney disease stage 3A ; Translations: [Stage 3a chronic kidney disease (HCC)] Onset: 2 Chronic Chronic kidney disease (1 source) Chronic kidney disease; Translations: [Stage 3a chronic kidney disease (HCC)] Onset: 2 Coronary atherosclerosis and other heart disease (9 sources) Angina pectoris; Translations: [Angina pectoris, unspecified] Onset: 3 09-12-2022 Chronic Deficiency and other anemia (1 source) Iron deficiency anemia; Translations: [Iron deficiency anemia, unspecified] Episodic Deficiency and other anemia (2 sources) Anemia; Translations: [Anemia, unspecified] Episodic Disorders of lipid metabolism (20 sources) Pure hypercholesterolemia; Translations: [Pure hypercholesterolemia, unspecified] Onset: 5 Chronic Diverticulosis and diverticulitis (20 sources) Diverticulosis of colon; Translations: [Diverticulosis of large intestine without perforation or abscess without bleeding] Onset: 5 01-29-2005 Chronic Esophageal disorders (1 source) Esophagitis; Translations: [Esophagitis determined by endoscopy] Episodic Essential hypertension (20 sources) Essential hypertension; Translations: [Essential (primary) hypertension] Onset: 5 Chronic Gastroduodenal ulcer (except hemorrhage) (1 source) Chronic gastric ulcer; Translations: [Chronic gastric ulcer without hemorrhage or perforation] Chronic Gastrointestinal hemorrhage (2 sources) Gastrointestinal hemorrhage; Translations: [Chronic or unspecified gastric ulcer with hemorrhage] Onset: 3 Chronic Gout and other crystal arthropathies (20 sources) Gout; Translations: [Gout, unspecified] Onset: 9 03-28-2009 Chronic Headache; including migraine (20 sources) Migraine without aura; Translations: [Migraine without aura, not intractable, without status migrainosus] 01-18-2013 Chronic Immunizations and screening for infectious disease (3 sources) Contact with or exposure to other viral diseases; Translations: [Close exposure to COVID-19 virus] Episodic Nutritional deficiencies (20 sources) Vitamin D deficiency; Translations: [Vitamin D deficiency, unspecified] Onset: 2 01-22-2012 Chronic Osteoarthritis (20 sources) Degenerative joint disease involving multiple joints; Translations: [Polyosteoarthritis, unspecified] Onset: 5 01-29-2005 Chronic Osteoporosis (20 sources) Osteoporosis; Translations: [Age-related osteoporosis without current pathological fracture] 08-11-2018 Chronic Other acquired deformities (2 sources) Scoliosis, unspecified; Translations: [Scoliosis, unspecified] Onset: 9 Chronic Other bone disease and musculoskeletal deformities (2 sources) Other specified disorders of bone density and structure, unspecified site; Translations: [Oth disrd of bone density and structure, unspecified site] Onset: 9 Episodic Other circulatory disease (2 sources) Abnormal foot pulse; Translations: [Other specified symptoms and signs involving the circulatory and respiratory systems] Episodic Other diseases of kidney and ureters (1 source) Acute renal insufficiency; Translations: [Disorder of kidney and ureter, unspecified] Episodic Other endocrine disorders (20 sources) Secondary hyperparathyroidism of nonrenal origin; Translations: [Secondary hyperparathyroidism, not elsewhere classified] Onset: 9 08-26-2018 Chronic Other endocrine disorders (1 source) Secondary hyperparathyroidism, not elsewhere classified; Translations: [Secondary hyperparathyroidism, non-renal (HCC)] Onset: 3 Chronic Other fractures (2 sources) Collapsed vertebra, not elsewhere classified, lumbar region, initial encounter for fracture; Translations: [Collapsed vertebra, NEC, lumbar region, init] Onset: 9 Episodic Other fractures (1 source) Compression fracture of lumbar spine; Translations: [Wedge compression fracture of fourth lumbar vertebra, initial encounter for closed fracture] Onset: 0 09-22-2019 Episodic Other gastrointestinal disorders (2 sources) Esophageal dysphagia; Translations: [Other dysphagia] Episodic Other lower respiratory disease (1 source) Dyspnea; Translations: [Shortness of breath] Episodic Other screening for suspected conditions (not mental disorders or infectious disease) (3 sources) Patient encounter status; Translations: [Encounter for screening for malignant neoplasm of colon] Episodic Other upper respiratory infections (1 source) Acute upper respiratory infection; Translations: [Acute upper respiratory infection, unspecified] Episodic Peripheral and visceral atherosclerosis (20 sources) Generalized atherosclerosis; Translations: [Peripheral vascular disease] Onset: 9 08-26-2018 Chronic Residual codes; unclassified (1 source) Past history of procedure; Translations: [Other specified postprocedural states] Onset: 2 Episodic Rheumatoid arthritis and related disease (10 sources) Rheumatoid arthritis; Translations: [Rheumatoid arthritis, unspecified] Onset: 3 09-12-2022 Chronic Spondylosis; intervertebral disc disorders; other back problems (2 sources) Prolapsed lumbar intervertebral disc; Translations: [Degeneration of lumbar intervertebral disc] Onset: 9 06-17-2018 Chronic Transient cerebral ischemia (1 source) Transient cerebral ischemia; Translations: [Transient cerebral ischemic attack, unspecified] Chronic Unclassified (1 source) Non-Chemotherapy Treatment Onset: 3 Urinary tract infections (1 source) Urinary tract infectious disease; Translations: [Urinary tract infection, site not specified] Episodic Viral infection (1 source) Disease caused by 2019-nCoV; Translations: [COVID-19] Episodic Past or Other Problems Problem Classification Problem Date Documented Da te Episodic/Chronic Abdominal pain (2 sources) Lower abdominal pain; Translations: [Lower abdominal pain, unspecified] Onset: 10-29-2022 10-29-2022 Episodic Deficiency and other anemia (11 sources) 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; Translations: [Other iron deficiency anemias] Onset: 09-12-2022 09-12-2022 Episodic Deficiency and other anemia (1 source) Other iron deficiency anemias; Translations: [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] Onset: 09-12-2022 Episodic Deficiency and other anemia (1 source) Anemia, unspecified; Translations: [Anemia, unspecified type] Onset: 09-11-2022 Episodic Deficiency and other anemia (1 source) Iron deficiency anemia, unspecified; Translations: [Iron deficiency anemia, unspecified iron deficiency anemia type] Onset: 06-23-2022 Episodic Genitourinary symptoms and ill-defined conditions (4 sources) Increased frequency of urination; Translations: [Frequency of micturition] Onset: 10-29-2022 Episodic Hemorrhoids (20 sources) Hemorrhoids; Translations: [Unspecified hemorrhoids] Onset: 01-29-2005 01-29-2005 Episodic Nausea and vomiting (2 sources) Nausea; Translations: [Nausea] Onset: 10-29-2022 10-29-2022 Episodic Nonspecific chest pain (20 sources) Atypical chest pain; Translations: [Other chest pain] Onset: 09-10-2020 09-10-2020 Episodic Other aftercare (1 source) Surgical follow-up; Translations: [Encounter for other specified surgical aftercare] Onset: 07-15-2018 07-15-2018 Episodic Other aftercare (1 source) Other residential (current) drug therapy; Translations: [Encounter for long-term current use of medication] Onset: 06-23-2022 Episodic Other bone disease and musculoskeletal deformities (1 source) Disorder of bone; Translations: [Disorder of bone density and structure, unspecified] Onset: 06-17-2018 06-17-2018 Episodic Other bone disease and musculoskeletal deformities (20 sources) Other specified disorders of cartilage, unspecified sites; Translations: [Other disorders of bone and cartilage] Onset: 11-07-2010 11-07-2010 Episodic Other circulatory disease (1 source) Other specified symptoms and signs involving the circulatory and respiratory systems; Translations: [Decreased pulses in feet] Onset: 06-11-2022 Episodic Other connective tissue disease (20 sources) Enthesopathy; Translations: [Enthesopathy, unspecified] Onset: 11-07-2010 11-07-2010 Episodic Other connective tissue disease (20 sources) Tendon injury - lower limb; Translations: [Spontaneous rupture of other tendons, unspecified lower leg] Onset: 03-19-2015 03-19-2015 Episodic Other diseases of kidney and ureters (1 source) Disorder of kidney and ureter, unspecified; Translations: [Acute renal insufficiency] Onset: 06-23-2022 Episodic Other fractures (1 source) Closed fracture lumbar vertebra; Translations: [Unspecified fracture of third lumbar vertebra, initial encounter for closed fracture] Onset: 06-17-2018 06-17-2018 Episodic Other non-traumatic joint disorders (20 sources) Hip pain; Translations: [Pain in left hip] Onset: 04-09-2017 09-07-2018 Episodic Other non-traumatic joint disorders (20 sources) Arthralgia of the pelvic region and thigh; Translations: [Pain in unspecified hip] Onset: 09-15-2007 09-15-2007 Episodic Other non-traumatic joint disorders (20 sources) Pain in lower limb; Translations: [Pain in unspecified knee] Onset: 09-15-2007 09-15-2007 Episodic Other nutritional; endocrine; and metabolic disorders (20 sources) Hyperuricemia; Translations: [Hyperuricemia without signs of inflammatory arthritis and tophaceous disease] Onset: 12-17-2016 12-17-2016 Episodic Other nutritional; endocrine; and metabolic disorders (1 source) Hyperuricemia without signs of inflammatory arthritis and tophaceous disease; Translations: [Hyperuricemia] Onset: 12-17-2016 Episodic Other skin disorders (20 sources) Eruption; Translations: [Rash and other nonspecific skin eruption] Onset: 09-20-2021 Episodic Pulmonary heart disease (1 source) Other pulmonary embolism without acute cor pulmonale; Translations: [Acute pulmonary embolism without acute cor pulmonale, unspecified pulmonary embolism type (HCC)] Onset: 09-11-2022 Episodic Spondylosis; intervertebral disc disorders; other back problems (6 sources) Radiculopathy, lumbar region; Translations: [Spinal stenosis of lumbar region] Onset: 04-29-2018 06-17-2018 Episodic Unclassified (1 source) Problem Results Test Name Value Interpretation Reference Range Facil ity Vital Signs Date Time Vital Sign Value Performing Clinician Facility 10-29-2022 16:50-0400 Body temperature 98.6 [degF] Delmis Michael MD Work Phone: [facility] 10-29-2022 16:50-0400 Body weight 67.59 kg Delmis Michael MD Work Phone: [facility] 10-29-2022 16:50-0400 Diastolic blood pressure 82 mm[Hg] Delmis Michael MD Work Phone: [facility] 10-29-2022 16:50-0400 Heart rate 104 /min Delmis Michael MD Work Phone: [facility] 10-29-2022 16:50-0400 Respiratory rate 8 /min Delmis Michael MD Work Phone: [facility] 10-29-2022 16:50-0400 SaO2% (BldA) [Mass fraction] 98 % Delmis Michael MD Work Phone: [facility] 10-29-2022 16:50-0400 Systolic blood pressure 144 mm[Hg] Delmis Michael MD Work Phone: [facility] 10-14-2022 12:59-0400 Body temperature 97.39 [degF] Treatment Wstr Work Phone: [facility] 10-14-2022 12:59-0400 Diastolic blood pressure 60 mm[Hg] Treatment Wstr Work Phone: [facility] 10-14-2022 12:59-0400 Heart rate 59 /min Treatment Wstr Work Phone: [facility] 10-14-2022 12:59-0400 SaO2% (BldA) [Mass fraction] 98 % Treatment Wstr Work Phone: [facility] 10-14-2022 12:59-0400 Systolic blood pressure 124 mm[Hg] Treatment Wstr Work Phone: [facility] 10-07-2022 13:00-0400 Body temperature 97.5 [degF] Treatment Wstr Work Phone: [facility] 10-07-2022 13:00-0400 Diastolic blood pressure 51 mm[Hg] Treatment Wstr Work Phone: [facility] 10-07-2022 13:00-0400 Heart rate 54 /min Treatment Wstr Work Phone: [facility] 10-07-2022 13:00-0400 Systolic blood pressure 97 mm[Hg] Treatment Wstr Work Phone: [facility] 09-23-2022 13:00-0400 Body temperature 97.59 [degF] Treatment Wstr Work Phone: [facility] 09-23-2022 13:00-0400 Diastolic blood pressure 55 mm[Hg] Treatment Wstr Work Phone: [facility] 09-23-2022 13:00-0400 Heart rate 69 /min Treatment Wstr Work Phone: [facility] 09-23-2022 13:00-0400 Respiratory rate 16 /min Treatment Wstr Work Phone: [facility] 09-23-2022 13:00-0400 SaO2% (BldA) [Mass fraction] 94 % Treatment Wstr Work Phone: [facility] 09-23-2022 13:00-0400 Systolic blood pressure 106 mm[Hg] Treatment Wstr Work Phone: [facility] 06-02-2022 15:15-0500 Body temperature 97.7 [degF] Delmis Michael MD Work Phone: [facility] 06-02-2022 15:15-0500 Body weight 69.85 kg Delmis Michael MD Work Phone: [facility] 06-02-2022 15:15-0500 Diastolic blood pressure 64 mm[Hg] Delmis Michael MD Work Phone: [facility] 06-02-2022 15:15-0500 Heart rate 65 /min Delmis Michael MD Work Phone: [facility] 06-02-2022 15:15-0500 Respiratory rate 18 /min Delmis Michael MD Work Phone: [facility] 06-02-2022 15:15-0500 SaO2% (BldA) [Mass fraction] 97 % Delmis Michael MD Work Phone: [facility] 06-02-2022 15:15-0500 Systolic blood pressure 130 mm[Hg] Delmis Michael MD Work Phone: [facility] 04-16-2022 16:11-0500 Body temperature 98.71 [degF] Zoran Lira APRN.AD TERMINAL MAKEUP OPERATOR Work Phone: [facility] 04-16-2022 16:11-0500 Body weight 69.4 kg Zoran Lira APRN.AD TERMINAL MAKEUP OPERATOR Work Phone: [facility] 04-16-2022 16:11-0500 Diastolic blood pressure 56 mm[Hg] Zoran Lira CONTINUOUS TOWEL ROLLER.AD TERMINAL MAKEUP OPERATOR Work Phone: [facility] 04-16-2022 16:11-0500 Heart rate 86 /min Zoran Lira CONTINUOUS TOWEL ROLLER.AD TERMINAL MAKEUP OPERATOR Work Phone: [facility] 04-16-2022 16:11-0500 Respiratory rate 16 /min Zoran Lira CONTINUOUS TOWEL ROLLER.AD TERMINAL MAKEUP OPERATOR Work Phone: [facility] 04-16-2022 16:11-0500 SaO2% (BldA) [Mass fraction] 95 % Zoran Lira CONTINUOUS TOWEL ROLLER.AD TERMINAL MAKEUP OPERATOR Work Phone: [facility] 04-16-2022 16:11-0500 Systolic blood pressure 112 mm[Hg] Zoran Lira CONTINUOUS TOWEL ROLLER.AD TERMINAL MAKEUP OPERATOR Work Phone: [facility] 03-18-2022 14:35-0500 Body weight 69.4 kg Delmis Michael MD Work Phone: [facility] 03-18-2022 14:35-0500 Diastolic blood pressure 72 mm[Hg] Delmis Michael MD Work Phone: [facility] 03-18-2022 14:35-0500 Heart rate 62 /min Delmis Michael MD Work Phone: [facility] 03-18-2022 14:35-0500 SaO2% (BldA) [Mass fraction] 98 % Delmis Michael MD Work Phone: [facility] 03-18-2022 14:35-0500 Systolic blood pressure 114 mm[Hg] Delmis Michael MD Work Phone: [facility] 11-08-2021 12:24-0400 Body temperature 98.06 [degF] GWEN ARRIAZA DO [facility] 11-08-2021 12:24-0400 Diastolic Blood Pressure NBP 82 1 GWEN ARRIAZA DO [facility] 11-08-2021 12:24-0400 Heart rate 74 /min GWEN ARRIAZA DO [facility] 11-08-2021 12:24-0400 Respiratory rate 16 /min GWEN ARRIAZA DO [facility] 11-08-2021 12:24-0400 Systolic Blood Pressure NBP 158 1 GWEN ARRIAZA DO [facility] 11-08-2021 06:59-0400 Body temperature 98.42 [degF] GWEN ARRIAZA DO [facility] 11-08-2021 06:59-0400 Diastolic Blood Pressure NBP 82 1 GWEN ARRIAZA DO [facility] 11-08-2021 06:59-0400 Heart rate 71 /min GWEN ARRIAZA DO [facility] 11-08-2021 06:59-0400 Respiratory rate 16 /min GWEN ARRIAZA DO [facility] 11-08-2021 06:59-0400 Systolic Blood Pressure NBP 158 1 GWEN ARRIAZA DO [facility] 11-08-2021 04:03-0400 Body temperature 98.06 [degF] GWEN ARRIAZA DO [facility] 11-08-2021 04:03-0400 Diastolic Blood Pressure NBP 71 1 GWEN ARRIAZA DO [facility] 11-08-2021 04:03-0400 Heart rate 73 /min GWEN ARRIAZA DO [facility] 11-08-2021 04:03-0400 Respiratory rate 16 /min GWEN ARRIAZA DO [facility] 11-08-2021 04:03-0400 Systolic Blood Pressure NBP 141 1 GWEN ARRIAZA DO [facility] 11-07-2021 15:44-0400 Body height 160 cm GWEN ARRIAZA DO [facility] 11-07-2021 15:44-0400 Body weight 72.7 kg GWEN ARRIAZA DO [facility] 11-07-2021 15:44-0400 Body weight 28.4 kg/m2 GWEN ARRIAZA DO [facility] 11-07-2021 13:41-0400 Body temperature 96.98 [degF] GWEN ARRIAZA DO [facility] 11-07-2021 13:25-0400 Body temperature 97.25 [degF] GWEN ARRIAZA DO [facility] 11-07-2021 13:20-0400 Body temperature 97.23 [degF] GWEN ARRIAZA DO [facility] 11-07-2021 13:15-0400 Body temperature 97.25 [degF] GWEN ARRIAZA DO [facility] 11-07-2021 08:43-0400 Body height 160 cm GWEN ARRIAZA DO [facility] 11-07-2021 08:43-0400 Body temperature 96.98 [degF] GWEN ARRIAZA DO [facility] 11-07-2021 08:43-0400 Body weight 72.7 kg GWEN ARRIAZA DO [facility] 11-07-2021 08:43-0400 Heart rate 60 /min GWEN ARRIAZA DO [facility] 10-23-2021 09:26-0400 Body height 160 cm GWEN ARRIAZA DO [facility] 10-23-2021 09:26-0400 Body weight 72.7 kg GWEN ARRIAZA DO [facility] 10-23-2021 09:26-0400 Body weight 28.4 kg/m2 GWEN ARRIAZA DO [facility] 10-23-2021 09:26-0400 Heart rate 55 /min GWEN ARRIAZA DO [facility] 10-23-2021 09:26-0400 Respiratory rate 20 /min GWEN ARRIAZA DO [facility] 09-17-2021 15:05-0400 Diastolic blood pressure 72 mm[Hg] Delmis Michael MD Work Phone: [facility] 09-17-2021 15:05-0400 Systolic blood pressure 148 mm[Hg] Delmis Michael MD Work Phone: [facility] 09-17-2021 14:15-0400 Body weight 73.94 kg Delmis Michael MD Work Phone: [facility] 09-17-2021 14:15-0400 Heart rate 50 /min Delmis Michael MD Work Phone: [facility] 09-17-2021 14:15-0400 SaO2% (BldA) [Mass fraction] 94 % Delmis Michael MD Work Phone: [facility] NEGATED: Highlighted [id number] 14:55-0400 BMI (Body Mass Index) 27.72 kg/m2 [facility] Work Phone: NEGATED: Highlighted [id number] 14:55-0400 Body weight 68.49 kg [facility] Work Phone: NEGATED: Highlighted [id number] 14:55-0400 Body weight 69 kg [facility] Work Phone: NEGATED: Highlighted [id number] 14:55-0400 BP Diastolic 0 mm[Hg] [facility] Work Phone: NEGATED: Highlighted [id number] 14:55-0400 BP Systolic 0 mm[Hg] [facility] Work Phone: NEGATED: Highlighted [id number] 14:55-0400 Heart rate 2+ [facility] Work Phone: NEGATED: Highlighted [id number] 14:55-0400 Height 157.48 cm [facility] Work Phone: NEGATED: Highlighted [id number] 14:55-0400 Height 157 cm [facility] Work Phone: NEGATED: Highlighted [id number] 14:55-0400 Pulse (Heart Rate) 0 /min [facility] Work Phone: Encounters Encounter Date Encounter Type Care Provider Facility Start: 04-28-2023 End: 04-28-2023 ambulatory ASAD CARROLL Facility:[facility] Start: 03-17-2023 Refill Delmis alejandro MD Work Phone: [facility] [place] Procedures Date Procedure Procedure Detail Performing Clinician Start: 12-29-2022 INFLUENZA VACCINE, P RSV FREE, AGE 65+ YR, HIGH DOSE, QUADRIVALENT (FLUZONE HIGH-DOSE) Delmis Michael MD Work Phone: Start: 10-29-2022 Urnls dip stick/tabl et rgnt auto w/o microscopy Delmis Michael MD Work Phone: Start: 09-23-2022 Blood count complete auto&auto difrntl wbc Sandra Cabrales CONTINUOUS TOWEL ROLLER.[employer]ATE [employer]PARER Work Phone: Start: 06-11-2022 Non-invas physiologi c std extremity art 2 level Delmis Michael MD Work Phone: Start: 04-16-2022 COVID WITH FLUA+B, ROUTINE Zoran Lira CONTINUOUS TOWEL ROLLER.AD TERMINAL MAKEUP OPERATOR Work Phone: Start: 04-08-2022 Blood occult fecal h gb deter ia qual feces 1-3 Delmis Michael MD Work Phone: Start: 08-19-2020 Adult depression scr eening assessment Delmis Michael MD Work Phone: Start: 09-22-2019 End: 09-22-2019 Blood pressure within normal parameters - no follow-up required Brandy Causey CONTIN[employer]OUS [employer]OWEL [employer]ER-AD TERMINAL MAKEUP OPERATOR Work Phone: Start: 09-22-2019 End: 09-22-2019 BMI documented as above normal parameters - follow-up documented Brandy Causey CONTINUOUS TOWEL ROLLER-AD TERMINAL MAKEUP OPERATOR Work Phone: Start: 09-22-2019 End: 09-22-2019 Doc fx & test/txmnt for op Brandy barreto CONTINUOUS TOWEL ROLLER-AD TERMINAL MAKEUP OPERATOR Work Phone: Start: 09-22-2019 End: 09-22-2019 Documentation of current medications Brandy Causey CONTINUOUS TOWEL ROLLER-AD TERMINAL MAKEUP OPERATOR Work Phone: Start: 09-22-2019 End: 09-22-2019 Pain assessment documented as positive - follow-up documented Brandy Cauesy CONTINUOUS TOWEL ROLLER-AD TERMINAL MAKEUP OPERATOR Work Phone: Start: 09-22-2019 End: 09-22-2019 Tobacco non-user Brandy Causey CONTINUOUS TOWEL ROLLER-AD TERMINAL MAKEUP OPERATOR Work Phone: Back structure, excl uding neck (body structure) GWEN ARRIAZA DO Plan of Treatment Date Care Activity Detail Author Start: 12-29-2025 Diabetes Screening Diabetes Screenin g [facility] Start: 06-23-2025 DIABETES SCREEN DIABETES SCREEN [facility] Start: 01-22-2024 DIABETES SCREEN DIABETES SCREEN [facility] Start: 06-02-2023 COVID-19 VACCINE (5 - Booster for Moderna series) COVID-19 VACCINE (5 - Booster for Moderna series) [facility] Immunizations Immunization Date Immunization Notes Care Provider Fa cility 12-29-2022 influenza (HD-IIV4) vaccine, age 65+ yr, high dose, quadrivalent, PF (FLUZONE HIGH-DOSE) Delmis Michael MD Work Phone: [facility] 01-31-2022 influenza, seasonal, injectable Delmis Michael MD Work Phone: [facility] 05-01-2021 COVID-19 original vaccine, full dose, monovalent (MODERNA) Delmis Michael MD Work Phone: [facility] 03-30-2021 SARS-CoV-2 (COVID-19 ) mRNA-[id number] vaccine GWEN ARRIAZA DO [facility] 06-07-2020 COVID-19 vaccine, fu ll dose (MODERNA) Delmis Michael MD Work Phone: [facility] Work Phone: 05-11-2020 COVID-19 vaccine, fu ll dose (MODERNA) Delmis Michael MD Work Phone: [facility] Work Phone: Payers Date Payer Category Payer Medicare MMO MEDICARE M[employer] PPO [id number] 2018-Present [phone] [address] [place] [address] PPO [id number] 2018 Medicare MMO MEDICARE MMO [employer] PPO [id number] 2018-Present [phone] [address] [place] [address] PPO [id number] 2018 Unknown [id number] 1940 Unknown [id number] Unknown Social History Date Type Detail Facility Start: 09-22-2019 End: 09-22-2019 Assertion Unknown if ever smoked [facility] Work Phone: Start: 02-01-2015 End: 10-23-2021 Tobacco smoking status NHIS Never smoked tobacco [facility] Start: 02-01-2015 Tobacco use and exposure Smokeless tobacco non-user [facility] Start: 09-17-2021 End: 10-29-2022 Alcohol intake Current non-drinker of alcohol (finding) [facility] Start: 09-13-2021 History SDOH Alcohol Frequency 1 [facility] Start: 08-20-2020 History SDOH Alcohol Std Drinks 98 [facility] Start: 09-13-2021 History SDOH Social Connections Phone 5 [facility] Start: 09-13-2021 History SDOH Social Connections Meetings 3 [facility] Start: 09-13-2021 History SDOH Physical Activity DPW 0 [facility] Start: 09-13-2021 History SDOH Stress 2 [facility] Start: 08-19-2020 Education 15 [facility] Start: 1940 Sex Assigned At Not on file [facility] Start: 09-07-2021 End: 03-18-2022 Exposure to SARS-CoV-2 (event) Not sure [facility] Sex Assigned At Female [facility] Start: 09-13-2021 End: 09-11-2022 History of Social function [facility] Start: 09-13-2021 End: 09-11-2022 Social connection and isolation panel [facility] Do you belong to any clubs or organizations such as temple groups, unions, fraternal or athletic groups, or school groups? Yes [facility] Are you now , , , , never or living with a partner? [facility] How often to you hav e a drink containing alcohol? Never [facility] Average Number of Drinks Not on file [facility] Do you feel stress - tense, restless, nervous, or anxious, or unable to sleep at night because your mind is troubled all the time - these days [OSQ] Only a little [facility] (I/We) worried wheth er (my/our) food would run out before (I/we) got money to buy more. Never true [facility] In the past 12 month s, was there a time when you were not able to pay the mortgage or rent on time? No [facility] Functional Status Date Assessment Result Facility 11-08-2021 Functional Status Room check performed [facility] 11-08-2021 Functional Status [facility] 11-08-2021 Functional Status Single level home [facility] 11-08-2021 Functional Status [facility] 11-08-2021 Functional Status [facility] 11-07-2021 Functional Status bilateral knee high [facility] 11-07-2021 Functional Status Dinner Percent 20 [facility] 11-07-2021 Functional Status [facility] 11-07-2021 Functional Status [facility] 11-07-2021 Functional Status ice on [facility] 11-07-2021 Functional Status Maintained [facility] 10-23-2021 Functional Status Sensory Deficits None A [facility] Mental Status Date Assessment Result Facility 11-08-2021 Mental Status Oriented x 4 [facility] 11-08-2021 Mental Status Orientation Oriented x 4 [facility] 11-07-2021 Mental Status [facility] 11-07-2021 Mental Status [facility] Clinical Notes 03-19-2015 to 04-28-2023 Telephone Encounter - Dena Saez DAVIE - 03/17/2023 11:41 AM Delmis Smith MD - 12/29/2022 10:35 AM EDT Note Date & Type Note Facility 04-28-2023 Note HNO ID: [id number] Author: ASAD HODGES APRN.AD TERMINAL MAKEUP OPERATOR Service: ? Author Type: Nurse Practitioner Type: Progress Notes Filed: 04/28/2023 14:49 Note Text: SUBJECTIVE Marsha Cabrales is a 82 year old female here today for acute concern. Chief Complaint Patient presents with: Cough: started around 04/13/2023. dry non-productive cough. sore throat Eye Problem: eye drainage started about 3 days ago Abdominal Pain: left side abdominal pain. denies constipation. Has had a hx of an ulcer HPI Marsha Cabrales is a 82 year old female. Established patient of Delmis Michael MD. Here today acutely due to not feeling well. Accompanied by her . Household has been dealing with sickness, and son had colds recently. Onset around arsen but last few days symptoms are worse. Left ear has pain, head hurts. Took tylenol in the night. Not coughing much. Some lower left abdominal discomfort. Appetite is not so great. No constipation, no diarrhea. Her medications were reviewed today and her list is now up to date. Medications Current Outpatient Medications Medication Sig pantoprazole DR (PROTONIX) 40 mg tablet Take 1 tablet by mouth two times a day. (since 05/24 to 05/28 hospitalization; Friend) lisinopril (ZESTRIL) 10 mg tablet Take 1 tablet by mouth once daily. potassium citrate 99 mg cap Take 1 capsule by mouth once daily. traMADol (ULTRAM) 50 mg tablet Take by mouth. VITAMIN C 500 mg tablet Take 500 mg by mouth twice daily. atorvastatin (LIPITOR) 20 mg tablet Take 1 tablet by mouth daily at bedtime. For cholesterol. allopurinol (ZYLOPRIM) 100 mg tablet Take 100 mg by mouth once daily. colchicine 0.6 mg tablet every other day. methotrexate 2.5 mg tablet Take 2.5 mg by mouth four times a week. 4 tablets once weekly folic acid 1 mg tablet Take 2 mg by mouth once daily. acetaminophen (TYLENOL) 325 mg tablet Take 650 mg by mouth every 6 hours as needed. CALCIUM ORAL Take by mouth. pregabalin (LYRICA) 50 mg capsule Take 100 mg by mouth three times daily. Cholecalciferol, Vitamin D3, 1,000 unit cap Take 2 capsules by mouth once daily. (covered with insurance, OTC) amoxicillin-clavulanate potassium (AUGMENTIN) 875-125 mg per tablet Take 1 tablet by mouth two times a day for 10 days. fluticasone (FLONASE) 50 mcg/actuation nasal spray Use 1 [place] in each nostril once daily. iron sucrose (VENOFER) 200 mg in NaCl 0.9% 100 mL Inject 200 mg intravenously once daily. Infuse per infusion center protocol, to give a total of 4 doses over 14 days. Dispense 4 doses/fill. (Patient not taking: Reported on 04/28/2023) ferrous sulfate 325 mg (65 mg iron) tablet DAILY (Patient not taking: Reported on 12/29/2022) ondansetron (ZOFRAN) 4 mg tablet Take 1 tablet by mouth every 8 hours as needed for nausea/vomiting. HYDROcodone-acetaminophen (NORCO) 5-325 mg per tablet Take 1 tablet by mouth every 8 hours as needed. (Patient not taking: Reported on 09/17/2021) Alpha Lipoic Acid 200 mg tab Taking 1 pill a day. OTC. (Patient not taking: Reported on 04/28/2023) predniSONE (DELTASONE) 10 mg tablet Take 10 mg by mouth once daily as needed. As needed. COMPOUNDED PRESCRIPTION Lab order: Uric acid level. fasting lipids, Vitamin D 25-OH M10.09, E78.00, E55.9, E79.0 No current facility-administered medications for this visit. ALLERGIES Allergen Reactions Iron Intolerance diarrhea Sulfa Drugs [Sulfa * Vomiting ACTIVE PROBLEM LIST Rheumatoid Arthritis, Involving Unspecified Site, Unspecified Whether Rheumatoid Factor Present ([facility]) - 09/12/2022 Angina Pectoris ([facility]) - 09/12/2022 Iron Deficiency Anemia Due to Dietary Causes - 09/12/2022 Stage 3a Chronic Kidney Disease ([facility]) - 09/20/2021 Rash--scalp - 09/20/2021 Comment: psoriasis versus seborrheic dermatitis with scaly white rash of scalp Atypical Chest Pain - 09/10/2020 Peripheral Vascular Disease (Hcc) - 08/26/2018 Hyperparathyroidism , Secondary, Non-Renal (Hcc) - 08/26/2018 Comment: Resolved with replacement of Vitamin D Pain in Left Hip - 04/09/2017 Polyosteoarthritis, Unspecified - 03/10/2017 Hyperuricemia - 12/17/2016 Tibialis Anterior Tendon Tear, Nontraumatic - 03/19/2015 Vitamin D Deficiency - 01/22/2012 Other Disorders of Bone and Cartilage(733.99) - 11/07/2010 Enthesopathy of Unspecified Site - 11/07/2010 Other Hammer Toe (Acquired) - 08/03/2009 Hallux Valgus (Acquired) - 08/03/2009 Gout - 12/11/2008 Comment: Past history of 2 episodes, years apart Pain in Joint, Pelvic Region and Thigh - 09/15/2007 Pain in Joint, Lower Leg - 09/15/2007 Osteoporosis Comment: Fosamax 70 weekly, some mild heartburn - started 08/2005 Migraine Headache Without Aura Comment: 03/28 -No headaches since starting nortriptyline, many years since last h/a Essential Hypertension - 01/29/2005 Comment: Cartia and maxide. Consider substituting the maxide due to gout, but she will like to continue since only 2 episodes. (more content not included)... [facility] 03-17-2023 Miscellaneous Notes Patient has been identified by name and date of : Yes Patient phones for refill(s): Requested Prescriptions Pending Prescriptions Disp Refills pantoprazole DR (PROTONIX) 40 mg tablet Sig: Take 1 tablet by mouth two times a day. (since 05/24 to 05/28 hospitalization; Friend) Date of last office visit in primary care: 12/29/2022 Date of next office visit in primary care: 06/29/2023 Last 2 Encounter Wt Readings: Date: Wt: 10/29/2022 67.6 kg (149 lb) 09/11/2022 69.4 kg (153 lb) Previous labs/tests for medication: Not applicable Please advise. Thank you. Dena Saez LPN. documented in this encounter [facility] 12-29-2022 Note HNO ID: [id number] Author: Delmis Michael MD Service: ? Author Type: Physician Type: Progress Notes Filed: 12/29/2022 12:58 PM Note Text: This note was created using [employer]. Subjective Marsha Cabrales is a 82 year old female. Patient presents with: F/U 3 Month SUBJECTIVE: Marsha Cabrales is a 82 year old year old lady here today for 3 month follow up appointment for review of medical conditions. Doing well overall. No problems with UTI symptoms coming back. Occasionally needed to take some prednisone for arthritis, like in left ankle recently. Depression Screening 01/27/2019 08/19/2020 03/18/2022 12/29/2022 PHQ-2 Score 0 2 0 1 TIKI-2 Total Score - - - - TIKI-7 Total Score - - - - Depression screening tool completed and reviewed. Based on score and interview, patient is not at risk for depression. Screening tool discussed with patient, and I recommended no further intervention at this time. PAST MEDICAL HISTORY Diagnosis Date Diarrhea Diverticulosis of colon (without mention of hemorrhage) Generalized osteoarthrosis, unspecified site Gout Has had 3 episodes (wrists, elbow and ankle) HTN (hypertension) Migraine without aura Osteoporosis Osteoporosis, unspecified Pure hypercholesterolemia Unspecified essential hypertension Unspecified vitamin D deficiency 02/01/2007 Current Outpatient Medications Medication Sig iron sucrose (VENOFER) 200 mg in NaCl 0.9% 100 mL Inject 200 mg intravenously once daily. Infuse per infusion center protocol, to give a total of 4 doses over 14 days. Dispense 4 doses/fill. traMADol (ULTRAM) 50 mg tablet Take by mouth. VITAMIN C 500 mg tablet Take 500 mg by mouth twice daily. apixaban (ELIQUIS) 2.5 mg tab(s) Take 1 tablet by mouth twice daily. pantoprazole DR (PROTONIX) 40 mg tablet Take 1 tablet by mouth twice daily. (since 05/24 to 05/28 hospitalization; Friend) ondansetron (ZOFRAN) 4 mg tablet Take 1 tablet by mouth every 8 hours as needed for nausea/vomiting. atorvastatin (LIPITOR) 20 mg tablet Take 1 tablet by mouth daily at bedtime. For cholesterol. allopurinol (ZYLOPRIM) 100 mg tablet Take 100 mg by mouth once daily. colchicine 0.6 mg tablet every other day. methotrexate 2.5 mg tablet Take 2.5 mg by mouth four times a week. 4 tablets once weekly folic acid 1 mg tablet Take 2 mg by mouth once daily. acetaminophen (TYLENOL) 325 mg tablet Take 650 mg by mouth every 6 hours as needed. CALCIUM ORAL Take by mouth. pregabalin (LYRICA) 50 mg capsule Take 100 mg by mouth three times daily. Cholecalciferol, Vitamin D3, 1,000 unit cap Take 2 capsules by mouth once daily. (covered with insurance, OTC) Alpha Lipoic Acid 200 mg tab Taking 1 pill a day. OTC. predniSONE (DELTASONE) 10 mg tablet Take 10 mg by mouth once daily as needed. As needed. COMPOUNDED PRESCRIPTION Lab order: Uric acid level. fasting lipids, Vitamin D 25-OH M10.09, E78.00, E55.9, E79.0 lisinopril (ZESTRIL) 10 mg tablet Take 1 tablet by mouth once daily. potassium citrate 99 mg cap Take 1 capsule by mouth once daily. predniSONE (DELTASONE) 10 mg tablet Take 4 tabs daily x 3 days, then 3 tabs x 3 days, 2 tabs x 3 days, then 1 tab x3 days with food. ferrous sulfate 325 mg (65 mg iron) tablet DAILY (Patient not taking: Reported on 12/29/2022) HYDROcodone-acetaminophen (NORCO) 5-325 mg per tablet Take 1 tablet by mouth every 8 hours as needed. (Patient not taking: Reported on 09/17/2021) No current facility-administered medications for this visit. Review of Systems Objective BP (P) 109/69 Pulse (P) 68 Temp (P) 36.5 ?C (97.7 ?F) Resp (P) 18 Wt (P) 68 kg (149 lb 14.4 oz) SpO2 (P) 97% BMI (P) 26.55 kg/m? Last 5 Encounter Wt Readings: Date: Wt: 10/29/2022 67.6 kg (149 lb) 09/11/2022 69.4 kg (153 lb) 06/02/2022 69.9 kg (154 lb) 04/16/2022 69.4 kg (153 lb) 03/18/2022 69.4 kg (153 lb) No waist measurement recorded Estimated body mass index is 26.55 kg/m? (pended) as calculated from the following: Height as of 01/09/20: 160 cm (5' 3 ). Weight as of this encounter: (P) 68 kg (149 lb 14.4 oz). Last 5 Encounter BP Readings: Date: BP: 10/29/2022 144/82 10/14/2022 124/60 10/07/2022 97/51 09/30/2022 129/60 09/23/2022 106/55 Physical Exam Constitutional: Appearance: Normal appearance. HENT: Head: Normocephalic. Eyes: Conjunctiva/sclera: Conjunctivae normal. Cardiovascular: Rate and Rhythm: Normal rate and regular rhythm. Heart sounds: Normal heart sounds. Pulmonary: Effort: Pulmonary effort is normal. Breath sounds: Normal breath sounds. Musculoskeletal: Right lower leg: No edema. Left lower leg: No edema. Skin: General: Skin is warm and dry. Neurological: General: No focal deficit present. Mental Status: She is alert and oriented to person, place, and time. Psychiatric: Mood and Affect: Mood normal. Behavior: Behavior normal. Thought Content: Thought content normal. Judgment: Judgment no (more content not included)... [facility] 12-29-2022 History of Present illness Narrative This note was created using [employer]. Subjective Marsha Cabrales is a 82 year old female. Patient presents with: F/U 3 Month SUBJECTIVE: Marsha Cabrales is a 82 year old year old lady here today for 3 month follow up appointment for review of medical conditions. Doing well overall. No problems with UTI symptoms coming back. Occasionally needed to take some prednisone for arthritis, like in left ankle recently. Depression Screening 01/27/2019 08/19/2020 03/18/2022 12/29/2022 PHQ-2 Score 0 2 0 1 TIKI-2 Total Score - - - - TIKI-7 Total Score - - - - Depression screening tool completed and reviewed. Based on score and interview, patient is not at risk for depression. Screening tool discussed with patient, and I recommended no further intervention at this time. PAST MEDICAL HISTORY Diagnosis Date Diarrhea Diverticulosis of colon (without mention of hemorrhage) Generalized osteoarthrosis, unspecified site Gout Has had 3 episodes (wrists, elbow and ankle) HTN (hypertension) Migraine without aura Osteoporosis Osteoporosis, unspecified Pure hypercholesterolemia Unspecified essential hypertension Unspecified vitamin D deficiency 02/01/2007 Current Outpatient Medications Medication Sig iron sucrose (VENOFER) 200 mg in NaCl 0.9% 100 mL Inject 200 mg intravenously once daily. Infuse per infusion center protocol, to give a total of 4 doses over 14 days. Dispense 4 doses/fill. traMADol (ULTRAM) 50 mg tablet Take by mouth. VITAMIN C 500 mg tablet Take 500 mg by mouth twice daily. apixaban (ELIQUIS) 2.5 mg tab(s) Take 1 tablet by mouth twice daily. pantoprazole DR (PROTONIX) 40 mg tablet Take 1 tablet by mouth twice daily. (since 05/24 to 05/28 hospitalization; Friend) ondansetron (ZOFRAN) 4 mg tablet Take 1 tablet by mouth every 8 hours as needed for nausea/vomiting. atorvastatin (LIPITOR) 20 mg tablet Take 1 tablet by mouth daily at bedtime. For cholesterol. allopurinol (ZYLOPRIM) 100 mg tablet Take 100 mg by mouth once daily. colchicine 0.6 mg tablet every other day. methotrexate 2.5 mg tablet Take 2.5 mg by mouth four times a week. 4 tablets once weekly folic acid 1 mg tablet Take 2 mg by mouth once daily. acetaminophen (TYLENOL) 325 mg tablet Take 650 mg by mouth every 6 hours as needed. CALCIUM ORAL Take by mouth. pregabalin (LYRICA) 50 mg capsule Take 100 mg by mouth three times daily. Cholecalciferol, Vitamin D3, 1,000 unit cap Take 2 capsules by mouth once daily. (covered with insurance, OTC) Alpha Lipoic Acid 200 mg tab Taking 1 pill a day. OTC. predniSONE (DELTASONE) 10 mg tablet Take 10 mg by mouth once daily as needed. As needed. COMPOUNDED PRESCRIPTION Lab order: Uric acid level. fasting lipids, Vitamin D 25-OH M10.09, E78.00, E55.9, E79.0 lisinopril (ZESTRIL) 10 mg tablet Take 1 tablet by mouth once daily. potassium citrate 99 mg cap Take 1 capsule by mouth once daily. predniSONE (DELTASONE) 10 mg tablet Take 4 tabs daily x 3 days, then 3 tabs x 3 days, 2 tabs x 3 days, then 1 tab x3 days with food. ferrous sulfate 325 mg (65 mg iron) tablet DAILY (Patient not taking: Reported on 12/29/2022) HYDROcodone-acetaminophen (NORCO) 5-325 mg per tablet Take 1 tablet by mouth every 8 hours as needed. (Patient not taking: Reported on 09/17/2021) No current facility-administered medications for this visit. Review of Systems Objective BP (P) 109/69 Pulse (P) 68 Temp (P) 36.5 C (97.7 F) Resp (P) 18 Wt (P) 68 kg (149 lb 14.4 oz) SpO2 (P) 97% BMI (P) 26.55 kg/m Last 5 Encounter Wt Readings: Date: Wt: 10/29/2022 67.6 kg (149 lb) 09/11/2022 69.4 kg (153 lb) 06/02/2022 69.9 kg (154 lb) 04/16/2022 69.4 kg (153 lb) 03/18/2022 69.4 kg (153 lb) No waist measurement recorded Estimated body mass index is 26.55 kg/m (pended) as calculated from the following: Height as of 01/09/20: 160 cm (5' 3 ). Weight as of this encounter: (P) 68 kg (149 lb 14.4 oz). Last 5 Encounter BP Readings: Date: BP: 10/29/2022 144/82 10/14/2022 124/60 10/07/2022 97/51 09/30/2022 129/60 09/23/2022 106/55 Physical Exam Constitutional: Appearance: Normal appearance. HENT: Head: Normocephalic. Eyes: Conjunctiva/sclera: Conjunctivae normal. Cardiovascular: Rate and Rhythm: Normal rate and regular rhythm. Heart sounds: Normal heart sounds. Pulmonary: Effort: Pulmonary effort is normal. Breath sounds: Normal breath sounds. Musculoskeletal: Right lower leg: No edema. Left lower leg: No edema. Skin: General: Skin is warm and dry. Neurological: General: No focal deficit present. Mental Status: She is alert and oriented to person, place, and time. Psychiatric: Mood and Affect: Mood normal. Behavior: Behavior normal. Thought Content: Thought content normal. Judgment: Judgment normal. Assessment and Plan Encounter Diagnosis ICD-10-CM 1. Essential hypertension I10 lisinopril (ZESTRIL) 10 mg tablet COMP METABOLIC PANEL Not needing as much medication as before.BP still controlled.Follow up on labs 2. Stage 3a chronic kidney disease (HCC) N18.31 COMP METABOLIC PANEL Encouraged to stay hydrated; daughter states that patient probably not drinking enough water routinely. See how labs are today. 3. Pure hypercholesterolemia E78.00 LIPID PANEL BASIC 4. Vitamin D deficiency E55.9 VITAMIN D 25 HYDROXY 5. Hyperuricemia E79.0 URIC ACID BLOOD Update lab. Adjust allopurinol as needed 6. Anemia, unspecified type D64.9 Has standing order for labs to draw today with labs ordered today 7. Gout, unspecified cause, unspecified chronicity, unspecified site M10.9 predniSONE (DELTASONE) 10 mg tablet 8. Rheumatoid arthritis, involving unspecified site, unspecified whether rheumatoid factor present ([facility]) M06.9 predniSONE (DELTASONE) 10 mg tablet 9. Acute left-sided low back pain with left-sided sciatica M54.42 predniSONE (DELTASONE) 10 mg tablet No acute sciatica symptoms today but prednisone RX can be used for as needed use instead of full tapering schedule as discussed 10. Encounter for immunization Z23 INFLUENZA VACCINE, PRSV FREE, AGE 65+ YR, HIGH DOSE, QUADRIVALENT (FLUZONE HIGH-DOSE) 11. Encounter for long-term current use of medication Z79.899 COMP METABOLIC PANEL Above issues addressed with patient. Patient involved in shared decision making for management of medical issues. History and medications reviewed. Epic updated as needed Refills and/or prescriptions taken care of and meds adjusted as indicated after reviewed history, exam and labs. Health Maintenance reviewed. Updated record and/or ordered tests as recorded. Encouraged on efforts at healthy diet and regular exercise and adequate sleep. Noted patient prefers 6 month follow ups. Told her daughter and her that can be seen sooner if needed. Labs on way out. Noted not much of a breakfast person so still fasting at time of appointment. Adjust meds as indicated. Delmis Michael MD documented in this encounter [facility] documented in this encounter [facility]07-12-2023 NoteHNO ID: [id number] Author: Talampas, Delmis D, MD Service: ? Author Type: Physician Type: Progress Notes Filed: 11/30/2022 10:10 PM Note Text: This note was created using [employer]. Subjective Marsha Cabrales is a 82 year old female. Patient presents with: Same Day Appointment: X 1 week possible UTI symptoms SUBJECTIVE: Marsha Cabrales is a 82 year old year old lady here today for appointment for review of medical conditions. Started having issues with UTI symptoms coming on. Started last week. Leaving for [place] this Thursday. Pain management appointment. Left sciatica and back pain and ankle pain. Given medrol dosepak. Started with diarrhea and not feeling well. Decreased appetite. Ankle did get better. Stomach ache. Left fingernails with onycholysis. PAST MEDICAL HISTORY Diagnosis Date Diarrhea Diverticulosis of colon (without mention of hemorrhage) Generalized osteoarthrosis, unspecified site Gout Has had 3 episodes (wrists, elbow and ankle) HTN (hypertension) Migraine without aura Osteoporosis Osteoporosis, unspecified Pure hypercholesterolemia Unspecified essential hypertension Unspecified vitamin D deficiency 02/01/2007 Current Outpatient Medications Medication Sig iron sucrose (VENOFER) 200 mg in NaCl 0.9% 100 mL Inject 200 mg intravenously once daily. Infuse per infusion center protocol, to give a total of 4 doses over 14 days. Dispense 4 doses/fill. traMADol (ULTRAM) 50 mg tablet Take by mouth. ferrous sulfate 325 mg (65 mg iron) tablet DAILY VITAMIN C 500 mg tablet Take 500 mg by mouth twice daily. apixaban (ELIQUIS) 2.5 mg tab(s) Take 1 tablet by mouth twice daily. triamterene-hydroCHLOROthiazide (MAXZIDE-25MG) 37.5-25 mg per tablet Take 1 tablet by mouth once daily. (Patient taking differently: Take 0.5 tablets by mouth once daily.) pantoprazole DR (PROTONIX) 40 mg tablet Take 1 tablet by mouth twice daily. (since 05/24 to 05/28 hospitalization; Dr. La) ondansetron (ZOFRAN) 4 mg tablet Take 1 tablet by mouth every 8 hours as needed for nausea/vomiting. potassium chloride (K-TAB) 10 mEq tablet Take 20 mEq by mouth once daily. atorvastatin (LIPITOR) 20 mg tablet Take 1 tablet by mouth daily at bedtime. For cholesterol. lisinopril (ZESTRIL, PRINIVIL) 10 mg tablet Take 1 tablet by mouth once daily. allopurinol (ZYLOPRIM) 100 mg tablet Take 100 mg by mouth once daily. colchicine 0.6 mg tablet every other day. methotrexate 2.5 mg tablet Take by mouth. 6 tablets once weekly folic acid 1 mg tablet Take 2 mg by mouth once daily. acetaminophen (TYLENOL) 325 mg tablet Take 650 mg by mouth every 6 hours as needed. CALCIUM ORAL Take by mouth. pregabalin (LYRICA) 50 mg capsule Take 100 mg by mouth three times daily. Cholecalciferol, Vitamin D3, 1,000 unit cap Take 2 capsules by mouth once daily. (covered with insurance, OTC) Alpha Lipoic Acid 200 mg tab Taking 1 pill a day. OTC. predniSONE (DELTASONE) 10 mg tablet Take 10 mg by mouth once daily as needed. As needed. COMPOUNDED PRESCRIPTION Lab order: Uric acid level. fasting lipids, Vitamin D 25-OH M10.09, E78.00, E55.9, E79.0 dilTIAZem CD (CARDIZEM CD, CARTIA XT) 120 mg 24 hr capsule Take 1 capsule by mouth once daily. (Patient not taking: Reported on 10/29/2022) aspirin, enteric coated (ASPIRIN, ENTERIC COATED) 81 mg EC tablet Take 1 tablet by mouth once daily. (Patient not taking: Reported on 06/02/2022) amitriptyline (ELAVIL) 10 mg tablet Take 10 mg by mouth daily at bedtime. (Patient not taking: Reported on 03/18/2022) oxyCODONE-acetaminophen (PERCOCET) 5-325 mg tablet 1/2-1 tablet as needed (Patient not taking: Reported on 06/02/2022) albuterol HFA (PROAIR HFA) 90 mcg/actuation inhaler Inhale 2 Puffs as instructed every 4 hours as needed. (Patient not taking: Reported on 06/02/2022) HYDROcodone-acetaminophen (NORCO) 5-325 mg per tablet Take 1 tablet by mouth every 8 hours as needed. (Patient not taking: No sig reported) No current facility-administered medications for this visit. Review of Systems Gastrointestinal: Positive for abdominal pain (Lower). Genitourinary: Positive for flank pain, frequency, pelvic pain and urgency. Negative for difficulty urinating, dysuria and hematuria. Objective BP 144/82 Pulse 104 Temp 37 ?C (98.6 ?F) Resp 8 Wt 67.6 kg (149 lb) SpO2 98% BMI 26.39 kg/m? Physical Exam Constitutional: Appearance: Normal appearance. HENT: Head: Normocephalic. Eyes: Conjunctiva/sclera: Conjunctivae normal. Cardiovascular: Rate and Rhythm: Normal rate and regular rhythm. Heart sounds: Normal heart sounds. Pulmonary: Effort: Pulmonary effort is normal. Breath sounds: Normal breath sounds. Abdominal: Tenderness: There is abdominal tenderness (Lower abdominal). There is left CVA tenderness (mild). There is no right CVA tenderness. Skin: General: Skin is warm and dry. Neurological: General: No focal deficit present. Mental Statu (more content not included)...[facility] Instructions* Patient Instructions* Delmis Michael MD - 10/29/2022 5:09 PM EDT UTI will probably be resolved with 7 days of antibioticb, ut given 14 days just in case since will be in [place]. [facility] History of Present illness Narrative* Delmis Michael MD - 10/29/2022 4:58 PM EDT This note was created using vogogo. Subjective Marsha Cabrales is a 82 year old female. Patient presents with: Same Day Appointment: X 1 week possible UTI symptoms SUBJECTIVE: Marsha Cabrales is a 82 year old year old lady here today for appointment for review of medical conditions. Started having issues with UTI symptoms coming on. Started last week. Leaving for [place] this Thursday. Pain management appointment. Left sciatica and back pain and ankle pain. Given medrol dosepak. Started with diarrhea and not feeling well. Decreased appetite. Ankle did get better. Stomach ache. Left fingernails with onycholysis. PAST MEDICAL HISTORY Diagnosis Date Diarrhea Diverticulosis of colon (without mention of hemorrhage) Generalized osteoarthrosis, unspecified site Gout Has had 3 episodes (wrists, elbow and ankle) HTN (hypertension) Migraine without aura Osteoporosis Osteoporosis, unspecified Pure hypercholesterolemia Unspecified essential hypertension Unspecified vitamin D deficiency 02/01/2007 Current Outpatient Medications Medication Sig iron sucrose (VENOFER) 200 mg in NaCl 0.9% 100 mL Inject 200 mg intravenously once daily. Infuse per infusion center protocol, to give a total of 4 doses over 14 days. Dispense 4 doses/fill. traMADol (ULTRAM) 50 mg tablet Take by mouth. ferrous sulfate 325 mg (65 mg iron) tablet DAILY VITAMIN C 500 mg tablet Take 500 mg by mouth twice daily. apixaban (ELIQUIS) 2.5 mg tab(s) Take 1 tablet by mouth twice daily. triamterene-hydroCHLOROthiazide (MAXZIDE-25MG) 37.5-25 mg per tablet Take 1 tablet by mouth once daily. (Patient taking differently: Take 0.5 tablets by mouth once daily.) pantoprazole DR (PROTONIX) 40 mg tablet Take 1 tablet by mouth twice daily. (since 05/24 to 05/28 hospitalization; Dr. La) ondansetron (ZOFRAN) 4 mg tablet Take 1 tablet by mouth every 8 hours as needed for nausea/vomiting. potassium chloride (K-TAB) 10 mEq tablet Take 20 mEq by mouth once daily. atorvastatin (LIPITOR) 20 mg tablet Take 1 tablet by mouth daily at bedtime. For cholesterol. lisinopril (ZESTRIL, PRINIVIL) 10 mg tablet Take 1 tablet by mouth once daily. allopurinol (ZYLOPRIM) 100 mg tablet Take 100 mg by mouth once daily. colchicine 0.6 mg tablet every other day. methotrexate 2.5 mg tablet Take by mouth. 6 tablets once weekly folic acid 1 mg tablet Take 2 mg by mouth once daily. acetaminophen (TYLENOL) 325 mg tablet Take 650 mg by mouth every 6 hours as needed. CALCIUM ORAL Take by mouth. pregabalin (LYRICA) 50 mg capsule Take 100 mg by mouth three times daily. Cholecalciferol, Vitamin D3, 1,000 unit cap Take 2 capsules by mouth once daily. (covered with insurance, OTC) Alpha Lipoic Acid 200 mg tab Taking 1 pill a day. OTC. predniSONE (DELTASONE) 10 mg tablet Take 10 mg by mouth once daily as needed. As needed. COMPOUNDED PRESCRIPTION Lab order: Uric acid level. fasting lipids, Vitamin D 25-OH M10.09, E78.00,E55.9, E79.0 dilTIAZem CD (CARDIZEM CD, CARTIA XT) 120 mg 24 hr capsule Take 1 capsule by mouth once daily. (Patient not taking: Reported on 10/29/2022) aspirin, enteric coated (ASPIRIN, ENTERIC COATED) 81 mg EC tablet Take 1 tablet by mouth once daily. (Patient not taking: Reported on 06/02/2022) amitriptyline (ELAVIL) 10 mg tablet Take 10 mg by mouth daily at bedtime. (Patient not taking: Reported on 03/18/2022) oxyCODONE-acetaminophen (PERCOCET) 5-325 mg tablet 1/2-1 tablet as needed (Patient not taking: Reported on 06/02/2022) albuterol HFA (PROAIR HFA) 90 mcg/actuation inhaler Inhale 2 Puffs as instructed every 4 hours as needed. (Patient not taking: Reported on 06/02/2022) HYDROcodone-acetaminophen (NORCO) 5-325 mg per tablet Take 1 tablet by mouth every 8 hours as needed. (Patient not taking: No sig reported) No current facility-administered medications for this visit. Review of Systems Gastrointestinal: Positive for abdominal pain (Lower). Genitourinary: Positive for flank pain, frequency, pelvic pain and urgency. Negative for difficultyurinating, dysuria and hematuria. Objective BP 144/82 Pulse 104 Temp 37 C (98.6 F) Resp 8 Wt 67.6 kg (149 lb) SpO2 98% BMI 26.39 kg/m Physical Exam Constitutional: Appearance: Normal appearance. HENT: Head: Normocephalic. Eyes: Conjunctiva/sclera: Conjunctivae normal. Cardiovascular: Rate and Rhythm: Normal rate and regular rhythm. Heart sounds: Normal heart sounds. Pulmonary: Effort: Pulmonary effort is normal. Breath sounds: Normal breath sounds. Abdominal: Tenderness: There is abdominal tenderness (Lower abdominal). There is left CVA tenderness (mild). There is no right CVA tenderness. Skin: General: Skin is warm and dry. Neurological: General: No focal deficit present. Mental Status: She is alert and oriented to person, place, and time. Psychiatric: Behavior: Behavior normal. Thought Content: Thought content normal. Judgment: Judgment normal. Assessment and Plan Encounter Diagnosis ICD-10-CM 1. Nausea R11.0 UA DIP, URINE (POC) URINE CULTURE ciprofloxacin HCl (CIPRO) 500 mg tablet 2. Lower abdominal pain R10.30 UA DIP, URINE (POC) URINE CULTURE ciprofloxacin HCl (CIPRO) 500 mg tablet 3. Foul smelling urine R82.90 UA DIP, URINE (POC) URINE CULTURE ciprofloxacin HCl (CIPRO) 500 mg tablet 4. Acute left-sided low back pain with left-sided sciatica M54.42 predniSONE (DELTASONE) 10 mg tablet Above issues addressed with patient. Patient involved in shared decision making for management of medical issues. History and medications reviewed. Epic updated as needed Refills and/or prescriptions taken care of and meds adjusted as indicated after reviewed history, exam and labs. Health Maintenance reviewed. Updated record and/or ordered tests as recorded. Encouraged on efforts at healthy diet and regular exercise and adequate sleep. Delmis Michael MD documented [facility] NoteHNO ID: [id number] Author: Judith Steele RN Service: ? Author Type: Registered Nurse Type: Progress Notes Filed: 09/23/2022 2:32 PM Note Text: 30 min post observation completed, no infusion reactions noted. Pt states she feel normal.[facility] History of Present illness Narrative* Judith Steele RN - 09/23/2022 2:30 PM EDT 30 min post observation completed, no infusion reactions noted. Pt states she feel normal. documented in [facility] encounter[facility]06-[facility]-2023 Miscellaneous Notes* Telephone Encounter - Tariq Louie - 09/22/2022 1:56 PM EDT This is a 1st-time treatment report for this patient. The patient is being seen for a [id number]-[id number] diagnosis of Iron Deficiency from Anemia. This is a Non-Oncology regimen. The drug being used is Venofer. There is no assistance available for insured patients. No Financial Navigator assessmentis needed at this time. documented in this encounter[facility]05-25-2023 NoteHNO ID: [id number] Author: Sandra Cabrales APRN.[employer] Service: ? Author Type: Nurse Specialist Type: Progress Notes Filed: 09/12/2022 8:37 AM Note Text: SUBJECTIVE: DEPRESSION ASSESSMENT Never done HPI Marsha Cabrales is a 82 year old female. PMH significant for ACTIVE PROBLEM LIST Essential Hypertension Diverticulosis of Colon (Without Mention of Hemorrhage) Unspecified Hemorrhoids Without Mention of Complication Pure Hypercholesterolemia Generalized Osteoarthrosis, Unspecified Site Migraine Headache Without Aura Osteoporosis Pain in Joint, Pelvic Region and Thigh Pain in Joint, Lower Leg Gout Other Hammer Toe (Acquired) Hallux Valgus (Acquired) Other Disorders of Bone and Cartilage(733.99) Enthesopathy of Unspecified Site Vitamin D Deficiency Tibialis Anterior Tendon Tear, Nontraumatic Hyperuricemia Polyosteoarthritis, Unspecified Pain in Left Hip Peripheral Vascular Disease (Hcc) Hyperparathyroidism , Secondary, Non-Renal (Hcc) Atypical Chest Pain Stage 3a Chronic Kidney Disease (Hcc) Rash--scalp EGD May [address] [facility] [address] La for GIB. Erosive gastritis, ulcers treated during the EGD, hiatal hernia. Did not complete colonoscopy 05/2022 per chart review/cre everywhere. did not tolerate sucralfate Last colonoscopy was 2017. She presented for discharge follow-up visit. She was admitted to [facility] September 01 through September 04, 2022. She was admitted with chest pain and shortness of breath noted on September 01, 2022. Symptoms started the day prior. She noted pain was retrosternal nonradiating and felt like pressure. She reported taking baby aspirin but then vomited. She reported palpitations. She reported no prior history of heart disease or pulmonary embolus. No recent travel or prior history of blood clots. History of GI bleed in May 2022. Vitals showed BP of 97/54, respiratory rate 22. 91% SPO2. CBC showed anemia with hemoglobin of 9.1. WBCs at 12.5 platelets 256. D-dimer was 2.32. Chemistry significant for sodium of 139 potassium of 4.2. Creatinine at 1.54. BNP at 154.2. Chest x-ray findings consistent with COPD and no evidence of acute process. CTA of chest showed tiny subsegmental pulmonary embolism to the lingula with no other evidence of PE. Seen by cardiology for PAF, tachybradycardia syndrome with sinus pauses. Notes indicate she was treated with Cardizem bolus and digoxin for atrial fibrillation with RVR. She was treated with low-dose Eliquis 2.5 mg twice daily and advised to follow-up with cardiology as outpatient. Her dose of Maxide was decreased during admission due to decreased blood pressure. Chest x-ray 09/01/2022: Findings consistent with COPD Chest CTA 09/01/2022: Tiny subsegmental pulmonary embolism to the lingula no other evidence of PE. Pulmonary arterial hypertension noted. Subsegmental atelectasis or scarring both lungs. Venous duplex 09/01/2022: No evidence of DVT Echocardiogram 09/01/2022: Normal ejection fraction, no significant changes from prior echocardiogram. Medications at discharge folic acid 1 mg oral daily, methotrexate 2.5 mg tablet, 15 mg oral , allopurinol 100 mg oral daily, calcium carbonate 500 mg daily, pregabalin 100 mg oral 3 times daily, atorvastatin 20 mg oral daily, lisinopril 10 mg oral daily tramadol 50 mg 3 times daily as needed, potassium 99 mg oral jlnlj-wmil-qzx-counter check with primary doctor, apixaban 2.5 mg twice daily x30 days, colchicine 0.6 mg oral every other day, iron 325 mg oral daily pantoprazole 40 mg twice daily triamterene 37.5 mg-hydrochlorothiazide 25 mg tablet 0.5 tab oral Daily Presents with SO that helps with HPI. Today reports: feeling somewhat improved. Does feel tired/fatigued. Taking OAC, was given 3 month supply. Bleeding difficulties: none noted CP: left upper chest yesterday, none today SOBOE: yes at times but better. Palpitations: no current since discharge home Holter:no PPM: no Cardiology follow up: October [facility] States iron gives her diarrhea, was ordered QD but would like to take QOD. Interested in iron infusion if possible/needed.. Refilled diltiazem in July, but not on current medication list. Review of Systems Constitutional: Positive for fatigue. Respiratory: Positive for shortness of breath. Cardiovascular: Positive for chest pain. Objective BP 120/58 Pulse 69 Resp 16 Wt 69.4 kg (153 lb) SpO2 98% BMI 27.10 kg/m? Physical Exam Vitals and nursing note reviewed. Constitutional: Appearance: Normal appearance. HENT: Head: Normocephalic and atraumatic. Eyes: Conjunctiva/sclera: Conjunctivae normal. Neck: Thyroid: No thyromegaly. Vascular: Normal carotid pulses. No JVD. Cardiovascular: Rate and Rhythm: Normal rate and regular rhythm. Heart sounds: Normal heart sounds. Pulmonary: Effort: Pulmonary effort is normal. Breath sounds: Normal breath sounds. Abdominal: General: Bowel sound (more content not included)...[facility] 09-11-2022 Miscellaneous Notes* Result Encounter Note - Sandra Cabrales APRN.CNS - 09/11/2022 9:48 AM EDT PVR-noncompressible, therefore KATE not accurate documented in this encounterEast [facility]04-17-2023 Miscellaneous Notes* Telephone Encounter - Delmis Michael MD - 08/04/2022 7:45 PM EDT Okayed * Telephone Encounter - Isabel Jeronimo - 08/04/2022 3:37 PM EDT [facility] Patient has been identified by name and date of : Yes Patient aware RX will be sent to pharmacy. No need to notify patient. Patient phones for refill(s): Requested Prescriptions Pending Prescriptions Disp Refills triamterene-hydroCHLOROthiazide (MAXZIDE-25MG) 37.5-25 mg per tablet 90 tablet 3 Sig: Take 1 tablet by mouth once daily. Date of last office visit : 06/02/2022 Date of next office visit : 11/17/2022 Last 2 Encounter Wt Readings: Date: Wt: 06/02/2022 69.9 kg (154 lb) 04/16/2022 69.4 kg (153 lb) Please advise. Isabel Hopson Pss documented in this encounterEast [facility]02-13-2023 NoteHNO ID: [id number] Author: Delmis Michael MD Service: ? Author Type: Physician Type: Progress Notes Filed: 06/30/2022 12:34 AM Note Text: This note was created using [employer] Health [employer]. Subjective Marsha Cabrales is a 82 year old female. Patient presents with: Hospital F/U: [facility] discharge 05/28/2022 due to anemia SUBJECTIVE: Marsha Cabrales is a 82 year old year old lady here today for follow up appointment for review of medical conditions. Throws up after every time tried. Able to get pill down but seems like when hits her stomach, throws up. Cartia was held at the hospital. Hg was down to 7.5, attributed to GIB. Not on iron supplement. Has BP cuff at home BP up compared to when in hospital and was 100s to 110s at hospital. and sometimes up to 120s. At home got low to 80s over 40s like last Thursday. Thursday/55. Aspirin was held because of ulcers and gastritis seen on EGD. Has HCDPOA and LW--asked to drop off copy. HCDPOA is . Leg is more numb than used to be. Feels cold. Pain with walking that improves with resting. PAST MEDICAL HISTORY Diagnosis Date Diarrhea Diverticulosis of colon (without mention of hemorrhage) Generalized osteoarthrosis, unspecified site Gout Has had 3 episodes (wrists, elbow and ankle) HTN (hypertension) Migraine without aura Osteoporosis Osteoporosis, unspecified Pure hypercholesterolemia Unspecified essential hypertension Unspecified vitamin D deficiency 02/01/2007 Current Outpatient Medications Medication Sig dilTIAZem CD (CARDIZEM CD, CARTIA XT) 120 mg 24 hr capsule Take 1 capsule by mouth once daily. potassium chloride (K-TAB) 10 mEq tablet Take 20 mEq by mouth once daily. atorvastatin (LIPITOR) 20 mg tablet Take 1 tablet by mouth daily at bedtime. For cholesterol. lisinopril (ZESTRIL, PRINIVIL) 10 mg tablet Take 1 tablet by mouth once daily. allopurinol (ZYLOPRIM) 100 mg tablet Take 100 mg by mouth once daily. colchicine 0.6 mg tablet methotrexate 2.5 mg tablet Take by mouth. 6 tablets once weekly triamterene-hydroCHLOROthiazide (MAXZIDE-25MG) 37.5-25 mg per tablet Take 1 tablet by mouth once daily. folic acid 1 mg tablet Take 2 mg by mouth once daily. acetaminophen (TYLENOL) 325 mg tablet Take 650 mg by mouth every 6 hours as needed. CALCIUM ORAL Take by mouth. pregabalin (LYRICA) 50 mg capsule Take 100 mg by mouth three times daily. Cholecalciferol, Vitamin D3, 1,000 unit cap Take 2 capsules by mouth once daily. (covered with insurance, OTC) Alpha Lipoic Acid 200 mg tab Taking 1 pill a day. OTC. COMPOUNDED PRESCRIPTION Lab order: Uric acid level. fasting lipids, Vitamin D 25-OH M10.09, E78.00, E55.9, E79.[address] (PROTONIX) 40 mg tablet Take 1 tablet by mouth twice daily. (since 05/24 to 05/28 hospitalization; Dr. La) ondansetron (ZOFRAN) 4 mg tablet Take 1 tablet by mouth every 8 hours as needed for nausea/vomiting. aspirin, enteric coated (ASPIRIN, ENTERIC COATED) 81 mg EC tablet Take 1 tablet by mouth once daily. (Patient not taking: Reported on 06/02/2022) amitriptyline (ELAVIL) 10 mg tablet Take 10 mg by mouth daily at bedtime. (Patient not taking: No sig reported) oxyCODONE-acetaminophen (PERCOCET) 5-325 mg tablet 1/2-1 tablet as needed (Patient not taking: Reported on 06/02/2022) albuterol HFA (PROAIR HFA) 90 mcg/actuation inhaler Inhale 2 Puffs as instructed every 4 hours as needed. (Patient not taking: Reported on 06/02/2022) HYDROcodone-acetaminophen (NORCO) 5-325 mg per tablet Take 1 tablet by mouth every 8 hours as needed. (Patient not taking: No sig reported) predniSONE (DELTASONE) 10 mg tablet Take 1 tablet by mouth once daily as needed. As needed. (Patient not taking: Reported on 06/02/2022) No current facility-administered medications for this visit. Review of Systems Objective BP 130/64 Pulse 65 Temp 36.5 ?C (97.7 ?F) Resp 18 Wt 69.9 kg (154 lb) SpO2 97% BMI 27.28 kg/m? Last 5 Encounter Wt Readings: Date: Wt: 06/02/2022 69.9 kg (154 lb) 04/16/2022 69.4 kg (153 lb) 03/18/2022 69.4 kg (153 lb) 09/17/2021 73.9 kg (163 lb) 08/20/2020 70.8 kg (156 lb) No waist measurement recorded Estimated body mass index is 27.28 kg/m? as calculated from the following: Height as of 01/09/20: 160 cm (5' 3 ). Weight as of this encounter: 69.9 kg (154 lb). Last 5 Encounter BP Readings: Date: BP: 06/02/2022 130/64 04/16/2022 112/56 03/18/2022 114/72 09/17/2021 148/72 10/03/2020 144/80[Repeat BP[ Physical Exam Constitutional: Appearance: Normal appearance. HENT: Head: Normocephalic. Eyes: Conjunctiva/sclera: Conjunctivae normal. Cardiovascular: Rate and Rhythm: Normal rate and regular rhythm. Heart sounds: Normal heart sounds. Pulmonary: Effort: Pulmonary effort is normal. Breath sounds: Normal breath sounds. Abdominal: General: Abdomen is flat. Bowel sounds are normal. Palpations: Abdomen is soft. Skin: General: Skin is warm and dry. (more content not included)...[facility] Instructions* Patient Instructions* Delmis Michael MD - 06/02/2022 3:47 PM EST Discontinue sucralfate since cause vomiting every time tried to take it. Take iron supplement Thursday, Thursday and Thursday. If BP stays low under 90/50, may decrease lisinopril to half pill. documented in this encounterEast [facility]02-13-2023 History of Present illness Narrative* Delmis Michael MD - 06/02/2022 3:40 PM EST This note was created using NoteWriter. Subjective Marsha Cabrales is a 82 year old female. Patient presents with: Hospital F/U: [facility] discharge 05/28/2022 due to anemia SUBJECTIVE: Marsha Cabrales is a 82 year old year old lady here today for follow up appointment for review of medical conditions. Throws up after every time tried. Able to get pill down but seems like when hits her stomach, throws up. Cartia was held at the hospital. Hg was down to 7.5, attributed to GIB. Not on iron supplement. Has BP cuff at home BP up compared to when in hospital and was 100s to 110s at hospital. and sometimes up to 120s. At home got low to 80s over 40s like last Thursday. Thursday/. Aspirin was held because of ulcers and gastritis seen on EGD. Has HCDPOA and LW--asked to drop off copy. HCDPOA is . Leg is more numb than used to be. Feels cold. Pain with walking that improves with resting. PAST MEDICAL HISTORY Diagnosis Date Diarrhea Diverticulosis of colon (without mention of hemorrhage) Generalized osteoarthrosis, unspecified site Gout Has had 3 episodes (wrists, elbow and ankle) HTN (hypertension) Migraine without aura Osteoporosis Osteoporosis, unspecified Pure hypercholesterolemia Unspecified essential hypertension Unspecified vitamin D deficiency 02/01/2007 Current Outpatient Medications Medication Sig dilTIAZem CD (CARDIZEM CD, CARTIA XT) 120 mg 24 hr capsule Take 1 capsule by mouth once daily. potassium chloride (K-TAB) 10 mEq tablet Take 20 mEq by mouth once daily. atorvastatin (LIPITOR) 20 mg tablet Take 1 tablet by mouth daily at bedtime. For cholesterol. lisinopril (ZESTRIL, PRINIVIL) 10 mg tablet Take 1 tablet by mouth once daily. allopurinol (ZYLOPRIM) 100 mg tablet Take 100 mg by mouth once daily. colchicine 0.6 mg tablet methotrexate 2.5 mg tablet Take by mouth. 6 tablets once weekly triamterene-hydroCHLOROthiazide (MAXZIDE-25MG) 37.5-25 mg per tablet Take 1 tablet by mouth once daily. folic acid 1 mg tablet Take 2 mg by mouth once daily. acetaminophen (TYLENOL) 325 mg tablet Take 650 mg by mouth every 6 hours as needed. CALCIUM ORAL Take by mouth. pregabalin (LYRICA) 50 mg capsule Take 100 mg by mouth three times daily. Cholecalciferol, Vitamin D3, 1,000 unit cap Take 2 capsules by mouth once daily. (covered with insurance, OTC) Alpha Lipoic Acid 200 mg tab Taking 1 pill a day. OTC. COMPOUNDED PRESCRIPTION Lab order: Uric acid level. fasting lipids, Vitamin D 25-OH M10.09, E78.00,E55.9, E79.[address] (PROTONIX) 40 mg tablet Take 1 tablet by mouth twice daily. (since 05/24 to 05/28 hospitalization; Dr. La) ondansetron (ZOFRAN) 4 mg tablet Take 1 tablet by mouth every 8 hours as needed for nausea/vomiting. aspirin, enteric coated (ASPIRIN, ENTERIC COATED) 81 mg EC tablet Take 1 tablet by mouth once daily. (Patient not taking: Reported on 06/02/2022) amitriptyline (ELAVIL) 10 mg tablet Take 10 mg by mouth daily at bedtime. (Patient not taking: No sig reported) oxyCODONE-acetaminophen (PERCOCET) 5-325 mg tablet 1/2-1 tablet as needed (Patient not taking: Reported on 06/02/2022) albuterol HFA (PROAIR HFA) 90 mcg/actuation inhaler Inhale 2 Puffs as instructed every 4 hours as needed. (Patient not taking: Reported on 06/02/2022) HYDROcodone-acetaminophen (NORCO) 5-325 mg per tablet Take 1 tablet by mouth every 8 hours as needed. (Patient not taking: No sig reported) predniSONE (DELTASONE) 10 mg tablet Take 1 tablet by mouth once daily as needed. As needed. (Patient not taking: Reported on 06/02/2022) No current facility-administered medications for this visit. Review of Systems Objective BP 130/64 Pulse 65 Temp 36.5 C (97.7 F) Resp 18 Wt 69.9 kg (154 lb) SpO2 97% BMI 27.28 kg/m Last 5 Encounter Wt Readings: Date: Wt: 06/02/2022 69.9 kg (154 lb) 04/16/2022 69.4 kg (153 lb) 03/18/2022 69.4 kg (153 lb) 09/17/2021 73.9 kg (163 lb) 08/20/2020 70.8 kg (156 lb) No waist measurement recorded Estimated body mass index is 27.28 kg/m as calculated from the following: Height as of 9/21/20: 160 cm (5' 3 ). Weight as of this encounter: 69.9 kg (154 lb). Last 5 Encounter BP Readings: Date: BP: 06/02/2022 130/64 04/16/2022 112/56 03/18/2022 114/72 09/17/2021 148/72 10/03/2020 144/80[Repeat BP[ Physical Exam Constitutional: Appearance: Normal appearance. HENT: Head: Normocephalic. Eyes: Conjunctiva/sclera: Conjunctivae normal. Cardiovascular: Rate and Rhythm: Normal rate and regular rhythm. Heart sounds: Normal heart sounds. Pulmonary: Effort: Pulmonary effort is normal. Breath sounds: Normal breath sounds. Abdominal: General: Abdomen is flat. Bowel sounds are normal. Palpations: Abdomen is soft. Skin: General: Skin is warm and dry. Neurological: General: No focal deficit present. Mental Status: She is alert and oriented to person, place, and time. Psychiatric: Mood and Affect: Mood normal. Behavior: Behavior normal. Thought Content: Thought content normal. Judgment: Judgment normal. Hospital labs reviewed. Assessment and Plan Encounter Diagnosis ICD-10-CM 1. Iron deficiency anemia, unspecified iron deficiency anemia type D50.9 CBC IRON + TIBC VITAMIN B12 BLOOD FOLATE SERUM FERRITIN BLD 2. Chronic gastric ulcer, unspecified whether gastric ulcer hemorrhage or perforation present K25.7 EGD done May by Dr. La. Treated. Cannot tolerate sucralfate. Will forward this progress note to them 3. Acute renal insufficiency N28.9 BASIC METABOLIC PNL 4. Esophageal dysphagia R13.[address] (PROTONIX) 40 mg tablet 5. Encounter for long-term current use of medication Z79.899 BASIC METABOLIC PNL 6. Esophagitis determined by endoscopy K20.90 7. Essential hypertension I10 BP running low still. 8. 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 Decreased pulses in feet R09.89 [facility] 10. Hiatal hernia K44.9 Large Above issues addressed with patient. Patient involved in shared decision making for management of medical issues. History and medications reviewed. Epic updated as needed Refills and/or prescriptions taken care of and meds adjusted as indicated after reviewed history, exam and labs. Health Maintenance reviewed. Updated record and/or ordered tests as recorded. Encouraged on efforts at healthy diet and regular exercise and adequate sleep. Had to stop the carafate due to causing vomiting after each dose. Will let Dr. Friend know (faxing this note) so they can contact her to decide on other medication options plus schedule follow up since had ulcer and visible vessel that needed cauterized. Also has large hiatal hernia and dysphagia. Soft foods and low residual foods as discussed. Labs in a couple weeks. I spent a total of 49 minutes on the date of the service which included gbyn-um-aekr patient care, completing clinical documentation, performing a medically appropriate examination, counseling and educating the patient/family/caregiver, and ordering medications, tests, or procedures. Delmis Michael MD documented [facility] Miscellaneous Notes* Telephone Encounter - Carlene Pineda LPN - 05/26/2022 4:36 PM EST Patient did go to [facility] ER, information printed to have PCP review. Carlene Pineda LPN * Telephone Encounter - Delmis Michael MD - 05/24/2022 5:44 PM EST Noted. Make sure went to ED and gets follow up as needed * Telephone Encounter - Margot Vasquez RN - 05/24/2022 10:48 AM EST Patient call in for dizziness since yesterday. Patient states that she is walking sideways. Patientstates that she was sick a few days ago and was unable to eat or drink. Nurse Triage assessment completed with protocol recommending for disposition of Go to ED now. Care advice reviewed with patient, patient stated understanding. Reason for Disposition [1] Drinking very little AND [2] dehydration suspected (e.g., no urine > 12 hours, very dry mouth, very lightheaded) Answer Assessment - Initial Assessment Questions 1. DESCRIPTION: Patient states that when she gets up to walk she goes sideways 2. LIGHTHEADED: Woozy when she stands. 3. VERTIGO: Denies 4. SEVERITY: Moderate, patient states that she almost fell last night but got walker 5. ONSET: Yesterday 6. AGGRAVATING FACTORS: Standing makes it worse when she starts to walk 7. HEART RATE: Heart rate 54 8. CAUSE: Blood pressure 9. RECURRENT SYMPTOM: Denies 10. OTHER SYMPTOMS: Stricture in throat, things get caught in throat. Protocols used: Dizziness - [id number] documented in this encounterEast [facility]01-25-2023 Miscellaneous Notes* Telephone Encounter - Payton Armijo LPN - 05/14/2022 9:59 AM EST Patient has been identified by name and date of : Yes, Provider Dr. Michael Date 05/14/22 Time9:59 am Patient phones for refill(s): Requested Prescriptions Pending Prescriptions Disp Refills dilTIAZem CD (CARDIZEM CD, CARTIA XT) 120 mg 24 hr capsule 90 capsule 3 Sig: Take 1 capsule by mouth once daily. Date of last office visit in primary care: 03/18/22 next apt 11/17/22 Last 2 Encounter Wt Readings: Date: Wt: 04/16/2022 69.4 kg (153 lb) 03/18/2022 69.4 kg (153 lb) Previous labs/tests for medication: Blood Pressure: BUN (mg/dL) Date Value 01/21/2021 21 Sodium (mmol/L) Date Value 01/21/2021 136 Last 1 Encounter BP Readings: Date: BP: 04/16/2022 112/56 Please advise. Aleksander BRODERICK documented in this encounterEast [facility]12-29-2022 Miscellaneous Notes* Telephone Encounter - Candida Armijo LPN - 04/17/2022 1:22 PM EST Phone call placed patient advised (see prior provider encounter) Patient reported Dr. Michael sent Rx txt to [facility] pharmacy, verbalized understanding, agreed withplan of care. Candida Armijo LPN * Telephone Encounter - Carolynn Andrade Ma - 04/17/2022 9:48 AM EST Left message for patient to call office back Carolynn Andrade Ma * Telephone Encounter - Carolynn Andrade Ma - 04/17/2022 9:48 AM EST ----- Message from Tomasa Colon PA-C sent at 04/17/2022 9:27 AM EST ----- Please call patient and let them know the info below. Also please help her schedule with pcp to discuss oral antivirals. You tested positive for COVID-19. Follow the CDC guidelines for isolation: 1. Everyone, regardless of vaccination status, should stay home for 5 days. 2. If you have no symptoms or your symptoms are resolving after 5 days, you can leave your house. 3. Continue to wear a mask around others for 5 additional days. If you have a fever, continue to stay home until your fever resolves, even if it is longer than 5 days. You may be eligible for additional treatments for COVID-19. Please call our office as soon as possible to schedule a virtual visit to discuss your eligibility for antiviral or monoclonal antibody therapy. Please monitor your symptoms, and for any worrisome symptoms, call your primary care provider or schedule a visit with [employer]. A test is not recommended to return to work/school when meeting the above criteria. Tomasa Colon PA-C documented in this encounterEast [facility]12-29-2022 History of Present illness Narrative* Jeny Vicente APRN.AD TERMINAL MAKEUP OPERATOR - 04/17/2022 1:00 PM EST INPATIENT TELEPHONE VISIT PROGRESS NOTE SERVICE DATE: 04/17/2022 SERVICE TIME: [id number] Marsha Cabrales has consented to this telephone encounter. Persons Present: patient Chief Complaint/Reason: Positive Covid test HPI: Patient presents for positive Covid test. Patient reports that PCP was contacted for symptoms and Covid test was ordered yesterday. Patient advised to schedule telephone visit with provider for discussion regarding oral antivirals. Patient reports symptoms started 04/15/2022. Patient reports being exposed to Covid over arsen. Denies fever, chills, shortness of breath, chest pain. Reports fatigue, cough, body aches. ASSESSMENT/PLAN: 1. COVID-19 - ICD9: 079.89, ICD10: U07.1 - MOLNUPIRAVIR 200 MG CAPSULE (EUA) -Discussed with patient red flag symptoms and that if she were to develop shortness of breath or chest pain she should go to the ER for evaluation. I spent 11-20 minutes minutes providing this service. The patient or patient s front office representative consented to this telephone encounter. I reviewed all pertinent data. SIGNATURE: Jeny Vicente APRN.AD TERMINAL MAKEUP OPERATOR PATIENT NAME: Marsha Cabrales DATE: April 17, 2022 TIME: 12:45 PM Molnupiravir Eligibility and Patient Discussion [facility] Formulary Restriction Criteria: Adult outpatients 18 years and older with ALL of the following: [x] Patient has positive SARS-COV-2 viral test (PCR or antigen test) during current illness [x] Patient has symptoms for 5 days or less [x] Not requiring hospitalization at any time for management of COVID-19 [x] Not requiring supplemental oxygen or a change in baseline supplemental oxygen [x] Not utilized for pre-exposure or post-exposure prophylaxis for prevention of COVID-19 [x] Patient is not or lactating [x] Meeting at least one of the criteria for high risk of progression to severe COVID-19: [x] Age over 65 years [] Cancer [] Chronic kidney disease [] Chronic liver disease [] Chronic lung diseases, including cystic fibrosis [] Dementia or other neurological conditions [] Diabetes (type 1 or type 2) [] Disabilities, including Down syndrome and neurodevelopmental disorders [x] Heart conditions [] HIV infection [x] Immunocompromised state [] Mental health conditions [] Medical related technological dependence (tracheostomy, gastrostomy, or positive pressure ventilation (not related to COVID) [] Overweight and obesity (BMI greater or equal to 25 for adults) [] Physical inactivity [] Sickle cell disease or thalassemia [] Smoking, current or former [] Solid organ or blood stem cell transplant [] Stroke or cerebrovascular disease [] Substance use disorders [] Tuberculosis [] People from racial and ethnic minority groups Criteria above are met: Yes Date of Positive Test:04/16/22 Date of Symptom Onset: 04/15/22 Patient received COVID vaccine: Yes / status reviewed: Females: [x] Patient is not currently and there is no possibility the patient could be (select one of the following): [x] test does not need to be confirmed in patients who have undergone permanent sterilization, are currently using an intrauterine system or contraceptive implant, or in whom is not possible. [] Patients not meeting conditions above: assess whether the patient is based on the firstday of the last menstrual period in individuals who have regular menstrual cycles, is using reliable method of contraception correctly and consistently or have had a negative test [] A test is recommended if the individual has irregular menstrual cycles, is unsure of the first day of the last menstrual period or is not using effective contraception correctly and consistently [] Patient is not currently . is not recommended during treatment and for four days after final dose of molnupiravir. [] Females have been advised to use a reliable method of contraception correctly and consistently for the duration of treatment and for four days after the last dose of molnupiravir Males: [] Sexually active male with partner(s) of childbearing potential has been advised to use a reliable method of contraception correctly and consistently for intercourse for the duration of treatment and for three months after the last dose of molnupiravir I have discussed the use of the investigational therapeutic, molnupiravir, for the treatment of mild to moderate COVID-19 and its use under Emergency Use Authorization with the patient. The patient was informed that molnupiravir is not an FDA approved drug and that it is authorized for use under this Emergency Use Authorization. The patient was also informed of the significant knownbenefits and potential risks of molnupiravir, and the extent to which such potential risks and benefits are unknown. The patient was informed that there is mandatory reporting of all medication errors and serious adverse events potentially related to molnupiravir treatment within 7 calendar days from the onset of the event and that events up to 28 days after completion of therapy need to be reported. The discussion included alternatives to receiving molnupiravir, including clinical trials, and potential the risks and benefits of those alternatives. The patient was provided electronically withthe Fact Sheet for Patients, Parents and Caregivers . The patient was also instructed that in addition to the treatment with molnupiravir, he/she should continue to self-isolate and use infection control measures (e.g., wear mask, isolate, social distance, avoid sharing personal items, clean and disinfect high touch surfaces, and frequent handwashing) according to CDC guidelines. The patient stated understanding and gave verbal consent to proceeding with molnupiravir treatment. Jeny Vicente APRN.CNP April 17, 2022 12:49 PM documented in this encounterEast [facility]12-29-2022 Instructions* Patient Instructions* Jeny Vicente APRN.CNP - 04/17/2022 12:58 PM EST Fact Sheet for Patients And Caregivers Emergency Use Authorization (EUA) Of Molnupiravir For Coronavirus Disease 2019 (COVID-19) What is the most important information I should know about molnupiravir? Molnupiravir may cause serious side effects, including: Molnupiravir may cause harm to your unborn baby. It is not known if molnupiravir will harm your baby if you take molnupiravir during . Molnupiravir is not recommended for use in . Molnupiravir has not been studied in . Molnupiravir was studied in animals only. When molnupiravir was given to animals, molnupiravir caused harm to their unborn babies. You and your healthcare provider may decide that you should take molnupiravir during if there are no other COVID-19 treatment options authorized by the FDA that are accessible or clinicallyappropriate for you. If you and your healthcare provider decide that you should take molnupiravir during , you and your healthcare provider should discuss the known and potential benefits and the potential risksof taking molnupiravir during . For individuals who are able to become : You should use a reliable method of control (contraception) consistently and correctly duringtreatment with molnupiravir and for 4 days after the last dose of molnupiravir. Talk to your healthcare provider about reliable control methods. Before starting treatment with molnupiravir your healthcare provider may do a test to seeif you are before starting treatment with molnupiravir. Tell your healthcare provider right away if you become or think you may be duringtreatment with molnupiravir. Surveillance Program: There is a surveillance program for individuals who take molnupiravir during . The purpose of this program is to collect information about the health of you and your baby. Talk to your healthcare provider about how to take part in this program. If you take molnupiravir during and you agree to participate in the surveillance program and allow your healthcare provider to share your information with [employer],then your healthcare provider will report your use of molnupiravir during to [employer]. by calling or Pregnancyreporting[employer]. For individuals who are sexually active with partners who are able to become : It is not known if molnupiravir can affect sperm. While the risk is regarded as low, animal studies to fully assess the potential for molnupiravir to affect the babies of males treated with molnupiravir have not been completed. A reliable method of control (contraception) should be used consistently and correctly during treatment with molnupiravir and for at least 3 months after thelast dose. The risk to sperm beyond 3 months is not known. Studies to understand the risk to sperm beyond 3 months are ongoing. Talk to your healthcare provider about reliable control methods. Talk to your healthcare provider if you have questions or concerns about how molnupiravir may affectsperm. You are being given this fact sheet because your healthcare provider believes it is necessary to provide you with molnupiravir for the treatment of adults with yaoj-qx-lpewbwlk coronavirus disease 2019 (COVID-19) with positive results of direct SARS-CoV-2 viral testing, and who are at high risk forprogressing to severe COVID-19 including hospitalization or , and for whom other COVID-19 treatment options authorized by the FDA are not accessible or clinically appropriate. The U.S. Food and Drug Administration (FDA) has issued an Emergency Use Authorization (EUA) to makemolnupiravir available during the COVID-19 pandemic (for more details about an EUA please see What is an Emergency Use Authorization? at the end of this document). Molnupiravir is not an FDA-approved medicine in the [place]. Read this Fact Sheet for information about molnupiravir. Talk to your healthcare provider about your options if you have any questions. It is your choice to take molnupiravir. What is COVID-19? COVID-19 is caused by a virus called a coronavirus. You can get COVID-19 through close contact withanother person who has the virus. COVID-19 illnesses have ranged from very pgkx-ml-mdvrcr, including illness resulting in . While information so far suggests that most COVID-19 illness is mild, serious illness can happen and maycause some of your other medical conditions to become worse. Older people and people of all ages with severe, long lasting (chronic) medical conditions like heart disease, lung disease and diabetes, for example seem to be at higher risk of being hospitalized for COVID-19. What is molnupiravir? Molnupiravir is an investigational medicine used to treat wnlp-js-jfaiyamg COVID-19 in adults: with positive results of direct SARS-CoV-2 viral testing, and who are at high risk for progressing to severe COVID-19 including hospitalization or , and for whom other COVID-19 treatment optionsauthorized by the FDA are not accessible or clinically appropriate. The FDA has authorized the emergency use of molnupiravir for the treatment of mild-tomoderate COVID-19 in adults under an EUA. For more information on EUA, see the What is an Emergency Use Authorization (EUA)? section at the end of this Fact Sheet. Molnupiravir is not authorized: for use in people less than 18 years of age. for prevention of COVID-19. for people needing hospitalization for COVID-19. for use for longer than 5 consecutive days. What should I tell my healthcare provider before I take molnupiravir? Tell your healthcare provider if you: Have any allergies Are or plan to breastfeed Have any serious illnesses Are taking any medicines (prescription, igep-mhx-sfsrskd, vitamins, or herbal products). How do I take molnupiravir? Take molnupiravir exactly as your healthcare provider tells you to take it. Take 4 capsules of molnupiravir every 12 hours (for example, at 8 am and at 8 pm) Take molnupiravir for 5 days. It is important that you complete the full 5 days of treatment with molnupiravir. Do not stop taking molnupiravir before you complete the full 5 days of treatment, even if you feel better. Take molnupiravir with or without food. You should stay in isolation for as long as your healthcare provider tells you to. Talk to your healthcare provider if you are not sure about how to properly isolate while you have COVID-19. Swallow molnupiravir capsules whole. Do not open, break, or crush the capsules. If you cannot swallow capsules whole, tell your healthcare provider. What to do if you miss a dose: If it has been less than 10 hours since the missed dose, take it as soon as you remember If it has been more than 10 hours since the missed dose, skip the missed dose and take your dose atthe next scheduled time. Do not double the dose of molnupiravir to make up for a missed dose. What are the important possible side effects of molnupiravir? Possible side effects of molnupiravir are: See, What is the most important information I should know about molnupiravir? diarrhea nausea dizziness These are not all the possible side effects of molnupiravir. Not many people have taken molnupiravir. Serious and unexpected side effects may happen. This medicine is still being studied,so it is possible that all of the risks are not known at this time. What other treatment choices are there? Like molnupiravir, FDA may allow for the emergency use of other medicines to treat people with COVID-19. Go to https://www.fda.gov/ddhakporc-euwpuuxlmhkl-vgu-response/lts-ljspvsdccbtpahb-jcd- policy-framework/ixluoqdkm-inl-aijinxwyxhzzg for more information. It is your choice to be treated or not to be treated with molnupiravir. Should you decide not to take it, it will not change your standard medical care. What if I am ? is not recommended during treatment with molnupiravir and for 4 days after the last dose of molnupiravir. If you are or plan to breastfeed, talk to your healthcare provider about your options and specific situation before taking molnupiravir. How do I report side effects with molnupiravir? Contact your healthcare provider if you have any side effects that bother you or do not go away. Report side effects to FDA MedWatch at www.fda.gov/medwatch or call 7-701-IIP-3653 ( ). How should I store molnupiravir? Store molnupiravir capsules at room temperature between 68 F to 77 F (20 C to 25 C). Keep molnupiravir and all medicines out of the reach of children and pets. How can I learn more about COVID-19? Ask your healthcare provider. Visit www.cdc.gov/COVID19 Contact your local or state public health department. Call [employer] at (toll free in the [place] Visit www.[employer] What Is an Emergency Use Authorization (EUA)? The [place] FDA has made molnupiravir available under an emergency access mechanism called an Emergency Use Authorization (EUA) The EUA is supported by a [place] of Health and Human Service (HHS) declaration that circumstances exist to justify emergency use of drugs and biological products during the COVID-19 pandemic. Molnupiravir for the treatment of qubz-ux-jcrozpcj COVID-19 in adults with positive results of direct SARS-CoV-2 viral testing, who are at high risk for progression to severe COVID-19, including hospitalization or , and for whom alternative COVID-19 treatment options authorized by FDA are not accessible or clinically appropriate, has not undergone the same type of review as an FDA- approved product. In issuing an EUA under the COVID-19 public health emergency, the FDA has determined, among other things, that based on the total amount of scientific evidence available including data from adequate and well-controlled clinical trials, if available, it is reasonable to believe that the product may be effective for diagnosing, treating, or preventing COVID-19, or a serious or life-threatening disease or condition caused by COVID19; that the known and potential benefits of the product, when used to diagnose, treat, or prevent such disease or condition, outweigh the known and potential risks of such product; and that there are no adequate, approved, and available alternatives. All of these criteria must be met to allow for the product to be used in the treatment of patients during the COVID-19 pandemic. The EUA for molnupiravir is in effect for the duration of the COVID-19declaration justifying emergency use of molnupiravir, unless terminated or revoked (after which molnupiravir may no longer be used under the EUA). For patent information: www.[employer]/research/patent Copyright 2020 [employer] [place] and its affiliates. All rights reserved. [id number] Issued: 04/11/2021 [facility] History of Present illness Narrative* Zoran Lira APRN.KATERYNA - 04/16/2022 4:56 PM EST Subjective HPI HPI Marsha Cabrales is a 81 year old female who presents today for CC of cough, body aches, congestion. This started 1 day ago. Has tried nothing for relief. Symptoms are worsened by nothing. Risk factors covid exposure at home. .Patient presents with: Cough: bodyaches and congestion x 1 day PAST MEDICAL HISTORY Diagnosis Date Diarrhea Diverticulosis of colon (without mention of hemorrhage) Generalized osteoarthrosis, unspecified site Gout Has had 3 episodes (wrists, elbow and ankle) HTN (hypertension) Migraine without aura Osteoporosis Osteoporosis, unspecified Pure hypercholesterolemia Unspecified essential hypertension Unspecified vitamin D deficiency 02/01/2007 PAST SURGICAL HISTORY Procedure Laterality Date ARTHROSCOPY KNEE DIAGNOSTIC W/WO SYNOVIAL BX SPX Arthroscopy, knee BIOPSY BREAST OPEN INCISIONAL 1970s Dr. Ahuja BUNIONECTOMY, LAPIDUS-TYPE 2009 COLONOSCOPY 09/18 COLONOSCOPY W/BIOPSY SINGLE/MULTIPLE 05/10/09 Diverticulosis-per repeat in CORRECTION OF BUNION Left FOOT SURGERY HX Left HYSTERECTOMY HX KNEE SURGERY HX Left VAGINAL HYSTERECTOMY UTERUS 250 GM/< Hysterectomy, vaginal ALLERGIES Sulfa Drugs [Sulfa (Sulfonamide Antibiotics)] MEDICATIONS potassium chloride (K-TAB) 10 mEq tablet Take 20 mEq by mouth once daily. atorvastatin (LIPITOR) 20 mg tablet Take 1 tablet by mouth daily at bedtime. For cholesterol. lisinopril (ZESTRIL, PRINIVIL) 10 mg tablet Take 1 tablet by mouth once daily. aspirin, enteric coated (ASPIRIN, ENTERIC COATED) 81 mg EC tablet Take 1 tablet by mouth once daily. allopurinol (ZYLOPRIM) 100 mg tablet Take 100 mg by mouth once daily. colchicine 0.6 mg tablet methotrexate 2.5 mg tablet Take by mouth. 6 tablets once weekly dilTIAZem CD (CARDIZEM CD, CARTIA XT) 120 mg 24 hr capsule Take 1 capsule by mouth once daily. triamterene-hydroCHLOROthiazide (MAXZIDE-25MG) 37.5-25 mg per tablet Take 1 tablet by mouth once daily. folic acid 1 mg tablet Take 2 mg by mouth once daily. acetaminophen (TYLENOL) 325 mg tablet Take 650 mg by mouth every 6 hours as needed. CALCIUM ORAL Take by mouth. oxyCODONE-acetaminophen (PERCOCET) 5-325 mg tablet 1/2-1 tablet as needed pantoprazole DR (PROTONIX) 40 mg tablet albuterol HFA (PROAIR HFA) 90 mcg/actuation inhaler Inhale 2 Puffs as instructed every 4 hours as needed. pregabalin (LYRICA) 50 mg capsule Take 100 mg by mouth three times daily. Cholecalciferol, Vitamin D3, 1,000 unit cap Take 2 capsules by mouth once daily. (covered with insurance, OTC) COMPOUNDED PRESCRIPTION Lab order: Uric acid level. fasting lipids, Vitamin D 25-OH M10.09, E78.00,E55.9, E79.0 amitriptyline (ELAVIL) 10 mg tablet Take 10 mg by mouth daily at bedtime. (Patient not taking: Reported on 03/18/2022) HYDROcodone-acetaminophen (NORCO) 5-325 mg per tablet Take 1 tablet by mouth every 8 hours as needed. (Patient not taking: Reported on 09/17/2021) Alpha Lipoic Acid 200 mg tab Taking 1 pill a day. OTC. (Patient not taking: Reported on 08/20/2020 ) hydroxychloroquine (PLAQUENIL) 200 mg tablet Take 1 tablet by mouth twice daily. (Patient not taking: Reported on 03/18/2022) predniSONE (DELTASONE) 10 mg tablet Take 1 tablet by mouth once daily as needed. As needed. FAMILY HISTORY Problem Relation Age of Onset Diabetes Mother Hypertension Mother Colon Cancer Father Cancer Brother lymphoma Alzheimer's Disease Sister other (Sarcoid [Other]) Sister other (Brain Tumor [Other]) Brother started in spine and went to brain Breast Cancer Sister Same sister who has sarcoid Social History Tobacco Use Smoking status: Never Smokeless tobacco: Never Substance Use Topics Alcohol use: No Drug use: No Review of Systems Constitutional: Negative for fever. HENT: Positive for congestion. Negative for ear pain, nosebleeds and sore throat. Respiratory: Positive for cough. Negative for shortness of breath and wheezing. Cardiovascular: Negative for chest pain. Gastrointestinal: Negative for vomiting. Musculoskeletal: Negative for neck pain. Skin: Negative for itching and rash. Neurological: Negative for headaches. Objective Blood pressure 112/56, pulse 86, temperature 37.1 C (98.7 F), resp. rate 16, weight 69.4 kg (153 lb), SpO2 95 %. Physical Exam Constitutional: General: She is not in acute distress. Appearance: She is not toxic-appearing or diaphoretic. HENT: Head: Normocephalic and atraumatic. Mouth/Throat: Pharynx: Uvula midline. No pharyngeal swelling, oropharyngeal exudate, posterior oropharyngeal erythema or uvula swelling. Cardiovascular: Rate and Rhythm: Normal rate and regular rhythm. Heart sounds: Normal heart sounds, S1 normal and S2 normal. Pulmonary: Effort: Pulmonary effort is normal. Breath sounds: Normal breath sounds. Lymphadenopathy: Cervical: No cervical adenopathy. Right cervical: No superficial cervical adenopathy. Left cervical: No superficial cervical adenopathy. Neurological: Mental Status: She is alert and oriented to person, place, and time. Gait: Gait is intact. ASSESSMENT/PLAN: 1. URI, acute - ICD9: 465.9, ICD10: J06.9 (primary diagnosis) - Discussed viral etiology and rationale for treatment. - Symptomatic treatment with prn analgesia - Supportive care with fluids and rest - Follow up in 3-5 days if symptoms persist or sooner if worsening of symptoms Paxlovid info and options for prescription discussed if positive. - COVID WITH FLUA+B, ROUTINE 2. Close exposure to COVID-19 virus - ICD9: V01.79, ICD10: Z20.822 - COVID WITH FLUA+B, ROUTINE Zoran Lira APRN.KATERYNA documented [facility] Instructions* Patient Instructions* Zoran Lira APRN.CNP - 04/16/2022 4:31 PM EST FACT SHEET FOR PATIENTS, PARENTS, AND CAREGIVERS EMERGENCY USE AUTHORIZATION (EUA) OF PAXLOVID FOR CORONAVIRUS DISEASE 2019 (COVID-19) You are being given this Fact Sheet because your healthcare provider believes it is necessary to provide you with PAXLOVID for the treatment of bygh-ru-gqodcrpn coronavirus disease (COVID-19) caused by the SARS-CoV-2 virus. This Fact Sheet contains information to help you understand the risks and benefits of taking the PAXLOVID you have received or may receive. The [place]. Food and Drug Administration (FDA) has issued an Emergency Use Authorization (EUA) to makePAXLOVID available during the COVID-19 pandemic (for more details about an EUA please see What is an Emergency Use Authorization? at the end of this document). PAXLOVID is not an FDA-approved medicine in the [place]. Read this Fact Sheet for information about PAXLOVID. Talk to your healthcareprovider about your options or if you have any questions. It is your choice to take PAXLOVID. What is COVID-19? COVID-19 is caused by a virus called a coronavirus. You can get COVID-19 through close contact withanother person who has the virus. COVID-19 illnesses have ranged from very woiz-ph-vkabcw, including illness resulting in . While information so far suggests that most COVID-19 illness is mild, serious illness can happen and maycause some of your other medical conditions to become worse. Older people and people of all ages with severe, long lasting (chronic) medical conditions like heart disease, lung disease, and diabetes,for example seem to be at higher risk of being hospitalized for COVID-19. What is PAXLOVID? PAXLOVID is an investigational medicine used to treat aoht-ro-nxllokve COVID-19 in adults and children [12 years of age and older weighing at least 88 pounds (40 kg)] with positive results of direct SARS-CoV-2 viral testing, and who are at high risk for progression to severe COVID-19, including hospitalization or . PAXLOVID is investigational because it is still being studied. There is limited information about the safety and effectiveness of using PAXLOVID to treat people with psso-va-ftbcejhx COVID-19. The FDA has authorized the emergency use of PAXLOVID for the treatment of pkra-mx-ohxyiooj COVID-19in adults and children [12 years of age and older weighing at least 88 pounds (40 kg)] with a positive test for the virus that causes COVID-19, and who are at high risk for progression to severe COVID-19, including hospitalization or , under an EUA. 1 Revised: 05 July 2021 What should I tell my healthcare provider before I take PAXLOVID? Tell your healthcare provider if you: Have any allergies Have liver or kidney disease Are or plan to become Are a child Have any serious illnesses Tell your healthcare provider about all the medicines you take, including prescription and xudo-yjl-ekykurs medicines, vitamins, and herbal supplements. Some medicines may interact with PAXLOVID and may cause serious side effects. Keep a list of your medicines to show your healthcare provider and pharmacist when you get a new medicine. You can ask your healthcare provider or pharmacist for a list of medicines that interact with PAXLOVID. Do not start taking a new medicine without telling your healthcare provider. Your healthcare provider can tell you if it is safe to take PAXLOVID with other medicines. Tell your healthcare provider if you are taking combined hormonal contraceptive. PAXLOVID may affect how your control pills work. Females who are able to become should use another effective alternative form of contraception or an additional barrier method of contraception. Talk to your healthcare provider if you have any questions about contraceptive methods thatmight be right for you. How do I take PAXLOVID? PAXLOVID consists of 2 medicines: nirmatrelvir and ritonavir. Take 2 pink tablets of nirmatrelvir with 1 white tablet of ritonavir by mouth 2 times each day (in the morning and in the evening) for 5 days. For each dose, take all 3 tablets at the same time. If you have kidney disease, talk to your healthcare provider. You may need a different dose. Swallow the tablets whole. Do not chew, break, or crush the tablets. Take PAXLOVID with or without food. Do not stop taking PAXLOVID without talking to your healthcare provider, even if you feel better. If you miss a dose of PAXLOVID within 8 hours of the time it is usually taken, take it as soon as you remember. If you miss a dose by more than 8 hours, skip the missed dose and take the next dose atyour regular time. Do not take 2 doses of PAXLOVID at the same time. If you take too much PAXLOVID, call your healthcare provider or go to the nearest hospital emergency room right away. If you are taking a ritonavir-or cobicistat-containing medicine to treat hepatitis C or Human Immunodeficiency Virus (HIV), you should continue to take your medicine as prescribed by your healthcare provider. Talk to your healthcare provider if you do not feel better or if you feel worse after 5 days. Who should generally not take PAXLOVID? Do not take PAXLOVID if: You are allergic to nirmatrelvir, ritonavir, or any of the ingredients in PAXLOVID You are taking any of the following medicines: Alfuzosin Pethidine, propoxyphene Ranolazine Amiodarone, dronedarone, flecainide, propafenone, quinidine Colchicine Lurasidone, pimozide, clozapine Dihydroergotamine, ergotamine, methylergonovine Lovastatin, simvastatin Sildenafil (Revatio ) for pulmonary arterial hypertension (PAH) Triazolam, oral midazolam Apalutamide Carbamazepine, phenobarbital, phenytoin Rifampin [place] s Wort (hypericum perforatum) Taking PAXLOVID with these medicines may cause serious or life-threatening side effects or affect how PAXLOVID works. These are not the only medicines that may cause serious side effects if taken with PAXLOVID. PAXLOVID may increase or decrease the levels of multiple other medicines. It is very important to tell your healthcare provider about all of the medicines you are taking because additional laboratory tests or changes in the dose of your other medicines may be necessary while you are taking PAXLOVID. Your healthcare provider may also tell you about specific symptoms to watch out for that may indicate that you need to stop or decrease the dose of some of your other medicines. What are the important possible side effects of PAXLOVID? Possible side effects of PAXLOVID are: Allergic Reactions. Allergic reactions can happen in people taking PAXLOVID, even after only 1 dose. Stop taking PAXLOVID and call your healthcare provider right away if you get any of the following symptoms of an allergic reaction: hives trouble swallowing or breathing swelling of the mouth, lips, or face throat tightness hoarseness skin rash Liver Problems. Tell your healthcare provider right away if you have any of these signs and symptoms of liver problems: loss of appetite, yellowing of your skin and the whites of eyes (jaundice), dark-colored urine, pale colored stools and itchy skin, stomach area (abdominal) pain. Resistance to HIV Medicines. If you have untreated HIV infection, PAXLOVID may lead to some HIV medicines not working as well in the future. Other possible side effects include: altered sense of taste diarrhea high blood pressure muscle aches These are not all the possible side effects of PAXLOVID. Not many people have taken PAXLOVID. Serious and unexpected side effects may happen. PAXLOVID is still being studied, so it is possible that all of the risks are not known at this time. What other treatment choices are there? Veklury (remdesivir) is FDA-approved for the treatment of kdhh-vd-bkodpdbl COVID-19 in certain adults and children. Talk with your doctor to see if Veklury is appropriate for you. Like PAXLOVID, FDA may also allow for the emergency use of other medicines to treat people with COVID-19. Go to https://www.fda.gov/ajqjaxazq-pbzxrwbybdos-nnbmatkfzmv/sgq-hqbfg-pxcxyfeacc-and- policy-framework/loujuemfc-jip-wqrumcysmgyhf for information on the emergency use of other medicines that are authorized by FDA to treat people with COVID-19. Your healthcare provider may talk with you aboutclinical trials for which you may be eligible. It is your choice to be treated or not to be treated with PAXLOVID. Should you decide not to receive it or for your child not to receive it, it will not change your standard medical care. What if I am or ? There is geodetic surveyor technologist treating women or mothers with PAXLOVID. For a motherand unborn baby, the benefit of taking PAXLOVID may be greater than the risk from the treatment. Ifyou are , discuss your options and specific situation with your healthcare provider. It is recommended that you use effective barrier contraception or do not have sexual activity whiletaking PAXLOVID. If you are , discuss your options and specific situation with your healthcare provider. How do I report side effects with PAXLOVID? Contact your healthcare provider if you have any side effects that bother you or do not go away. Report side effects to [employer] at www.fda.gov/medwatch or call 3-848-DOZ4581 or you can reportside effects to [employer] at the contact information provided below. Website Fax number Telephone number [facility] How should I store PAXLOVID? Store PAXLOVID tablets at room temperature, between 68?F to 77?F (20?C to 25?C). How can I learn more about COVID-19? Ask your healthcare provider. Visit https://www.cdc.gov/COVID19. Contact your local or state public health department. What is an Emergency Use Authorization (EUA)? The [place] FDA has made PAXLOVID available under an emergency access mechanism called an Emergency Use Authorization (EUA). The EUA is supported by a [place] of Health and Human Service (HHS) declaration that circumstances exist to justify the emergency use of drugs and biological productsduring the COVID-19 pandemic. PAXLOVID for the treatment of efyk-pv-ddigsdlb COVID-19 in adults and children [12 years of age andolder weighing at least 88 pounds (40 kg)] with positive results of direct SARS-CoV-2 viral testing, and who are at high risk for progression to severe COVID-19, including hospitalization or , has not undergone the same type of review as an FDA-approved product. In issuing an EUA under the COVID-19 public health emergency, the FDA has determined, among other things, that based on the total amount of scientific evidence available including data from adequate and well-controlled clinical trials, if available, it is reasonable to believe that the product may be effective for diagnosing, treating, or preventing COVID-19, or a serious or life-threatening disease or condition caused by COVID-19; that the known and potential benefits of the product, when used to diagnose, treat, or prevent such disease or condition, outweigh the known and potential risks of such product; and that there are no adequate, approved, and available alternatives. All of these criteria must be met to allow for the product to be used in the treatment of patients during the COVID-19 pandemic. The EUA for PAXLOVID is in effect for the duration of the COVID-19 declaration justifying emergency use of this product, unless terminated or revoked (after which the products may no longer be used under the EUA). Additional Information For general questions, visit the website or call the telephone number provided below. Website Telephone number [employer] ([phone]) You can also go to www.[employer] or call for more information. Pfizer Distributed by [employer] [place] [address] [id number] Revised: 05 July 2021 [facility] History of Present illness Narrative* Delmis Michael MD - 03/18/2022 2:49 PM EST This note was created using NoteWriter. Subjective Marsha Cabrales is a 81 year old female. Patient presents with: F/U 6 months SUBJECTIVE: Marsha Cabrales is a 81 year old year old lady here today for 6 month follow up appointment for reviewof medical conditions. TIA in January with confusion and trouble getting words out--knew what she wanted to say. Also issues with trouble doing puzzles in the paper. Also remembering how to use TENS was what started when had episode. Hard to remember things. Sometimes receptive aphasia. Trouble talking was reason was brought to hospital. Was getting better while in the hospital. Was shaky and weak so went for OT and PT and ST. Hard time remembering things has taken a while to recover. Uses rollator with seat at home. Trouble with left leg does not bother her as much when uses walker. Uses cane if not needing to walk much when. Noted that Lipitor and Lisinopril and aspirin was added. Noted decreased pulse in her feet, more on left--cannot feel. Left foot feels cooler. Noted that evaluation with Dr. Whittaker showed normal PVRs. No pain with walking. Daughter is HCDPOA; will drop off copy PAST MEDICAL HISTORY Diagnosis Date Diarrhea Diverticulosis of colon (without mention of hemorrhage) Generalized osteoarthrosis, unspecified site Gout Has had 3 episodes (wrists, elbow and ankle) HTN (hypertension) Migraine without aura Osteoporosis Osteoporosis, unspecified Pure hypercholesterolemia Unspecified essential hypertension Unspecified vitamin D deficiency 02/01/2007 Current Outpatient Medications Medication Sig allopurinol (ZYLOPRIM) 100 mg tablet Take 100 mg by mouth once daily. colchicine 0.6 mg tablet methotrexate 2.5 mg tablet Take by mouth. 6 tablets once weekly dilTIAZem CD (CARDIZEM CD, CARTIA XT) 120 mg 24 hr capsule Take 1 capsule by mouth once daily. triamterene-hydroCHLOROthiazide (MAXZIDE-25MG) 37.5-25 mg per tablet Take 1 tablet by mouth once daily. folic acid 1 mg tablet Take 2 mg by mouth once daily. acetaminophen (TYLENOL) 325 mg tablet Take 650 mg by mouth every 6 hours as needed. CALCIUM ORAL Take by mouth. pantoprazole DR (PROTONIX) 40 mg tablet pregabalin (LYRICA) 50 mg capsule Take 100 mg by mouth three times daily. Cholecalciferol, Vitamin D3, 1,000 unit cap Take 2 capsules by mouth once daily. (covered with insurance, OTC) potassium chloride (K-TAB) 10 mEq tablet Take 20 mEq by mouth once daily. amitriptyline (ELAVIL) 10 mg tablet Take 10 mg by mouth daily at bedtime. (Patient not taking: Reported on 03/18/2022) oxyCODONE-acetaminophen (PERCOCET) 5-325 mg tablet 1/2-1 tablet as needed albuterol HFA (PROAIR HFA) 90 mcg/actuation inhaler Inhale 2 Puffs as instructed every 4 hours as needed. HYDROcodone-acetaminophen (NORCO) 5-325 mg per tablet Take 1 tablet by mouth every 8 hours as needed. (Patient not taking: Reported on 09/17/2021) Alpha Lipoic Acid 200 mg tab Taking 1 pill a day. OTC. (Patient not taking: Reported on 08/20/2020 ) hydroxychloroquine (PLAQUENIL) 200 mg tablet Take 1 tablet by mouth twice daily. (Patient not taking: Reported on 03/18/2022) predniSONE (DELTASONE) 10 mg tablet Take 1 tablet by mouth once daily as needed. As needed. COMPOUNDED PRESCRIPTION Lab order: Uric acid level. fasting lipids, Vitamin D 25-OH M10.09, E78.00,E55.9, E79.0 No current facility-administered medications for this visit. Review of Systems Objective BP 114/72 Pulse 62 Wt 69.4 kg (153 lb) SpO2 98% BMI 27.10 kg/m Last 5 Encounter Wt Readings: Date: Wt: 03/18/2022 69.4 kg (153 lb) 09/17/2021 73.9 kg (163 lb) 08/20/2020 70.8 kg (156 lb) 01/09/2020 77.1 kg (170 lb) 02/22/2019 73.9 kg (162 lb 14.4 oz) No waist measurement recorded Estimated body mass index is 27.1 kg/m as calculated from the following: Height as of 01/09/20: 160 cm (5' 3 ). Weight as of this encounter: 69.4 kg (153 lb). Last 5 Encounter BP Readings: Date: BP: 03/18/2022 114/72 09/17/2021 148/72 10/03/2020 144/80[Repeat BP[ 08/20/2020 172/72 01/18/2020 158/76 Physical Exam Constitutional: Appearance: Normal appearance. HENT: Head: Normocephalic. Eyes: Conjunctiva/sclera: Conjunctivae normal. Cardiovascular: Rate and Rhythm: Normal rate and regular rhythm. Heart sounds: Normal heart sounds. Pulmonary: Effort: Pulmonary effort is normal. Breath sounds: Normal breath sounds. Skin: General: Skin is warm and dry. Neurological: General: No focal deficit present. Mental Status: She is alert and oriented to person, place, and time. Psychiatric: Mood and Affect: Mood normal. Behavior: Behavior normal. Thought Content: Thought content normal. Judgment: Judgment normal. Labs and MRI from [facility] reviewed. Assessment and Plan Encounter Diagnosis ICD-10-CM 1. TIA (transient ischemic attack) G45.9 ? mild stroke given persistent symptoms. 2. Pure hypercholesterolemia E78.00 LIPID PANEL BASIC 3. Essential hypertension I10 COMP METABOLIC PANEL CBC 4. Secondary hyperparathyroidism, non-renal (HCC) E21.1 COMP METABOLIC PANEL VITAMIN D 25 HYDROXY PTH INTACT BLD 5. Colon cancer screening Z12.11 FECAL OCCULT BLOOD TEST 6. Encounter for immunization Z23 Above issues addressed with patient. Patient involved in shared decision making for management of medical issues. History and medications reviewed. Epic updated as needed Refills and/or prescriptions taken care of and meds adjusted as indicated after reviewed history, exam and labs. Health Maintenance reviewed. Updated record and/or ordered tests as recorded. Encouraged on efforts at healthy diet and regular exercise and adequate sleep. Discussed prevention of strokes. Continue present meds. Further evaluation and treatment as indicated. Delmis Michael MD [facility] of Present illness Narrative* Zoran Lira APRN.CNP - 01/13/2022 1:03 PM EDT Patient triaged at [facility]. Here today with heart palpitations and sob. Patient visibly sob. Iwill refer patient to ER. Squad declined. Family will drive pov to [facility] ER. [facility] Miscellaneous Notes* Telephone Encounter - Nerissa Cordoba Ma - 12/24/2021 4:32 PM EDT Patient notified , symptoms have resolved * Telephone Encounter - Nerissa Cordoba Ma - 12/24/2021 4:29 PM EDT ----- Message from Delmis Michael MD sent at 12/23/2021 4:57 PM EDT ----- Grew a bacteria that was sensitive to several antibiotics but does not look like was tested for macrodantin. If symptoms resolved,no further evaluation or treatment needed. If still having UTI symptoms, then could treat with another antibiotic or she can have repeat urine studies done. [facility] Nurse Discharge summary Discharged to home with family. Escorted to the exit via w/c per Pia Chappell. PCT. Left at 1230. [facility] Hospital Discharge instructions Patient Education 11/08/2021 11:43:45 Spinal Cord Stimulator Implantation, Care After Spinal Cord Stimulator Implant, Care After This sheet gives you information about how to care for yourself after your procedure. Your health care provider may also give you more specific instructions. If you have problems or questions, contact your health care provider. What can I expect after the procedure? After the procedure, it is common to have: Mild pain, bruising, and swelling. Headaches. Soreness in the back. Follow these instructions at home: Incision care Follow instructions from your health care provider about how to take care of your incisions. Make sure you: ?Wash your hands with soap and water before you change your bandages (dressings). If soap and waterare not available, use hand poultry service technician. ?Change your dressings as told by your health care provider. ?Leave stitches (sutures), skin glue, or adhesive strips in place. These skin closures may need to stay in place for 2 weeks or longer. If adhesive strip edges start to loosen and curl up, you may trim the loose edges. Do not remove adhesive strips completely unless your health care provider tells you to do that. Check your incision areas every day for signs of infection. Check for: ?Redness, more swelling, or more pain. ?More fluid or blood. ?Warmth. ?Pus or a bad smell. Activity Ask your health care provider what activities are safe for you during recovery. Do not do any of the following until your health care provider approves: ?Drive. ?Activity that requires a lot of energy, including exercise and sports. ?Lift anything that is heavier than 5 lb (2.3 kg), or the limit that you are told. ?Engage in sexual activity. ?Lift your arms above your head. ?Sleep on your stomach, if your device was placed in your abdomen. ?Bend, twist, stretch, or reach for things. Bathing Do not take baths, swim, or use a hot tub until your health care provider approves. Ask your healthcare provider if you may take showers. You may only be allowed to take sponge baths. Safety Devices that sends out wireless signals may affect your stimulator. If directed by your health careprovider, avoid the following: ?MRI and ultrasound tests. ?Metal detectors. ?Anti-theft devices. ?Generators or power lines. Always carry your device ID card with you. Tell all health care providers who care for you that you have a spinal cord stimulator. This is important information that could affect the medical treatment that you receive. General instructions Work with your health care provider to adjust your settings as needed for pain control. Adjusting settings may take some time. Most stimulators can be controlled with a remote. Take utyh-nut-dekgzik and prescription medicines only as told by your health care provider. Do not use any products that contain nicotine or tobacco, such as cigarettes and e-cigarettes. If you need help quitting, ask your health care provider. Drink enough fluid to keep your urine pale yellow. Keep all follow-up visits as told by your health care provider. This is important. Contact a health care provider if you have: A fever. Severe pain, and medicines do not help. More fluid or blood coming from your incisions. Headaches that do not go away. Get help right away if: You have redness, more swelling, or more pain around your incisions. Your incision area feels warm to the touch. You have pus or a bad smell coming from your incision area. You have chest pain or problems breathing. You have sudden and severe back pain. You have weakness or sudden muscle tightening (spasms) in your legs. You are not able to control when you urinate or have a bowel movement (incontinence). Summary After implantation of a spinal cord stimulator, mild pain, muscle soreness, headaches, and bruisingare common. Follow instructions from your health care provider about incision care, bathing, medicines, and activity. Work with your health care provider to adjust your settings as needed for pain control. Adjusting settings may take some time. Most stimulators can be controlled with a remote. This information is not intended to replace advice given to you by your health care provider. Make sure you discuss any questions you have with your health care provider. Document Released: 05/20/2018 Document Revised: 07/28/2019 Document Reviewed: 05/20/2018 [email or web address] Patient Education 2020 [employer]. 11/08/2021 11:43:16 Laminectomy, Care After Laminectomy, Care After This sheet gives you information about how to care for yourself after your procedure. Your health care provider may also give you more specific instructions. If you have problems or questions, contact your health care provider. What can I expect after the procedure? After the procedure, it is common to have: Some pain around your incision area. Muscle tightening (spasms) across the back. Follow these instructions at home: Incision care Follow instructions from your health care provider about how to take care of your incision area. Make sure you: ?Wash your hands with soap and water before and after you apply medicine to the area or change yourbandage (dressing). If soap and water are not available, use hand poultry service technician. ?Change your dressing as told by your health care provider. ?Leave stitches (sutures), skin glue, or adhesive strips in place. These skin closures may need to stay in place for 2 weeks or longer. If adhesive strip edges start to loosen and curl up, you may trim the loose edges. Do not remove adhesive strips completely unless your health care provider tells you to do that. Check your incision area every day for signs of infection. Check for: ?More redness, swelling, or pain. ?More fluid or blood. ?Warmth. ?Pus or a bad smell. Medicines Take pwqw-pjr-hqeodnc and prescription medicines only as told by your health care provider. If you were prescribed an antibiotic medicine, use it as told by your health care provider. Do not stop using the antibiotic even if you start to feel better. Bathing Do not take baths, swim, or use a hot tub for 2 weeks, or until your incision has healed completely. If your health care provider approves, you may take showers after your dressing has been removed. Activity Return to your normal activities as told by your health care provider. Ask your health care provider what activities are safe for you. Avoid bending or twisting at your waist. Always bend at your knees. Do not sit for more than 20 30 minutes at a time. Lie down or walk between periods of sitting. Do not lift anything that is heavier than 10 lb (4.5 kg) or the limit that your health care provider tells you, until he or she says that it is safe. Do not drive for 2 weeks after your procedure or for as long as your health care provider tells you. Do not drive or use heavy machinery while taking prescription pain medicine. General instructions To prevent or treat constipation while you are taking prescription pain medicine, your health care provider may recommend that you: ?Drink enough fluid to keep your urine clear or pale yellow. ?Take mlto-utz-zmwffmz or prescription medicines. ?Eat foods that are high in fiber, such as fresh fruits and vegetables, whole grains, and beans. ?Limit foods that are high in fat and processed sugars, such as fried and sweet foods. Do breathing exercises as told. Keep all follow-up visits as told by your health care provider. This is important. Contact a health care provider if: You have more redness, swelling, or pain around your incision area. Your incision feels warm to the touch. You are not able to return to activities or do exercises as told by your health care provider. Get help right away if: You have: ?More fluid or blood coming from your incision area. ?Pus or a bad smell coming from your incision area. ?Chills or a fever. ?Episodes of dizziness or fainting while standing. You develop a rash. You develop shortness of breath or you have difficulty breathing. You cannot control when you urinate or have a bowel movement. You become weak. You are not able to use your legs. Summary After the procedure, it is common to have some pain around your incision area. You may also have muscle tightening (spasms) across the back. Follow instructions from your health care provider about how to care for your incision. Do not lift anything that is heavier than 10 lb (4.5 kg) or the limit that your health care provider tells you, until he or she says that it is safe. Contact your health care provider if you have more redness, swelling, or pain around your incision area or if your incision feels warm to the touch. These can be signs of infection. This information is not intended to replace advice given to you by your health care provider. Make sure you discuss any questions you have with your health care provider. Document Released: 10/24/2005 Document Revised: 03/19/2018 Document Reviewed: 09/21/2016 [email or web address] Patient Education 2020 [employer]. Follow Up Care 10/14/2021 07:30:53 With:GWEN ARRIAZA DO, Orthopedic Address: [address] [place] [address], [address] [facility] [place] [address] [phone] When:11/29/2021 11:00:00 Comments:This is your post-op appointment. Follow-up as scheduled. [facility] 07-22-2022 Note Discharge Instructions Thank you for allowing [facility] to assist you with your healthcare needs. The following is importantdischarge information regarding your hospital visit. Your Care Team DELMIS MICHAEL MD, GUANAKO THOMPSON MD, APRN-KATERYNA Your Diagnosis S/P lumbar laminectomy HTN (hypertension) Gout Lumbar spondylosis What to do next Instructions From Your Doctor 1. During your procedure, you received sedation through your IV. Please follow these instructions for the next 24 hours: Do not drive a motor vehicle, do not drink any alcoholic beverages, do not sign any legal documents or make personal or business decisions. A responsible adult should stay with you at least 6 hours after the procedure. 2. Keep your surgical site/incision clean and the dressing dry and intact. Do not get the dressing wet. No showering or bathing during the stimulator trial. If you have a permanent spinal cord stimulator, you must cover your incisions with a waterproof dressing to shower. Do not use bathtubs, hot tubs, swimming pools etc. You may use an ice pack at the surgical site to reduce swelling or discomfort. 3. Monitor the incision for any signs or symptoms of infection. Watch for redness, excessive swelling or drainage, or continued pain at the incision site after 3 days. Contact your physician immediately for a fever, chills, or a temperature of 101.5 Fahrenheit or greater. #4 take your medication exactly as prescribed by your physician. Do not attempt to wean yourself off any of your medication even though your pain is improving. This process needs to be carefully monitored by your doctor. Take any antibiotics prescribed exactly as directed until they are gone. 5. Avoid stretching, bending, pulling, twisting or any sudden movements. Do not bend or twist at the waist. Do not raise your arms above your head. Do not lie on your stomach. 6. no lifting greater than 5 pounds. 7. Do not operate a motor vehicle, equipment or power tools while your stimulator is on. 8. Do not have any manipulation done by a chiropractor or any other physician without first consulting with the physician who placed your spinal cord stimulator. 9. Please call if you have any questions, problems, or concerns Follow Up Appointments Follow Up with GWEN ARRIAZA DO, Orthopedic When 11/29/2021 11:00 AM EDT Why: This is your post-op appointment. Follow-up as scheduled. Where: [address] [place] [address], [address] [facility] [place] [address]- [phone] Allergies Arava (Stomach upset) Bactrim (Stomach upset) sulfa drug (Stomach upset) Medications Please ask your primary doctor or pharmacist before taking any other medication not listed, including over the counter drugs, herbal medications, vitamins and or supplements as they may interact withyour home medications. What How Much When Why Instructions Last Dose Unchanged acetaminophen (Tylenol Extra Strength 500 mg oral tablet) 1 tab(s) by mouth Three (3) times a day 11/07 Unchanged acetaminophen-hydrocodone (Woody 325- 5 mg oral tablet) 1 tab(s) by mouth Every 6 hours as needed for for pain Lumbar spondylosis Duration: 7 Days Pickup at [id number] 11/08 8:30AM Unchanged allopurinol (allopurinol 100 mg oral tablet) 1 tab(s) by mouth Once a day after a meal 11/08 9AM Unchanged calcium-vitamin D (calcium-vitamin D 600 mg-5 mcg (200 intl units) oral capsule) 1 cap by mouth Every day None Unchanged colchicine (colchicine 0.6 mg oral tablet) 1 tab(s) by mouth Once a day 11/08 9AM Unchanged dilTIAZem (DilTIAZem (Eqv-Cardizem CD) 120 mg/ 24 hours oral capsule, extended release) 1 cap by mouth Once a day 11/08 9AM Unchanged docusate (docusate sodium 100 mg oral capsule) 1 cap by mouth Two (2) times a day as needed for for constipation None Unchanged folic acid (folic acid 1 mg oral tablet) 1 tab(s) by mouth Once a day 11/08 9AM Unchanged hydrochlorothiazide-triamterene (hydrochlorothiazide-triamterene 25 mg-37.5 mg oral tablet) 1 tab(s) by mouth Every day None Unchanged methotrexate (methotrexate 2.5 mg oral tablet) 6 tab(s) by mouth Every week None Unchanged pantoprazole (pantoprazole 40 mg oral enteric coated tablet) 1 tab(s) by mouth Once a day before a meal 11/08 6AM Unchanged pregabalin (pregabalin 100 mg oral capsule) 1 cap by mouth Three (3) times a day 11/08 9AM Pharmacy Information [id number]: [address] [place], [place] [id number] [phone] What How Much When Comments Stop Taking acetaminophen-oxyCODONE (acetaminophen- oxycodone 325 mg-7.5mg oral tablet) 1 tab(s) by mouth Three (3) times a day as needed for as needed for pain Please take this list to your next doctor s visit. Bring all medications you take, including over the counter medications, herbals and other supplements with you to your doctor s visit. Patients and families are reminded to discard old lists and to update any records with all medication providers or retail pharmacies. Medication Leaflets acetaminophen and hydrocodone (a SEET a MIN [place] fen and annettesheree buckley KOSheree done) Hycet, Lorcet, Woody, Verdrocet, Vicodin, Xodol, Zamicet What is the most important information I should know about acetaminophen and hydrocodone? MISUSE OF OPIOID MEDICINE CAN CAUSE ADDICTION, OVERDOSE, OR . Keep the medication in a place where others cannot get to it. Taking opioid medicine during may cause life-threatening withdrawal symptoms in the . Fatal side effects can occur if you use opioid medicine with alcohol, or with other drugs that cause drowsiness or slow your breathing. Stop taking this medicine and call your doctor right away if you have skin redness or a rash that spreads and causes blistering and peeling. What is acetaminophen and hydrocodone? Acetaminophen and hydrocodone is a combination medicine used to relieve moderate to severe pain. Acetaminophen and hydrocodone contains an opioid medicine, and may be habit-forming. Acetaminophen and hydrocodone may also be used for purposes not listed in this medication guide. What should I discuss with my healthcare provider before taking acetaminophen and hydrocodone? You should not use this medicine if you are allergic to acetaminophen or hydrocodone, or if you have: severe asthma or breathing problems; or a blockage in your stomach or intestines. Tell your doctor if you have ever had: breathing problems, sleep apnea (breathing stops during sleep); liver disease; a drug or alcohol addiction; kidney disease; a head injury or seizures; urination problems; or problems with your thyroid, pancreas, or gallbladder. If you use opioid medicine while you are , your baby could become dependent on the drug. This can cause life-threatening withdrawal symptoms in the baby after it is born. Babies born dependent on opioids may need medical treatment for several weeks. Ask a doctor before using opioid medicine if you are . Tell your doctor if you notice severe drowsiness or slow breathing in the nursing baby. How should I take acetaminophen and hydrocodone? Follow all directions on your prescription label. Never take this medicine in larger amounts, or for longer than prescribed. An overdose can damage your liver or cause . Tell your doctor if you feel an increased urge to use more of this medicine. Never share this medicine with another person, especially someone with a history of drug abuse or addiction. MISUSE CAN CAUSE ADDICTION, OVERDOSE, OR . Keep the medicine in a place where others cannot get to it. Selling or giving away this medicine is against the law. Measure liquid medicine carefully. Use the dosing syringe provided, or use a medicine dose-measuring device (not a kitchen spoon). If you need surgery or medical tests, tell the doctor ahead of time that you are using this medicine. You should not stop using this medicine suddenly. Follow your doctor's instructions about tapering your dose. Store at room temperature away from moisture and heat. Keep track of your medicine. You should be aware if anyone is using it improperly or without a prescription. Do not keep leftover opioid medication. Just one dose can cause in someone using this medicine accidentally or improperly. Ask your pharmacist where to locate a drug take-back disposal program.If there is no take-back program, flush the unused medicine down the toilet. What happens if I miss a dose? Since this medicine is used for pain, you are not likely to miss a dose. Skip any missed dose if itis almost time for your next dose. Do not use two doses at one time. What happens if I overdose? Seek emergency medical attention or call the Poison Help line at . An overdose of this medicine can be fatal, especially in a child or other person using the medicine without a prescription. Overdose symptoms may include nausea, vomiting, sweating, severe drowsiness, pinpoint pupils, slow breathing, or no breathing. Your doctor may recommend you get naloxone (a medicine to reverse an opioid overdose) and keep it with you at all times. A person caring for you can give the naloxone if you stop breathing or don't wake up. Your caregiver must still get emergency medical help and may need to perform CPR (cardiopulmonary resuscitation) on you while waiting for help to arrive. Anyone can buy naloxone from a pharmacy or local health department. Make sure any person caring foryou knows where you keep naloxone and how to use it. What should I avoid while taking acetaminophen and hydrocodone? Avoid driving or operating machinery until you know how this medicine will affect you. Dizziness ordrowsiness can cause falls, accidents, or severe injuries. Do not drink alcohol. Dangerous side effects or could occur. Ask a doctor or pharmacist before using any other medicine that may contain acetaminophen (sometimes abbreviated as APAP). Taking certain medications together can lead to a fatal overdose. What are the possible side effects of acetaminophen and hydrocodone? Get emergency medical help if you have signs of an allergic reaction: hives; difficulty breathing; swelling of your face, lips, tongue, or throat. Opioid medicine can slow or stop your breathing, and may occur. A person caring for you should give naloxone and/or seek emergency medical attention if you have slow breathing with long pauses,blue colored lips, or if you are hard to wake up. In rare cases, acetaminophen may cause a severe skin reaction that can be fatal. This could occur even if you have taken acetaminophen in the past and had no reaction. Stop taking this medicine and call your doctor right away if you have skin redness or a rash that spreads and causes blistering andpeeling. Call your doctor at once if you have: noisy breathing, sighing, shallow breathing, breathing that stops; a light-headed feeling, like you might pass out; liver problems--nausea, upper stomach pain, tiredness, loss of appetite, dark urine, filippo-colored stools, jaundice (yellowing of the skin or eyes); low cortisol levels-- nausea, vomiting, loss of appetite, dizziness, worsening tiredness or weakness; o high levels of serotonin in the body--agitation, hallucinations, fever, sweating, shivering, fast heart rate, muscle stiffness, twitching, loss of coordination, nausea, vomiting, diarrhea. Serious breathing problems may be more likely in older adults and in those who are debilitated or have wasting syndrome or chronic breathing disorders. Common side effects include: dizziness, drowsiness, feeling tired; nausea, vomiting, stomach pain; constipation; or headache. This is not a complete list of side effects and others may occur. Call your doctor for medical advice about side effects. You may report side effects to FDA at 3-317-CLP-6256. What other drugs will affect acetaminophen and hydrocodone? You may have breathing problems or withdrawal symptoms if you start or stop taking certain other medicines. Tell your doctor if you also use an antibiotic, antifungal medication, heart or blood pressure medication, seizure medication, or medicine to treat HIV or hepatitis C. Opioid medication can interact with many other drugs and cause dangerous side effects or . Be sure your doctor knows if you also use: cold or allergy medicines, bronchodilator asthma/COPD medication, or a diuretic ('water pill'); medicines for motion sickness, irritable bowel syndrome, or overactive bladder; other opioids--opioid pain medicine or prescription cough medicine; a sedative like Valium--diazepam, alprazolam, lorazepam, Xanax, Klonopin, Versed, and others; drugs that make you sleepy or slow your breathing--a sleeping pill, muscle relaxer, medicine to treat mood disorders or mental illness; drugs that affect serotonin levels in your body--a stimulant, or medicine for depression, Parkinson's disease, migraine headaches, serious infections, or nausea and vomiting. This list is not complete. Other drugs may affect acetaminophen and hydrocodone, including prescription and jtcb-zcd-rdyefge medicines, vitamins, and herbal products. Not all possible interactions are listed here. Where can I get more information? Your doctor or pharmacist can provide more information about acetaminophen and hydrocodone. Remember, keep this and all other medicines out of the reach of children, never share your medicines with others, and use this medication only for the indication prescribed. Every effort has been made to ensure that the information provided by [employer]. ('[employer]') is accurate, up-to-date, and complete, but no guarantee is made to that effect. Drug information contained herein may be time sensitive. [facility] information has been compiled for use by healthcare practitioners and consumers in the [place] and therefore [facility] does not warrant that uses outside of the [place] are appropriate, unless specifically indicated otherwise. [employer] drug information does not endorse drugs, diagnose patients or recommend therapy. [employer] drug information isan informational resource designed to assist licensed healthcare practitioners in caring for their p atients and/or to serve consumers viewing this service as a supplement to, and not a substitute for, the expertise, skill, knowledge and judgment of healthcare practitioners. The absence of a warningfor a given drug or drug combination in no way should be construed to indicate that the drug or drug combination is safe, effective or appropriate for any given patient. [facility] does not assume any responsibility for any aspect of healthcare administered with the aid of information [facility] provides. The information contained herein is not intended to cover all possible uses, directions, precautions, warnings, drug interactions, allergic reactions, or adverse effects. If you have questions about the drugs you are taking, check with your doctor, nurse or pharmacist. Copyright 1264-4241 [employer]. Version: 16.03. Revision Date: 05/22/2020. Education Materials Spinal Cord Stimulator Implant, Care After This sheet gives you information about how to care for yourself after your procedure. Your health care provider may also give you more specific instructions. If you have problems or questions, contact your health care provider. What can I expect after the procedure? After the procedure, it is common to have: Mild pain, bruising, and swelling. Headaches. Soreness in the back. Follow these instructions at home: Incision care Follow instructions from your health care provider about how to take care of your incisions. Make sure you: ? Wash your hands with soap and water before you change your bandages (dressings). If soap and water are not available, use hand poultry service technician. ? Change your dressings as told by your health care provider. ? Leave stitches (sutures), skin glue, or adhesive strips in place. These skin closures may need to stay in place for 2 weeks or longer. If adhesive strip edges start to loosen and curl up, you may trim the loose edges. Do not remove adhesive strips completely unless your health care provider tells you to do that. Check your incision areas every day for signs of infection. Check for: ? Redness, more swelling, or more pain. ? More fluid or blood. ? Warmth. ? Pus or a bad smell. Activity Ask your health care provider what activities are safe for you during recovery. Do not do any of the following until your health care provider approves: ? Drive. ? Activity that requires a lot of energy, including exercise and sports. ? Lift anything that is heavier than 5 lb (2.3 kg), or the limit that you are told. ? Engage in sexual activity. ? Lift your arms above your head. ? Sleep on your stomach, if your device was placed in your abdomen. ? Bend, twist, stretch, or reach for things. Bathing Do not take baths, swim, or use a hot tub until your health care provider approves. Ask your healthcare provider if you may take showers. You may only be allowed to take sponge baths. Safety Devices that sends out wireless signals may affect your stimulator. If directed by your health careprovider, avoid the following: ? MRI and ultrasound tests. ? Metal detectors. ? Anti-theft devices. ? Generators or power lines. Always carry your device ID card with you. Tell all health care providers who care for you that you have a spinal cord stimulator. This is important information that could affect the medical treatment that you receive. General instructions Work with your health care provider to adjust your settings as needed for pain control. Adjusting settings may take some time. Most stimulators can be controlled with a remote. Take kqeg-vhk-tfsachi and prescription medicines only as told by your health care provider. Do not use any products that contain nicotine or tobacco, such as cigarettes and e-cigarettes. If you need help quitting, ask your health care provider. Drink enough fluid to keep your urine pale yellow. Keep all follow-up visits as told by your health care provider. This is important. Contact a health care provider if you have: A fever. Severe pain, and medicines do not help. More fluid or blood coming from your incisions. Headaches that do not go away. Get help right away if: You have redness, more swelling, or more pain around your incisions. Your incision area feels warm to the touch. You have pus or a bad smell coming from your incision area. You have chest pain or problems breathing. You have sudden and severe back pain. You have weakness or sudden muscle tightening (spasms) in your legs. You are not able to control when you urinate or have a bowel movement (incontinence). Summary After implantation of a spinal cord stimulator, mild pain, muscle soreness, headaches, and bruisingare common. Follow instructions from your health care provider about incision care, bathing, medicines, and activity. Work with your health care provider to adjust your settings as needed for pain control. Adjusting settings may take some time. Most stimulators can be controlled with a remote. This information is not intended to replace advice given to you by your health care provider. Make sure you discuss any questions you have with your health care provider. Document Released: 05/20/2018 Document Revised: 07/28/2019 Document Reviewed: 05/20/2018 [employer] Patient Education 2020 [employer] Laminectomy, Care After This sheet gives you information about how to care for yourself after your procedure. Your health care provider may also give you more specific instructions. If you have problems or questions, contact your health care provider. What can I expect after the procedure? After the procedure, it is common to have: Some pain around your incision area. Muscle tightening (spasms) across the back. Follow these instructions at home: Incision care Follow instructions from your health care provider about how to take care of your incision area. Make sure you: ? Wash your hands with soap and water before and after you apply medicine to the area or change your bandage (dressing). If soap and water are not available, use hand poultry service technician. ? Change your dressing as told by your health care provider. ? Leave stitches (sutures), skin glue, or adhesive strips in place. These skin closures may need to stay in place for 2 weeks or longer. If adhesive strip edges start to loosen and curl up, you may trim the loose edges. Do not remove adhesive strips completely unless your health care provider tells you to do that. Check your incision area every day for signs of infection. Check for: ? More redness, swelling, or pain. ? More fluid or blood. ? Warmth. ? Pus or a bad smell. Medicines Take dqvq-eew-ulcsbzi and prescription medicines only as told by your health care provider. If you were prescribed an antibiotic medicine, use it as told by your health care provider. Do not stop using the antibiotic even if you start to feel better. Bathing Do not take baths, swim, or use a hot tub for 2 weeks, or until your incision has healed completely. If your health care provider approves, you may take showers after your dressing has been removed. Activity Return to your normal activities as told by your health care provider. Ask your health care provider what activities are safe for you. Avoid bending or twisting at your waist. Always bend at your knees. Do not sit for more than 20 30 minutes at a time. Lie down or walk between periods of sitting. Do not lift anything that is heavier than 10 lb (4.5 kg) or the limit that your health care provider tells you, until he or she says that it is safe. Do not drive for 2 weeks after your procedure or for as long as your health care provider tells you. Do not drive or use heavy machinery while taking prescription pain medicine. General instructions To prevent or treat constipation while you are taking prescription pain medicine, your health care provider may recommend that you: ? Drink enough fluid to keep your urine clear or pale yellow. ? Take nrio-mfe-jvsjuuh or prescription medicines. ? Eat foods that are high in fiber, such as fresh fruits and vegetables, whole grains, and beans. ? Limit foods that are high in fat and processed sugars, such as fried and sweet foods. Do breathing exercises as told. Keep all follow-up visits as told by your health care provider. This is important. Contact a health care provider if: You have more redness, swelling, or pain around your incision area. Your incision feels warm to the touch. You are not able to return to activities or do exercises as told by your health care provider. Get help right away if: You have: ? More fluid or blood coming from your incision area. ? Pus or a bad smell coming from your incision area. ? Chills or a fever. ? Episodes of dizziness or fainting while standing. You develop a rash. You develop shortness of breath or you have difficulty breathing. You cannot control when you urinate or have a bowel movement. You become weak. You are not able to use your legs. Summary After the procedure, it is common to have some pain around your incision area. You may also have muscle tightening (spasms) across the back. Follow instructions from your health care provider about how to care for your incision. Do not lift anything that is heavier than 10 lb (4.5 kg) or the limit that your health care provider tells you, until he or she says that it is safe. Contact your health care provider if you have more redness, swelling, or pain around your incision area or if your incision feels warm to the touch. These can be signs of infection. This information is not intended to replace advice given to you by your health care provider. Make sure you discuss any questions you have with your health care provider. Document Released: 10/24/2005 Document Revised: 03/19/2018 Document Reviewed: 09/21/2016 [employer].me Patient Education 2020 [employer]. Additional Information VACCINATE! IT SAVES LIVES! Members of the community who have not yet received the COVID-19 vaccine and would like to receive it can visit one of [facility] vaccine clinics. There are many vaccine clinic locations within the [facility]. For locations and available times, please visit [email or web address] It is important to note that some COVID mobile vaccine clinics are held outdoors and may be canceled in rainy or stormy conditions. To learn more about pediatric vaccinations (ages 5-11), we invite you to visit the [facility] webpage. [email or web address] learn more about the COVID-19 vaccine, we invite you to visit the [employer] website for a list of frequently asked questions. [email or web address] [facility] Patient Portal Access Instructions: Stay connected with your healthcare team and access your personal medical information anytime with the [facility] Patient Portal.If you would like a full copy of your medical records, please contact the [facility] Medical Records Department, Thursday through Thursday between 8a.m. and 4:30p.m. Please follow the directions below to access the portal: 1.Access the email account you provided upon registration to the hospital.2.Look for an invitation email from [facility].3.Open the email and access the invitation link: Accept Invitation to [facility].Fill in the required bass to create your account. Sign into [email or web address] with your username and password that you created in the above steps to stay up to date. You can then view a summary of results, a summary of your visits, and the ability to download your summaries to your computer or send the information securely to a physician. Remember that your healthcare information is confidential, so carefully consider who you will allow to register on the [facility] Patient Portal for access to your information. You can also access the [facility] Patient Portal on the [employer] juany. Simply click on Health Records under [employer] and then click on the [facility] logo. HOW TO SAFELY DISPOSE OF PRESCRIPTION MEDICATIONS Please use one of the following methods to safely dispose of your unused medications. 1.Use a drug disposal kit: the drug disposal pouch allows you to safely discard your old and unuseddrugs. Ask your nurse to give you one when you are discharged.2.Visit a local take-back location: Many local pharmacies and police departments have programs that collect old and unwanted prescriptiondrugs. Call your local pharmacy or go to http://bit.Gigalo/5K8Zs9k to find one close to you.3.Make use of household items: Use cat litter or old coffee grounds to dispose medications if other options arenot available. Mix your drugs with these household products, seal them in an airtight container andthrow it into the garbage. Call [facility]: [phone] to be sure your drugs can be disposed of in this way. Some medicines may require a different approach.4.Never flush your medications down the toilet. IF YOU HAVE BEEN PRESCRIBED AN OPIOID FOR PAIN If you have been prescribed an opioid (such as hydrocodone, oxycodone or morphine), it is critical to understand the possible side effects and risks of opioid pain medications. Even when taken as directed, opioids can have several side effects including: Tolerance, meaning you might need to take more of a medication for the same pain relief. Nausea, vomiting and/or constipation. Sleepiness, dizziness, dry mouth, confusion, depression or itching. Physical dependence, meaning you have withdrawal symptoms when a medication is stopped, can develop within a few days. KNOW YOUR RESPONSIBILITIES It is important to know exactly how much and how often to take the opioid pain medications you are prescribed. Never take opioids in higher amounts or more often than prescribed. Do not combine opioids with alcohol or other drugs that cause drowsiness, such as benzodiazepines, also known as benzos, including diazepam and alprazolam, muscle relaxants or sleep aids. Never sell or share prescription opioids. This is illegal. Store opioids in a secure place and out of reach of others (including children, family, friends and visitors). The last page of this document has been signed and retained as a CHART COPY. Signatures Patient Education Materials Spinal Cord Stimulator Implantation, Care After Laminectomy, Care After Medication Leaflets acetaminophen and hydrocodone My discharge plan and instructions have been reviewed and explained to me and IMINO LINDA J understand my current condition and have read and understand these discharge instructions. I have received a written copy of the plan/instructions. If I have questions, I am aware that I should contact my doctor. 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 [facility]07-21-2022 Note ORIGINAL Images acquired, not reported on this accession number.[facility]07-21-2022 Note Date of Service 11/07/2021 Chief Complaint Status post implantation of permanent spinal cord stimulator Subjective The patient was seen and examined postoperatively in the PACU. She is resting comfortably. Her painis controlled. She denies any complaints including numbness tingling or weakness Objective Vitals and Measurements T: 36.1 C (Temporal Artery) HR: 60 RR: 20 BP: 171/74 SpO2: 96% HT: 160 cm WT: 72.7 kg Intake and Output 7AM Yesterday to 7AM Today Intake and Output (Last 24 hours) Intake Output Total Summary Total Intake 0.00 Total Output 0.00 Fluid Balance 0.00 Physical Exam A&O, NAD NCAT, EOMI Regular rate and rhythm Clear to auscultation bilaterally Abdomen soft and nontender Dressing clean dry and intact Extremities: Sensation and motor intact grossly without focal deficits. Pulses and reflexes are normal and symmetric. No tenderness to palpation or edema Weight Dosing Weight: 72.7 kg (11/07/21) Medications Medications (2) Active Scheduled: (1) ceFAZolin 2 gram(s), IV Piggyback, PREOP pharm Continuous: (1) NS (0.9% nacl) 1,000 mL 1,000 mL, Intravenous, 20 mL/hr PRN: (0) Lab Results No 36 Hour Lab Data EKG No qualifying data available. Assessment/Plan Orders: IV Catheter Insertion/Care NPO Prn Adapter Sequential Compression Device Application Vital Signs Okay to admit to floor See orders Discharge planning, likely home tomorrow Digitally Signed by GWEN ARRIAZA DO on 11/07/2021 03:10 PM [facility]07-21-2022 Anesthesiology Consult note Patient: MARSHA CABRALES Age: 81 years Sex: Female : 1940 Associated Diagnoses: None Author: LARRY SMITH APRN-LEONELA Preoperative Information Anesthesia history Patient's history: negative. Family's history: negative. Health Status Allergies: Allergic Reactions (Selected) Severity Not Documented Arava- Stomach upset. Bactrim- Stomach upset. Sulfa drug- Stomach upset., Allergies (3) ActiveReaction AravaStomach upset BactrimStomach upset sulfa drugStomach upset Current medications: (Selected) Inpatient Medications Ordered Kefzol: 2 gram(s), 200 mL/hr, IV Piggyback, PREOP pharm NS 1,000 mL: 20 mL/hr, Intravenous, Stop: 11/07/21 23:59:00 EDT Documented Medications Documented DilTIAZem (Eqv-Cardizem CD) 120 mg/24 hours oral capsule, extended release: 120 mg, 1 cap(s), Oral,qDay, 0 Refill(s) Tylenol Extra Strength 500 mg oral tablet: 500 mg, 1 tab(s), Oral, TID, 0 Refill(s) acetaminophen-oxycodone 325 mg-7.5 mg oral tablet: 1 tab(s), Oral, TID, PRN: as needed for pain, 0 Refill(s) allopurinol 100 mg oral tablet: 100 mg, 1 tab(s), Oral, qDayPC, 0 Refill(s) calcium-vitamin D 600 mg-5 mcg (200 intl units) oral capsule: 1 cap(s), Oral, Daily, 0 Refill(s) colchicine 0.6 mg oral tablet: 0.6 mg, 1 tab(s), Oral, qDay, 30 tab(s), 0 Refill(s) docusate sodium 100 mg oral capsule: 100 mg, 1 cap(s), Oral, BID, PRN: for constipation, 0 Refill(s) folic acid 1 mg oral tablet: 1 mg, 1 tab(s), Oral, qDay, 30 tab(s), 0 Refill(s) hydrochlorothiazide-triamterene 25 mg-37.5 mg oral tablet: 1 tab(s), Oral, Daily, 30 tab(s), 0 Refill(s) methotrexate 2.5 mg oral tablet: 15 mg, 6 tab(s), Oral, qWeek, 72 tab(s), 0 Refill(s) pantoprazole 40 mg oral enteric coated tablet: 40 mg, 1 tab(s), Oral, qDayAC, 0 Refill(s) pregabalin 100 mg oral capsule: 100 mg, 1 cap(s), Oral, TID, 270 cap(s), 0 Refill(s), Medications (2) Active Scheduled: (1) ceFAZolin 2 gram(s), IV Piggyback, PREOP pharm Continuous: (1) NS (0.9% nacl) 1,000 mL 1,000 mL, Intravenous, 20 mL/hr PRN: (0) Problem list: Active Problems (8) Dysphagia GERD (gastroesophageal reflux disease) Gout Hiatal hernia HTN (hypertension) OA (osteoarthritis) Rheumatoid arthritis Sciatica of left side Histories Past Medical History: No active or resolved past medical history items have been selected or recorded. Family History: No family history items have been selected or recorded. Procedure history: Hysterectomy ([id number]). Bunionectomy ([id number]). Comments: 10/23/2021 10:09 Chey Araujo RN Left H/O Spinal surgery ([id number]). CTR - carpal tunnel release ([id number]). Comments: 10/23/2021 10:10 Chey Araujo RN Bilateral Mortons neuroma of left foot ([id number]). EGD - Esophagogastroduodenoscopy ([id number]). Comments: 10/23/2021 10:10 Chey Araujo RN with dilatation SCS - Spinal cord stimulation ([id number]). 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 Physical Examination Vital Signs 11/07/2021 8:43 EDT Temperature Temporal Artery 36.1 DegC Peripheral Pulse Rate 60 bpm Respiratory Rate 20 br/min Systolic Blood Pressure NBP 171 mmHg >HHI Diastolic Blood Pressure NBP 74 mmHg Vital Signs(last 24 hrs) Last Charted Resp Rate 20 br/min (NOV 07 08:43) SBPC 171mmHg (NOV 07 08:43) DBP74 mmHg (NOV 07 08:43) Measurements from flowsheet : Measurements 11/07/2021 8:43 EDT Height 160 cm Height in inches 63 inch(es) Admission Weight 72.7 kg Weight Lbs 159.9 lb Weight Method Stated [place] Body Weight 52.38 kg Admission Body Mass Index 28.4 m2 Pain assessment: Pain Assessment 11/07/2021 8:43 EDT Primary Pain Location Low back Primary Pain Intensity 6 Pain Scale Type 0-10 Pain scale . General: Alert and oriented, Mild distress. Airway: Normal temporomandibular joint mobility. Mallampati classification: II (soft palate, fauces, uvula visible). Dentition Evaluation: Denies loose/chipped teeth. Respiratory: Lungs are clear to auscultation, Respirations are non-labored. Cardiovascular: Normal rate, Regular rhythm. Musculoskeletal left leg numb. Neurologic: Alert, Oriented. Review / Management Results review: No qualifying data available , Lab results 11/07/2021 8:55 EDT SN - Preop - CTm Pt in SDS Room 11/07/2021 8:31 SN - Preop - CTm Pt Ready for OR/Proced 11/07/2021 8:48 11/07/2021 8:53 EDT Sodium Chloride 0.9% Begin Bag 1,000 mL mL 11/07/2021 8:49 EDT Able To Drink Order Detail Yes Able To Sign Consents Order Detail Yes Code Status Order Detail Full code IV Order Detail Yes Dialysis Schedule Order Detail N/A Has Diabetes Order Detail No Isolation Precautions Order Detail None Nurse Collect Order Detail 0 Oxygen Order Detail No Order Detail N/A Prior Valve Replacement Order Detail No Transport Mode Order Detail Ambulatory 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 Details Form 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 Details Form 11/07/2021 8:43 EDT Height 160 cm Height in inches 63 inch(es) Admission Weight 72.7 kg Weight Lbs 159.9 lb Weight Method Stated [place] Body Weight 52.38 kg Admission Body Mass Index 28.4 m2 Temperature Temporal Artery 36.1 DegC Peripheral Pulse Rate 60 bpm Respiratory Rate 20 br/min Systolic Blood Pressure NBP 171 mmHg >HHI Diastolic Blood Pressure NBP 74 mmHg Primary Pain Location Low back Primary Pain Intensity 6 Pain Scale Type 0-10 Pain scale Monitor Alarms On and Limits Checked Nail Bed Color [place] Capillary Refill < 2 seconds Heart Sounds ICU S1S2 Heart Rhythm Regular All Lobes Breath Sounds Clear Oxygen Therapy Room air Oxygen Saturation 96 % Abdomen Description Non-distended, Symmetric, Soft Bowel Sounds All Quadrants Present Urinary Elimination Voiding, no difficulties Skin Temperature Warm Skin Description [place], Normal for ethnicity Skin Integrity Intact Skin Moisture General Dry IV Present Present Forearm Left 11/07/2021 20 gauge Peripheral IV Activity: Insert new site Peripheral IV Dressing Condition: Clean, Dry, Intact Peripheral IV Dressing Activity: Transparent dressing Peripheral IV Line Status/Patency: Flushes easily Peripheral IV Line Care: Secured with tape Peripheral IV Site Condition: No complications Peripheral IV Equipment: Extension set, PRN Adaptor Peripheral IV Number of Attempts: 1 Extremity Movement Equal Characteristics of Speech Clear Level of Consciousness Alert, Arousable with minimal stimulation CHILANGO Yes Strength All Extremities Strong, Moderate Left Lower Extremity Sensation Numbness, Tingling Affect/Behavior Appropriate, Calm, Cooperative Orientation Oriented x 4 Allergies Yes Marketing Rep On Yes Consent Form Signed Yes Patient Dressed In Hospital gown, No undergarments Pre-op Preparation Glasses removed CHG Preoperative Wash/Wipe Night before procedure, Day of procedure Preop Nasal Swab Povidone-Iodine CHG Skin Prep Completed for Eligible Surgery History & Physical Update On Chart Yes History & Physical On Chart Yes Obstructive Sleep Apnea Assess Completed Yes Activity Status ADL Awake Assistive Device None, Walker SCD On/Re-applied bilateral knee high NPO Status Maintained Standard Safety ID band on, Allergy Band on, Call device within reach, Bed in low position, Wheels locked, Upper/Half-Length side-rails up, Safety level maintained, Non-Slip footwear Demonstrates Correct Call Light Use Yes Allergy Band on and Verified Yes Blood Band on and Verified Yes Patient ID Band on and Verified Yes Implants Verified Yes Pacemaker/AICD Verified Yes Anesthesia Consent Signed Yes Blood Consent Signed Yes Last Fluid Intake 11/06/2021 23:30 Last Food Intake 11/06/2021 23:30 Last Void 11/07/2021 8:30 11/07/2021 8:38 EDT Infectious Disease Symptoms Patient states no symptoms Safety Brochure Information Reviewed Unable to complete Polly Morfin Video Viewed No Teaching Evaluation No further teaching needed Admission Note-Nursing Same Day Patient History (Modified) . Assessment and Plan [place] [employer]hesi[employer] (ASA) physical status classification: Class III. Anesthetic Preoperative Plan Anesthetic technique: General. Maintenance airway: Oral endotracheal tube. Postoperative pain management: Per surgeon. Risks discussed: nausea, vomiting, sore throat, dental injury, hypotension, allergic reaction, serious complications. Informed consent: signed by patient. Digitally Signed by LARRY SMITH on 11/07/2021 09:10 AM [facility] [id number] Miscellaneous Notes* Telephone Encounter - Nerissa Cordoba Ma - 11/01/2021 8:27 AM EDT Patient notified. * Telephone Encounter - Delmis Michael MD - 10/31/2021 5:02 PM EDT Filed order Looks like Bactrim had not helped last time prescribed. Sent Macrobid in case needs to take something while waiting for UCx results to return. Does not interact with her current meds * Telephone Encounter - Unique Zeng RN - 10/31/2021 2:43 PM EDT Patient calls to ask provider to place an order to check urine for UTI. Patient reports that [place] in [place] and has no access to an UC and ED will cost her over $700. Patient will be homelate Thursday night 11/02/2021 and would like to be able to come to the lab on Thursday for specimen. Instructed patient that I would send request through but discussed red flag symptoms of when to report to ED regardless of cost. Patient verbalizes understanding. Orders pended. Current symptoms include urinary frequency, burning with urination, and foul smelling urine. Afebrile. Patient is pushing fluids. Unique Zeng RN [facility] Miscellaneous Notes* Telephone Encounter - Nerissa Cordoba Ma - 09/20/2021 10:47 AM EDT Placed in outgoing mail * Telephone Encounter - Delmis Michael MD - 09/19/2021 5:36 PM EDT Printed pended RX letter for parking placard * Telephone Encounter - Jerrell Hough RN - 09/18/2021 1:28 PM EDT Patient reports pcp forgot to give her the handicap placard at appt yesterday. Asking pcp to mail it to her via [employer]. Address verified. documented [facility] History of Present illness Narrative* Delmis Michael MD - 09/17/2021 2:25 PM EDT This note was created using [employer]. Subjective Marsha Cabrales is a 81 year old female. HISTORY Marsha Cabrales is a 81 year old lad here for pre-op evaluation as requested by Dr. Gwen Arriaza Marsha Cabrales has surgery scheduled on TBD for Implantation of spinal cord stimulator trial leads, if successful will proceed to permanent stimulator placement in the following 2 to 3 weeks at [facility] for trial leads then [facility] for permanent stimulator placement. Noted that pain back and left leg not better with any other treatments tried. No signs of infection. No CP or SOB or TORO. Able to walk around home with walker. Cane when out as long as with her. Noted that able to exercise in treadmill in the water and did well. PAST MEDICAL HISTORY Diagnosis Date Diarrhea Diverticulosis of colon (without mention of hemorrhage) Generalized osteoarthrosis, unspecified site Gout Has had 3 episodes (wrists, elbow and ankle) HTN (hypertension) Migraine without aura Osteoporosis Osteoporosis, unspecified Pure hypercholesterolemia Unspecified essential hypertension Unspecified vitamin D deficiency 02/01/2007 PAST SURGICAL HISTORY Procedure Laterality Date BUNIONECTOMY, LAPIDUS-TYPE 2009 BX OF BREAST; INCISIONAL 1970s Dr. Ahuja COLONOSCOPY 09/18 COLONOSCOPY W/BX 05/10/09 Diverticulosis-per repeat in CORRECTION OF BUNION Left FOOT SURGERY HX Left HYSTERECTOMY HX KNEE SCOPE,DIAGNOSTIC Arthroscopy, knee KNEE SURGERY HX Left VAGINAL HYSTERECTOMY Hysterectomy, vaginal ALLERGIES Allergen Reactions Sulfa Drugs [Sulfa * Vomiting Current Outpatient Medications Medication Sig allopurinol (ZYLOPRIM) 100 mg tablet Take 100 mg by mouth once daily. amitriptyline (ELAVIL) 10 mg tablet Take 10 mg by mouth daily at bedtime. colchicine 0.6 mg tablet methotrexate 2.5 mg tablet Take by mouth. 6 tablets once weekly dilTIAZem CD (CARDIZEM CD, CARTIA XT) 120 mg 24 hr capsule Take 1 capsule by mouth once daily. triamterene-hydroCHLOROthiazide (MAXZIDE-25MG) 37.5-25 mg per tablet Take 1 tablet by mouth once daily. folic acid 1 mg tablet Take 2 mg by mouth once daily. acetaminophen (TYLENOL) 325 mg tablet Take 650 mg by mouth every 6 hours as needed. CALCIUM ORAL Take by mouth. oxyCODONE-acetaminophen (PERCOCET) 5-325 mg tablet 1/2-1 tablet as needed pantoprazole DR (PROTONIX) 40 mg tablet albuterol HFA (PROAIR HFA) 90 mcg/actuation inhaler Inhale 2 Puffs as instructed every 4 hours as needed. pregabalin (LYRICA) 50 mg capsule Take 100 mg by mouth twice daily. Cholecalciferol, Vitamin D3, 1,000 unit cap Take 2 capsules by mouth once daily. (covered with insurance, OTC) hydroxychloroquine (PLAQUENIL) 200 mg tablet Take 1 tablet by mouth twice daily. predniSONE (DELTASONE) 10 mg tablet Take 1 tablet by mouth once daily as needed. As needed. losartan (COZAAR) 25 mg tablet Take 1 tablet by mouth once daily. (Patient not taking: Reported on 08/20/2020 ) zoledronic acid (RECLAST) 5 mg/100 mL pgbk PREMIX piggyback Inject 100 mL intravenously one time only for 1 dose. albuterol sulfate (PROAIR RESPICLICK) 90 mcg/actuation aepb Inhale 2 Inhalation as instructed every6 hours as needed. HYDROcodone-acetaminophen (NORCO) 5-325 mg per tablet Take 1 tablet by mouth every 8 hours as needed. (Patient not taking: Reported on 09/17/2021) pravastatin (PRAVACHOL) 10 mg tablet Take 1 tablet by mouth once daily. (Patient not taking: Reported on 09/17/2021 ) Alpha Lipoic Acid 200 mg tab Taking 1 pill a day. OTC. (Patient not taking: Reported on 08/20/2020 ) COMPOUNDED PRESCRIPTION Lab order: Uric acid level. fasting lipids, Vitamin D 25-OH M10.09, E78.00,E55.9, E79.0 No current facility-administered medications for this visit. FAMILY HISTORY Problem Relation Age of Onset Diabetes Mother Hypertension Mother Colon Cancer Father Cancer Brother lymphoma Alzheimer's Disease Sister other (Sarcoid [Other]) Sister other (Brain Tumor [Other]) Brother started in spine and went to brain Breast Cancer Sister Same sister who has sarcoid Social History Tobacco Use Smoking status: Never Smoker Smokeless tobacco: Never Used Substance Use Topics Alcohol use: No Drug use: No Review of Systems Constitutional: Negative. HENT: Negative. Eyes: Negative. Respiratory: Negative. Cardiovascular: Negative. Gastrointestinal: Negative. Endocrine: Negative. Genitourinary: Negative. Musculoskeletal: Positive for arthralgias and back pain. Skin: Positive for rash (Scalp with thick white scale ). Allergic/Immunologic: Negative. Neurological: Negative. Hematological: Negative. Psychiatric/Behavioral: Negative. Objective BP 150/82 Pulse (!) 50 Wt 73.9 kg (163 lb) SpO2 94% BMI 28.87 kg/m Last 5 Encounter Wt Readings: Date: Wt: 09/17/2021 73.9 kg (163 lb) 08/20/2020 70.8 kg (156 lb) 01/09/2020 77.1 kg (170 lb) 02/22/2019 73.9 kg (162 lb 14.4 oz) 01/27/2019 72.6 kg (160 lb) No waist measurement recorded Estimated body mass index is 28.87 kg/m as calculated from the following: Height as of 01/09/20: 160 cm (5' 3 ). Weight as of this encounter: 73.9 kg (163 lb). Last 5 Encounter BP Readings: Date: BP: 09/17/2021 150/82 10/03/2020 144/80[Repeat BP[ 08/20/2020 172/72 01/18/2020 158/76 01/09/2020 182/74[PT advised to FU with PCP[ 09/17/21 1415 09/17/21 1505 BP: 150/82 148/72 Pulse: (!) 50 SpO2: 94% Weight: 73.9 kg (163 lb) Physical Exam Vitals reviewed. Constitutional: Appearance: She is well-developed. HENT: Head: Normocephalic and atraumatic. Right Ear: External ear normal. Left Ear: External ear normal. Nose: Nose normal. Eyes: Conjunctiva/sclera: Conjunctivae normal. Neck: Thyroid: No thyromegaly. Cardiovascular: Rate and Rhythm: Normal rate and regular rhythm. Pulses: Normal pulses. Heart sounds: Normal heart sounds. No murmur heard. No friction rub. No gallop. Pulmonary: Effort: Pulmonary effort is normal. Breath sounds: Normal breath sounds. Abdominal: General: Bowel sounds are normal. There is no distension. Palpations: Abdomen is soft. There is no mass. Tenderness: There is no abdominal tenderness. Musculoskeletal: General: No deformity. Normal range of motion. Comments: Arthritis changes noted in hands Lymphadenopathy: Cervical: No cervical adenopathy. Skin: General: Skin is warm and dry. Coloration: Skin is not jaundiced or pale. Findings: No rash. Comments: Noted scattered white scaly lesions in scalp Neurological: General: No focal deficit present. Mental Status: She is alert and oriented to person, place, and time. Cranial Nerves: No cranial nerve deficit. Sensory: No sensory deficit. Motor: No abnormal muscle tone. Coordination: Coordination normal. Gait: Gait abnormal (antalgic). Deep Tendon Reflexes: Reflexes normal. Psychiatric: Mood and Affect: Mood normal. Behavior: Behavior normal. Thought Content: Thought content normal. Judgment: Judgment normal. Labs from outside hospital reviewed. Overall fine. Noted: Cr 1.2, eGFR 45.9 ECG done today. Confirmed reading: NAME : MARSHA CABRALES PID : [id number] : 1940 Gender : Female Race : ORD : Procedure Date : Sep 17 2021 15:09:08 Edit Date : Sep 18 2021 15:54:11 Diagnosis: SINUS BRADYCARDIA LEFT VENTRICULAR HYPERTROPHY ABNORMAL ECG Confirmed by GWEN VALE M.D. ([id number]) on 09/18/2021 3:54:07 PM Assessment and Plan ASSESSMENT/PLAN: 1. Preop examination - ICD9: V72.84, ICD10: Z01.818 (primary diagnosis) No medical contraindication to planned surgical procedure. She is medically optimized for surgery. She is having a procedure considered low risk for cardiac complications. ECG did not show any concerns for cardiac ischemia or arrhythmias; no need for further cardiac evaluation based on history, exam or ECG. She may proceed with planned surgical procedure. Results of this consult will be communicated to Dr. Arriaza via fax of this consult note and his signed Request for Surgical Clearance form. - ECG COMPLETE 2. Essential hypertension - ICD9: 401.9, ICD10: I10 - fair control - factors affecting control of BP include suspected secondary causes of HTN such as in pain now. - Continue current medication(s) - Recommend home blood pressure monitoring, to bring results in on next visit - Monitor for improvement with taking care of pain. Adjust if not getting to goal - Goal of BP <130/80 ideally but okay <150/90 given her age and pain level for now. - ECG COMPLETE 3. Pure hypercholesterolemia - ICD9: 272.0, ICD10: E78.00 Further evaluation and treatment as indicated. - LIPID PANEL, NONFASTING 4. Stage 3a chronic kidney disease (HCC) - ICD9: 585.3, ICD10: N18.31 Discussed need to stay hydrated and will work on improving BP control. Further evaluation and treatment as indicated. 5. Discussed scalp rash--possibly psoriasis or seborrheic dermatitis. Elocon given. OTC shampoos discussed. Delmis Michael MD [facility] Miscellaneous Notes* Telephone Encounter - Argenis Rodriguez MA - 11/12/2020 5:05 PM EDT Consult pended. Will fax to [place] once completed. Argenis Rodriguez MA documented [facility] History of Past illness Narrative* Problem Noted Date Resolved Date Post-operative state 03/19/2015 09/12/2021 Other and unspecified hyperlipidemia 01/01/2009 11/18/2013 Migraine without aura, witho ut mention of intractable migraine without mention of status migrainosus 01/29/2005 009 Diarrhea 01/29/2005 09/12/2021 documented as of this encounter (statuses as of 09/20/2021) [facility] of [facility] illness Narrative* Problem Noted Date Resolved Date Post-operative state 03/19/2015 09/12/2021 Other and unspecified hyperlipidemia 01/01/2009 11/18/2013 Migraine without aura, witho ut mention of intractable migraine without mention of status migrainosus 01/29/2005 009 Diarrhea 01/29/2005 09/12/2021 documented as of this encounter (statuses as of 09/20/2021) [facility] of [facility] illness Narrative* Problem Noted Date Resolved Date Post-operative state 03/19/2015 09/12/2021 Other and unspecified hyperlipidemia 01/01/2009 11/18/2013 Migraine without aura, witho ut mention of intractable migraine without mention of status migrainosus 01/29/2005 009 Diarrhea 01/29/2005 09/12/2021 documented as of this encounter (statuses as of 11/01/2021) [facility] of [facility] illness Narrative* Problem Noted Date Resolved Date Post-operative state 03/19/2015 09/12/2021 Other and unspecified hyperlipidemia 01/01/2009 11/18/2013 Migraine without aura, witho ut mention of intractable migraine without mention of status migrainosus 01/29/2005 009 Diarrhea 01/29/2005 09/12/2021 documented as of this encounter (statuses as of 11/05/2021) [facility] Narrative* Problem Noted Date Resolved Date Post-operative state 03/19/2015 09/12/2021 Other and unspecified hyperlipidemia 01/01/2009 11/18/2013 Migraine without aura, witho ut mention of intractable migraine without mention of status migrainosus 01/29/2005 009 Diarrhea 01/29/2005 09/12/2021 documented as of this encounter (statuses as of 12/24/2021) [facility] Narrative* Problem Noted Date Resolved Date Post-operative state 03/19/2015 09/12/2021 Other and unspecified hyperlipidemia 01/01/2009 11/18/2013 Migraine without aura, witho ut mention of intractable migraine without mention of status migrainosus 01/29/2005 009 Diarrhea 01/29/2005 09/12/2021 documented as of this encounter (statuses as of 01/13/2022) [facility] Narrative* Problem Noted Date Resolved Date Post-operative state 03/19/2015 09/12/2021 Other and unspecified hyperlipidemia 01/01/2009 11/18/2013 Migraine without aura, witho ut mention of intractable migraine without mention of status migrainosus 01/29/2005 009 Diarrhea 01/29/2005 09/12/2021 documented as of this encounter (statuses as of 04/23/2022) [facility] Narrative* Problem Noted Date Resolved Date Post-operative state 03/19/2015 09/12/2021 Other and unspecified hyperlipidemia 01/01/2009 11/18/2013 Migraine without aura, witho ut mention of intractable migraine without mention of status migrainosus 01/29/2005 009 Diarrhea 01/29/2005 09/12/2021 documented as of this encounter (statuses as of 04/23/2022) [facility] Narrative* Problem Noted Date Resolved Date Post-operative state 03/19/2015 09/12/2021 Other and unspecified hyperlipidemia 01/01/2009 11/18/2013 Migraine without aura, witho ut mention of intractable migraine without mention of status migrainosus 01/29/2005 009 Diarrhea 01/29/2005 09/12/2021 documented as of this encounter (statuses as of 04/24/2022) [facility] Narrative* Problem Noted Date Resolved Date Post-operative state 03/19/2015 09/12/2021 Other and unspecified hyperlipidemia 01/01/2009 11/18/2013 Migraine without aura, witho ut mention of intractable migraine without mention of status migrainosus 01/29/2005 009 Diarrhea 01/29/2005 09/12/2021 documented as of this encounter (statuses as of 05/14/2022) [address] History of Past illness Narrative* Problem Noted Date Resolved Date Post-operative state 03/19/2015 09/12/2021 Other and unspecified hyperlipidemia 01/01/2009 11/18/2013 Migraine without aura, witho ut mention of intractable migraine without mention of status migrainosus 01/29/2005 009 Diarrhea 01/29/2005 09/12/2021 documented as of this encounter (statuses as of 05/27/2022) [address] History of Past illness Narrative* Problem Noted Date Resolved Date Post-operative state 03/19/2015 09/12/2021 Other and unspecified hyperlipidemia 01/01/2009 11/18/2013 Migraine without aura, witho ut mention of intractable migraine without mention of status migrainosus 01/29/2005 009 Diarrhea 01/29/2005 09/12/2021 documented as of this encounter (statuses as of 06/30/2022) [facility] Narrative* Problem Noted Date Resolved Date Post-operative state 03/19/2015 09/12/2021 Other and unspecified hyperlipidemia 01/01/2009 11/18/2013 Migraine without aura, witho ut mention of intractable migraine without mention of status migrainosus 01/29/2005 009 Diarrhea 01/29/2005 09/12/2021 documented as of this encounter (statuses as of 08/05/2022) [facility] Narrative* Problem Noted Date Resolved Date Post-operative state 03/19/2015 09/12/2021 Other and unspecified hyperlipidemia 01/01/2009 11/18/2013 Migraine without aura, witho ut mention of intractable migraine without mention of status migrainosus 01/29/2005 009 Diarrhea 01/29/2005 09/12/2021 documented as of this encounter (statuses as of 09/22/2022) [facility] Narrative* Problem Noted Date Resolved Date Post-operative state 03/19/2015 09/12/2021 Other and unspecified hyperlipidemia 01/01/2009 11/18/2013 Migraine without aura, witho ut mention of intractable migraine without mention of status migrainosus 01/29/2005 009 Diarrhea 01/29/2005 09/12/2021 documented as of this encounter (statuses as of 09/23/2022) [facility] Narrative* Problem Noted Date Resolved Date Post-operative state 03/19/2015 09/12/2021 Other and unspecified hyperlipidemia 01/01/2009 11/18/2013 Migraine without aura, witho ut mention of intractable migraine without mention of status migrainosus 01/29/2005 009 Diarrhea 01/29/2005 09/12/2021 documented as of this encounter (statuses as of 10/07/2022) [facility] Narrative* Problem Noted Date Resolved Date Post-operative state 03/19/2015 09/12/2021 Other and unspecified hyperlipidemia 01/01/2009 11/18/2013 Migraine without aura, witho ut mention of intractable migraine without mention of status migrainosus 01/29/2005 009 Diarrhea 01/29/2005 09/12/2021 documented as of this encounter (statuses as of 10/08/2022) [facility] Narrative* Problem Noted Date Resolved Date Post-operative state 03/19/2015 09/12/2021 Other and unspecified hyperlipidemia 01/01/2009 11/18/2013 Migraine without aura, witho ut mention of intractable migraine without mention of status migrainosus 01/29/2005 009 Diarrhea 01/29/2005 09/12/2021 documented as of this encounter (statuses as of 10/14/2022) [facility] Narrative* Problem Noted Date Diagnosed Date Resolved Date Post-operative state 03/19/2015 022 Other and unspecified hyperlipidemia 01/01/2009 11/18/2013 Migraine without aura, witho ut mention of intractable migraine without mention of status migrainosus 01/29/2005 03/28/2009 Diarrhea 01/29/2005 09/12/2021 documented as of this encounter (statuses as of 12/01/2022) [facility] Narrative* Problem Noted Date Diagnosed Date Resolved Date Post-operative state 03/19/2015 022 Other and unspecified hyperlipidemia 01/01/2009 11/18/2013 Migraine without aura, witho ut mention of intractable migraine without mention of status migrainosus 01/29/2005 03/28/2009 Diarrhea 01/29/2005 09/12/2021 documented as of this encounter (statuses as of 12/29/2022) [facility] Narrative* Problem Noted Date Diagnosed Date Resolved Date Post-operative state 03/19/2015 022 Other and unspecified hyperlipidemia 01/01/2009 11/18/2013 Migraine without aura, witho ut mention of intractable migraine without mention of status migrainosus 01/29/2005 03/28/2009 Diarrhea 01/29/2005 09/12/2021 documented as of this encounter (statuses as of 03/18/2023) [facility] [place] [facility] Plan note Future Appointments [facility] Evaluation note* Diagnosis Preop examination- Primary Preoperative examination, unspecified Essential hypertension Unspecified essential hypertension Pure hypercholesterolemia Stage 3a chronic kidney disease (HCC) Rash--scalp Rash and other nonspecific skin eruption documented in this encounter [facility] [place] [facility]* Diagnosis Urinary frequency- Primary Burning with urination Dysuria Urinary tract infection without hematuria, site unspecified documented in this encounter [facility] [place] [facility]* Diagnosis SOB (shortness of breath)- Primary Shortness of breath documented in this encounter [facility] [place] [facility]* Diagnosis URI, acute- Primary Acute upper respiratory infections of unspecified site Close exposure to COVID-19 virus [facility] [place] [facility]* Diagnosis COVID-19- Primary [facility] [place] [facility]* Diagnosis TIA (transient ischemic attack)- Primary Unspecified transient cerebral ischemia Pure hypercholesterolemia Essential hypertension Unspecified essential hypertension Secondary hyperparathyroidism, non-renal (HCC) Secondary hyperparathyroidism, non-renal Colon cancer screening Special screening for malignant neoplasms, colon Encounter for immunization Need for other specified prophylactic vaccination against single bacterial disease [facility] [place] [facility] Diagnosis Iron deficiency anemia, unspecified iron deficiency anemia type- Primary Chronic gastric ulcer, unspecified whether gastric ulcer hemorrhage or perforation present Acute renal insufficiency Unspecified disorder of kidney and ureter Esophageal dysphagia Dysphagia, pharyngoesophageal phase Encounter for long-term current use of medication Esophagitis determined by endoscopy Essential hypertension Unspecified essential hypertension Claudication of both lower extremities (HCC) Decreased pulses in feet Other symptoms involving cardiovascular system Hiatal hernia Diaphragmatic hernia without mention of obstruction or gangrene [facility] Essential hypertension Unspecified essential hypertension [facility] [place] [facility] Diagnosis Gastrointestinal hemorrhage associated with gastric ulcer- Primary Anemia, unspecified type 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 Iron deficiency anemia secondary to inadequate dietary iron intake [facility] [place] [facility] Diagnosis 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- Primary Iron deficiency anemia secondary to inadequate dietary iron intake [facility] [place] [facility]* Diagnosis Claudication of both lower extremities (HCC) Decreased pulses in feet Other symptoms involving cardiovascular system [facility] Diagnosis 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- Primary Iron deficiency anemia secondary to inadequate dietary iron intake [facility] [place] [facility]* Diagnosis Nausea- Primary Nausea alone Lower abdominal pain Abdominal pain, other specified site Foul smelling urine Other nonspecific finding on examination of urine Acute left-sided low back pain with left-sided sciatica documented [facility] [place] [facility]* Diagnosis Esophageal dysphagia Dysphagia, pharyngoesophageal phase documented in this encounter [facility] course Narrative No data available for this section [facility] Discharge instructions No data available for this section [facility] Progress note No data available for this section [facility] Reason for referral (narrative)* Outpatient Procedure (Routine) - Pending Review Specialty Diagnoses / Procedures Referred By Jh t Referred To [facility] Diagnoses Essential hypertension Preop examination Procedures ECG COMPLETE ECG ROUTINE ECG W/LEAST 12 LDS W/I&R Delmis Michael MD [address] [place] [address] [facility] [place] [address] [place] [address] Referral ID Status Reason Start Date Expiration Date Visits Requested Visits Authorized [id number] Pending Review Auto-Generat ed Referral 09/17/2021 09/17/2022 1 1 [facility] for visit Narrative* Outpatient Procedure (Routine) - Closed Specialty Diagnoses / Procedures Referred By Contac t Referred To Contact [facility] Diagnoses Claudication of both lower extremities (HCC) Decreased pulses in feet Procedures [facility] NON-INVASIVE PHYSIOLOGIC STUDY EXTREMITY 3 Delmis Montano MD [address] [place] [address] [facility] [place] [address] [place] [address] Referral ID Status Reason Start Date Expiration Date V isits Requested Visits Authorized [id number] Closed Auto-Generate d Referral 06/02/2022 06/02/2023 1 1 [facility] Summary Purpose Family History No Family History Records FoundNo Family History Records FoundThere may be information available, but it has not been provided by the sender.No Family History Records FoundNo Family History Records Found Advance Directives No Advanced Directives Records FoundNo Advanced Directives Records FoundThere may be information available, but it has not been provided by the sender.No Advanced Directives Records FoundNo Advanced Directives Records Found Chief Complaint Chief Complaint Description Start Date lower back pain Preliminary chief co mplaint data, not yet signed by the author as of Instructions Instruction Description Start Date CompletedPatient advised to follow-up with Primary Care Physician for BMI management. Assessments There may be information available, but it has not been provided by the sender. Review of System There may be information available, but it has not been provided by the sender. History of Present Illness There may be information available, but it has not been provided by the sender. Health Concerns Infection Onset Date Last Indicated Resolved Time COVID-19 Confirmed 04/16/2022 04/16/2022 Medications Administered Section Inactive Administered Medications - up to 3 most recent administrations Medication Order MAR Action Action Date Dose Rate Site iron sucrose 200 mg in NaCl 0.9% 100 mL (VENOFER) 200 mg, INTRAVENOUS, at 400 mL/hr, Administer over 15 Minutes, ONCE, 1 dose, On Thu09/23/22 at 1330 New Bag/Syringe/Bottle 09/23/2022 1:30 PM EDT 200 mg 400 mL/hr Inactive Administered Medications - up to 3 most recent administrations Medication Order MAR Action Action Date Dose Rate Site iron sucrose 200 mg in NaCl 0.9% 100 mL (VENOFER) 200 mg, INTRAVENOUS, at 400 mL/hr, Administer over 15 Minutes, ONCE, 1 dose, On Thu10/07/22 at 1300, Total 4 doses New Bag/Syringe/Bottle 10/07/2022 1:10 PM EDT 200 mg 400 mL/hr Inactive Administered Medications - up to 3 most recent administrations Medication Order MAR Action Action Date Dose Rate Site iron sucrose 200 mg in NaCl 0.9% 100ml (VENOFER) 200 mg, INTRAVENOUS, at 400 mL/hr, Administer over 15 Minutes, ONCE, 1 dose, On Thu10/14/22 at 1300, Please conduct a 30 minute post dose observation. Dose 4 of 4 New Bag/Syringe/Bottle 10/14/2022 1:35 PM EDT 200 mg 400 mL/hr Additional Source Comments INFORMATION SOURCE (unrecogn ized section and content) DATE CREATED AUTHOR AUTHOR'S ORGANIZ ATION 02/04/2019 [facility] DATE CREATED AUTHOR AUTHOR'S ORGANIZ ATION 11/14/2021 [facility] [place] [facility] DATE CREATED AUTHOR AUTHOR'S ORGANIZ ATION 04/29/2023 [facility] Reason for Visit (unrecogniz ed section and content) Reason Comments Medical Clearance Reason Comments Handicap placard Reason Comments Orders Reason Comments Results Reason Comments Cough bodyaches and conges tion x 1 day Reason Comments Cough Reason Comments F/U 6 months Reason Onset Date Comments Refill Request 05/13/2022 Reason Comments low blood pressure Dizziness Reason Comments Hospital F/U [facility] discharge 2022 due to anemia Reason Onset Date Comments Refill Request 08/04/2022 Reason Comments Benefits Investigation Reason Comments Non-Chemotherapy Treatment Specialty Diagnoses / Procedures Referred By Contac t Referred To Contact Diagnoses 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 Procedures IRON SUCROSE INJECTION PER 1 MG Sandra Cabrales APRN.[employer]ATE [employer] [address] [place] [address] Sadiq Counts Include 234 Beds At [facility] [address] [place] [address] Referral ID Status Reason Start Date Expiration Date V isits Requested Visits Authorized [id number] Authorized 09/12/2022 04/19/2023 99 99 Referral ID Status Reason Start Date Expiration Date Visits Re quested Visits Authorized [id number] Closed 09/12/2022 04/19/2023 99 99 Referral ID Status Reason Start Date Expiration Date V isits Requested Visits Authorized [id number] Authorized 10/08/2022 04/19/2023 99 99 Reason Comments Same Day Appointment X 1 week possible U TI symptoms Reason Comments F/U 3 Month Reason Onset Date Comments Refill Request 03/17/2023 Source Comments (unrecognize d section and content) In the event this informatio n is protected by the Federal Confidentiality of Alcohol and Drug Abuse Patient Records regulations: The Federal rules restrict any use of the information to criminally investigate or prosecute any alcohol or drug abuse patient.[facility] the event this information is protected by the Federal Confidentiality of Alcohol and Drug Abuse Patient Records regulations: The Federal rules restrict any use of the information to criminally investigate or prosecute any alcohol or drug abuse patient.[facility] the event this information is protected by the Federal Confidentiality of Alcohol and Drug Abuse Patient Records regulations: The Federal rules restrict any use of the information to criminally investigate or prosecute any alcohol or drug abuse patient.[facility] the event this information is protected by the Federal Confidentiality of Alcohol and Drug Abuse Patient Records regulations: The Federal rules restrict any use of the information to criminally investigate or prosecute any alcohol or drug abuse patient.[facility] the event this information is protected by the Federal Confidentiality of Alcohol and Drug Abuse Patient Records regulations: The Federal rules restrict any use of the information to criminally investigate or prosecute any alcohol or drug abuse patient.[facility] the event this information is protected by the Federal Confidentiality of Alcohol and Drug Abuse Patient Records regulations: The Federal rules restrict any use of the information to criminally investigate or prosecute any alcohol or drug abuse patient.[facility] the event this information is protected by the Federal Confidentiality of Alcohol and Drug Abuse Patient Records regulations: The Federal rules restrict any use of the information to criminally investigate or prosecute any alcohol or drug abuse patient.[facility] the event this information is protected by the Federal Confidentiality of Alcohol and Drug Abuse Patient Records regulations: The Federal rules restrict any use of the information to criminally investigate or prosecute any alcohol or drug abuse patient.[facility] the event this information is protected by the Federal Confidentiality of Alcohol and Drug Abuse Patient Records regulations: The Federal rules restrict any use of the information to criminally investigate or prosecute any alcohol or drug abuse patient.[facility] the event this information is protected by the Federal Confidentiality of Alcohol and Drug Abuse Patient Records regulations: The Federal rules restrict any use of the information to criminally investigate or prosecute any alcohol or drug abuse patient.[facility] the event this information is protected by the Federal Confidentiality of Alcohol and Drug Abuse Patient Records regulations: The Federal rules restrict any use of the information to criminally investigate or prosecute any alcohol or drug abuse patient.[facility] the event this information is protected by the Federal Confidentiality of Alcohol and Drug Abuse Patient Records regulations: The Federal rules restrict any use of the information to criminally investigate or prosecute any alcohol or drug abuse patient.[facility] the event this information is protected by the Federal Confidentiality of Alcohol and Drug Abuse Patient Records regulations: The Federal rules restrict any use of the information to criminally investigate or prosecute any alcohol or drug abuse patient.[facility] the event this information is protected by the Federal Confidentiality of Alcohol and Drug Abuse Patient Records regulations: The Federal rules restrict any use of the information to criminally investigate or prosecute any alcohol or drug abuse patient.[facility] the event this information is protected by the Federal Confidentiality of Alcohol and Drug Abuse Patient Records regulations: The Federal rules restrict any use of the information to criminally investigate or prosecute any alcohol or drug abuse patient.[facility]In the event this information is protected by the Federal Confidentiality of Alcohol and Drug Abuse Patient Records regulations: The Federal rules restrict any use of the information to criminally investigate or prosecute any alcohol or drug abuse patient.[facility] the event this information is protected by the Federal Confidentiality of Alcohol and Drug Abuse Patient Records regulations: The Federal rules restrict any use of the information to criminally investigate or prosecute any alcohol or drug abuse patient.[facility] the event this information is protected by the Federal Confidentiality of Alcohol and Drug Abuse Patient Records regulations: The Federal rules restrict any use of the information to criminally investigate or prosecute any alcohol or drug abuse patient.[facility] the event this information is protected by the Federal Confidentiality of Alcohol and Drug Abuse Patient Records regulations: The Federal rules restrict any use of the information to criminally investigate or prosecute any alcohol or drug abuse patient.[facility] the event this information is protected by the Federal Confidentiality of Alcohol and Drug Abuse Patient Records regulations: The Federal rules restrict any use of the information to criminally investigate or prosecute any alcohol or drug abuse patient.[facility] the event this information is protected by the Federal Confidentiality of Alcohol and Drug Abuse Patient Records regulations: The Federal rules restrict any use of the information to criminally investigate or prosecute any alcohol or drug abuse patient.[facility] the event this information is protected by the Federal Confidentiality of Alcohol and Drug Abuse Patient Records regulations: The Federal rules restrict any use of the information to criminally investigate or prosecute any alcohol or drug abuse patient.[facility] Teams (unrecognized sec tion and content) Gang Plank Workman Relationship Specialty Start Date End Date Delmis Michael MD [facility] [place] [address] PCP - General Internal Medicine 02/01/15 Delmis Michael MD [address] [place] [address], [place] [address] Internal Medicine 02/01/15 [employer] Workman Relationship Specialty Start Date End Date Delmis Michael MD [address] [place] [address], [place] [address] PCP - General Internal Medicine 02/01/15 Delmis Michael MD [address] [place] [address], [place] [address] Internal Medicine 02/01/15 [employer] Workman Relationship Specialty Start Date End Date Delmis Michael MD [address] [place] [address], [place] [address] PCP - General Internal Medicine 02/01/15 Delmis Michael MD [address] [place] [address], [place] [address] Internal Medicine 02/01/15 Gang Plank Workman Relationship Specialty Start Date End Date Delmis Michael MD [address] [place] [address], [place] [address] PCP - General Internal Medicine 02/01/15 Delmis Michael MD [facility] [place] [address] Internal Medicine 02/01/15 [employer] Plank Workman Relationship Specialty Start Date End Date Delmis Michael MD [address] [facility] [place] [address] PCP - General Internal Medicine 02/01/15 Delmis Michael MD [address] [place] [address], [place] [address] Internal Medicine 02/01/15 [employer] Plank Workman Relationship Specialty Start Date End Date Delmis Michael MD [address] [place] [address], [place] [address] PCP - General Internal Medicine 02/01/15 Delmis Michael MD [address] [place] [address], [place] [address] Internal Medicine 02/01/15 Gang Plank Workman Relationship Specialty Start Date End Date Delmis Michael MD [address] [place] [address], [place] [address] PCP - General Internal Medicine 02/01/15 Delmis Michael MD [address] [place] [address], [place] [address] Internal Medicine 02/01/15 Gang Plank Workman Relationship Specialty Start Date End Date Delmis Michael MD [address] [place] [address], [place] [address] PCP - General Internal Medicine 02/01/15 Delmis Michael MD [address] [place] [address], [place] [address] Internal Medicine 02/01/15 Gang Plank Workman Relationship Specialty Start Date End Date Delmis Michael MD [address] [place] [address], [place] [address] PCP - General Internal Medicine 02/01/15 Delmis Michael MD [address] [facility] [place] [address] Internal Medicine 02/01/15 Gang Plank Workman Relationship Specialty Start Date End Date Delmis Michael MD [address] [facility] [place] [address] PCP - General Internal Medicine 02/01/15 Delmis Michael MD [address] [facility] [place] [address] Internal Medicine 02/01/15 Gang Plank Workman Relationship Specialty Start Date End Date Delmis Michael MD [address] [facility] [place] [address] PCP - General Internal Medicine 02/01/15 Delmis Michael MD [address] [facility] [place] [address] Internal Medicine 02/01/15 Gang Plank Workman Relationship Specialty Start Date End Date Delmis Michael MD [address] [facility] [place] [address] PCP - General Internal Medicine 02/01/15 Delmis Michael MD [address] [facility] [place] [address] Internal Medicine 02/01/15 Gang Plank Workman Relationship Specialty Start Date End Date Delmis Michael MD [address] [facility] [place] [address] PCP - General Internal Medicine 02/01/15 Delmis Michael MD [address] [facility] [place] [address] Internal Medicine 02/01/15 Gang Plank Workman Relationship Specialty Start Date End Date Delmis Michael MD [address] [facility] [place] [address] PCP - General Internal Medicine 02/01/15 Delmis Michael MD [address] [place] [address] Internal Medicine 02/01/15 Gang Plank Workman Relationship Specialty Start Date End Date Delmis Michael MD [address] [place] [address] PCP - General Internal Medicine 02/01/15 Delmis Michael MD [address] [place] [address] Internal Medicine 02/01/15 Gang Plank Workman Relationship Specialty Start Date End Date Delmis Michael MD [address] [place] [address] PCP - General Internal Medicine 02/01/15 Delmis Michael MD [address] [place] [address] Internal Medicine 02/01/15 Gang Plank Workman Relationship Specialty Start Date End Date Delmis Michael MD [address] [place] [address] PCP - General Internal Medicine 02/01/15 Delmis Michael MD [address] [place] [address] Internal Medicine 02/01/15 Care Team (unrecognized sect ion and content) Care Team Related Persons Name: SANDEE CABRALES Address: Home [address] [place] [id number] Care Team Personnel Name: DELMIS MICHAEL MD Member Role: Primary Care Physician Address: Address: [address] [place] [address]- [place] Care Team Related Persons Name: SANDEE CABRALES Address: Home [address] [place] [address] FOR RECORDS PERTAINING TO PATIENTS WHO ARE OR HAVE BEEN ENROLLED IN A CHEMICAL DEPENDENCY/SUBSTANCEABUSE PROGRAM, SOME INFORMATION MAY BE OMITTED. This clinical summary was aggregated from multiple sources. Caution should be exercised in using it in the provision of clinical care. This summary normalizes information from multiple sources, and as a consequence, information in this document may materially change the coding, format and clinical context of patient data. In addition, data may be omitted in some cases. CLINICAL DECISIONS SHOULD BE BASED ON THE PRIMARY CLINICAL RECORDS. [employer] provides no warranty or guarantee of the accuracy or completeness of information in this document.
--- NOTE | 2023-05-04 13:05 | RAD_ITS ---
STUDY: X-RAY - LEFT KNEE REASON FOR EXAM: Female, 82 years old. Pain TECHNIQUE: 4 view(s) of the knee. COMPARISON: None. FINDINGS: Normal visualized distal femur. Normal visualized proximal tibia and fibula. Normal proximal tibiofibular articulation. There is mild degenerative arthrosis of the medial femorotibial compartment. Normal lateral femorotibial compartment. Normal patellofemoral articulation. Calcification of the medial and lateral menisci AP port or chondrocalcinosis. Vascular calcification. RAD/Knee 4 or More Views IMPRESSION: Degenerative arthrosis. Chondrocalcinosis of the medial and lateral menisci. Electronically Signed: Gianluca Lazar MD at 13:21 EST ,
--- NOTE | 2023-05-04 13:05 | RAD_ITS ---
STUDY: X-RAY - PELVIS AND LEFT HIP REASON FOR EXAM: Female, 82 years old. Fall, pain TECHNIQUE: 3 views of the pelvis and hip. COMPARISON: None. FINDINGS: There is a non-specific bowel gas pattern. There are multiple calcified phleboliths. There are atherosclerotic vascular calcifications. There is narrowing with cortical sclerosis and osteophyte formation of the sacroiliac joint consistent with degenerative osteoarthritic changes. Normal bilateral superior and inferior pubic rami. There are degenerative changes of the pubic symphysis with articular narrowing and sclerosis. Normal bilateral ischial tuberosities. Normal visualized femoral head. Normal acetabulum. There is moderate articular joint space narrowing of the hip. This space narrowing in the lower lumbar vertebrae. Right-sided spinal cord similar device is seen. RAD/HIP, UNI W/ Pelvis 2-3 Views IMPRESSION: Degenerative changes. No acute abnormality is seen. Electronically Signed: Gianluca Lazar MD at 13:20 EST ,
[2023-05-04 13:25] LABS: Anion Gap 5 (5-15); BUN 20 mg/dL (7-18); BUN/Creat Ratio 18.7 RATIO (10-20); Calcium,Total 9.6 mg/dL (8.5-10.1); Chloride 109 mmol/L (98-107); Creatinine, Serum 1.07 mg/dL (0.55-1.02); EST Glomerular Filtration Rate 52 mL/min (>60); Est Glom Filt Rate - Afr Amer 63 mL/min (>60); Estimated Creatinine Clearance 39.08 ml/min; Glucose 88 mg/dL (74-106); Potassium 4.4 mmol/L (3.5-5.1); Sodium Level 138 mmol/L (136-145)
== END 2023-05-04 13:59 | disposition home or self-care (01) ==
PROVIDERS: Emergency Provider Emergency Medicine; PCP Internal Medicine; Visit Provider Emergency Medicine
DX: M25.552 Pain in left hip (principal); I48.0 Paroxysmal atrial fibrillation; S70.02XA Contusion of left hip, initial encounter; Z96.82 Presence of neurostimulator; W17.89XA Other fall from one level to another, initial encounter; Z79.01 Long term (current) use of anticoagulants; I10 Essential (primary) hypertension; M10.9 Gout, unspecified; Z79.899 Other long term (current) drug therapy; Z90.710 Acquired absence of both cervix and uterus
CPT/HCPCS: 73502; 73564; 80048; 85027; 99282

== ENCOUNTER → 2023-05-21 | Outpatient (CLI) | payer MEDICARE, SELFPAY ==
--- NOTE | 2023-05-21 13:56 | CT_ITS ---
CT LEFT LOWER EXTREMITY WITH 3-D IMAGING CLINICAL INDICATION: Left femur fracture. Left hip pain. TECHNIQUE: Axial CT images of the left lower extremity (from left hip to left knee) was performed without IV contrast material. Coronal and sagittal reformats were provided. RADIATION DOSAGE (If Supplied By Facility): CTDIvol = ( 15.55 ) mGy, DLP = ( 887.08 ) mGycm COMPARISON: Left hip radiographs dated 05/04/2023. FINDINGS: Bones: Normal left hip joint. There is a fracture of the left greater trochanter with 1.5 cm superomedial displacement of the fractured fragment. The remainder of the visualized osseous structures are normal without evidence of fracture or dislocation. No lytic or blastic osseous masses. Soft Tissues: There is a small left knee joint effusion. The deep soft tissue structures are unremarkable. There are atherosclerotic calcifications. The superficial soft tissues are unremarkable without evidence of edema, hematoma, or foreign body. CT/Extremity Lower without Contra IMPRESSION: Fracture of the left greater trochanter with 1.5 cm superomedial displacement of the fractured fragment. Small left knee joint effusion. Electronically Signed: Pavel Bhatti MD at 15:31 EST ,
== END | disposition home or self-care (01) ==
LOC: CT 13:53
PROVIDERS: PCP Internal Medicine; Referring Provider Physician Assistant; Visit Provider Physician Assistant
DX: S72.115A Nondisplaced fracture of greater trochanter of left femur, initial encounter for closed fracture (principal); M25.552 Pain in left hip; M79.652 Pain in left thigh
CPT/HCPCS: 73700

== ENCOUNTER 2024-05-14 15:57 | Emergency (ER) | payer MEDICARE, SELFPAY ==
[2024-05-14 15:57] VITALS: BP 169/98; PULSE 67; RESP 16; TEMP 36.3; O2SAT 99
[2024-05-14 15:59] VITALS: BMI 19.7
--- NOTE | 2024-05-14 16:10 | EX.ED.DYSGE1 ---
HPI History of Present Illness Chief Complaint: Constipation Informant: patient Onset/Context/Timing Onset: Days (5-6) Context: Gradual Onset Timing: Continuous Quality: Sharp Location: Left flank and left abdomen Worsened by: Nothing Relieved by: Nothing Narrative Narrative: Patient presents with constipation that has been getting worse over the past 5 to 6 days. Patient admits to some pain in her left flank and left side of her abdomen. Patient describes it as sharp. Patient states it is constant. Patient states nothing makes it better and nothing makes it worse. Patient states she is using [id number] Dulcolax with no improvement. Patient denies any nausea or vomiting. Patient denies any urinary complaints. Patient denies any fevers or chills. [facility] Medical History Paroxysmal atrial fibrillation Pulmonary embolism Dysphagia Esophageal spasm Hiatal hernia Difficulty swallowing Rheumatoid arthritis Osteoporosis Osteopenia Osteoarthritis Neuropathy HTN (hypertension) Gout Carpal tunnel syndrome Cataracts, bilateral Breast lump Arthritis Home Medications ?Medication ?Instructions ?Recorded ?Last Taken ?Type folic acid 1 mg tablet 1 mg PO DAILY supplement 03/27/21 01/13/22 History methotrexate sodium 2.5 mg tablet 15 mg PO TH inflammation 03/27/21 01/09/22 History allopurinol 100 mg tablet 100 mg PO DAILY gout 01/13/22 01/13/22 History calcium carbonate 500 mg PO DAILY supplement 01/13/22 01/13/22 History pregabalin 100 mg capsule 100 mg PO TID pain 01/13/22 01/13/22 History atorvastatin 20 mg tablet (Lipitor) 20 mg PO DAILY #30 tabs 02/16/22 Unknown Rx tramadol 50 mg tablet 50 mg PO TID PRN PRN Pain 05/24/22 Unknown History potassium 99 mg tablet 99 mg PO DAILY Check with primary 09/01/22 Unknown History doctor colchicine 0.6 mg tablet 0.6 mg PO QODAY gout 30 days #0 09/04/22 01/13/22 Rx tabs pantoprazole 40 mg tablet,delayed 40 mg PO BID #60 tabs 09/04/22 Unknown Rx release ascorbate calcium (vitamin C) 500 500 mg PO BID 30 days #60 tabs 11/28/22 Unknown Rx mg tablet hydrocodone-acetaminophen 5-325mg 1 tab PO Q4H PRN PRN Pain 2 days 05/04/23 Unknown Rx 5mg-325mg #15 TABLETS apixaban 2.5 mg tablet (Eliquis) 2.5 mg PO BID #60 tabs 01/05/24 Unknown Rx lisinopril 10 mg tablet 5 mg (1/2 x 10 mg) PO DAILY #30 01/14/24 Unknown Rx tabs Allergy/AdvReac Type Severity Reaction Status Date / Time Sulfa (Sulfonamide AdvReac Nausea/Vom/ Verified 05/14/24 15:59 Antibiotics) Diarrhea sulfamethoxazole (From AdvReac Nausea/Vom/ Verified 05/14/24 15:59 Bactrim) Diarrhea trimethoprim (From Bactrim) AdvReac Nausea/Vom/ Verified 05/14/24 15:59 Diarrhea Family History Father Colon cancer Mother Diabetes CVA (cerebral vascular accident) Surgical History S/P insertion of spinal cord stimulator H/O: hysterectomy History of back surgery H/O knee surgery Social History household members: family Smoking Status: Never smoker alcohol intake: never substance use type: does not use ROS ROS ED Constitutional Constitutional ED: Denies chills or fever(s) Eyes Eyes: Denies blurry vision or change in vision ENT ENT ED: Denies rhinorrhea or sore throat Cardiovascular Cardiovascular: Denies chest pain or palpitations Respiratory/Chest Respiratory/Chest: Denies cough or dyspnea Gastrointestinal Gastrointestinal: Reports abdominal pain and constipation; Denies nausea or vomiting Genitourinary Genitourinary ED: Denies dysuria or hematuria Musculoskeletal Musculoskeletal: Reports back pain; Denies neck pain Integumentary Denies abscess or rash Neurologic Neurologic: Denies headache(s) or weakness Allergic/Immunologic Allergic/Immunologic ED: Denies mouth swelling or urticaria EXAM Physical Exam Const Vital Signs: 05/14/24 15:57 05/14/24 17:57 05/14/24 19:00 Temperature 97.4 F L Temperature Source Oral Pulse Rate 67 86 74 Respiratory Rate 16 16 16 Blood Pressure 169/98 H 158/90 H 160/92 H Blood Pressure Mean 121 112 114 Pulse Ox 99 97 99 Oxygen Delivery Method Room Air Room Air Positive well nourished and well developed General Appearance ED: well developed and NAD HEENT Reports moist mucous membranes Neck supple and no JVD Resp normal respiratory effort and clear to auscultation bilaterally Cardio regular rate and regular rhythm GI non-distended Palpation: soft and tender LLQ and LUQ; Negative for guarding or rebound tenderness present Back/Spine General Back: CVA tenderness left Neuro oriented x3, CN's II-XII intact bilaterally and no sensory deficits noted Sensorium / Orientation: alert Motor Exam: strength 5/5 throughout Psych mental status grossly normal MDM MDM MDM Narrative Medical decision making narrative: Differential diagnosis includes diverticulitis, ureteral calculus, colitis, bowel obstruction, perforation, electrolyte abnormality, pancreatitis, and urinary tract infection. CBC will be obtained to assess for leukocytosis and anemia. Comprehensive metabolic profile will be obtained to assess for hepatic function, renal function, and electrolyte abnormality. Lipase will be obtained to assess for pancreatitis. Urinalysis will be obtained to assess for urinary tract infection and hematuria. CT scan of the abdomen and pelvis will be obtained to assess for diverticulitis, colitis, bowel obstruction, and perforation. Lab Data Attestation: I reviewed the patient's lab results. Lab results narrative: CBC was reviewed and was within normal limits. Comprehensive metabolic profile was reviewed and was essentially within normal limits. Lipase was reviewed and was normal at 39. Urinalysis was reviewed. There is no evidence of urinary tract infection or hematuria. Labs: Laboratory Results - last 24 hr 05/14/24 05/14/24 16:35 18:20 WBC 6.7 RBC 4.13 L Hgb 12.6 Hct 37.7 MCV 91.3 MCH 30.5 MCHC 33.4 RDW Std Deviation 48.1 H RDW Coeff of Lorenzo 14.3 Plt Count 223 MPV 9.9 Immature Gran % (Auto) 0.100 Neut % (Auto) 71.6 H Lymph % (Auto) 18.3 L Jess[place] % (Auto) 8.0 Eos % (Auto) 1.6 Baso % (Auto) 0.4 Absolute Neuts (auto) 4.8 Absolute Lymphs (auto) 1.23 Nucleated RBC % 0 Sodium 139 Potassium 4.0 Chloride 109 H Carbon Dioxide 26.0 Anion Gap 4 L BUN 25 H Creatinine 0.99 Est GFR (MDRD) Af Amer 69 Est GFR (MDRD) Non-Af 57 L BUN/Creatinine Ratio 25.4 H Glucose 96 Calcium 10.6 H Total Bilirubin 0.40 AST 18 ALT 17 Alkaline Phosphatase 88 Total Protein 7.2 Albumin 3.4 Globulin 3.8 Albumin/Globulin Ratio 0.9 Lipase 39 Urine Color Yellow Urine Clarity Clear Urine pH 7.0 Ur Specific [place] 1.005 Urine Protein Negative Urine Glucose (UA) Normal Urine Ketones Negative Urine Occult Blood Negative Urine Nitrite Positive H Urine Bilirubin Negative Urine Urobilinogen Normal Ur Leukocyte Esterase Negative Urine RBC 0 SEEN Urine WBC 0 SEEN Ur Squamous Epith Cells 0-5 SEEN Urine Bacteria 3+ Urine Mucus 0 SEEN Radiography Diagnostic Testing: Clinical Impression(s) from Imaging Studies Abdomen/Pelvis CT 05/14/24 16:25 IMPRESSION: Large hiatal hernia. Diverticulosis. 1.2 cm intermediate density left adrenal nodule is indeterminate. Recommend follow-up CT abdomen without contrast to assess for enhancement. Mild to moderate age indeterminate compression deformities of T12, L1 and L4. Electronically Signed: Jamison Reddy MD at 18:11 EST , CT scan of the abdomen and pelvis was obtained. There is diverticulosis but no evidence of diverticulitis. There is a mild to moderate age-indeterminate compression fraction of T12, L1 and L4. There is a 1.2 cm indeterminate density of the left adrenal nodule which is indeterminate. There is stool throughout the colon. There is no evidence of obstruction. This was interpreted by the radiologist was also independently reviewed by myself. Treatment and Re-Evaluation :: Patient was advised of her findings. Patient was given a soapsuds enema. Patient had some improvement of her stools with this. Patient did not want a second enema. Patient was instructed to use vfok-vmo-wytozro MiraLAX. Patient was instructed to follow-up with her primary care physician in 3 to 5 days. Patient was instructed to eat a high-fiber diet. Patient was instructed to return if worse in any way. Patient understood and was agreeable with the plan. All questions were answered. Discharge Plan Triage Chief Complaint: Constipation ED Provider: Dioni Munoz Dx/Rx/DC Orders Clinical Impression: Abdominal pain, Constipation, HTN (hypertension) Instructions: ED Constipation (Adult) Prescriptions: No Action folic acid 1 mg tablet 1 mg PO DAILY methotrexate sodium 2.5 mg tablet 15 mg PO TH Patient Comments: take 6 tabs weekly ON THUR allopurinol 100 mg tablet 100 mg PO DAILY calcium carbonate 500 mg calcium (1,250 mg) Tablet 500 mg PO DAILY pregabalin 100 mg capsule 100 mg PO TID atorvastatin [Lipitor] 20 mg tablet 20 mg PO DAILY Qty: 30 0RF tramadol 50 mg tablet 50 mg PO TID PRN PRN (Reason: Pain) potassium 99 mg Tablet 99 mg PO DAILY colchicine 0.6 mg tablet 0.6 mg PO QODAY 30 Days Qty: 0 0RF pantoprazole 40 mg tablet,delayed release (DR/EC) 40 mg PO BID Qty: 60 2RF hydrocodone-acetaminophen [hydrocodone-acetaminophen] 5-325 mg tablet 1 tab PO Q4H PRN PRN (Reason: Pain) 2 Days Qty: 15 0RF ascorbate calcium (vitamin C) 500 mg tablet 500 mg PO BID 30 Days Qty: 60 12RF Eliquis 2.5 mg tablet 2.5 mg PO BID Qty: 60 12RF Rx Instructions: Hold if patient has GI bleed, hematemesis melena or hematuria or hemoptysis. lisinopril 10 mg tablet 5 mg PO DAILY Qty: 30 0RF Primary Care Provider: Maria D Michael Referrals: Maria D Michael MD [Primary Care Provider] - 3-5 Days Activity Restrictions/Additional Instructions: Use [id number] MiraLAX as needed for constipation. Print Language: Syriac Disposition Disposition: Home, Self Care
[2024-05-14 16:24] VITALS: BMI 22.4
--- NOTE | 2024-05-14 16:25 | CT_ITS ---
INDICATION: Abdominal pain EXAMINATION: CT Abdomen And Pelvis W/ Contrast Injection TECHNIQUE: Helically acquired images were obtained of the abdomen and pelvis after IV contrast. A radiation dose optimization technique was used for this scan. IV Contrast dosage and agent: IV 75mL [id number] Oral contrast: None. COMPARISON: None. FINDINGS: Visualized lung bases: Unremarkable Liver: Unremarkable Gallbladder: Unremarkable Spleen: Unremarkable Pancreas: Unremarkable Adrenal Glands: 1.2 cm left adrenal nodule measuring 66 Hounsfield units. Kidneys: Unremarkable Vasculature: Severe aortoiliac atherosclerotic disease. GI Tract: Large hiatal hernia. Scattered colonic diverticula. The appendix is normal. Lymphadenopathy: None Peritoneum: No ascites. Bladder: Unremarkable Reproductive organs: Status post hysterectomy. Bones/Soft tissues: There are diffuse degenerative changes of the spine. Is intrathecal pump in the right lower back. Grade 1 anterolisthesis L3 on L4. There is mild to moderate age indeterminate compression deformities of T12, L1 and L4. CT/Abdomen/Pelvis W IV Cont ONLY IMPRESSION: Large hiatal hernia. Diverticulosis. 1.2 cm intermediate density left adrenal nodule is indeterminate. Recommend follow-up CT abdomen without contrast to assess for enhancement. Mild to moderate age indeterminate compression deformities of T12, L1 and L4. Electronically Signed: Jamison Reddy MD at 18:11 EST ,
[2024-05-14 16:47] LABS: Absolute Lymphocyte Count 1.23 X10^3/uL (0.83-4.51); Absolute Neutrophil Count 4.8 X10^3/uL (2.0-7.7); Basophil# 0.03 X10^3/uL; Basophil% 0.4 % (0-1); Eosinophil# 0.11 X10^3/uL; Eosinophils% 1.6 % (0-5); Hematocrit 37.7 % (37-47); Hemoglobin 12.6 g/dL (12.0-15.0); Lymphocyte # 1.23 X10^3/ul (0.83-4.51); Lymphocyte % 18.3 % (19-41); Mean Corp Hgb Conc 33.4 g/dL (32-36); Mean Corpuscular Hgb 30.5 pg (27.0-32.0); Mean Corpuscular Volume 91.3 fL (81-99); Mean Platelet Vol. 9.9 fl (6.2-12.0); Monocyte# 0.54 X10^3/uL; NRBC Flagged by Analyzer 0 % (0-5); Neutrophil % 71.6 % (47-70); Platelet Count 223 K/mm3 (150-450); RBC Distribution Width CV 14.3 % (11.6-14.6); RBC Distribution Width SD 48.1 fl (35.1-43.9); Red Blood Count 4.13 M/mm3 (4.2-5.4); White Blood Count 6.7 K/mm3 (4.4-11.0)
[2024-05-14 17:06] LABS: ALB/GLOB Ratio 0.9 RATIO (0.9-2.4); AST(SGOT) 18 U/L (15-37); Alanine Aminotransfer ALT/SGPT 17 U/L (13-56); Albumin, Serum 3.4 g/dL (3.2-5.0); Alkaline Phosphatase 88 U/L (45-117); Anion Gap 4 (5-15); BUN 25 mg/dL (7-18); BUN/Creat Ratio 25.4 RATIO (10-20); Calcium,Total 10.6 mg/dL (8.5-10.1); Chloride 109 mmol/L (98-107); Creatinine, Serum 0.99 mg/dL (0.55-1.02); EST Glomerular Filtration Rate 57 mL/min (>60); Est Glom Filt Rate - Afr Amer 69 mL/min (>60); Globulin 3.8 g/dL (2.2-4.2); Glucose 96 mg/dL (74-106); Lipase 39 U/L (13-75); Protein, Total 7.2 g/dL (6.4-8.2); Sodium Level 139 mmol/L (136-145)
[2024-05-14 17:57] VITALS: BP 158/90; PULSE 86; RESP 16; O2SAT 97
[2024-05-14 18:26] LABS: Mucous, Urine 0 SEEN /hpf (<or=2+); Red Blood Cells-Urine 0 SEEN /hpf (0-5); White Blood Cells 0 SEEN /hpf (0-5)
[2024-05-14 18:29] LABS: Color, Urine Yellow (Yellow); Glucose, Dipstick Normal (Normal); Ketone-Dipstick Negative (Negative); Leukocyte Esterase-Dipstick Negative /ul (Negative); Nitrite-Dipstick Positive (Negative); Occult Blood-Urine Negative /ul (Negative); Protein-Dipstick Negative (Negative); Specific Gravity, Urine 1.005 (1.002-1.030); Urine Bilirubin Dipstick Negative (Negative); Urine Clarity Clear (Clear); Urine Urobilinogen Normal (Normal)
[2024-05-14 18:51] LABS: Bacteria 3+ /hpf (None Seen); Squamous Epithelial Cells - UA 0-5 SEEN /hpf (5-10)
[2024-05-14 19:00] VITALS: BP 160/92; PULSE 74; RESP 16; O2SAT 99
== END 2024-05-14 20:25 | disposition home or self-care (01) ==
PROVIDERS: Emergency Provider Emergency Medicine; PCP Internal Medicine; Visit Provider Emergency Medicine
DX: K59.00 Constipation, unspecified (principal); I48.0 Paroxysmal atrial fibrillation; R10.9 Unspecified abdominal pain; I10 Essential (primary) hypertension; M10.9 Gout, unspecified; Z79.899 Other long term (current) drug therapy; Z79.01 Long term (current) use of anticoagulants; Z90.710 Acquired absence of both cervix and uterus
CPT/HCPCS: 74177; 80053; 81001; 83690; 85025; 99284; Q9967; A4216

== ENCOUNTER 2024-06-22 17:35 | Observation (INO) | payer MEDICARE, SELFPAY ==
[2024-06-22] VITALS (7 sets, daily range): BP systolic 142–179; BP diastolic 79–99; PULSE 69–80; RESP 12–20; TEMP 36.1–37; O2SAT 94–97; BMI 27.3; BMI 25.8
--- NOTE | 2024-06-22 17:37 | CT_ITS ---
EXAM: STROKE BRAIN/HEAD WITHOUT CONT CLINICAL HISTORY: Neuro deficit, acute stroke suspected COMPARISON: None. TECHNIQUE: Noncontrast images of the head with multiplanar reconstructions. Dose reduction techniques were used including intermediate exposure control (AEC),iterative reconstruction technique, and/or mA and/or KV dose adjustments based on patient's size. FINDINGS: CT HEAD FINDINGS: No acute intracranial hemorrhage, mass, mass effect, midline shift or pathologic extra-axial fluid collection. Nonspecific periventricular white matter changes are noted No hydrocephalus. Age- appropriate cerebral volume and white matter. Visualized paranasal sinuses and mastoid air cells are clear. The calvarium is grossly intact. CT/STROKE Brain/Head without Cont IMPRESSION: 1. No acute intracranial abnormality. 2. Age-appropriate volume loss and remote small vessel ischemic changes Findings reported to Dr. Rafael Wells on 06/22/2024 at 1802 hours Reading Location: [facility]
--- NOTE | 2024-06-22 17:38 | EDS_ITS ---
HPI History of Present Illness Chief Complaint: Stroke Alert Informant: EMS Narrative Narrative: Brought in by EMS for prehospital stroke. Reported last normal was yesterday 8 PM from daughter. This was 21 hours ago. Patient confused incontinence of urine. Reported possible history of TIA. Unclear for any blood thinners however noting records she is on Eliquis for paroxysmal A-fib and history of PE. EKG sent in sinus rhythm. No additional information at this time. [facility] Medical History Paroxysmal atrial fibrillation Pulmonary embolism Dysphagia Esophageal spasm Hiatal hernia Difficulty swallowing Rheumatoid arthritis Osteoporosis Osteopenia Osteoarthritis Neuropathy HTN (hypertension) Gout Carpal tunnel syndrome Cataracts, bilateral Breast lump Arthritis Home Medications ?Medication ?Instructions ?Recorded ?Last Taken ?Type allopurinol 100 mg tablet 100 mg PO DAILY gout 2 01/13/22 History pregabalin 100 mg capsule 100 mg PO TID pain 01/13/22 01/13/22 History pantoprazole 40 mg tablet,delayed 40 mg PO BID #60 tab s 09/04/22 Unknown Rx release apixaban 2.5 mg tablet (Eliquis) 2.5 mg PO BID #60 tab s 01/05/24 Unknown Rx alpha lipoic acid 200 mg capsule 200 mg PO DAILY 06/22 Unknown History buprenorphine 10 mcg/hour weekly 1 patch topical QWEEK 06/22/24 06/17/24 History transdermal patch calcium 315 mg (as 1 tab PO DAILY 06/22/24 Unkn own History citrate)-vitamin D3 5 mcg (200 unit) tablet (Calcium Citrate + D) folic acid 0.8 mg capsule 800 mcg PO DAILY 06/22/24 Un known History lisinopril 10 mg tablet 10 mg PO DAILY 06/22/24 Unkn own History magnesium 250 mg tablet 250 mg PO DAILY 06/22/24 Unk nown History ondansetron 4 mg disintegrating 4 mg PO Q8H PRN nausea and vomiting 06/22/24 Unknown History tablet rosuvastatin 5 mg tablet 5 mg PO QHS 06/22/24 Unknown History vit C 250 mg-vit E 90 mg-zinc 40 1 tab PO BID 06/22/24 Unknown History mg-copper 1 wi-oeyvfz-amayty capsule (PreserVision AREDS-2) Allergy/AdvReac Type Severity Reaction Status Date / Time Sulfa (Sulfonamide AdvReac Nausea/Vom/ Verified 06/22/24 17:51 Antibiotics) Diarrhea sulfamethoxazole (From AdvReac Nausea/Vom/ Verified 06/22/24 17:51 Bactrim) Diarrhea trimethoprim (From Bactrim) AdvReac Nausea/Vom/ Verified 06/22/24 17:51 Diarrhea Family History Father Colon cancer Mother Diabetes CVA (cerebral vascular accident) Surgical History S/P insertion of spinal cord stimulator H/O: hysterectomy History of back surgery H/O knee surgery Social History household members: family Smoking Status: Never smoker alcohol intake: never substance use type: does not use ROS ROS ED Review of Systems ROS Unobtainable: due to mental condition EXAM Physical Exam Const Vital Signs: 06/22/24 17:42 06/22/24 17:52 06/22/24 18:00 Temperature 98.6 F 97.7 F L Temperature Source Temporal Oral Pulse Rate 79 Respiratory Rate 18 Blood Pressure 179/79 H Blood Pressure Mean 112 Pulse Ox 97 Oxygen Delivery Method Room Air Room Air 06/22/24 18:30 06/22/24 19:00 06/22/24 19:00 Temperature Temperature Source Pulse Rate 72 69 69 Respiratory Rate 20 H 20 H 17 Blood Pressure 166/95 H 172/87 H 177/92 H Blood Pressure Mean 118 115 120 Pulse Ox 95 95 96 Oxygen Delivery Method Room Air 06/22/24 19:30 06/22/24 19:50 Temperature 97.7 F L Temperature Source Pulse Rate 78 80 Respiratory Rate 12 18 Blood Pressure 172/99 H 172/93 H Blood Pressure Mean 123 119 Pulse Ox 96 94 Oxygen Delivery Method Room Air Constitutional Narrative: Confused unable to follow commands, decreased movement on left side especially left upper extremity. HEENT normocephalic and atraumatic Chest Wall Chest: Negative for tenderness Resp Resp Narrative: No respiratory distress no retractions Cardio regular rate and regular rhythm Peripheral Pulses: pulses 2+ throughout GI normal to inspection, nondistended, normoactive bowel sounds and non-tender Palpation: Negative for guarding or rebound tenderness present Extremity normal to inspection General Extremety ED: Negative for edema or tenderness General Extremity: Negative for edema Neuro Neuro Narrative: Patient will wince to pain with digital manipulation to her feet. She confused. NIHSS NIHSS Initial: 1a Level of Consciousness: 1 1b LOC Questions (Score 2 if aphasic/stupor): 2 1c LOC Commands (Only score 1st attempt): 0 2 Best Gaze (If aphasic, use reflexive mvmts.): 0 3 Visual: 0 4 Facial Palsy: 1 5 Motor Arm Right (UN = amputation/fusion): 0 5 Motor Arm Left: 0 6 Motor Leg Right: 0 6 Motor Leg Left: 1 7 Limb ataxia (Only + if out of proportion): 0 8 Sensory (Aphasia/stupor=0 or 1, coma=2): 1 9 Best Language: 0 10 Dysarthria (mute, coma=2, intubated=UN): 1 11 Extinction and Inattention (only scored if +): 0 Total Score: 7 MDM MDM MDM Narrative Medical decision making narrative: Interventions / MDM: Differential diagnosis: CVA, left-sided paresthesia, dysarthria, confusion Diagnosis considered but do not suspect: Intracranial hemorrhage however CT negative. My EKG interpretation: Sinus rate of 73, no ST or T wave changes. Not accelerated junctional rhythm as read electronically. Imaging independently reviewed and interpreted by myself: CT head: Discussion with radiology no acute process. CT angiogram head and neck: No LVO. Mild atherosclerotic disease. 1 view chest x-ray: No acute process. External documents reviewed: N/A Test considered but not ordered:N/A ED course: Patient seen on the cot in the hallway. Confused decreased movement especially left upper extremity slight left lip droop. Last known 21 hours ago, edition she is on Eliquis. She is not a TNK candidate. Stroke team initiated as symptoms within 24 hours of last known well. CT head CT angiogram. Sinus rhythm on EKG from EMS. Will plan on adding urine to rule out infections. 180: Patient followed by stroke neurologist, does agree with left-sided deficits, with Eliquis and timeframe not a TNK candidate. CT head discussion with radiologist was negative for any acute process. Stroke neurologist reviewed the CT angiogram did not see any obvious LVO's. Recommended plan to admission for stroke workup. NIH of 7 noting drift left leg paresthesias left side, cannot tell me age and month, left lip droop, dysarthria and seemed confused. 1825: CT angiogram negative. Chest x-ray negative. She has left-sided deficits. I will discuss with hospitalist for admission. Urine pending. I spoke with Dr. Kauffman for admission. Re-evaluation: stable Disposition discussed with patient/family/significant other: Patient Case discussed with consulting clinician: Stroke neurologist, hospitalist This note was generated with [employer] dictation software. It may contain incorrect words, spelling, and punctuation that were not noted in checking the note before signing. Lab Data Attestation: I reviewed the patient's lab results. Labs: Laboratory Results - last 24 hr 06/22/24 06/22/24 17:45 19:05 WBC 8.2 RBC 4.69 Hgb 14.1 Hct 43.8 MCV 93.4 MCH 30.1 MCHC 32.2 RDW Std Deviation 49.1 H RDW Coeff of Lorenzo 14.5 Plt Count 290 MPV 9.6 Immature Gran % (Auto) 0.600 Neut % (Auto) 73.5 H Lymph % (Auto) 17.3 L [place] % (Auto) 6.1 Eos % (Auto) 1.9 Baso % (Auto) 0.6 Absolute Neuts (auto) 6.0 Absolute Lymphs (auto) 1.42 Nucleated RBC % 0 PT 12.9 INR 1.0 APTT 25.3 Sodium 143 Potassium 4.1 Chloride 106 Carbon Dioxide 23.4 Anion Gap 14 BUN 18 Creatinine 0.96 Estim Creat Clear Calc 36.94 L Est GFR (MDRD) Non-Af 59 L BUN/Creatinine Ratio 18.7 Glucose 90 Hemoglobin A1c 5.8 Calcium 11.0 Troponin T High Sens 25 H TSH 2.400 Urine Color Yellow Urine Clarity Clear Urine pH 7.0 Ur Specific [place] 1.005 Urine Protein 15 H Urine Glucose (UA) Normal Urine Ketones Negative Urine Occult Blood Negative Urine Nitrite Positive H Urine Bilirubin Negative Urine Urobilinogen Normal Ur Leukocyte Esterase 25 H Urine RBC 0 SEEN Urine WBC 0-5 SEEN Ur Squamous Epith Cells 0-5 SEEN Amorphous Sediment 1+ PHOS Urine Bacteria RARE Urine Mucus 0 SEEN Radiography Diagnostic Testing: Clinical Impression(s) from Imaging Studies Brain CT 06/22/24 17:37 IMPRESSION: 1. No acute intracranial abnormality. 2. Age-appropriate volume loss and remote small vessel ischemic changes Findings reported to Dr. Rafael Wells on 06/22/2024 at 1802 hours Reading Location: [facility] Head/Neck CTA 06/22/24 17:40 IMPRESSION: Mild atherosclerotic changes with no hemodynamically significant stenosis in the arteries of the head and neck. One or more dose reduction techniques were used (e.g., Automated exposure control, adjustment of the mA and/or kV according to patient size, use of iterative reconstruction technique). Reading Location: [facility] Chest X-Ray 06/22/24 18:23 IMPRESSION: Left basilar atelectasis. Reading Location: [facility] Critical Care Time Critical Care Time: Yes Critical care time (excluding procedures): 30-74 minutes, Discussing w/Patient &/or Family/Primary Products Inspectors, Discussing w/Consultants, Arranging Admission or Transfer, Performing Direct Patient Care at Bedside and - (35 minutes) Discharge Plan Dx/Rx/DC Orders Clinical Impression: Acute CVA (cerebrovascular accident), Left-sided sensory deficit present, Confusion, Chronic anticoagulation Disposition Disposition: Acute Care Hospital [facility] Discharge Date/Time: 06/22/24 21:10
--- NOTE | 2024-06-22 17:40 | CT_ITS ---
PROCEDURE: STROKE CTA HEAD AND NECK W/CON REASON FOR EXAM: CVA TECHNIQUE: CTA imaging of the head and neck from the aortic arch to the skull vertex with intravenous contrast. 3D reconstructions. COMPARISON: None. # of known CTs in the past 12 months: 0 # of known Cardiac Nuclear Medicine Studies in the past 12 months: 0 FINDINGS: Aortic Arch: Normal size and branching pattern. No significant atherosclerotic plaque. Brachiocephalic and Subclavians: Unremarkable RIGHT Carotid: Right CCA: Mild calcified and soft plaque. Right ICA: Mild calcified and soft plaque. Maximum stenosis (NASCET): 0-49 % Right ECA: Unremarkable. LEFT Carotid: Left CCA: Mild calcified and soft plaque. Left ICA: Mild calcified and soft plaque. Maximum stenosis (NASCET): 0-49 % Left ECA: Unremarkable. Vertebrals: Codominant. Arise from the subclavians. Both vertebrals form the basilar. RIGHT Vertebral: Unremarkable. LEFT Vertebral: Unremarkable. No intracranial aneurysms or large vascular malformations are identified. Anterior cerebral arteries: Unremarkable. Middle cerebral arteries: Unremarkable. Basilar artery: Unremarkable. Posterior cerebral arteries: Unremarkable. Other major branches of the posterior circulation: Unremarkable. Major venous structures: Unremarkable. Other findings: No lymphadenopathy. Lung apices are clear. Bones are unremarkable. CT/STROKE CTA Head AND Neck W/Con IMPRESSION: Mild atherosclerotic changes with no hemodynamically significant stenosis in th e arteries of the head and neck. One or more dose reduction techniques were used (e.g., Automated exposure contr ol, adjustment of the mA and/or kV according to patient size, use of iterative reconstruction technique). Reading Location: [facility]
[2024-06-22 18:05] LABS: Absolute Lymphocyte Count 1.42 X10^3/uL (0.83-4.51); Basophil# 0.05 X10^3/uL; Basophil% 0.6 % (0-1); Eosinophil# 0.16 X10^3/uL; Eosinophils% 1.9 % (0-5); Hematocrit 43.8 % (37-47); Hemoglobin 14.1 g/dL (12.0-15.0); Lymphocyte # 1.42 X10^3/ul (0.83-4.51); Lymphocyte % 17.3 % (19-41); Mean Corp Hgb Conc 32.2 g/dL (32-36); Mean Corpuscular Hgb 30.1 pg (27.0-32.0); Mean Corpuscular Volume 93.4 fL (81-99); Mean Platelet Vol. 9.6 fl (6.2-12.0); Monocyte% 6.1 % (0-10); NRBC Flagged by Analyzer 0 % (0-5); Neutrophil # 6.04 X10^3/uL (2.7-7.7); Neutrophil % 73.5 % (47-70); Platelet Count 290 K/mm3 (150-450); RBC Distribution Width CV 14.5 % (11.6-14.6); RBC Distribution Width SD 49.1 fl (35.1-43.9); Red Blood Count 4.69 M/mm3 (4.2-5.4); White Blood Count 8.2 K/mm3 (4.4-11.0)
[2024-06-22 18:18] LABS: Prothrombin Time (Protime)PT. 12.9 SECONDS (11.7-14.9)
--- NOTE | 2024-06-22 18:23 | RAD_ITS ---
PROCEDURE: CHEST 1 VIEW REASON FOR EXAM: Acute stroke TECHNIQUE: Frontal view of the chest. COMPARISON: Chest radiograph dated 09/01/2022 FINDINGS: The heart size is normal. Left basilar atelectasis. No focal consolidation. No pneumothorax. The bones are unremarkable. RAD/Chest 1 View IMPRESSION: Left basilar atelectasis. Reading Location: [facility]
[2024-06-22 18:27] LABS: Partial Thromboplast Time 25.3 Seconds (24.1-36.2)
--- NOTE | 2024-06-22 18:52 | PCM.HP.STD ---
HPI - General General Date of Admission: 06/22/24 Date of Service: 06/22/24 Chief Complaint: Confusion and incontinence of urine HPI Narrative RONNELL HERZOG, is a 84 F who presented who presented to [facility] on 06/22/2024 with confusion and incontinence of urine. Was last noted to be well around 8 PM by daughter and was brought in as a stroke alert. Notably is on Eliquis for paroxysmal A-fib and history of PE. CT brain and CTA head/neck were unremarkable. However, per teleneurology the initial NIHSS score was 7 for not answering questions correctly, minor paralysis, drift, mild to moderate sensory loss and mild to moderate dysarthria. Was not a candidate for TNK as she is on Eliquis. Given these findings, neurology recommended admission for stroke workup and hospitalist was contacted for admission. I saw the patient at bedside in the ED, daughter was present. Patient was sitting back in bed but was quite anxious appearing due to her ongoing difficulty with speech. She also is hard of hearing and did not have her hearing aids in. She currently denied any vision changes, arm or leg weakness or numbness or tingling in extremities. She did continue to have difficulty with speaking. She denied any fevers or chills. Patient's importantly on 05/10 and this has been very hard for both the patient and family. Patient will be admitted for further management. [facility] Medical History Paroxysmal atrial fibrillation Pulmonary embolism Dysphagia Esophageal spasm Hiatal hernia Difficulty swallowing Rheumatoid arthritis Osteoporosis Osteopenia Osteoarthritis Neuropathy HTN (hypertension) Gout Carpal tunnel syndrome Cataracts, bilateral Breast lump Arthritis Home Medications ?Medication ?Instructions ?Recorded ?Last Taken ?Type allopurinol 100 mg tablet 100 mg PO DAILY gout 01/13/22 01/13/22 History pregabalin 100 mg capsule 100 mg PO TID pain 01/13/22 01/13/22 History pantoprazole 40 mg tablet,delayed 40 mg PO BID #60 tabs 09/04/22 Unknown Rx release apixaban 2.5 mg tablet (Eliquis) 2.5 mg PO BID #60 tabs 01/05/24 Unknown Rx alpha lipoic acid 200 mg capsule 200 mg PO DAILY 06/22/24 Unknown History buprenorphine 10 mcg/hour weekly 1 patch topical QWEEK 06/22/24 06/17/24 History transdermal patch calcium 315 mg (as 1 tab PO DAILY 06/22/24 Unknown History citrate)-vitamin D3 5 mcg (200 unit) tablet (Calcium Citrate + D) folic acid 0.8 mg capsule 800 mcg PO DAILY 06/22/24 Unknown History lisinopril 10 mg tablet 10 mg PO DAILY 06/22/24 Unknown History magnesium 250 mg tablet 250 mg PO DAILY 06/22/24 Unknown History ondansetron 4 mg disintegrating 4 mg PO Q8H PRN nausea and vomiting 06/22/24 Unknown History tablet rosuvastatin 5 mg tablet 5 mg PO QHS 06/22/24 Unknown History vit C 250 mg-vit E 90 mg-zinc 40 1 tab PO BID 06/22/24 Unknown History mg-copper 1 [id number] capsule (PreserVision AREDS-2) Allergy/AdvReac Type Severity Reaction Status Date / Time Sulfa (Sulfonamide AdvReac Nausea/Vom/ Verified 06/22/24 17:51 Antibiotics) Diarrhea sulfamethoxazole (From AdvReac Nausea/Vom/ Verified 06/22/24 17:51 Bactrim) Diarrhea trimethoprim (From Bactrim) AdvReac Nausea/Vom/ Verified 06/22/24 17:51 Diarrhea Family History Father Colon cancer Mother Diabetes CVA (cerebral vascular accident) Surgical History S/P insertion of spinal cord stimulator H/O: hysterectomy History of back surgery H/O knee surgery Social History household members: family Smoking Status: Never smoker alcohol intake: never substance use type: does not use ROS Constitutional Constitutional: Reports fatigue and weakness; Denies chills or fever(s) Eyes Eyes: Denies blurry vision or change in vision ENT HEENT: Denies dysphagia, ear pain, nasal congestion, nasal discharge, sinus pressure or sore throat Cardiovascular Cardiovascular: Denies chest pain, edema, lightheadedness, palpitations or rapid heart rate Respiratory/Chest Respiratory/Chest: Denies cough, shortness of breath at rest or shortness of breath with exertion Gastrointestinal Gastrointestinal: Denies abdominal pain Genitourinary Genitourinary: Denies dysuria Musculoskeletal Musculoskeletal: Denies arthralgias or myalgias Neurologic Neurologic: Reports abnormal speech; Denies confusion, dizziness, focal weakness or headache(s) Psychiatric Psychiatric: Reports anxiety Vital Signs Vital Signs Vital Signs: 06/22/24 17:42 06/22/24 17:52 06/22/24 18:00 Temperature 98.6 F 97.7 F L Temperature Source Temporal Oral Pulse Rate 79 Respiratory Rate 18 Blood Pressure 179/79 H Blood Pressure Mean 112 Pulse Ox 97 Oxygen Delivery Method Room Air Room Air 06/22/24 18:30 Temperature Temperature Source Pulse Rate 72 Respiratory Rate 20 H Blood Pressure 166/95 H Blood Pressure Mean 118 Pulse Ox 95 Oxygen Delivery Method Weight Weight: 63.5 kg Body Mass Index (BMI) 27.3 Physical Exam Const alert, oriented x3, no apparent distress and average body habitus Constitutional Narrative: Elderly female, mildly fatigued and anxious appearing, dysarthria noted, otherwise sitting back comfortably in bed, in no acute distress. General Appearance: cooperative and comfortable HEENT normocephalic, head/scalp atraumatic, hearing grossly normal bilaterally, nasal mucous membranes and turbinates normal and moist oral mucous membranes Eyes PERRL, EOMs intact bilaterally and conjunctivae normal Neck full ROM Chest inspection of chest normal Resp normal respiratory effort, normal air movement, no use of accessory muscles and clear to auscultation bilaterally Cardio regular rate, regular rhythm, no murmurs and peripheral pulses 2+ throughout GI normal to inspection, nondistended, normoactive bowel sounds, soft to palpation, non-tender and non-distended Back/Spine normal ROM Extremity normal to inspection, full ROM and no pedal edema Skin no rashes or lesions noted Neuro moves all extremities and no focal motor deficits Neuro Narrative: Dysarthria noted. Left leg with +4-5 strength. No facial palsy noted. Motor Exam: strength 5/5 throughout Psych Mood & Affect: anxious Results Lab / Micro Data 06/22/24 17:45 06/22/24 17:45 Labs: Laboratory Results - last 24 hr 06/22/24 17:45: WBC 8.2, RBC 4.69, Hgb 14.1, Hct 43.8, MCV 93.4, MCH 30.1, MCHC 32.2, RDW Std Deviation 49.1 H, RDW Coeff of Lorenzo 14.5, Plt Count 290, MPV 9.6, Immature Gran % (Auto) 0.600, Neut % (Auto) 73.5 H, Lymph % (Auto) 17.3 L, Bond % (Auto) 6.1, Eos % (Auto) 1.9, Baso % (Auto) 0.6, Absolute Neuts (auto) 6.0, Absolute Lymphs (auto) 1.42, Nucleated RBC % 0, PT 12.9, INR 1.0, APTT 25.3 Imaging Radiology Impression Brain CT 06/22/24 17:37 IMPRESSION: 1. No acute intracranial abnormality. 2. Age-appropriate volume loss and remote small vessel ischemic changes Findings reported to Dr. Rafael Wells on 06/22/2024 at 1802 hours Reading Location: [facility] Head/Neck CTA 06/22/24 17:40 IMPRESSION: Mild atherosclerotic changes with no hemodynamically significant stenosis in the arteries of the head and neck. One or more dose reduction techniques were used (e.g., Automated exposure control, adjustment of the mA and/or kV according to patient size, use of iterative reconstruction technique). Reading Location: [facility] Assessment & Plan Assessment/Plan (1) Confusion: (2) Stroke-like symptoms: PLAN: Plan Patient is an 84-year-old female who presented [facility] ED on 06/22/2024 with confusion and incontinence of urine. 1. Strokelike symptoms, CVA rule out ? Admit under observation status to PCU. Neurology consulted. CT brain and CTA head/neck unremarkable. However, NIHSS score of 7 on admit for not answering questions correctly, minor paralysis, drift, mild to moderate sensory loss and mild to moderate dysarthria. Orders placed per stroke protocol order set. MRI brain ordered. Lipid panel, A1c and TSH ordered. PT/OT/case management consulted. Will continue home Eliquis and increase to high intensity statin dosing. Will hold on aspirin for now and defer decision on this to neurology. 2. Paroxysmal A-fib on Eliquis ? Stable in normal sinus rhythm on admit. Continue home Eliquis. Not on rate control agent. 3. Acute grief state ? Patient's unfortunately in late April. Patient lives at home alone but daughter lives close by and notes that patient has had a difficult time coping with her 's loss. Patient needs but recommend close outpatient follow-up with PCP after discharge. Chronic medical conditions: ? Chronic low back pain with radiculopathy: Continue home weekly buprenorphine patch. ? Hypertension: Holding home lisinopril for permissive hypertension. ? GERD: Continue home PPI. ? History of gout: Continue home allopurinol. ? Hyperlipidemia: Increased home statin to high intensity dosing as noted above. DVT prophylaxis: Not indicated, on Eliquis CODE STATUS: Full code, verified Expected disposition: TBD Total clinical time spent by myself addressing the patient's medical issues, reviewing all the data, and collaborating with patient's care team: 75 minutes. Charges/Coding Visit Charges Inpatient E&M: 10833 Init Hosp L3
[2024-06-22 19:16] LABS: Mucous, Urine 0 SEEN /hpf (<or=2+)
[2024-06-22 19:26] LABS: Color, Urine Yellow (Yellow); Glucose, Dipstick Normal (Normal); Ketone-Dipstick Negative (Negative); Leukocyte Esterase-Dipstick 25 /ul (Negative); Nitrite-Dipstick Positive (Negative); Occult Blood-Urine Negative /ul (Negative); Protein-Dipstick 15 mg/dl (Negative); Specific Gravity, Urine 1.005 (1.002-1.030); Urine Bilirubin Dipstick Negative (Negative); Urine Clarity Clear (Clear); Urine Urobilinogen Normal (Normal)
[2024-06-22 19:39] LABS: Bacteria RARE /hpf (None Seen); Red Blood Cells-Urine 0 SEEN /hpf (0-5); Squamous Epithelial Cells - UA 0-5 SEEN /hpf (5-10); White Blood Cells 0-5 SEEN /hpf (0-5)
[2024-06-22 19:40] LABS: Amorphous Sediment 1+ PHOS
[2024-06-22 20:18] LABS: Hemoglobin A1c 5.8 % (<=5.6)
[2024-06-22 20:28] LABS: Anion Gap 14 (5-15); BUN 18 mg/dL (4-19); BUN/Creat Ratio 18.7 RATIO (10-20); Carbon Dioxide 23.4 mmol/L (21.0-32.0); Chloride 106 mmol/L (98-108); Creatinine, Serum 0.96 mg/dL (0.70-1.20); EST Glomerular Filtration Rate 59 (>60); Estimated Creatinine Clearance 36.94 ml/min (50-250); Glucose 90 mg/dL (70-99); Potassium 4.1 mmol/L (3.3-5.1); Sodium Level 143 mmol/L (133-145); Troponin T High Sensitivity 25 ng/L (<=14)
[2024-06-22] MEDS: APIXABAN 2.5 MG TABLET (WCH) PO (22:49)
[2024-06-22] MEDS: Atorvastatin Calcium 40 MG Tablet PO (22:49)
[2024-06-22] MEDS: Multivitamin (Healthy Eyes) Capsule 1 CAP PO (22:49)
[2024-06-22] MEDS: Acetaminophen 325 MG Tablet 650 MG PO (22:50)
[2024-06-22] MEDS: Pregabalin 50 MG Capsule PO (22:50)
--- NOTE | 2024-06-22 23:53 | NURSING ---
Pt has neurostimulator for her back, at this time family and patient do not know the make/model of this device. Pt family member gave this RN a phone number to call in the morning. Will update with additional information at that time. Jerrell Broussard RN
[2024-06-23 02:00] VITALS: BP 137/83; PULSE 65; RESP 18; TEMP 36.3; O2SAT 94
[2024-06-23 02:24] LABS: Troponin T High Sens 2 HR 215 ng/L (<=14)
--- NOTE | 2024-06-23 02:32 | PCM.HOSP.N ---
Hospitalist Note Repeat 2-hour delta troponin increased to 215, will continue to trend, no reported chest discomfort, EKG with sinus rhythm with no acute evidence of ischemia. Noted per ED note initial NIH stroke scale further assessment 7 With slurred speech, left-sided weakness and confusion. Currently remains on Eliquis. Given rise in troponin will request repeat echocardiogram with last noted 09/02/2022. No previous PCI/cardiac history noted. Given need to rule out AL will defer immediate cardiology evaluation request but once MRI obtained may consider their involvement if felt appropriate.
--- NOTE | 2024-06-23 02:33 | ECHOD_ITS ---
Reason For Study Reason For Study: NSTEMI Procedure This was a 2D Doppler, Color Flow transthoracic echocardiogram. The study was technically difficult. Exam performed portable in patient room. Left Ventricle Moderate concentric left ventricular hypertrophy. Normal LV size. Posterior basal hypokinesis. LVEF estimated at 65%. Stage I diastolic dysfunction. Right Ventricle Normal right ventricle. Atria The left atrium is mildly enlarged. Normal right atrium. Mitral Valve Mild to moderate mitral valve regurgitation. Tricuspid Valve Normal tricuspid valve. Aortic Valve Trisinus/trileaflet aortic valve. Pulmonic Valve The pulmonic valve is not well visualized. Great Vessels Normal sized aortic root. Pericardium/Pleural No pericardial effusion. MMode/2D Measurements & Calculations LVIDd: 4.5 cm IVSd: 1.5 cm Ao root diam: 3.3 cm LVIDs: 3.2 cm LVPWd: 1.0 cm RVDd: 3.1 cm FS: 29.8 % LAV(MOD-bp): 46.4 ml LVAd ap4: 17.9 cm2 SV(MOD-sp4): 24.1 ml LAV(MOD-bp) Indexed: 28.1 ml/m2 LVLd ap4: 6.3 cm SI(MOD-sp4): 14.7 ml/m2 LAV(MOD-sp2): 39.3 ml EDV(MOD-sp4): 43.7 ml LAV(MOD-sp4): 51.5 ml EDV(sp4-el): 43.2 ml LVAs ap4: 10.5 cm2 LVLs ap4: 5.2 cm ESV(MOD-sp4): 19.5 ml ESV(sp4-el): 17.9 ml EF(MOD-sp4): 55.3 % EF(sp4-el): 58.4 % SV(sp4-el): 25.2 ml LA A4 area: 19.4 cm2 RA A4 area: 10.2 cm2 TAPSE: 1.3 cm Time Measurements MV dec time: 0.23 sec Doppler Measurements & Calculations MV E max mychal: 77.3 cm/sec Lat Peak E' Mychal: 10.3 cm/sec Med Peak E' Mychal: 6.0 cm/sec MV A max mychal: 95.9 cm/sec E/E' lat: 7.5 E/E' med: 12.8 MV E/A: 0.81 MV V2 max: 101.4 cm/sec MV P1/2t max mychal: 84.4 cm/sec Ao V2 max: 151.2 cm/sec MV max P.1 mmHg MV P1/2t: 81.1 msec Ao max P.2 mmHg MV V2 mean: 54.6 cm/sec MV dec slope: 304.8 cm/sec2 Ao V2 mean: 98.5 cm/sec MV mean P.4 mmHg Ao mean P.5 mmHg MV V2 VTI: 25.2 cm MVA(P1/2t): 2.7 cm2 Ao V2 VTI: 26.7 cm AV (velocity ratio): 0.96 LV V1 max: 143.1 cm/sec MR max mychal: 473.7 cm/sec LV V1 max P.2 mmHg MR max P.7 mmHg LV V1 mean P.1 mmHg LV V1 mean: 94.6 cm/sec LV V1 VTI: 25.7 cm ECHO/Echo Complete Interpretation Summary Moderate concentric left ventricular hypertrophy. Posterior basal hypokinesis. LVEF estimated at 65%. Stage I diastolic dysfuncti on. The left atrium is mildly enlarged. Mild to moderate mitral valve regurgitation. Ordering Physician: Debbi Cyr Performed By: Paul Harmon RCS
[2024-06-23 02:58] LABS: Hemoglobin 13.3 g/dL (12.0-15.0); Mean Corp Hgb Conc 33.3 g/dL (32-36); Mean Corpuscular Hgb 30.4 pg (27.0-32.0); Mean Corpuscular Volume 91.5 fL (81-99); Mean Platelet Vol. 9.4 fl (6.2-12.0); Platelet Count 255 K/mm3 (150-450); RBC Distribution Width CV 14.3 % (11.6-14.6); RBC Distribution Width SD 47.8 fl (35.1-43.9); Red Blood Count 4.37 M/mm3 (4.2-5.4); White Blood Count 8.6 K/mm3 (4.4-11.0)
[2024-06-23 03:21] LABS: Anion Gap 14 (5-15); BUN 17 mg/dL (4-19); BUN/Creat Ratio 20.4 RATIO (10-20); Calcium,Total 10.2 mg/dL (7.6-11.0); Carbon Dioxide 19.4 mmol/L (21.0-32.0); Chloride 105 mmol/L (98-108); Cholesterol 151 mg/dL (<=200); Creatinine, Serum 0.85 mg/dL (0.70-1.20); EST Glomerular Filtration Rate 68 (>60); Estimated Creatinine Clearance 44.06 ml/min (50-250); Glucose 93 mg/dL (70-99); High Density Lipoprotein 59 mg/dL; Low Density Lipoprotein Calc. 74 mg/dL; Sodium Level 138 mmol/L (133-145); Triglycerides 92 mg/dL; Very Low Density Lipoprotein 18 mg/dL (5-40); cholesterol:hdl ratio screen 2.58
[2024-06-23 03:25] LABS: Troponin T High Sens 4 HR 253 ng/L (<=14)
[2024-06-23 05:30] VITALS: BP 125/75; PULSE 61; RESP 16; TEMP 36.2; O2SAT 93
[2024-06-23] MEDS: Pregabalin 50 MG Capsule PO ×3 (05:39→23:14)
[2024-06-23] MEDS: 0.9% Saline Lock 10 ML Syringe IV (05:39)
[2024-06-23 08:07] VITALS: O2SAT 96
[2024-06-23 09:58] VITALS: BP 129/64; PULSE 77; RESP 14; TEMP 37.2; O2SAT 95
[2024-06-23] MEDS: Multivitamin (Healthy Eyes) Capsule 1 CAP PO ×2 (10:04→23:14)
[2024-06-23] MEDS: Calcium Carb/Vitamin D 1 TABLET Tablet PO (10:04)
[2024-06-23] MEDS: APIXABAN 2.5 MG TABLET (WCH) PO ×2 (10:05→23:14)
[2024-06-23] MEDS: Allopurinol 100 MG Tablet PO (10:05)
[2024-06-23] MEDS: Pantoprazole Sodium 40 MG Tablet PO ×2 (10:05→23:14)
[2024-06-23] MEDS: Folic Acid 1 MG Tablet PO (10:05)
--- NOTE | 2024-06-23 12:00 | MRI_ITS ---
PROCEDURE: BRAIN WITHOUT CONTRAST REASON FOR EXAM: Rule out stroke TECHNIQUE: Multiplanar, multisequence MRI of the brain without intravenous gadolinium-based contrast. COMPARISON: None. FINDINGS: FINDINGS: BRAIN/PARENCHYMA: No evidence of acute infarction or acute intracranial hemorrhage. There are subcortical and periventricular white matter FLAIR hyperintensities, likely related to chronic microvascular ischemic disease. Moderate generalized volume loss. EXTRA-AXIAL SPACES: No abnormal extra-axial fluid collections. Patent basal cisterns and foramen magnum. MIDLINE SHIFT: None. VENTRICLES: Ventricular enlargement, concordant with degree of generalized volume loss. SCALP SOFT TISSUES & CALVARIUM: No significant abnormality. VISUALIZED SINUSES & MASTOIDS: No air-fluid levels in the paranasal sinuses. The mastoid air cells are clear. ARTERIAL FLOW VOIDS: Preserved major arterial flow voids indicating gross patency. MRI/Brain without Contrast IMPRESSION: No acute intracranial abnormality; no acute infarct, intracranial hemorrhage or extra-axial collection. Chronic microvascular ischemia and involutional changes. Reading Location: [facility]
--- NOTE | 2024-06-23 12:10 | NEURO.CONS ---
Assessment and Plan: Neuro Assessment/Plan RONNELL HERZOG is a 84 F with a past medical history of afib, PE, being evaluated by Teleneurology for transient confusion, difficulty speaking and memory problems. She also seems to have more L leg weakness and numbness than prior. Unclear etiology of symptoms - cannot rule out a R sided stroke, however patient also started taking baclofen shortly prior for her back pain which coul have also caused her symptoms, especially at such a high dose as she as taking. AT this time, imaging will help sort out - her symptoms lasted long enough and she continues to be not back to baseline that if MRI Brain is negative this is unliely a TIA or imaging negative stroke especially with another culprit present. Diagnosis: pending imaging Plan: - continue home eliquis - keep SBP < 160/80 for now - can restart baclofen but recommend at 5mg PRN with upward titration Final recs after imaging I personally attended this patient and spent a total time of 45minutes evaluating this patient including clinical assessment, review of chart, medical history imaging, and determining appropriate treatment and workup. HPI Consult Data Date of Consult: 06/23/24 HPI Narrative HPI Narrative: RONNELL HERZOG, is a 84 F who presented who presented to [facility] on 06/22/2024 with confusion and incontinence of urine. Was last noted to be well around 8 PM by daughter and was brought in as a stroke alert. Notably is on Eliquis for paroxysmal A-fib and history of PE. CT brain and CTA head/neck were unremarkable. However, per teleneurology the initial NIHSS score was 7 for not answering questions correctly, minor paralysis, drift, mild to moderate sensory loss and mild to moderate dysarthria. Was not a candidate for TNK as she is on Eliquis. Given these findings, neurology recommended admission for stroke workup and hospitalist was contacted for admission. I saw the patient at bedside in the ED, daughter was present. Patient was sitting back in bed but was quite anxious appearing due to her ongoing difficulty with speech. She also is hard of hearing and did not have her hearing aids in. She currently denied any vision changes, arm or leg weakness or numbness or tingling in extremities. She did continue to have difficulty with speaking. She denied any fevers or chills. Patient's importantly on 05/10 and this has been very hard for both the patient and family. Patient will be admitted for further management. Neurologic History Per pt, she started sudddenly having difficulty getting her words out. She went to bed Thursday night and when waking up she wa snot making sense. She had wet the bed as well. Feels slight better compared to when waking up. Has had a TIA 2 yrs ago. Not missed any doses of the blood thinners. Never had a seizure before. Her speaking is not back to normal though. Patient started the baclofen on 06/21 (at 20mg and took 40mg prior to falling asleep the day of). Prior to starting that medication, was started on flexeril but it wasn't helping. She endorses no new numbness or tingling but worsening weakness and numbness on the L leg. More blurred vision on the R side. [facility] Medical History Paroxysmal atrial fibrillation Pulmonary embolism Dysphagia Esophageal spasm Hiatal hernia Difficulty swallowing Rheumatoid arthritis Osteoporosis Osteopenia Osteoarthritis Neuropathy HTN (hypertension) Gout Carpal tunnel syndrome Cataracts, bilateral Breast lump Arthritis Home Medications ?Medication ?Instructions ?Recorded ?Last Taken ?Type allopurinol 100 mg tablet 100 mg PO DAILY gout 01/13/22 01/13/22 History pregabalin 100 mg capsule 100 mg PO TID pain 01/13/22 01/13/22 History pantoprazole 40 mg tablet,delayed 40 mg PO BID #60 tabs 09/04/22 Unknown Rx release apixaban 2.5 mg tablet (Eliquis) 2.5 mg PO BID #60 tabs 01/05/24 Unknown Rx alpha lipoic acid 200 mg capsule 200 mg PO DAILY 06/22/24 Unknown History buprenorphine 10 mcg/hour weekly 1 patch topical QWEEK 06/22/24 06/17/24 History transdermal patch calcium 315 mg (as 1 tab PO DAILY 06/22/24 Unknown History citrate)-vitamin D3 5 mcg (200 unit) tablet (Calcium Citrate + D) folic acid 0.8 mg capsule 800 mcg PO DAILY 06/22/24 Unknown History lisinopril 10 mg tablet 10 mg PO DAILY 06/22/24 Unknown History magnesium 250 mg tablet 250 mg PO DAILY 06/22/24 Unknown History ondansetron 4 mg disintegrating 4 mg PO Q8H PRN nausea and vomiting 06/22/24 Unknown History tablet rosuvastatin 5 mg tablet 5 mg PO QHS 06/22/24 Unknown History vit C 250 mg-vit E 90 mg-zinc 40 1 tab PO BID 06/22/24 Unknown History mg-copper 1 [id number] capsule (PreserVision AREDS-2) Allergy/AdvReac Type Severity Reaction Status Date / Time Sulfa (Sulfonamide AdvReac Nausea/Vom/ Verified 06/22/24 17:51 Antibiotics) Diarrhea sulfamethoxazole (From AdvReac Nausea/Vom/ Verified 06/22/24 17:51 Bactrim) Diarrhea trimethoprim (From Bactrim) AdvReac Nausea/Vom/ Verified 06/22/24 17:51 Diarrhea Family History Father Colon cancer Mother Diabetes CVA (cerebral vascular accident) Surgical History S/P insertion of spinal cord stimulator H/O: hysterectomy History of back surgery H/O knee surgery Social History household members: family Smoking Status: Never smoker alcohol intake: never substance use type: does not use Vital Signs Vital Signs Vital Signs: 06/22/24 17:42 06/22/24 17:52 06/22/24 18:00 Temperature 98.6 F 97.7 F L Temperature Source Temporal Oral Pulse Rate 79 Respiratory Rate 18 Respiratory Effort Respiratory Depth Respiratory Pattern Blood Pressure 179/79 H Blood Pressure Mean 112 Blood Pressure Source Blood Pressure Position Blood Pressure Location Pulse Ox 97 Oxygen Delivery Method Room Air Room Air 06/22/24 18:30 06/22/24 19:00 06/22/24 19:00 Temperature Temperature Source Pulse Rate 72 69 69 Respiratory Rate 20 H 20 H 17 Respiratory Effort Respiratory Depth Respiratory Pattern Blood Pressure 166/95 H 172/87 H 177/92 H Blood Pressure Mean 118 115 120 Blood Pressure Source Blood Pressure Position Blood Pressure Location Pulse Ox 95 95 96 Oxygen Delivery Method Room Air 06/22/24 19:30 06/22/24 19:50 06/22/24 22:00 Temperature 97.7 F L 97.0 F L Temperature Source Temporal Pulse Rate 78 80 74 Respiratory Rate 12 18 16 Respiratory Effort Respiratory Depth Respiratory Pattern Blood Pressure 172/99 H 172/93 H 142/86 H Blood Pressure Mean 123 119 104 Blood Pressure Source Monitor Blood Pressure Position Semi-Fowlers Blood Pressure Location Right Arm Pulse Ox 96 94 97 Oxygen Delivery Method Room Air Room Air 06/22/24 22:00 06/22/24 22:00 06/23/24 02:00 Temperature 97.0 F L 97.3 F L Temperature Source Temporal Temporal Pulse Rate 74 65 Respiratory Rate 16 18 Respiratory Effort Normal Non-Labored Respiratory Depth Normal Respiratory Pattern Normal Blood Pressure 142/86 H 137/83 H Blood Pressure Mean 104 101 Blood Pressure Source Monitor Monitor Blood Pressure Position Semi-Fowlers Semi-Fowlers Blood Pressure Location Right Arm Right Arm Pulse Ox 97 94 Oxygen Delivery Method Room Air Room Air Room Air 06/23/24 02:00 06/23/24 02:21 06/23/24 05:30 Temperature 97.3 F L 97.2 F L Temperature Source Temporal Temporal Pulse Rate 65 61 Respiratory Rate 18 16 Respiratory Effort Normal Non-Labored Respiratory Depth Normal Respiratory Pattern Normal Blood Pressure 137/83 H 125/75 H Blood Pressure Mean 101 91 Blood Pressure Source Monitor Monitor Blood Pressure Position Semi-Fowlers Semi-Fowlers Blood Pressure Location Right Arm Right Arm Pulse Ox 94 93 Oxygen Delivery Method Room Air Room Air Room Air 06/23/24 05:30 06/23/24 07:35 06/23/24 08:07 Temperature 97.2 F L Temperature Source Temporal Pulse Rate 61 Respiratory Rate 16 Respiratory Effort Normal Non-Labored Respiratory Depth Normal Respiratory Pattern Normal Blood Pressure 125/75 H Blood Pressure Mean 91 Blood Pressure Source Monitor Blood Pressure Position Semi-Fowlers Blood Pressure Location Right Arm Pulse Ox 93 96 Oxygen Delivery Method Room Air Room Air Room Air 06/23/24 09:58 Temperature 99 F Temperature Source Oral Pulse Rate 77 Respiratory Rate 14 Respiratory Effort Respiratory Depth Respiratory Pattern Blood Pressure 129/64 H Blood Pressure Mean 85 Blood Pressure Source Monitor Blood Pressure Position Sitting Blood Pressure Location Right Arm Pulse Ox 95 Oxygen Delivery Method Room Air Weight Weight: 64 kg Body Mass Index (BMI) 25.8 EEG Results Procedure Details EEG Procedure Details: RONNELL HERZOG is a 84 year old F with a past medical history of , who presents for evaluation of Electroencephalogram on DATE at TIME NIHSS NIHSS Nursing Documentation NIHSS Nursing Documentation: NIHSS: Ischemic Stroke/TIA Start: 06/22/24 21:24 Text: For PCU Patients: NIH and Neuro Check every 4 Status: Active hours, PRN and with change in RN caregiver. Freq: [id number] Protocol: Activity Type Activity Date Activity User E-sign Co-sign Detail Recorded Client Recorded Date Recorded By Document 06/23/24 11:35 DS ll 06/23/24 11:58 DS 06/23/24 11:35 NIH Stroke Scale [NIHSS] A score of 0 is normal or asymptomatic . Total possible score is 42. Inpatient: RN or Physician to activate a stroke alert for onset of new stroke symptoms or with NIHSS increase >/= 3 points. Following change in neurological status, NIHSS will be performed per physician order or more frequently PRN. -1a. Level of Consciousness Alert; keenly responsive -1b. LOC Questions Answers BOTH questions correctly. -1c. LOC Commands Performs both tasks correctly . -2. Best Gaze Normal -3. Visual No visual loss -4. Facial Palsy Minor paralysis (flattened nasolabial fold , asymmetry on smiling) -5a. Left Arm No drift; arm holds 90 (or 45 ) degrees for full 10 seconds -5b. Right Arm No drift; arm holds 90 (or 45 ) degrees for full 10 seconds -6a. Left Leg No drift; leg holds 30-degree position for full 5 seconds -6b. Right Leg No drift; leg holds 30-degree position for full 5 seconds -7. Limb Ataxia Absent -8. Sensory Mild-to- moderate sensory loss; -9. Best Language Mild-to- moderate aphasia; -10. Dysarthria Normal -11. Extinction and Inattention No abnormality -Total 3 Query Text:A score of 0 is normal or asymptomatic. Total possible score is 42 . ED: Notify Physician for NIHSS increase by > / = 3 points. Inpatient: RN or Physician to activate a stroke alert for NIHSS increase of > / = 3 points. Coma Scale [Assess] -Eye Opening Spontaneous -Motor Obeys Commands -Verbal Oriented [Total] -Coma Scale Total 15 Physical Exam Narrative -? General: Laying comfortably in bed; in no acute distress. -? HENT: Normal oropharynx and mucosa. Normal external appearance of ears and nose. Exophthalmos. -? Neck: Supple, no pain or tenderness -? CV:? No peripheral edema. -? Pulmonary:? Normal respiratory effort. -? Ext: No cyanosis, edema, or deformity -? Skin: No rash. Normal palpation of skin.? -? Musculoskeletal: full range of motion; no joint tenderness. Normal digits and nails by inspection. No clubbing. -? NEURO: -? Mental Status: The patient was alert and oriented to time, place, and person. Normal recent/remote memory, concentration, and general fund of knowledge. -? Language: speech is clear.? Naming, repetition, fluency, and comprehension intact. -? Cranial Nerves: EOMI, visual bass full, Ra nasolabial fold flatenning, facial sensation intact, hearing intact, tongue midline, no evidence of atrophy or fibrillations. -? Motor: normal bulk, tone, and strength throughout. No pronator drift or satelliting. Upper extremities equal bilaterally. LLE with drift to bed -? Detailed strength exam as performed by the nurse/ELOY and witnessed by the physician: R L SA 4 4 EE EF 4 4 WE WF [employer] 5 5 HF KE KF 4 4 DF PF -? Tone: is normal and bulk is normal -? Sensation- diminished on the L arm and leg but laterally. On the thighs feels the same bilaterally -? Coordination: No dysmetria on [id number], finger follow finger or [id number]. -? Gait-deferred Lab / Micro Data 06/23/24 02:25 06/23/24 02:25 Labs: Laboratory Results - last 24 hr 06/22/24 17:45: WBC 8.2, RBC 4.69, Hgb 14.1, Hct 43.8, MCV 93.4, MCH 30.1, MCHC 32.2, RDW Std Deviation 49.1 H, RDW Coeff of Lorenzo 14.5, Plt Count 290, MPV 9.6, Immature Gran % (Auto) 0.600, Neut % (Auto) 73.5 H, Lymph % (Auto) 17.3 L, Hamilton % (Auto) 6.1, Eos % (Auto) 1.9, Baso % (Auto) 0.6, Absolute Neuts (auto) 6.0, Absolute Lymphs (auto) 1.42, Nucleated RBC % 0, PT 12.9, INR 1.0, APTT 25.3, Sodium 143, Potassium 4.1, Chloride 106, Carbon Dioxide 23.4, Anion Gap 14, BUN 18, Creatinine 0.96, Estim Creat Clear Calc 36.94 L, Est GFR (MDRD) Non-Af 59 L, BUN/Creatinine Ratio 18.7, Glucose 90, Hemoglobin A1c 5.8, Calcium 11.0, Troponin T High Sens 25 H, TSH 2.400 06/22/24 19:05: Urine Color Yellow, Urine Clarity Clear, Urine pH 7.0, Ur Specific [place] 1.005, Urine Protein 15 H, Urine Glucose (UA) Normal, Urine Ketones Negative, Urine Occult Blood Negative, Urine Nitrite Positive H, Urine Bilirubin Negative, Urine Urobilinogen Normal, Ur Leukocyte Esterase 25 H, Urine RBC 0 SEEN, Urine WBC 0-5 SEEN, Ur Squamous Epith Cells 0-5 SEEN, Amorphous Sediment 1+ PHOS, Urine Bacteria RARE, Urine Mucus 0 SEEN 06/22/24 23:57: Troponin T Hi Sens 2 Hr 215 H* 06/23/24 02:25: WBC 8.6, RBC 4.37, Hgb 13.3, Hct 40.0, MCV 91.5, MCH 30.4, MCHC 33.3, RDW Std Deviation 47.8 H, RDW Coeff of Lorenzo 14.3, Plt Count 255, MPV 9.4, Sodium 138, Potassium 4.0, Chloride 105, Carbon Dioxide 19.4 L, Anion Gap 14, BUN 17, Creatinine 0.85, Estim Creat Clear Calc 44.06 L, Est GFR (MDRD) Non-Af 68, BUN/Creatinine Ratio 20.4 H, Glucose 93, Calcium 10.2, Troponin T Hi Sens 4Hr 253 H*, Triglycerides 92, Cholesterol 151, LDL Cholesterol, Calc 74, VLDL Cholesterol 18, HDL Cholesterol 59, Cholesterol/HDL Ratio 2.58 Imaging Radiology Impression Brain CT 06/22/24 17:37 IMPRESSION: 1. No acute intracranial abnormality. 2. Age-appropriate volume loss and remote small vessel ischemic changes Findings reported to Dr. Rafael Wells on 06/22/2024 at 1802 hours Reading Location: [facility] Head/Neck CTA 06/22/24 17:40 IMPRESSION: Mild atherosclerotic changes with no hemodynamically significant stenosis in the arteries of the head and neck. One or more dose reduction techniques were used (e.g., Automated exposure control, adjustment of the mA and/or kV according to patient size, use of iterative reconstruction technique). Reading Location: [facility] Chest X-Ray 06/22/24 18:23 IMPRESSION: Left basilar atelectasis. Reading Location: [facility] Active Medications Active Medications Active Medications: Current Medications Generic Name Dose Route Start Last Admin Trade Name Freq PRN Reason Stop Dose Admin Acetaminophen 650 mg 06/22/24 21:24 06/22/24 22:50 Acetaminophen 325 Mg Tablet PO 650 mg Q6H PRN PRN Administration Pain 1-10 Or Fever>100.7 Allopurinol 100 mg 06/23/24 10:00 06/23/24 10:05 Allopurinol 100 Mg Tablet PO 100 mg DAILY YENY Administration Apixaban 2.5 mg 06/22/24 22:00 06/23/24 10:05 Apixaban 2.5 Mg Tablet ([facility]) PO 2.5 mg BID YENY Administration Atorvastatin Calcium 40 mg 06/22/24 22:00 06/22/24 22:49 Atorvastatin Calcium 40 Mg Tablet PO 40 mg QHS YENY Administration Buprenorphine 1 patch 06/24/24 10:00 Buprenorphine 10 Mcg Patch.Tdwk TD QWEEK YENY Calcium/Vitamin D 1 tablet 06/23/24 10:00 06/23/24 10:04 Calcium Carb/Vitamin D 1 Tablet Tablet PO 1 tablet DAILY YENY Administration Folic Acid 1 mg 06/23/24 08:00 06/23/24 10:05 Folic Acid 1 Mg Tablet PO 1 mg BREAKFAST YENY Administration Hydralazine HCl 5 mg 06/22/24 21:24 Hydralazine 20 Mg/Ml Vial IV 06/23/24 21:24 Q30M PRN maintain BP parameters with HR <60 Sodium Chloride 100 mls @ 15 mls/hr 06/22/24 21:38 IV .Q6H40M PRN Saline Flush Sodium Chloride 100 mls @ 15 mls/hr 06/22/24 21:38 IV .Q6H40M PRN Additional IVPB Infusion Labetalol HCl 20 mg 06/22/24 17:37 Labetalol 20mg/4ml Syringe IV 06/23/24 17:37 X1 PRN Blood Pressure Labetalol HCl 10 - 20 mg 06/22/24 21:24 Labetalol 20mg/4ml Syringe IV 06/23/24 21:24 Q10M PRN PRN maintain BP parameters with HR >/=60 Melatonin 3 mg 06/22/24 21:24 Melatonin 3 Mg Tablet PO QHS PRN PRN INSOMNIA Multivitamins/Minerals 1 cap 06/22/24 22:00 06/23/24 10:04 Multivitamin (Healthy Eyes) Capsule PO 1 cap BID YENY Administration Ondansetron HCl 4 mg 06/22/24 21:24 Ondansetron Odt 4 Mg Tablet PO Q8H PRN PRN nausea and vomiting Pantoprazole Sodium 40 mg 06/22/24 22:00 06/23/24 10:05 Pantoprazole Sodium 40 Mg Tablet PO 40 mg BID YENY Administration Pregabalin 50 mg 06/22/24 22:00 06/23/24 05:39 Pregabalin 50 Mg Capsule PO 50 mg TID YENY Administration Sodium Chloride 10 - 40 ml 06/22/24 21:38 06/23/24 05:39 0.9% Saline Lock 10 Ml Syringe IV 10 ml UD PRN Administration SALINE FLUSH
[2024-06-23] MEDS: Acetaminophen 325 MG Tablet 650 MG PO ×2 (12:45→23:23)
--- NOTE | 2024-06-23 15:40 | CASEMGMT ---
Met with patient to complete SWIFT form. SWIFT form explained to patient who voiced understanding and signed form. Original form placed in pt?s chart and copy provided to patient. Renetta Migule, Discharge Planning Asst
--- NOTE | 2024-06-23 15:53 | CHAPLAIN ---
Type of Pastoral Visit ___ Initial Visit ___ Follow-up Visit ___ On-call Visit ___ General Patient Visit ___ Spiritual Assessment ___ Family Conference ___ Bereavement ___ Rapid Response ___ Code Blue ___ Other (describe below) Pastoral Care Referral From ___ Patient ___ Family ___ Nurse ___ Physician ___ Carton Stamper ___ Produce Team Member ___ Other (describe below) Sacrament/Intervention ___ Active listening ___ Anointing ___ Yazdanism ___ Bereavement ___ Communion ___ Tracy exploration ___ ___ Life review ___ Prayer ___ Reconciliation ___ Sacrament of Sick ___ Supportive presence ___ Wedding ___ Other (describe below) Pastoral Comments patient is out of the room
[2024-06-23 16:00] VITALS: BP 116/66; PULSE 70; RESP 15; TEMP 36.7; O2SAT 92
--- NOTE | 2024-06-23 16:22 | DCINST_ITS ---
Discharge Instructions Diet Discharge Diet: No restrictions DC O2, CPAP, BIPAP needs Home O2 Discharge instructions: No Dressing / Incision Discharge Activity: No Restrictions Follow Up Care Test Results: Test results from this visit will be discussed in further detail at your follow- up appointment, if applicable. Discharge Plan Admission Admit Date/Time: 06/22/24 19:12 Primary Reason for Your Visit: strokelike symptoms Attending Provider: Wally Kauffman Primary Care Provider: Maria D Michael Instructions Additional Instructions / Restrictions: Continue home medications as normal. Please hold off on taking the cyclobenzaprine that was recently prescribed by orthopedics. Follow up with orthopedics and your PCP as needed. Discharge Orders/Prescriptions Prescriptions: Continued allopurinol 100 mg tablet 100 mg PO DAILY pregabalin 100 mg capsule 100 mg PO TID pantoprazole 40 mg tablet,delayed release (DR/EC) 40 mg PO BID Qty: 60 2RF rosuvastatin 5 mg tablet 5 mg PO QHS ondansetron 4 mg tablet,disintegrating 4 mg PO Q8H PRN (Reason: nausea and vomiting) alpha lipoic acid 200 mg capsule 200 mg PO DAILY PreserVision AREDS-2 250-90-40-1 mg capsule 1 tab PO BID folic acid 0.8 mg capsule 800 mcg PO DAILY calcium citrate-vitamin D3 [Calcium Citrate + D] 315 mg-5 mcg (200 unit) tablet 1 tab PO DAILY magnesium 250 mg tablet 250 mg PO DAILY lisinopril 10 mg tablet 10 mg PO DAILY buprenorphine 10 mcg/hour patch weekly 1 patch topical QWEEK Eliquis 2.5 mg tablet 2.5 mg PO BID Qty: 60 12RF Rx Instructions: Hold if patient has GI bleed, hematemesis melena or hematuria or hemoptysis. Referrals / Follow Up: Maria D Michael MD [Primary Care Provider] - Disposition Disposition (needs filled in before D/C Order can be placed): Home, Self Care
--- NOTE | 2024-06-23 16:27 | PCM.DC.SUM ---
Providers Date of Admission: 06/22/24 Primary Care Physician: Dr. Maria D Michael MD Consultations 06/22/24 21:24 Consult: Tele-Neurology Routine Consulting Provider: [facility] Reason for Consult: Acute Ischemic Stroke/TIA EMERGENT Consult: No Notified: Yes Date Notified: 06/22/24 Time Notified: 01:47 Method of Notification: Answering Service Nursing Unit Staff Notify [facility] of Tele-Neurology Consult: Yes Reason For Visit: STROKELIKE SYMPTOMS Diagnosis Discharge Diagnosis (1) Confusion: Status: Acute Code(s): R41.0 - Disorientation, unspecified (2) Stroke-like symptoms: Status: Acute Code(s): R29.90 - Unspecified symptoms and signs involving the nervous system Plan Patient is an 84-year-old female who presented [facility] ED on 06/22/2024 with confusion and incontinence of urine. 1. Strokelike symptoms, CVA rule out ? Admit under observation status to PCU. Neurology consulted. CT brain and CTA head/neck unremarkable. However, NIHSS score of 7 on admit for not answering questions correctly, minor paralysis, drift, mild to moderate sensory loss and mild to moderate dysarthria. Orders placed per stroke protocol order set. MRI brain ordered. Lipid panel, A1c and TSH ordered. PT/OT/case management consulted. Will continue home Eliquis and increase to high intensity statin dosing. Will hold on aspirin for now and defer decision on this to neurology. 2. Paroxysmal A-fib on Eliquis ? Stable in normal sinus rhythm on admit. Continue home Eliquis. Not on rate control agent. 3. Acute grief state ? Patient's unfortunately in late April. Patient lives at home alone but daughter lives close by and notes that patient has had a difficult time coping with her 's loss. Patient needs but recommend close outpatient follow-up with PCP after discharge. Chronic medical conditions: ? Chronic low back pain with radiculopathy: Continue home weekly buprenorphine patch. ? Hypertension: Holding home lisinopril for permissive hypertension. ? GERD: Continue home PPI. ? History of gout: Continue home allopurinol. ? Hyperlipidemia: Increased home statin to high intensity dosing as noted above. DVT prophylaxis: Not indicated, on Eliquis CODE STATUS: Full code, verified Expected disposition: TBD Total clinical time spent by myself addressing the patient's medical issues, reviewing all the data, and collaborating with patient's care team: 75 minutes. Medications at Discharge Home Medications allopurinol 100 mg tablet 100 mg PO DAILY gout 01/13/22 pregabalin 100 mg capsule 100 mg PO TID pain 01/13/22 pantoprazole 40 mg tablet,delayed release 40 mg PO BID #60 tabs 09/04/22 apixaban 2.5 mg tablet (Eliquis) 2.5 mg PO BID #60 tabs 01/05/24 alpha lipoic acid 200 mg capsule 200 mg PO DAILY 06/22/24 buprenorphine 10 mcg/hour weekly transdermal patch 1 patch topical QWEEK 06/22/24 calcium 315 mg (as citrate)-vitamin D3 5 mcg (200 unit) tablet (Calcium Citrate + D) 1 tab PO DAILY 06/22/24 folic acid 0.8 mg capsule 800 mcg PO DAILY 06/22/24 lisinopril 10 mg tablet 10 mg PO DAILY 06/22/24 magnesium 250 mg tablet 250 mg PO DAILY 06/22/24 ondansetron 4 mg disintegrating tablet 4 mg PO Q8H PRN nausea and vomiting 06/22/24 rosuvastatin 5 mg tablet 5 mg PO QHS 06/22/24 vit C 250 mg-vit E 90 mg-zinc 40 mg-copper 1 [id number]-huseqe capsule (PreserVision AREDS-2) 1 tab PO BID 06/22/24 Weight / BMI Weight Weight: 64 kg Body Mass Index (BMI) 25.8 ABG / Lab / Microbiology Data 06/23/24 02:25 06/23/24 02:25 Laboratory: Laboratory Results - last 24 hr 06/22/24 17:45: WBC 8.2, RBC 4.69, Hgb 14.1, Hct 43.8, MCV 93.4, MCH 30.1, MCHC 32.2, RDW Std Deviation 49.1 H, RDW Coeff of Lorenzo 14.5, Plt Count 290, MPV 9.6, Immature Gran % (Auto) 0.600, Neut % (Auto) 73.5 H, Lymph % (Auto) 17.3 L, [place] % (Auto) 6.1, Eos % (Auto) 1.9, Baso % (Auto) 0.6, Absolute Neuts (auto) 6.0, Absolute Lymphs (auto) 1.42, Nucleated RBC % 0, PT 12.9, INR 1.0, APTT 25.3, Sodium 143, Potassium 4.1, Chloride 106, Carbon Dioxide 23.4, Anion Gap 14, BUN 18, Creatinine 0.96, Estim Creat Clear Calc 36.94 L, Est GFR (MDRD) Non-Af 59 L, BUN/Creatinine Ratio 18.7, Glucose 90, Hemoglobin A1c 5.8, Calcium 11.0, Troponin T High Sens 25 H, TSH 2.400 06/22/24 19:05: Urine Color Yellow, Urine Clarity Clear, Urine pH 7.0, Ur Specific [place] 1.005, Urine Protein 15 H, Urine Glucose (UA) Normal, Urine Ketones Negative, Urine Occult Blood Negative, Urine Nitrite Positive H, Urine Bilirubin Negative, Urine Urobilinogen Normal, Ur Leukocyte Esterase 25 H, Urine RBC 0 SEEN, Urine WBC 0-5 SEEN, Ur Squamous Epith Cells 0-5 SEEN, Amorphous Sediment 1+ PHOS, Urine Bacteria RARE, Urine Mucus 0 SEEN 06/22/24 23:57: Troponin T Hi Sens 2 Hr 215 H* 06/23/24 02:25: WBC 8.6, RBC 4.37, Hgb 13.3, Hct 40.0, MCV 91.5, MCH 30.4, MCHC 33.3, RDW Std Deviation 47.8 H, RDW Coeff of Lorenzo 14.3, Plt Count 255, MPV 9.4, Sodium 138, Potassium 4.0, Chloride 105, Carbon Dioxide 19.4 L, Anion Gap 14, BUN 17, Creatinine 0.85, Estim Creat Clear Calc 44.06 L, Est GFR (MDRD) Non-Af 68, BUN/Creatinine Ratio 20.4 H, Glucose 93, Calcium 10.2, Troponin T Hi Sens 4Hr 253 H*, Triglycerides 92, Cholesterol 151, LDL Cholesterol, Calc 74, VLDL Cholesterol 18, HDL Cholesterol 59, Cholesterol/HDL Ratio 2.58 Radiography Diagnostic Testing: Radiology Impression Brain CT 06/22/24 17:37 IMPRESSION: 1. No acute intracranial abnormality. 2. Age-appropriate volume loss and remote small vessel ischemic changes Findings reported to Dr. Rafael Wells on 06/22/2024 at 1802 hours [facility] Head/Neck CTA 06/22/24 17:40 IMPRESSION: Mild atherosclerotic changes with no hemodynamically significant stenosis in the arteries of the head and neck. One or more dose reduction techniques were used (e.g., Automated exposure control, adjustment of the mA and/or kV according to patient size, use of iterative reconstruction technique). Reading [facility] Chest X-Ray 06/22/24 18:23 IMPRESSION: Left basilar atelectasis. [facility] E[facility] 06/23/24 02:33 Interpretation Summary Moderate concentric left ventricular hypertrophy. Posterior basal hypokinesis. LVEF estimated at 65%. Stage I diastolic dysfunction. The left atrium is mildly enlarged. Mild to moderate mitral valve regurgitation. Ordering Physician: Debbi Cyr Performed By: Paul Harmon [facility] Brain MRI 06/23/24 12:00 IMPRESSION: No acute intracranial abnormality; no acute infarct, intracranial hemorrhage or extra-axial collection. Chronic microvascular ischemia and involutional changes. Reading [facility] Instructions Discharge Diet: No restrictions DC O2, CPAP, BIPAP Needs Home O2 Discharge instructions: No Meaningful Use Info Ischemic Stroke Statin Dosing Therapy Reference: STATIN DOSE THERAPY REFERENCE: * Patients > 75 years receive moderate or high dose statin therapy. * Patients 75 years or YOUNGER should receive HIGH intensity statin dose unless contraindicated. You will be required to document reason for non-treatment if statin daily dose does not meet guidelines. HIGH DOSE STATIN THERAPY DAILY Atorvastatin > than or = to 40 mg Rosuvastatin > than or = to 20 mg Amlodipine + Atorvastatin > than or = to 2.5/40 mg Ezetimibe + Simvastatin 10/80 mg Simvastatin 80mg Discharge Plan Admission Admit Date/Time: 06/22/24 19:12 Primary Reason for Your Visit: strokelike symptoms Attending Provider: Wally Kauffman Primary Care Provider: Maria D Michael Instructions Additional Instructions / Restrictions: Continue home medications as normal. Please hold off on taking the cyclobenzaprine that was recently prescribed by orthopedics. Follow up with orthopedics and your PCP as needed. Discharge Orders/Prescriptions Prescriptions: Continued allopurinol 100 mg tablet 100 mg PO DAILY pregabalin 100 mg capsule 100 mg PO TID pantoprazole 40 mg tablet,delayed release (DR/EC) 40 mg PO BID Qty: 60 2RF rosuvastatin 5 mg tablet 5 mg PO QHS ondansetron 4 mg tablet,disintegrating 4 mg PO Q8H PRN (Reason: nausea and vomiting) alpha lipoic acid 200 mg capsule 200 mg PO DAILY PreserVision AREDS-2 250-90-40-1 mg capsule 1 tab PO BID folic acid 0.8 mg capsule 800 mcg PO DAILY calcium citrate-vitamin D3 [Calcium Citrate + D] 315 mg-5 mcg (200 unit) tablet 1 tab PO DAILY magnesium 250 mg tablet 250 mg PO DAILY lisinopril 10 mg tablet 10 mg PO DAILY buprenorphine 10 mcg/hour patch weekly 1 patch topical QWEEK Eliquis 2.5 mg tablet 2.5 mg PO BID Qty: 60 12RF Rx Instructions: Hold if patient has GI bleed, hematemesis melena or hematuria or hemoptysis. Referrals / Follow Up: Maria D Michael MD [Primary Care Provider] - Disposition Disposition (needs filled in before D/C Order can be placed): Home, Self Care
--- NOTE | 2024-06-23 16:33 | PCM.PN.HOSP ---
Reason for Visit Reason for Visit: Diagnoses Unspecified symptoms and signs involving the nervous system (06/22/24) Disorientation, unspecified (06/22/24) Subjective Subjective Saw patient at bedside this morning, daughter present. Patient was sitting up comfortably in bedside chair and mentation was much improved this morning. She was speaking normally and articulating her thoughts well for me. Daughter noted that she still seem to be a little bit fuzzier mentally than her normal but agreed she was much improved. Patient otherwise denied any new concerns this morning. Saw patient again at bedside this afternoon after MRI and echo had resulted. Discussed with neurology and MRI showed no stroke findings, so it is most likely that the baclofen that was recently prescribed for her for her back pain was the cause of her altered mentation. Recommended that patient discontinue this medication going forward. Echo showed EF 65% but did show an area of posterior basal hypokinesis that is new from last echo. Given this finding along with the elevated troponins, will keep patient overnight and plan for nuclear stress test tomorrow morning for further evaluation. Patient and family were agreeable to this. Objective Data Objective Data Vital Signs: Vital Signs Temp Pulse Resp BP Pulse Ox O2 Del Method 98.1 F 70 15 116/66 92 Room Air 06/23/24 16:00 06/23/24 16:00 06/23/24 16:00 06/23/24 16:00 06/23/24 16:00 06/23/24 16:00 Oxygen Delivery Method Room Air Weight: 64 kg Body Mass Index (BMI) 25.8 Intake & Output: Intake and Output for Last 24 Hours 06/21/24 06/22/24 06/23/24 23:59 23:59 23:59 Intake Total 150 / 150 675 / 675 Output Total 0 / 0 1100 / 1100 Balance 150 / 150 -425 / -425 Lab / Micro Data 06/23/24 02:25 06/23/24 02:25 Labs: Laboratory Results - last 24 hr 06/22/24 17:45: WBC 8.2, RBC 4.69, Hgb 14.1, Hct 43.8, MCV 93.4, MCH 30.1, MCHC 32.2, RDW Std Deviation 49.1 H, RDW Coeff of Lorenzo 14.5, Plt Count 290, MPV 9.6, Immature Gran % (Auto) 0.600, Neut % (Auto) 73.5 H, Lymph % (Auto) 17.3 L, [place] % (Auto) 6.1, Eos % (Auto) 1.9, Baso % (Auto) 0.6, Absolute Neuts (auto) 6.0, Absolute Lymphs (auto) 1.42, Nucleated RBC % 0, PT 12.9, INR 1.0, APTT 25.3, Sodium 143, Potassium 4.1, Chloride 106, Carbon Dioxide 23.4, Anion Gap 14, BUN 18, Creatinine 0.96, Estim Creat Clear Calc 36.94 L, Est GFR (MDRD) Non-Af 59 L, BUN/Creatinine Ratio 18.7, Glucose 90, Hemoglobin A1c 5.8, Calcium 11.0, Troponin T High Sens 25 H, TSH 2.400 06/22/24 19:05: Urine Color Yellow, Urine Clarity Clear, Urine pH 7.0, Ur Specific [place] 1.005, Urine Protein 15 H, Urine Glucose (UA) Normal, Urine Ketones Negative, Urine Occult Blood Negative, Urine Nitrite Positive H, Urine Bilirubin Negative, Urine Urobilinogen Normal, Ur Leukocyte Esterase 25 H, Urine RBC 0 SEEN, Urine WBC 0-5 SEEN, Ur Squamous Epith Cells 0-5 SEEN, Amorphous Sediment 1+ PHOS, Urine Bacteria RARE, Urine Mucus 0 SEEN 06/22/24 23:57: Troponin T Hi Sens 2 Hr 215 H* 06/23/24 02:25: WBC 8.6, RBC 4.37, Hgb 13.3, Hct 40.0, MCV 91.5, MCH 30.4, MCHC 33.3, RDW Std Deviation 47.8 H, RDW Coeff of Lorenzo 14.3, Plt Count 255, MPV 9.4, Sodium 138, Potassium 4.0, Chloride 105, Carbon Dioxide 19.4 L, Anion Gap 14, BUN 17, Creatinine 0.85, Estim Creat Clear Calc 44.06 L, Est GFR (MDRD) Non-Af 68, BUN/Creatinine Ratio 20.4 H, Glucose 93, Calcium 10.2, Troponin T Hi Sens 4Hr 253 H*, Triglycerides 92, Cholesterol 151, LDL Cholesterol, Calc 74, VLDL Cholesterol 18, HDL Cholesterol 59, Cholesterol/HDL Ratio 2.58 Radiography Diagnostic Testing: Radiology Impression Brain CT 06/22/24 17:37 IMPRESSION: 1. No acute intracranial abnormality. 2. Age-appropriate volume loss and remote small vessel ischemic changes Findings reported to Dr. Rafael Wells on 06/22/2024 at 1802 hours Reading Location: [facility] Head/Neck CTA 06/22/24 17:40 IMPRESSION: Mild atherosclerotic changes with no hemodynamically significant stenosis in the arteries of the head and neck. One or more dose reduction techniques were used (e.g., Automated exposure control, adjustment of the mA and/or kV according to patient size, use of iterative reconstruction technique). [facility] Chest X-Ray 06/22/24 18:23 IMPRESSION: Left basilar atelectasis. [facility] E[facility] 06/23/24 02:33 Interpretation Summary Moderate concentric left ventricular hypertrophy. Posterior basal hypokinesis. LVEF estimated at 65%. Stage I diastolic dysfunction. The left atrium is mildly enlarged. Mild to moderate mitral valve regurgitation. Ordering Physician: Debbi Cyr Performed By: Paul Harmon [facility] Brain MRI 06/23/24 12:00 IMPRESSION: No acute intracranial abnormality; no acute infarct, intracranial hemorrhage or extra-axial collection. Chronic microvascular ischemia and involutional changes. Reading Location: [facility] Physical Exam Const alert, oriented x3, no apparent distress and average body habitus Constitutional Narrative: Elderly female, energy and mentation much improved from admission, sitting up comfortably in bedside chair, answering questions appropriately and in no acute distress. General Appearance: cooperative and comfortable HEENT normocephalic, head/scalp atraumatic, hearing grossly normal bilaterally, nasal mucous membranes and turbinates normal and moist oral mucous membranes Eyes PERRL, EOMs intact bilaterally and conjunctivae normal Neck full ROM Chest inspection of chest normal Resp normal respiratory effort, normal air movement, no use of accessory muscles and clear to auscultation bilaterally Cardio regular rate, regular rhythm, no murmurs and peripheral pulses 2+ throughout GI normal to inspection, nondistended, normoactive bowel sounds, soft to palpation, non-tender and non-distended Back/Spine normal ROM Extremity normal to inspection, full ROM and no pedal edema Skin no rashes or lesions noted Neuro moves all extremities and no focal motor deficits Speech: speech normal Motor Exam: strength 5/5 throughout Psych affect normal Assessment & Plan Assessment/Plan (1) Confusion: (2) Stroke-like symptoms: PLAN: Plan Patient is an 84-year-old female who presented [facility] ED on 06/22/2024 with confusion and incontinence of urine. 1. Strokelike symptoms, resolved ? Neurology evaluated. CT brain and CTA head/neck unremarkable. MRI brain unremarkable. Had initial NIHSS score of 7 on admit but her symptoms had fully resolved by morning of 06/23. Patient was prescribed baclofen for her back pain recently and this event happened not long after she took her first dose of baclofen, so it is most likely that this was secondary to the baclofen. Recommended the patient discontinue the baclofen going forward. Okay to continue home Eliquis and statin. No further workup needed. 2. Elevated troponins ? Troponin trend 25 > 215 > 253. No EKG changes noted and no chest pain. Echo on 06/23 showed EF 65%, moderate concentric LV hypertrophy and stage I diastolic dysfunction but also posterior basal hypokinesis was called. Given this finding and the elevated troponins, nuclear stress test ordered for tomorrow morning. 3. Paroxysmal A-fib on Eliquis ? Stable in normal sinus rhythm on admit. Continue home Eliquis. Not on rate control agent. 4. Acute grief state ? Patient's unfortunately in late April. Patient lives at home alone but daughter lives close by and notes that patient has had a difficult time coping with her 's loss. Patient needs but recommend close outpatient follow-up with PCP after discharge. Chronic medical conditions: ? Chronic low back pain with radiculopathy: Follows with orthopedics. Has lumbar spine MRI scheduled in the next few weeks for further evaluation. Was recently prescribed cyclobenzaprine with no improvement and then baclofen with significant side effects as noted above. Continue home weekly buprenorphine patch and Tylenol as needed. ? Hypertension: Will restart home lisinopril on 06/24. ? GERD: Continue home PPI. ? History of gout: Continue home allopurinol. ? Hyperlipidemia: Continue home statin. DVT prophylaxis: Not indicated, on Eliquis CODE STATUS: Full code, verified Expected disposition: Home, 1 to 2 days Total clinical time spent by myself addressing the patient's medical issues, reviewing all the data, and collaborating with patient's care team: 35 minutes.
[2024-06-23 16:52] VITALS: BMI 25.8
[2024-06-23 22:30] VITALS: BP 120/65; PULSE 73; RESP 16; TEMP 36.3; O2SAT 95
[2024-06-23] MEDS: Atorvastatin Calcium 40 MG Tablet PO (23:14)
[2024-06-23] MEDS: MELATONIN 3 MG TABLET PO (23:23)
[2024-06-24 04:09] VITALS: BP 105/65; PULSE 66; RESP 16; TEMP 36.5; O2SAT 95
[2024-06-24 05:16] VITALS: BP 115/60; PULSE 62
[2024-06-24] MEDS: Lisinopril 10 MG Tablet PO (05:18)
[2024-06-24] MEDS: Pregabalin 50 MG Capsule PO ×2 (05:19→14:15)
[2024-06-24 05:23] LABS: Hemoglobin 11.7 g/dL (12.0-15.0); Mean Corp Hgb Conc 33.4 g/dL (32-36); Mean Corpuscular Hgb 30.2 pg (27.0-32.0); Mean Corpuscular Volume 90.4 fL (81-99); Mean Platelet Vol. 9.2 fl (6.2-12.0); Platelet Count 239 K/mm3 (150-450); RBC Distribution Width CV 14.6 % (11.6-14.6); Red Blood Count 3.87 M/mm3 (4.2-5.4); White Blood Count 6.4 K/mm3 (4.4-11.0)
[2024-06-24 05:58] LABS: Anion Gap 12 (5-15); BUN 17 mg/dL (4-19); Carbon Dioxide 21.1 mmol/L (21.0-32.0); Chloride 104 mmol/L (98-108); Creatinine, Serum 0.98 mg/dL (0.70-1.20); EST Glomerular Filtration Rate 57 (>60); Estimated Creatinine Clearance 38.22 ml/min (50-250); Glucose 106 mg/dL (70-99); Potassium 4.3 mmol/L (3.3-5.1); Sodium Level 137 mmol/L (133-145)
[2024-06-24] MEDS: Acetaminophen 325 MG Tablet 650 MG PO (07:14)
--- NOTE | 2024-06-24 09:42 | CASEMGMT ---
Social Work Pt negative for stroke, therefore PHQ9 not completed. Brady Hein, SALES AND SERVICE REPRESENTATIVE
[2024-06-24 10:11] VITALS: BP 116/66; PULSE 75; RESP 15; TEMP 36.6; O2SAT 96
[2024-06-24] MEDS: Calcium Carb/Vitamin D 1 TABLET Tablet PO (10:17)
[2024-06-24] MEDS: Folic Acid 1 MG Tablet PO (10:17)
[2024-06-24] MEDS: Allopurinol 100 MG Tablet PO (10:17)
[2024-06-24] MEDS: Multivitamin (Healthy Eyes) Capsule 1 CAP PO (10:17)
[2024-06-24] MEDS: APIXABAN 2.5 MG TABLET (WCH) PO (10:17)
[2024-06-24] MEDS: Pantoprazole Sodium 40 MG Tablet PO (10:17)
--- NOTE | 2024-06-24 13:06 | STRESSREP ---
Stress Test Report Date: 06/24/2024 Procedure: Pharmacologic stress nuclear imaging study Indications: Elevated troponin Consent: Per the patient Procedure: The patient underwent pharmacologic (Regadenoson 0.4mg ) evaluation with a peak heart rate of 80 beats per minute (58%predicted maximal heart rate) and a peak blood pressure of 134/76 mmHg. The baseline ECG demonstrated sinus rhythm. The peak pharmacologic ECG demonstrated no ischemic changes. There were no cardiac dysrhythmias pretest, during pharmacologic infusion, or recovery. There was no complaint of chest discomfort during pharmacologic infusion or recovery. The patient was injected with 12.0 millicuries of technetium 99m Cardiolite and subsequently rest SPECT Cardiolite nuclear imaging was obtained in the horizontal long, vertical long, and short axis views. The patient underwent pharmacologic (Regadenoson) evaluation. The patient was injected with 34.1 millicuries of technetium 99m Cardiolite and subsequently stress SPECT Cardiolite nuclear imaging was obtained in the horizontal long, vertical long, and short axis views. A gated Cardiolite study at peak stress was obtained. The examination was stopped secondary to completion of protocol. Rest and stress SPECT Cardiolite nuclear imaging status post realignment, normalization, and attenuation correction demonstrate a very small reversible perfusion defect in the basal lateral segment. There is end systolic thickening and brightening. The gated Cardiolite study demonstrates myocardial thickening and inward wall motion. The reported LVEF is 77%. Impression: 1. Pharmacologic (Regadenoson) evaluation 2. Peak pharmacologic ECG with no ischemic changes. 3. There were no cardiac dysrhythmias pretest, during pharmacologic infusion, or recovery. 5. Small reversible perfusion defect in the basal lateral wall, suggestive of ischemia. Involves less than 5% of the myocardium. Low risk positive stress test. 6. The gated Cardiolite study reports an LVEF of 77%. This note was generated with [employer] software. It may contain incorrect words, spelling, and punctuation that were not noted in checking the note before signing.
--- NOTE | 2024-06-24 14:33 | DCINST_ITS ---
Discharge Instructions Diet Discharge Diet: Low fat / Low cholesterol DC O2, CPAP, BIPAP needs Home O2 Discharge instructions: No Dressing / Incision Discharge Activity: Return to Normal Activity Weight Bearing Status: Weight bearing as tolerated Dressing / Incision Call your doctor if you observe: Fever of 101 or Higher, Shortness of breath, Dizziness, Swelling in the ankles, Chest pain and Increased palpitations (irregular heartbeat) Follow Up Care Test Results: Test results from this visit will be discussed in further detail at your follow- up appointment, if applicable. Discharge Plan Admission Admit Date/Time: 06/22/24 19:12 Primary Reason for Your Visit: strokelike symptoms Attending Provider: María Claros Primary Care Provider: Maria D Michael Consulting Providers: Wally Kauffman Additional Instructions / Restrictions: Continue home medications as normal. Please hold off on taking the cyclobenzaprine that was recently prescribed by orthopedics. Follow up with orthopedics and your PCP as needed. Discharge Orders/Prescriptions Prescriptions: New aspirin 81 mg tablet,chewable 81 mg PO DAILY Qty: 30 2RF Continued allopurinol 100 mg tablet 100 mg PO DAILY pregabalin 100 mg capsule 100 mg PO TID pantoprazole 40 mg tablet,delayed release (DR/EC) 40 mg PO BID Qty: 60 2RF rosuvastatin 5 mg tablet 5 mg PO QHS ondansetron 4 mg tablet,disintegrating 4 mg PO Q8H PRN (Reason: nausea and vomiting) alpha lipoic acid 200 mg capsule 200 mg PO DAILY PreserVision AREDS-2 250-90-40-1 mg capsule 1 tab PO BID folic acid 0.8 mg capsule 800 mcg PO DAILY calcium citrate-vitamin D3 [Calcium Citrate + D] 315 mg-5 mcg (200 unit) tablet 1 tab PO DAILY magnesium 250 mg tablet 250 mg PO DAILY lisinopril 10 mg tablet 10 mg PO DAILY buprenorphine 10 mcg/hour patch weekly 1 patch topical QWEEK Eliquis 2.5 mg tablet 2.5 mg PO BID Qty: 60 12RF Rx Instructions: Hold if patient has GI bleed, hematemesis melena or hematuria or hemoptysis. Referrals / Follow Up: Loly Driscoll MD [Med Staff - Active Staff] - Within 2 Weeks (see to establish care o/a of abnormal stress test) [place],Maria D D, MD [Primary Care Provider] - Disposition Disposition (needs filled in before D/C Order can be placed): Home, Self Care
--- NOTE | 2024-06-24 14:37 | PCM.DC.SUM ---
Providers Date of Admission: 06/22/24 Date of Discharge: 06/24/24 Primary Care Physician: Dr. Maria D Michael MD Consultations 06/22/24 21:24 Consult: Tele-Neurology Routine Consulting Provider: [facility] Reason for Consult: Acute Ischemic Stroke/TIA EMERGENT Consult: No MD Notified: Yes Date Notified: 06/22/24 Time Notified: 01:47 Method of Notification: Answering Service Nursing Unit Staff Notify [facility] of Tele-Neurology Consult: Yes Reason For Visit: STROKELIKE SYMPTOMS Diagnosis Discharge Diagnosis (1) Confusion: Status: Acute Code(s): R41.0 - Disorientation, unspecified (2) Stroke-like symptoms: Status: Acute Code(s): R29.90 - Unspecified symptoms and signs involving the nervous system Medications at Discharge Home Medications allopurinol 100 mg tablet 100 mg PO DAILY gout 01/13/22 pregabalin 100 mg capsule 100 mg PO TID pain 01/13/22 pantoprazole 40 mg tablet,delayed release 40 mg PO BID acid reflux #60 tabs 09/04/22 apixaban 2.5 mg tablet (Eliquis) 2.5 mg PO BID blood thinner #60 tabs 01/05/24 alpha lipoic acid 200 mg capsule 200 mg PO DAILY supplement 06/22/24 buprenorphine 10 mcg/hour weekly transdermal patch 1 patch topical QWEEK pain 06/22/24 calcium 315 mg (as citrate)-vitamin D3 5 mcg (200 unit) tablet (Calcium Citrate + D) 1 tab PO DAILY supplement 06/22/24 folic acid 0.8 mg capsule 800 mcg PO DAILY supplement 06/22/24 lisinopril 10 mg tablet 10 mg PO DAILY blood pressure 06/22/24 magnesium 250 mg tablet 250 mg PO DAILY supplement 06/22/24 ondansetron 4 mg disintegrating tablet 4 mg PO Q8H PRN nausea and vomiting 06/22/24 rosuvastatin 5 mg tablet 5 mg PO QHS cholesterol 06/22/24 vit C 250 mg-vit E 90 mg-zinc 40 mg-copper 1 fg-fqixfo-heqxco capsule (PreserVision AREDS-2) 1 tab PO BID supplements 06/22/24 aspirin 81 mg chewable tablet 81 mg PO DAILY #30 tabs 06/24/24 Hospital Course Operations None Procedures 2-D Echocardiogram Summary of Care Provided Minutes Spent on Discharge: 55 Hospital Course: Patient is an 84 y/o female with a PMh as outlined who was admitted via the ED On 06/22/2024 with a complaint of confusion and incontinence. Her last known well was around 8 PM on the day before admission. Patient was on Eliquis for A-fib and history of PE. On admission NIH stroke scale was [address] of the brain showed no acute intracranial pathology and CT of the head and neck also showed no hemodynamically significant stenosis. She was not a TNK candidate due to her being on Eliquis. She was admitted to rule out a stroke. Neurology was also consulted. She had MRI of the brain which was negative for stroke. Initial troponin was negative but subsequently did trend up to 215. She had 2D echo done which showed EF of 65% with stage I diastolic dysfunction and posterior basal hypokinesis and moderate concentric left ventricular hypertrophy. She therefore had stress test done on 06/24/2024 which showed a small reversible perfusion defect in the basal lateral wall suggestive of ischemia involving less than 5% of the myocardium which cardiology interpreted as a low risk positive stress test. I discussed this with Dr. Driscoll the preparation room manager with the stress test. Per the discussion, Dr. Driscoll stated that patient could go home and follow-up with cardiology on outpatient basis for an outpatient elective cardiac cath. Recommended that aspirin be added on. Patient was therefore discharged on p.o. aspirin in addition to the Eliquis and high intensity statin. She is to follow-up with her primary care doctor within 1 week and is also to follow-up with cardiology within 1 to 2 weeks. Patient counseled to come back to the hospital if she developed chest pain or shortness of breath. Patient was already on rosuvastatin and was counseled to continue with that. She was also already on pantoprazole which would decrease her risk of GI bleed in light of her being started on aspirin in addition to the Eliquis that she was on. Patient was seen and examined prior to discharge. Her 2 daughters were by her bedside. She had no active complaints. She denied any shortness of breath, dizziness, chest pain or any other symptoms. Review of systems otherwise negative. Physical Exam Const alert, oriented x3 and no apparent distress General Appearance: cooperative and comfortable Orientation / Consciousness: awake Exam Limitations: no limitations HEENT normocephalic, head/scalp atraumatic, hearing grossly normal bilaterally, moist oral mucous membranes and oropharynx normal Mouth: oral and palatal mucosa normal Eyes PERRL, EOMs intact bilaterally and conjunctivae normal Resp normal respiratory effort Cardio regular rate, regular rhythm, S1 normal heart sound, S2 normal heart sound and no murmurs GI normal to inspection, nondistended, normoactive bowel sounds, soft to palpation, non-tender and non-distended Extremity normal to inspection, full ROM and no clubbing, cyanosis or edema Skin no rashes or lesions noted and no wounds Neuro oriented x3, CN's II-XII intact bilaterally, moves all extremities and no focal motor deficits Motor Exam: strength 5/5 throughout Psych affect normal Weight / BMI Weight Weight: 141 lb 1.533 oz Body Mass Index (BMI) 25.8 ABG / Lab / Microbiology Data 06/24/24 05:13 06/24/24 05:13 Laboratory: Laboratory Results - last 24 hr 06/24/24 05:13: WBC 6.4, RBC 3.87 L, Hgb 11.7 L, Hct 35.0 L, MCV 90.4, MCH 30.2, MCHC 33.4, RDW Std Deviation 48.0 H, RDW Coeff of Lorenzo 14.6, Plt Count 239, MPV 9.2, Sodium 137, Potassium 4.3, Chloride 104, Carbon Dioxide 21.1, Anion Gap 12, BUN 17, Creatinine 0.98, Estim Creat Clear Calc 38.22 L, Est GFR (MDRD) Non-Af 57 L, BUN/Creatinine Ratio 17.0, Glucose 106 H, Calcium 10.0 Radiography Diagnostic Testing: Radiology Impression Echocardiogram 06/23/24 02:33 Interpretation Summary Moderate concentric left ventricular hypertrophy. Posterior basal hypokinesis. LVEF estimated at 65%. Stage I diastolic dysfunction. The left atrium is mildly enlarged. Mild to moderate mitral valve regurgitation. Ordering Physician: Debbi Cyr Performed By: Brodwolf, Paul, RCS Brain MRI 06/23/24 12:00 IMPRESSION: No acute intracranial abnormality; no acute infarct, intracranial hemorrhage or extra-axial collection. Chronic microvascular ischemia and involutional changes. Reading [facility] Instructions Discharge Diet: Low fat / Low cholesterol Discharge Activity: Return to Normal Activity Weight Bearing Status: Weight bearing as tolerated Call your doctor if you observe: Fever of 101 or Higher, Shortness of breath, Dizziness, Swelling in the ankles, Chest pain and Increased palpitations (irregular heartbeat) DC O2, CPAP, BIPAP Needs Home O2 Discharge instructions: No DC home with Oxygen: No Meaningful Use Info Meaningful Use Meaningful Use Diagnoses (Choose all that apply): None applicable Ischemic Stroke Statin Dosing Therapy Reference: STATIN DOSE THERAPY REFERENCE: * Patients > 75 years receive moderate or high dose statin therapy. * Patients 75 years or YOUNGER should receive HIGH intensity statin dose unless contraindicated. You will be required to document reason for non-treatment if statin daily dose does not meet guidelines. HIGH DOSE STATIN THERAPY DAILY Atorvastatin > than or = to 40 mg Rosuvastatin > than or = to 20 mg Amlodipine + Atorvastatin > than or = to 2.5/40 mg Ezetimibe + Simvastatin 10/80 mg Simvastatin 80mg Discharge Plan Admission Admit Date/Time: 06/22/24 19:12 Primary Reason for Your Visit: strokelike symptoms Attending Provider: María Claros Primary Care Provider: Maria D Michael Consulting Providers: Wally Kauffman Instructions Additional Instructions / Restrictions: Continue home medications as normal. Please hold off on taking the cyclobenzaprine that was recently prescribed by orthopedics. Follow up with orthopedics and your PCP as needed. Discharge Orders/Prescriptions Prescriptions: New aspirin 81 mg tablet,chewable 81 mg PO DAILY Qty: 30 2RF Continued allopurinol 100 mg tablet 100 mg PO DAILY pregabalin 100 mg capsule 100 mg PO TID pantoprazole 40 mg tablet,delayed release (DR/EC) 40 mg PO BID Qty: 60 2RF rosuvastatin 5 mg tablet 5 mg PO QHS ondansetron 4 mg tablet,disintegrating 4 mg PO Q8H PRN (Reason: nausea and vomiting) alpha lipoic acid 200 mg capsule 200 mg PO DAILY PreserVision AREDS-2 250-90-40-1 mg capsule 1 tab PO BID folic acid 0.8 mg capsule 800 mcg PO DAILY calcium citrate-vitamin D3 [Calcium Citrate + D] 315 mg-5 mcg (200 unit) tablet 1 tab PO DAILY magnesium 250 mg tablet 250 mg PO DAILY lisinopril 10 mg tablet 10 mg PO DAILY buprenorphine 10 mcg/hour patch weekly 1 patch topical QWEEK Eliquis 2.5 mg tablet 2.5 mg PO BID Qty: 60 12RF Rx Instructions: Hold if patient has GI bleed, hematemesis melena or hematuria or hemoptysis. Referrals / Follow Up: Loly Driscoll MD [Med Staff - Active Staff] - Within 2 Weeks (see to establish care o/a of abnormal stress test) Maria D Michael MD [Primary Care Provider] - Disposition Disposition (needs filled in before D/C Order can be placed): Home, Self Care Charges/Coding Visit Charges Inpatient E&M: 28510 Disch Hosp >30min
--- NOTE | 2024-06-24 15:04 | CASEMGMT ---
SANDRA DESIR noted DC order in. Into pt room, pt family present. Pt denies any DC states, has family support. Denies any questions at this time.
--- NOTE | 2024-06-24 15:47 | CHAPLAIN ---
Type of Pastoral Visit _x__ Initial Visit ___ Follow-up Visit ___ On-call Visit ___ General Patient Visit ___ Spiritual Assessment ___ Family Conference ___ Bereavement ___ Rapid Response ___ Code Blue ___ Other (describe below) Pastoral Care Referral From _x__ Patient ___ Family ___ Nurse ___ Physician ___ Heading And Priming Tool Setter ___ Wire Frame Lamp Shade Maker ___ Other (describe below) Sacrament/Intervention _x__ Active listening ___ Anointing ___ Adventist _x__ Bereavement ___ Communion ___ Tracy exploration ___ ___ Life review _x__ Prayer ___ Reconciliation ___ Sacrament of Sick _x__ Supportive presence ___ Wedding ___ Other (describe below) Pastoral Comments patient is finishing up her lunch and has two family members with her; pt will be discharged this afternoon; pt and family explain her health situation and how it is being resolved; pt then speaks of her who just a few weeks ago; grief support and listening ear given; offer of prayer for her health and her comfort given; compassionate care expressed to all
[2024-06-24 16:13] VITALS: BMI 25.8
== END 2024-06-24 14:33 | disposition home or self-care (01) ==
LOC: ED 19:07 → PCU 20:14
PROVIDERS: Admitting Provider Hospitalist; Emergency Provider Emergency Medicine; PCP Internal Medicine; Visit Provider Student in an Organized Health Care Education/Training Program
DX: R41.0 Disorientation, unspecified (principal); I48.0 Paroxysmal atrial fibrillation; I10 Essential (primary) hypertension; E78.5 Hyperlipidemia, unspecified; M54.9 Dorsalgia, unspecified; M54.16 Radiculopathy, lumbar region; K21.9 Gastro-esophageal reflux disease without esophagitis; Z79.01 Long term (current) use of anticoagulants; H91.90 Unspecified hearing loss, unspecified ear; H53.8 Other visual disturbances; Z86.711 Personal history of pulmonary embolism; R32 Unspecified urinary incontinence; R47.1 Dysarthria and anarthria; Z79.899 Other long term (current) drug therapy; M10.9 Gout, unspecified; R29.90 Unspecified symptoms and signs involving the nervous system; F43.21 Adjustment disorder with depressed mood; Z63.4 Disappearance and death of family member; R53.1 Weakness; R79.89 Other specified abnormal findings of blood chemistry; I34.0 Nonrheumatic mitral (valve) insufficiency; I51.7 Cardiomegaly; R93.1 Abnormal findings on diagnostic imaging of heart and coronary circulation; R94.39 Abnormal result of other cardiovascular function study; Z86.73 Personal history of transient ischemic attack (TIA), and cerebral infarction without residual deficits; Z82.3 Family history of stroke; R94.31 Abnormal electrocardiogram [ECG] [EKG]
CPT/HCPCS: 36415; 70450; 70496; 70498; 70551; 71045; 78452; 80048; 80061; 81001; 83036; 84443; 84484; 85025; 85027; 85610; 85730; 92610; 93005; 93017; 93306; 97110; 97162; 97166; 99221; 99285; A9500; P9612; Q9967; A4216; G0378; J2785

== ENCOUNTER → 2024-07-04 | Outpatient (CLI) | payer MEDICARE, SELFPAY ==
--- NOTE | 2024-07-04 15:39 | MRI_ITS ---
PROCEDURE: Noncontrast MRI of the lumbar spine. REASON FOR EXAM: Chronic low back pain. TECHNIQUE: Multiplanar, multisequence MRI images of the lumbar spine were obtained without IV contrast. COMPARISON: Lumbar spine radiographs 06/02/2024. No prior lumbar spine MRI. FINDINGS: The study assumes a presence of 5 lumbar type, [id number] vertebral bodies. On the coronal localizer images, there is moderate rightward curvature of the lumbar spine. Grade 1 retrolisthesis of L4 relative to L3 and L5. There is lpdthzly-zr-ddbayp multilevel degenerative disc and facet disease in the lumbar spine. There is some magnetic susceptibility artifact and anatomic signal distortion of the posterior lower lumbar soft tissues on the sagittal images. The conus terminates at L1. The included lower spinal cord is unremarkable. There is severe compression deformity of T12. There is moderate marrow edema of the T12 vertebral body on the STIR sequence. 4 mm of posterior cortical retropulsion of T12, causing mild central spinal canal narrowing. The included retroperitoneal and paraspinal soft tissues show no specific abnormality. There is chronic moderate superior endplate compression deformity of L4, without abnormal increased STIR signal. There are reactive endplate changes at L4-5. L1-2: Minimal disc bulge without focal disc herniation or significant central spinal canal narrowing. Mild bilateral neural foraminal narrowing and degenerative facet changes. L2-3: No focal disc herniation or significant central spinal canal narrowing. Myaw-bu-ersbqlhr right and severe left neural foraminal narrowing. Moderate degenerative facet changes. L3-4: Grade 1 retrolisthesis of L4 relative to L3. A diffuse disc bulge flattens the ventral thecal sac, without focal disc herniation. There is mild narrowing of the right lateral recess due to ligamentum flavum and facet hypertrophy. Ibfg-qk-jmubmlsh right and severe left neural foraminal narrowing. Moderate degenerative facet changes. There is at least mild central spinal canal narrowing below the level of the disc space. L4-5: Reactive endplate changes at the L4-5 level. Chronic appearing moderate superior endplate compression deformity of L4. A diffuse disc bulge indents the ventral thecal sac, causing mild central spinal canal narrowing. No focal disc herniation. There is narrowing of the right lateral recess due to asymmetric right disc bulge and asymmetric hypertrophy of the ligamentum flavum and right facet. Severe right and cgwxbgqq-pf-dxzrhz left neural foraminal narrowing. Moderate degenerative facet changes. L5-S1: Mild disc bulge flattens the ventral thecal sac, without focal disc herniation or significant central spinal canal narrowing. Mild left and severe right neural foraminal narrowing. Moderate degenerative facet changes. MRI/Spine Lumbar (Routine) IMPRESSION: Acute severe compression fracture deformity of T12, with mild posterior cortica l retropulsion. Chronic appearing moderate superior endplate compression deformity of L4. Moderately extensive multilevel degenerative disc and facet disease in the lumb ar spine as described level by level above. No large focal disc herniation or significant central spinal canal narrowing. The re is moderate narrowing of the right lateral recess at L4-5 due to asymmetric ligamentum flavum and facet hypertrophy. Multilevel neural foraminal narrowing as described level by level above. Reading Location: [facility]
== END | disposition home or self-care (01) ==
PROVIDERS: PCP Internal Medicine; Referring Provider Student in an Organized Health Care Education/Training Program; Visit Provider Student in an Organized Health Care Education/Training Program
DX: S32.040A Wedge compression fracture of fourth lumbar vertebra, initial encounter for closed fracture (principal); M51.369 Other intervertebral disc degeneration, lumbar region without mention of lumbar back pain or lower extremity pain; M41.9 Scoliosis, unspecified
CPT/HCPCS: 72148

== ENCOUNTER → 2024-09-15 | Outpatient (CLI) | payer MEDICARE, SELFPAY ==
[2024-09-15 17:45] LABS: Absolute Lymphocyte Count 1.07 X10^3/uL (0.83-4.51); Absolute Neutrophil Count 3.8 X10^3/uL (2.0-7.7); Basophil# 0.04 X10^3/uL; Basophil% 0.7 % (0-1); Eosinophil# 0.16 X10^3/uL; Eosinophils% 2.9 % (0-5); Hematocrit 35.2 % (37-47); Hemoglobin 11.1 g/dL (12.0-15.0); Lymphocyte # 1.07 X10^3/ul (0.83-4.51); Lymphocyte % 19.6 % (19-41); Mean Corp Hgb Conc 31.5 g/dL (32-36); Mean Corpuscular Hgb 29.8 pg (27.0-32.0); Mean Corpuscular Volume 94.4 fL (81-99); Mean Platelet Vol. 10.8 fl (6.2-12.0); Monocyte# 0.41 X10^3/uL; Monocyte% 7.5 % (0-10); NRBC Flagged by Analyzer 0 % (0-5); Neutrophil # 3.76 X10^3/uL (2.7-7.7); Neutrophil % 69.1 % (47-70); Platelet Count 209 K/mm3 (150-450); RBC Distribution Width CV 13.8 % (11.6-14.6); RBC Distribution Width SD 47.8 fl (35.1-43.9); Red Blood Count 3.73 M/mm3 (4.2-5.4); White Blood Count 5.5 K/mm3 (4.4-11.0)
[2024-09-15 18:02] LABS: Anion Gap 11 (5-15); BUN 22 mg/dL (4-19); BUN/Creat Ratio 18.6 RATIO (10-20); Calcium,Total 10.1 mg/dL (7.6-11.0); Chloride 104 mmol/L (98-108); Creatinine, Serum 1.18 mg/dL (0.70-1.20); EST Glomerular Filtration Rate 46 (>60); Glucose 90 mg/dL (70-99); Potassium 4.7 mmol/L (3.3-5.1); Pro- Brain NATRIURETIC PEPTIDE 500 pg/mL (<=1800); Sodium Level 138 mmol/L (133-145)
== END | disposition home or self-care (01) ==
LOC: MTLAB 14:21
PROVIDERS: PCP Internal Medicine; Referring Provider Nurse Practitioner Gerontology; Visit Provider Nurse Practitioner Gerontology
DX: I48.0 Paroxysmal atrial fibrillation (principal); I10 Essential (primary) hypertension; R06.02 Shortness of breath; R53.83 Other fatigue
CPT/HCPCS: 36415; 80048; 83880; 85025

== ENCOUNTER → 2025-02-06 | Outpatient (CLI) | payer MEDICARE, SELFPAY ==
[2025-02-06 16:28] LABS: Hematocrit 35.9 % (37-47); Hemoglobin 11.8 g/dL (12.0-15.0); Immature Granulocytes Count 0.020 X10^3/uL (0.0-0.0); Mean Corp Hgb Conc 32.9 g/dL (32-36); Mean Corpuscular Volume 90.7 fL (81-99); Mean Platelet Vol. 9.8 fl (6.2-12.0); NRBC Flagged by Analyzer 0 % (0-5); Platelet Count 205 K/mm3 (150-450); RBC Distribution Width CV 14.6 % (11.6-14.6); RBC Distribution Width SD 48.6 fl (35.1-43.9); Red Blood Count 3.96 M/mm3 (4.2-5.4); White Blood Count 7.3 K/mm3 (4.4-11.0)
[2025-02-06 17:16] LABS: Anion Gap 10 (5-15); BUN 29 mg/dL (4-19); BUN/Creat Ratio 24.2 RATIO (10-20); Calcium,Total 10.2 mg/dL (7.6-11.0); Carbon Dioxide 24.7 mmol/L (21.0-32.0); Chloride 106 mmol/L (98-108); Glucose 96 mg/dL (70-99); Potassium 4.7 mmol/L (3.3-5.1)
== END | disposition home or self-care (01) ==
LOC: LAB 15:47
PROVIDERS: PCP Internal Medicine; Referring Provider Nurse Practitioner Gerontology; Visit Provider Nurse Practitioner Gerontology
DX: I48.0 Paroxysmal atrial fibrillation (principal); I10 Essential (primary) hypertension
CPT/HCPCS: 36415; 80048; 84443; 85025

== ENCOUNTER → 2025-03-10 | Outpatient (CLI) | payer MEDICARE, SELFPAY ==
--- NOTE | 2025-03-10 14:55 | CDU_ITS ---
Reason For Study Reason For Study: Dizziness Rt. Velocities/BP Lt. Velocities/BP Prox CCA 49/8 cm/sec. Prox CCA 69/11 cm/sec. Mid CCA 59/10 cm/sec. Mid CCA 69/12 cm/sec. Dist CCA 48/10 cm/sec. Dist CCA 63/13 cm/sec. Prox ICA 58/14 cm/sec. Prox ICA 52/10 cm/sec. Mid ICA 61/18 cm/sec. Mid ICA 63/19 cm/sec. Dist ICA 46/14 cm/sec. Dist ICA 90/26 cm/sec. Rt. ICA/CCA = 1.0. Lt. ICA/CCA = 1.3. Prox ECA 126/8 cm/sec. Prox ECA 100/0 cm/sec. Rt. Vert. 40/12 cm/sec. Lt. Vert. 57/14 cm/sec. Right Extracranial There is heterogeneous, irregular atherosclerotic plaque noted in the right common carotid artery. There is heterogeneous, irregular atherosclerotic plaque noted in the right internal carotid artery. The atherosclerotic plaque causes acoustic shadowing. There is heterogeneous, irregular atherosclerotic plaque noted in the right external carotid artery. Antegrade flow is noted in the right vertebral artery. Left Extracranial There is heterogeneous, irregular atherosclerotic plaque noted in the left common carotid artery. There is heterogeneous, irregular atherosclerotic plaque noted in the left internal carotid artery. There is heterogeneous, irregular atherosclerotic plaque noted in the left external carotid artery. Antegrade flow is noted in the left vertebral artery. Procedure Carotid Duplex [id number]. This is a Carotid Duplex examination using B-mode, color flow and specral Doppler. Exam performed in department. VL/Carotid Duplex Ultrasound Interpretation Summary Mild (<50%) stenosis right extracranial internal carotid. Mild (<50%) stenosis left extracranial internal carotid. Patent and antegrade vertebrals bilaterally. Ordering Physician: Sherwin Chahal Referring Physician: Maria D Micheal Performed By: Liss Chahal, CECICS, RVT
== END | disposition home or self-care (01) ==
LOC: CVS 14:55
PROVIDERS: PCP Internal Medicine; Referring Provider Nurse Practitioner Family; Visit Provider Nurse Practitioner Family
DX: R42 Dizziness and giddiness (principal); I65.22 Occlusion and stenosis of left carotid artery
CPT/HCPCS: 93880